=== PATIENT | male | born 1950 | race Caucasian/White ===

== ENCOUNTER → 2016-11-01 | Outpatient (REF) | payer MEDICARE, OTHER ==
[~2016-11-01] MED LIST: /WARF25TA OR; ACET65TA OR; AMOX500C PO; ASPI1TAB PO; ATOR1TAB21 PO; GEMF600T PO; INDA125TA PO; Ibuprofen PO; JANU50TA8 PO; Janumet PO; LEVI20TA PO; Lisinopril/HCTZ PO; OCEAN; PERC5TAB8 OR; SILD1TAB8 PO; TELM1TAB2 PO; VYTORIN PO
[2016-11-01 12:45] LABS: ALBUMIN 3.9 GM/DL (3.2-5.2); ALBUMIN/GLOBULIN RATIO 1.44 (1.00-1.93); ALKALINE PHOSPHATASE 67 U/L (45-117); ALT/SGPT 23 U/L (12-78); ANION GAP 10 MEQ/L (8-16); AST/SGOT 15 U/L (15-37); BILIRUBIN,TOTAL 0.7 MG/DL (0.2-1.0); BLOOD UREA NITROGEN 17 MG/DL (7-18); CALCIUM LEVEL 8.6 MG/DL (8.8-10.2); CARBON DIOXIDE LEVEL 30 MEQ/L (21-32); CHLORIDE LEVEL 99 MEQ/L (98-107); CHOLESTEROL LEVEL 170 MG/DL (<200); GLOMERULAR FILTRATION RATE > 60.0 (>49); GLUCOSE, FASTING 147 MG/DL (80-110); POTASSIUM SERUM 3.8 MEQ/L (3.5-5.1); SODIUM LEVEL 139 MEQ/L (136-145); TOTAL PROTEIN 6.6 GM/DL (6.4-8.2); TRIGLYCERIDES LEVEL 236 MG/DL (<150)
== END ==
LOC: M LABDRAW1 11:47
PROVIDERS: ATTEND Physician Assistant
DX: E78.5 Hyperlipidemia, unspecified (principal); E11.9 Type 2 diabetes mellitus without complications; Z12.5 Encounter for screening for malignant neoplasm of prostate; I10 Essential (primary) hypertension
CPT/HCPCS: 36415; 80053; 80061; 83036; G0103

== ENCOUNTER 2016-12-20 11:50 | Emergency (ER) | payer MEDICARE, OTHER ==
[~2016-12-20] VITALS: Ht 177.8 cm; Wt 127.0 kg
[2016-12-20] MEDS ORDERED: ATOR1TAB18 PO (12:07)
[2016-12-20] MEDS ORDERED: KETOROLAC 30 MG/ML VIAL (J1885) IV ONE (13:15)
[2016-12-20] MEDS ORDERED: NS 500 ML IV ONE (13:15)
[2016-12-20] MEDS ORDERED: GASTROGRAFIN SOLUTION 30ML (Q9963) As Ordered ONE (13:19)
[2016-12-20] MEDS ORDERED: GASTROGRAFIN SOLUTION 30ML (Q9963) PO ONE (13:40)
[2016-12-20 14:06] LABS: BASO % 0.2 % (0.0-1.0); EOS % 0.4 % (0.0-3.0); LARGE UNSTAINED CELL # 0.1 K/mm3 (0.0-0.4); LYMPH # 1.9 K/mm3 (1.5-4.5); LYMPH % 13.3 % (24.0-44.0); MEAN CORPUSCULAR HEMOGLOBIN 29.9 pg (27.0-33.0); MEAN CORPUSCULAR HGB CONC 34.5 g/dl (32.0-36.5); MEAN CORPUSCULAR VOLUME 86.7 fl (80.0-96.0); MONO # 0.7 K/mm3 (0.0-0.8); MONO % 5.7 % (0.0-5.0); NEUTROPHILS # 10.2 K/mm3 (1.8-7.7); NEUTROPHILS % 79.3 % (36.0-66.0); PLATELET COUNT, AUTOMATED 260 k/mm3 (150-450); RED CELL DISTRIBUTION WIDTH 12.3 % (11.5-14.5); WHITE BLOOD COUNT 12.9 K/mm3 (4.0-10.0)
[2016-12-20 14:08] LABS: ALBUMIN 4.2 GM/DL (3.2-5.2); ALKALINE PHOSPHATASE 76 U/L (45-117); ALT/SGPT 24 U/L (12-78); AMYLASE 72 U/L (25-115); ANION GAP 12 MEQ/L (8-16); AST/SGOT 24 U/L (15-37); BILIRUBIN,DIRECT 0.1 MG/DL (0.0-0.2); BILIRUBIN,TOTAL 0.8 MG/DL (0.2-1.0); BLOOD UREA NITROGEN 22 MG/DL (7-18); CALCIUM LEVEL 9.1 MG/DL (8.8-10.2); CARBON DIOXIDE LEVEL 23 MEQ/L (21-32); CHLORIDE LEVEL 100 MEQ/L (98-107); CREATININE FOR GFR 1.21 MG/DL (0.70-1.30); GLOMERULAR FILTRATION RATE > 60.0 (>49); GLUCOSE, FASTING 183 MG/DL (80-110); POTASSIUM SERUM 3.8 MEQ/L (3.5-5.1); SODIUM LEVEL 135 MEQ/L (136-145); TOTAL PROTEIN 7.7 GM/DL (6.4-8.2)
[2016-12-20] MEDS ORDERED: ISOVUE-370 76% 100ML VIAL (Q9967) As Ordered ONE (15:11)
--- NOTE | 2016-12-20 16:02 | REP ---
CT of the abdomen pelvis with with IV contrast, without bowel contrast: There are no comparisons. The visualized lung ortiz demonstrate a 7 mm noncalcified lung nodule in the left lower lobe on image 21. Follow up of this nodule is recommended. The hepatic parenchyma, gallbladder, pancreas and spleen are unremarkable. The adrenals. Are unremarkable. There is moderate left hydronephrosis. There is a 8 mm calcification in the mid left ureter at the L4-L5 disc space level. There are no left renal calculi. No bladder calculi. There are no right renal calculi. There is no right hydronephrosis. There is no right ureteral calculus. There is no bowel distension. Mesentery is unremarkable. The appendix has a normal appearance. Pelvis: The bladder is unremarkable. There are prostatic list. There is no ascites or adenopathy. There are occasional diverticula in the descending colon without diverticulitis. Impression: Left ureteral calculus at the L4-5 level. The left hydronephrosis. There is a 7 mm left lower lobe lung nodule. Follow-up is recommended. CT of the chest is recommended to determine if there are any of the lung nodules. Half Signed by Mike Fletcher MD 12/20/2016 03:53 P
[2016-12-20] MEDS ORDERED: CIPR500T89 PO (16:15)
[2016-12-20] MEDS ORDERED: FLOM5CAP PO (16:15)
[2016-12-20] MEDS ORDERED: ACET30TAB PO (16:15)
[2016-12-20 16:22] VITALS: BP 189/108
== END 2016-12-20 16:31 | disposition home or self-care (01) ==
LOC: M ED 13:41
DX: N21.1 Calculus in urethra (principal); N13.30 Unspecified hydronephrosis; R10.9 Unspecified abdominal pain; E11.9 Type 2 diabetes mellitus without complications; Z95.2 Presence of prosthetic heart valve
CPT/HCPCS: 74177; 80048; 80076; 81001; 82150; 83690; 85025; 86140; 96374; 99283; J1885; Q9963; Q9967

== ENCOUNTER 2016-12-22 07:10 | Day surgery (SDC) | payer MEDICARE, OTHER ==
[~2016-12-22] VITALS: Ht 177.8 cm; Wt 132.1 kg
[~2016-12-22 07:10] MED LIST changes: +ACET30TAB PO; +ATOR1TAB18 PO; +CIPR500T89 PO; +FLOM5CAP PO
[2016-12-22] MEDS ORDERED: [UNRECOGNIZED DRUG - OTHER] (07:37)
[2016-12-22] MEDS ORDERED: NS 1,000 ML IV ONE (07:45)
[2016-12-22] MEDS ORDERED: KETOROLAC 30 MG/ML VIAL (J1885) IV ONE (07:45)
[2016-12-22 08:27] LABS: BASO % 0.3 % (0.0-1.0); EOS # 0.2 K/mm3 (0.0-0.50); EOS % 2.2 % (0.0-3.0); LARGE UNSTAINED CELL # 0.1 K/mm3 (0.0-0.4); LARGE UNSTAINED CELL % 1.2 % (0.0-4.0); LYMPH # 1.2 K/mm3 (1.5-4.5); LYMPH % 13.6 % (24.0-44.0); MEAN CORPUSCULAR HGB CONC 34.6 g/dl (32.0-36.5); MEAN CORPUSCULAR VOLUME 86.7 fl (80.0-96.0); MONO # 0.5 K/mm3 (0.0-0.8); MONO % 6.5 % (0.0-5.0); NEUTROPHILS # 6.1 K/mm3 (1.8-7.7); NEUTROPHILS % 76.2 % (36.0-66.0); PLATELET COUNT, AUTOMATED 234 k/mm3 (150-450); RED CELL DISTRIBUTION WIDTH 12.3 % (11.5-14.5)
[2016-12-22 08:31] LABS: ANION GAP 10 MEQ/L (8-16); BLOOD UREA NITROGEN 18 MG/DL (7-18); CALCIUM LEVEL 8.5 MG/DL (8.8-10.2); CARBON DIOXIDE LEVEL 26 MEQ/L (21-32); CHLORIDE LEVEL 104 MEQ/L (98-107); CREATININE FOR GFR 1.09 MG/DL (0.70-1.30); GLOMERULAR FILTRATION RATE > 60.0 (>49); GLUCOSE, FASTING 226 MG/DL (80-110); POTASSIUM SERUM 3.8 MEQ/L (3.5-5.1); SODIUM LEVEL 140 MEQ/L (136-145)
[2016-12-22] MEDS ORDERED: dexameTHASONE 4 MG/ML 1ML VIAL (J1100) As Ordered ONE (10:54)
[2016-12-22] MEDS ORDERED: LIDOCAINE 2% INJ 100 MG/5 ML SDV (FOR ANES.) As Ordered ONE (10:54)
[2016-12-22] MEDS ORDERED: ROCURONIUM BROMIDE 50 MG/5 ML VIAL As Ordered ONE (10:54)
[2016-12-22] MEDS ORDERED: PROPOFOL 200 MG/20 ML VIAL As Ordered ONE (10:54)
[2016-12-22] MEDS ORDERED: fentaNYL 100 MCG/2 ML INJECTION (J3010) As Ordered ONE (10:57)
[2016-12-22] MEDS ORDERED: MIDAZOLAM INJ 2 MG/2 ML VIAL (J2250) As Ordered ONE (10:58)
[2016-12-22] MEDS ORDERED: ACET30TAB PO (11:06)
[2016-12-22] MEDS ORDERED: ATOR1TAB18 PO (11:06)
[2016-12-22] MEDS ORDERED: LevoFLOXacin(LEVAQUIN)500 MG/100 ML BAG (J1956) As Ordered ONE (11:52)
[2016-12-22] MEDS ORDERED: CONRAY-60 60% 50ML VIAL (Q9961) As Ordered ONE (12:11)
[2016-12-22] MEDS ORDERED: PHENYLephrine HCL 500 MCG/5 ML (100MCG/ML) SYRINGE (J2370) As Ordered ONE (12:23)
[2016-12-22] MEDS ORDERED: ONDANSETRON 4MG/2ML VIAL (J2405) As Ordered ONE (12:37)
[2016-12-22] MEDS ORDERED: GLYCOPYRROLATE INJ 0.2 MG/ML 2 ML VIAL As Ordered ONE (12:37)
[2016-12-22] MEDS ORDERED: NEOSTIGMINE 1MG/ML 5 ML SYRINGE (J2710) As Ordered ONE (12:37)
[2016-12-22] MEDS ORDERED: KETOROLAC 60 MG/2 ML VIAL (J1885) As Ordered ONE (13:05)
[2016-12-22] MEDS ORDERED: NORC7.5T PO (13:34)
--- NOTE | 2016-12-22 13:44 | REP ---
Left-sided double J stent catheter placement. Nine fluoroscopic images were obtained. Fluoroscopic time 1 minute 35 seconds. There is a coiled proximal portion of the double J stent seen in the region of the renal pelvis and the distal portion is in the urinary bladder. Signed by Bruce Leiva DO 12/22/2016 02:09 P
--- NOTE | 2016-12-22 13:54 | ECGEPIP ---
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 Electronically Signed On 12-22-2016 13:54:04 EDT by Jonathan Sykes
[2016-12-22] MEDS ORDERED: ONDANSETRON 4MG/2ML VIAL (J2405) IV PRN (14:00)
[2016-12-22] MEDS ORDERED: PERCOCET 5MG/325MG TAB PO PRN (14:00)
[2016-12-22] MEDS ORDERED: LR 1,000 ML IV SCH (14:00)
[2016-12-22] MEDS ORDERED: fentaNYL 100 MCG/2 ML INJECTION (J3010) IV PRN (14:00)
[2016-12-22 14:15] VITALS: BP 189/110
[2016-12-22 14:30] VITALS: BP 168/80
[2016-12-22 14:45] VITALS: BP 165/85
[2016-12-22 15:15] VITALS: BP 170/85
[2016-12-22 16:15] VITALS: BP 165/90
[2016-12-22 17:15] VITALS: BP 165/85
--- NOTE | 2016-12-22 19:04 | HPE ---
DATE OF ADMISSION: 12/22/2016 CHIEF COMPLAINT: 8 mm mid left ureteral stone with multiple emergency room (ER) visits. HISTORY OF PRESENT ILLNESS: This is a very pleasant 66-year-old gentleman who came into the emergency room earlier this week with left-sided abdominal, flank and lower quadrant pain. He was found to have an 8 mm mid-ureteral stone, but his pain was controlled so he was discharged on pain medicines, antibiotics and Flomax. He said he did fine for 24 hours after that, but then yesterday his pain became significantly worse and this morning he felt he needed to come back into the emergency room. Has not had anything to eat since last night. His pain still comes and goes, but it is fairly severe and it appears to be in the same place. He denies any fever or chills or nausea or vomiting. This is his first stone. He has never had any other ones in the past, and there is no family history of stones. PAST MEDICAL HISTORY: Significant for hypertension, type 2 diabetes. PAST SURGICAL HISTORY: 1. Bilateral knee replacements. 2. Aortic valve replacement with a pig valve. 3. Right hand surgery. ALLERGIES: None. MEDICATIONS: Are all listed on chart. He is not on any blood thinners except for aspirin. SOCIAL HISTORY: He denies any tobacco or illicit drugs. He only rarely drinks alcohol. FAMILY HISTORY: Noncontributory. There is no history of kidney disease or kidney stones. REVIEW OF SYSTEMS: Positive for the left-sided flank side and left lower quadrant pain as per history of present illness (HPI). He denies any chest pain or shortness of breath, any hematuria, hematochezia, hemoptysis, bloody emesis, headache, seizures, stroke, numbness or weakness of extremities, nausea, vomiting, diarrhea or constipation, fever or chills. PHYSICAL EXAMINATION: GENERAL: He is a very pleasant 66-year-old gentleman, well developed, well nourished. He is in no acute distress. He is alert and oriented. VITAL SIGNS: He is afebrile, vital signs stable. HEENT: Normocephalic, atraumatic. NECK: Supple without adenopathy or thyromegaly. CARDIOVASCULAR: Regular rate and rhythm without rubs, gallops, murmurs. LUNGS: Lung ortiz are clear to auscultation bilaterally. ABDOMEN: Protuberant but soft. No evidence of hepatosplenomegaly or palpable masses. He is without any costovertebral angle tenderness at the moment. EXTREMITIES: Do show 1+ pitting edema of his ankles symmetrically. GENITOURINARY (): Exam reveals normal male genitalia with bilateral descended testicles. LABORATORY DATA: White blood cell count is 8.0, hemoglobin 16.1, hematocrit 46.6, platelets are 234. Creatinine is 0.19. Urinalysis is clear and yellow. It is negative for nitrites and leukocyte esterase. It has 2+ blood, 3 white cells, 7 red cells, and 1+ bacteria. IMAGING: CT scan done on first admission showed an 8 mm mid left ureteral stone with hydronephrosis and hydroureter. ASSESSMENT: An 8 mm mid left ureteral stone failed to progress with conservative management. PLAN: He is nothing by mouth. We will go ahead and take him to the operating room and plan on cystoscopy, left retrograde left ureteroscopy. He will likely need laser ablation of the stone, stone basket manipulation of the fragments, and left stent placement. The patient understands the risks and benefits, and is likely to be able to go home after the surgery, and would like to proceed.
--- NOTE | 2016-12-24 14:07 | RO ---
DATE OF PROCEDURE: 12/22/2016 PREOPERATIVE DIAGNOSIS: 8 mm impacted ureteral stone in the proximal to mid ureter on the left. POSTOPERATIVE DIAGNOSIS: 8 mm impacted ureteral stone in the proximal to mid ureter on the left. PROCEDURE: Cystoscopy with left retrograde pyelography, left ureteroscopy, dilatation of ureteral stricture times two - one at the distal ureter and one at the distal one third of the ureter, laser ablation of 8 mm proximal to mid ureter stone and left stone basket extraction of fragments, left pyeloscopy, stone basket manipulation of fragments within the renal calyces, and left ureteral stent placement. SURGEON: Dr. Farhana Betancur PRESCHOOL TEACHER AIDE: ANESTHESIA: General endotracheal anesthesia. OPERATIVE PROCEDURE: Proper patient was identified. Informed consent was obtained. The risks and benefits were explained. The patient was then taken to the operative suite and laid in supine position. General endotracheal anesthesia was administered. Once anesthesia was obtained, he was prepped and draped in the usual sterile fashion in the dorsal lithotomy position. We initiated the procedure by advancing a #22 [place] cystoscope with 30 degrees lens under direct vision into the urethra. There was no abnormalities noted with the pendulous bulbous urethra. He had moderate prostatic hypertrophy. We then entered the bladder. There was mild trabeculations noted. Both ureteral orifices were normal position and orientation. There were no tumors, diverticulums, stones, or abnormal areas of mucosa that were appreciated. We cannulated the left ureteral orifice with the Cone Tip catheter and performed a gentle retrograde pyelogram. We could see contrast efflux in the distal and mid ureter without any evidence of abnormality and then up into the renal pelvis and just below the ureteropelvic junction (UPJ) we could visualize a filling defect. We then passed a wire up into the renal pelvis and then we used a rigid scope. We were unable to enter the ureteral orifice so we used a 35 cm ureteral access sheath to dilate the distal ureter, which then allowed us entry into the lower ureter, but then we ran into another stricture at the junction of the middle third and lower third. We again used the ureteral access sheath to dilate this. We were then able to use the rigid scope to get up to just under the stone where the stone did appear to be impacted. At this point, we felt it would be easier to manipulate with the flexible, so we removed the rigid. I advanced a second wire and advanced the ureteral access sheath and then used this to guide the flexible ureteroscope up to the level of the stone, which we then encountered impacted in the ureter. We used a 200 laser fiber to fragment it into several smaller pieces. We then used a ZeroTip Nitinol basket to extract several of the pieces. As we did so, a few of the pieces migrated into the upper pole of the kidney, so we then advanced the flexible scope up into the kidney and fully explored all of the calyces in the renal pelvis. The few fragments that had migrated all migrated to the upper pole calyx where they were encountered with the ZeroTip Nitinol basket and removed intact. We then visualized the ureter as we removed the ureteroscope and ureteral access sheath to see if there was any injury and none was appreciated. We then exchanged for the cystoscope and passed a 5 multi-length stent which were confirmed fluoroscopically in the kidney under direct vision in the bladder. At this point, we drained the bladder and terminated the procedure. The patient was awakened and taken to the postoperative anesthesia care in stable condition. DISPOSITION: He will followup with the local urologist this week for stent removal.
== END 2016-12-22 17:47 | disposition home or self-care (01) ==
LOC: M ED 09:17 → M SDC 11:08 → M MSPAV 14:10 → M SDC 17:47
PROVIDERS: ATTEND Urology
DX: N20.1 Calculus of ureter (principal); Z95.2 Presence of prosthetic heart valve; Z79.82 Long term (current) use of aspirin
CPT/HCPCS: 52341; 52356; 74420; 80048; 81001; 82360; 85025; 88300; 93005; 96374; 99284; C1726; C1894; C2617; J1100; J1885; J1956; J2250; J2370; J2405; J2710; J3010; Q9961

== ENCOUNTER 2016-12-31 07:00 | Emergency (ER) | payer MEDICARE, OTHER ==
[~2016-12-31] VITALS: Ht 177.8 cm; Wt 122.5 kg
[~2016-12-31 07:00] MED LIST changes: +NORC7.5T PO; +[UNRECOGNIZED DRUG - OTHER]
[2016-12-31] MEDS ORDERED: CIPR500T89 PO (08:10)
[2016-12-31 08:21] VITALS: BP 133/99
== END 2016-12-31 08:22 | disposition home or self-care (01) ==
LOC: M ED 07:50
DX: N39.0 Urinary tract infection, site not specified (principal); R31.9 Hematuria, unspecified; Z87.442 Personal history of urinary calculi; E11.9 Type 2 diabetes mellitus without complications; E78.00 Pure hypercholesterolemia, unspecified; Z87.891 Personal history of nicotine dependence; Z95.2 Presence of prosthetic heart valve; Z79.82 Long term (current) use of aspirin; Z79.899 Other long term (current) drug therapy

== ENCOUNTER → 2017-01-25 | Outpatient (REF) | payer MEDICARE, OTHER ==
[2017-01-25 13:13] LABS: ALBUMIN 3.5 GM/DL (3.2-5.2); ALBUMIN/GLOBULIN RATIO 1.13 (1.00-1.93); ALKALINE PHOSPHATASE 63 U/L (45-117); ALT/SGPT 23 U/L (12-78); ANION GAP 9 MEQ/L (8-16); AST/SGOT 19 U/L (15-37); BILIRUBIN,TOTAL 0.7 MG/DL (0.2-1.0); BLOOD UREA NITROGEN 17 MG/DL (7-18); CALCIUM LEVEL 8.5 MG/DL (8.8-10.2); CARBON DIOXIDE LEVEL 28 MEQ/L (21-32); CHLORIDE LEVEL 102 MEQ/L (98-107); CREATININE FOR GFR 1.02 MG/DL (0.70-1.30); GLOMERULAR FILTRATION RATE > 60.0 (>49); GLUCOSE, FASTING 167 MG/DL (80-110); POTASSIUM SERUM 4.3 MEQ/L (3.5-5.1); SODIUM LEVEL 139 MEQ/L (136-145); TOTAL PROTEIN 6.6 GM/DL (6.4-8.2)
== END ==
LOC: M LABDRAW1 11:54
PROVIDERS: ATTEND Physician Assistant
DX: E11.9 Type 2 diabetes mellitus without complications (principal)

== ENCOUNTER → 2017-05-06 | Outpatient (REF) | payer MEDICARE, OTHER ==
[~2017-05-06] MED LIST changes: -ATOR1TAB18 PO; +ATOR80TA59 PO; +CIPR-249 PO; -CIPR500T89 PO; -NORC7.5T PO; +NORC7.5T35 PO
[2017-05-06 15:16] LABS: ALBUMIN 3.5 GM/DL (3.2-5.2); ALBUMIN/GLOBULIN RATIO 1.13 (1.00-1.93); ALKALINE PHOSPHATASE 58 U/L (45-117); ALT/SGPT 23 U/L (12-78); ANION GAP 9 MEQ/L (8-16); AST/SGOT 12 U/L (15-37); BILIRUBIN,TOTAL 0.6 MG/DL (0.2-1.0); BLOOD UREA NITROGEN 13 MG/DL (7-18); CALCIUM LEVEL 8.2 MG/DL (8.8-10.2); CARBON DIOXIDE LEVEL 29 MEQ/L (21-32); CHLORIDE LEVEL 102 MEQ/L (98-107); CREATININE FOR GFR 0.89 MG/DL (0.70-1.30); GLOMERULAR FILTRATION RATE > 60.0 (>49); GLUCOSE, FASTING 186 MG/DL (80-110); POTASSIUM SERUM 4.1 MEQ/L (3.5-5.1); SODIUM LEVEL 140 MEQ/L (136-145); TOTAL PROTEIN 6.6 GM/DL (6.4-8.2)
== END ==
LOC: M LABDRAW1 13:10
PROVIDERS: ATTEND Physician Assistant
DX: E11.9 Type 2 diabetes mellitus without complications (principal)

== ENCOUNTER 2017-06-05 10:42 | Emergency (ER) | payer MEDICARE, OTHER ==
[~2017-06-05] VITALS: Ht 180.3 cm; Wt 129.9 kg
[2017-06-05] MEDS ORDERED: NS 500 ML IV ONE ×2 (11:30→14:45)
--- NOTE | 2017-06-05 12:32 | REP ---
CT Head without contrast HISTORY: Weakness COMPARISON: None An area of decreased attenuation is present in the right thalamus. This represents an old lacunar infarction. Areas of decreased attenuation are present in the periventricular and subcortical white matter. This represents small-vessel ischemic disease. There is no intraparenchymal hemorrhage, acute infarct, mass or midline shift. The ventricular system and cortical sulci are dilated consistent with minimal volume loss. There is no extra cerebral collection. There is no fracture. The visualized sinuses are clear. IMPRESSION: 1. 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 2. Small vessel ischemic disease. 3. Minimal volume loss. Signed by Carlo Bal MD 06/05/2017 12:23 P
[2017-06-05 12:33] LABS: BASO % 0.4 % (0.0-1.0); EOS % 0.3 % (0.0-3.0); IMMATURE GRANULOCYTE % 0.3 % (0-0); LYMPH # 1.4 10^3/uL (1.5-4.5); LYMPH % 18.2 % (24.0-44.0); MEAN CORPUSCULAR HEMOGLOBIN 30.9 pg (27.0-33.0); MEAN CORPUSCULAR HGB CONC 35.2 g/dl (32.0-36.5); MEAN CORPUSCULAR VOLUME 87.5 fl (80.0-96.0); MONO # 0.5 10^3/uL (0.0-0.8); NEUTROPHILS # 5.8 10^3/uL (1.8-7.7); NEUTROPHILS % 74.8 % (36.0-66.0); PLATELET COUNT, AUTOMATED 179 10^3/uL (150-450); RED CELL DISTRIBUTION WIDTH 12.7 % (11.5-14.5); WHITE BLOOD COUNT 7.7 10^3/uL (4.0-10.0)
[2017-06-05 12:47] LABS: INR 0.98
[2017-06-05 13:00] LABS: ALBUMIN 3.2 GM/DL (3.2-5.2); ALBUMIN/GLOBULIN RATIO 0.97 (1.00-1.93); ALKALINE PHOSPHATASE 53 U/L (45-117); ALT/SGPT 24 U/L (12-78); ANION GAP 8 MEQ/L (8-16); AST/SGOT 13 U/L (15-37); BILIRUBIN,DIRECT 0.2 MG/DL (0.0-0.2); BILIRUBIN,TOTAL 0.8 MG/DL (0.2-1.0); BLOOD UREA NITROGEN 16 MG/DL (7-18); CALCIUM LEVEL 8.4 MG/DL (8.8-10.2); CARBON DIOXIDE LEVEL 28 MEQ/L (21-32); CHLORIDE LEVEL 103 MEQ/L (98-107); CREATININE FOR GFR 0.87 MG/DL (0.70-1.30); FREE T4 0.97 NG/DL (0.76-1.46); GLOMERULAR FILTRATION RATE > 60.0 (>49); GLUCOSE, FASTING 158 MG/DL (80-110); POTASSIUM SERUM 3.9 MEQ/L (3.5-5.1); SODIUM LEVEL 139 MEQ/L (136-145); TOTAL PROTEIN 6.5 GM/DL (6.4-8.2)
--- NOTE | 2017-06-05 13:32 | REP ---
CHEST, TWO VIEWS: COMPARISON: 07/22/2015. There is no evidence of acute infiltrate. No pleural effusion is seen. The heart is normal in size. The mediastinal silhouette is unremarkable. The visualized osseous structures are intact. There is calcification and tortuosity of the thoracic aorta. There is a prosthetic heart valve. There are mild degenerative changes of the spine. IMPRESSION: No acute pulmonary disease. Signed by Mike Lopez MD 06/05/2017 05:06 P
[2017-06-05 15:57] VITALS: BP 119/63
--- NOTE | 2017-06-06 20:36 | ECGEPIP ---
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
== END 2017-06-05 15:59 | disposition home or self-care (01) ==
LOC: M ED 10:42
DX: R42 Dizziness and giddiness (principal); I51.9 Heart disease, unspecified; E11.9 Type 2 diabetes mellitus without complications; I10 Essential (primary) hypertension; Z95.2 Presence of prosthetic heart valve; Z87.442 Personal history of urinary calculi; Z87.891 Personal history of nicotine dependence; Z86.73 Personal history of transient ischemic attack (TIA), and cerebral infarction without residual deficits; I67.82 Cerebral ischemia; Z79.82 Long term (current) use of aspirin; Z79.84 Long term (current) use of oral hypoglycemic drugs; Z79.899 Other long term (current) drug therapy

== ENCOUNTER → 2017-07-30 | Outpatient (CLI) | payer MEDICARE, OTHER ==
[2017-07-30 10:38] LABS: ALBUMIN 3.6 GM/DL (3.2-5.2); ALKALINE PHOSPHATASE 57 U/L (45-117); ALT/SGPT 24 U/L (12-78); ANION GAP 9 MEQ/L (8-16); AST/SGOT 13 U/L (7-37); BILIRUBIN,TOTAL 0.9 MG/DL (0.2-1.0); BLOOD UREA NITROGEN 13 MG/DL (7-18); CALCIUM LEVEL 8.9 MG/DL (8.8-10.2); CARBON DIOXIDE LEVEL 26 MEQ/L (21-32); CHLORIDE LEVEL 104 MEQ/L (98-107); GLOMERULAR FILTRATION RATE > 60.0 (>49); GLUCOSE, FASTING 177 MG/DL (80-110); POTASSIUM SERUM 3.9 MEQ/L (3.5-5.1); SODIUM LEVEL 139 MEQ/L (136-145); TOTAL PROTEIN 6.6 GM/DL (6.4-8.2)
== END ==
LOC: M LABDRAW1 08:37
PROVIDERS: ATTEND Physician Assistant
DX: E11.9 Type 2 diabetes mellitus without complications (principal)

== ENCOUNTER 2017-11-06 16:09 | Emergency (ER) | payer MEDICARE, OTHER ==
[2017-11-06] MEDS: ONDANSETRON 4MG/2ML VIAL (J2405) IV (17:15)
[2017-11-06] MEDS: MECLIZINE 25 MG TABLET PO (17:15)
[2017-11-06] MEDS: NS 1,000 ML IV (17:15)
[2017-11-06 17:28] LABS: BASO % 0.2 % (0.0-1.0); HEMATOCRIT 48.2 % (42.0-52.0); HEMOGLOBIN 17.3 g/dl (14.0-18.0); IMMATURE GRANULOCYTE % 0.4 % (0-3.0); LYMPH # 0.9 10^3/uL (1.5-4.5); LYMPH % 5.6 % (24.0-44.0); MEAN CORPUSCULAR HEMOGLOBIN 31.1 pg (27.0-33.0); MEAN CORPUSCULAR HGB CONC 35.9 g/dl (32.0-36.5); MEAN CORPUSCULAR VOLUME 86.7 fl (80.0-96.0); MONO # 0.8 10^3/uL (0.0-0.8); MONO % 5.1 % (0.0-5.0); NEUTROPHILS # 14.7 10^3/uL (1.8-7.7); NEUTROPHILS % 88.7 % (36.0-66.0); PLATELET COUNT, AUTOMATED 175 10^3/uL (150-450); RED BLOOD COUNT 5.56 10^6/uL (4.30-6.10); RED CELL DISTRIBUTION WIDTH 11.9 % (11.5-14.5); WHITE BLOOD COUNT 16.5 10^3/uL (4.0-10.0)
[2017-11-06 17:32] LABS: ACETAMINOPHEN LEVEL < 2.0 UG/ML (10.0-30.0); ALBUMIN 3.8 GM/DL (3.2-5.2); ALBUMIN/GLOBULIN RATIO 1.15 (1.00-1.93); ALKALINE PHOSPHATASE 63 U/L (45-117); ALT/SGPT 23 U/L (12-78); ANION GAP 15 MEQ/L (8-16); AST/SGOT 18 U/L (7-37); BILIRUBIN,DIRECT 0.3 MG/DL (0.0-0.2); BILIRUBIN,TOTAL 1.4 MG/DL (0.2-1.0); BLOOD UREA NITROGEN 19 MG/DL (7-18); CALCIUM LEVEL 8.8 MG/DL (8.8-10.2); CARBON DIOXIDE LEVEL 23 MEQ/L (21-32); CHLORIDE LEVEL 97 MEQ/L (98-107); CPK CREATINE PHOSPHOKINASE 94 U/L (39-308); CREATININE FOR GFR 1.24 MG/DL (0.70-1.30); ETHYL ALCOHOL (ETHANOL) < 0.003 % (0.000-0.010); GLOMERULAR FILTRATION RATE > 60.0 (>49); GLUCOSE, FASTING 311 MG/DL (70-100); POTASSIUM SERUM 3.5 MEQ/L (3.5-5.1); SALICYLATE LEVEL < 1.7 MG/DL (5.0-30.0); SODIUM LEVEL 135 MEQ/L (136-145); TOTAL PROTEIN 7.1 GM/DL (6.4-8.2); TROPONIN I 0.02 NG/ML (< 0.10)
[2017-11-06 17:38] LABS: MB/CK RELATIVE INDEX 1.06 (< OR =4); THYROID STIMULATING HORMONE 0.511 uIU/ML (0.358-3.740)
[2017-11-06] MEDS: HumuLIN R (REGULAR) INSULIN (NovoLIN R) **100U/ML** PER UNIT IV (18:15)
[2017-11-06] MEDS: ACETAMINOPHEN 325 MG TAB PO (19:00)
[2017-11-06 19:11] LABS: BEDSIDE GLUCOSE 371 MG/DL (80-115)
[2017-11-06 19:17] LABS: VENOUS BASE EXCESS 0.7 (-2.0-2.0); VENOUS HCO3 25.2 MEQ/L (23.0-27.0); VENOUS O2 SATURATION 79.8 % (60.0-80.0); VENOUS PARTIAL PRESSURE CO2 40.1 mmHg (38.0-50.0); VENOUS PH 7.416 UNITS (7.330-7.430); VENOUS STANDARD HCO3 24.6 MEQ/L; VENOUS TOTAL CO2 26.4 MEQ/L (24.0-28.0)
[2017-11-06 19:41] LABS: INFLUENZA A AMPLIFICATION NEGATIVE (NEGATIVE); INFLUENZA B AMPLIFICATION NEGATIVE (NEGATIVE)
[2017-11-06 19:55] LABS: BEDSIDE GLUCOSE 203 MG/DL (80-115)
== END 2017-11-06 20:36 | disposition home or self-care (01) ==
LOC: M ED 16:09
DX: A08.4 Viral intestinal infection, unspecified (principal); I10 Essential (primary) hypertension; E78.5 Hyperlipidemia, unspecified; E11.9 Type 2 diabetes mellitus without complications; Z87.891 Personal history of nicotine dependence; Z79.899 Other long term (current) drug therapy; Z79.84 Long term (current) use of oral hypoglycemic drugs; Z79.82 Long term (current) use of aspirin
CPT/HCPCS: J2405

== ENCOUNTER 2017-11-11 04:20 | Inpatient (IN) | payer MEDICARE, OTHER ==
[2017-11-11 05:14] LABS: HEMATOCRIT 45.4 % (42.0-52.0); HEMOGLOBIN 15.9 g/dl (14.0-18.0); MEAN CORPUSCULAR HEMOGLOBIN 30.3 pg (27.0-33.0); MEAN CORPUSCULAR VOLUME 86.5 fl (80.0-96.0); RED BLOOD COUNT 5.25 10^6/uL (4.30-6.10); RED CELL DISTRIBUTION WIDTH 11.9 % (11.5-14.5); WHITE BLOOD COUNT 9.3 10^3/uL (4.0-10.0)
[2017-11-11 05:41] LABS: ADD MANUAL DIFFER YES; DIFF SLIDE NUMBER 95; IMMATURE PLATELET FRACTION % 5.8 % (0.0-10.9); PLATELET COUNT, AUTOMATED 89 10^3/uL (150-450); POSITIVE MORPH POS FLAG
[2017-11-11 05:42] LABS: LACTIC ACID SEPSIS PROTOCOL 1.6 MMOL/L (0.4-2.0)
[2017-11-11] MEDS: NS 500 ML IV (05:43)
[2017-11-11 05:46] LABS: ATYPICAL LYMPH 3 % (0-5); LYMPHOCYTES 10 % (16-52); MONOCYTES 6 % (0-8); NEUTROPHILS 81 % (35-75); PLATELET ESTIMATE DECREASED (NORMAL)
[2017-11-11] MEDS: ACETAMINOPHEN 325 MG/10.15 ML UDC PO (05:46)
[2017-11-11 05:49] LABS: ALBUMIN 2.6 GM/DL (3.2-5.2); ALBUMIN/GLOBULIN RATIO 0.84 (1.00-1.93); ALKALINE PHOSPHATASE 58 U/L (45-117); ALT/SGPT 40 U/L (12-78); ANION GAP 14 MEQ/L (8-16); AST/SGOT 38 U/L (7-37); BILIRUBIN,DIRECT 0.3 MG/DL (0.0-0.2); BLOOD UREA NITROGEN 20 MG/DL (7-18); CALCIUM LEVEL 7.7 MG/DL (8.8-10.2); CARBON DIOXIDE LEVEL 22 MEQ/L (21-32); CHLORIDE LEVEL 98 MEQ/L (98-107); CREATININE FOR GFR 0.87 MG/DL (0.70-1.30); GLOMERULAR FILTRATION RATE > 60.0 (>49); GLUCOSE, FASTING 270 MG/DL (70-100); POTASSIUM SERUM 3.2 MEQ/L (3.5-5.1); SODIUM LEVEL 134 MEQ/L (136-145); T UPTAKE 32 % (33-40); THYROXINE (T4) 9.5 UG/DL (4.5-12.0); TOTAL PROTEIN 5.7 GM/DL (6.4-8.2)
[2017-11-11 05:50] LABS: CSF RBC < 2 10^3/uL (<2)
[2017-11-11 05:51] LABS: APPEARANCE, CSF CLEAR (CLEAR); COLOR, CSF COLORLESS (COLORLESS); CSF TUBE# CELL CNT TUBE 4; CSF WBC 4 /uL (0-10)
[2017-11-11 05:52] LABS: CSF DIFF IF INDICATED? NO (NO); CSF RBC < 2 10^3/uL (<2)
[2017-11-11 05:53] LABS: APPEARANCE, CSF CLEAR (CLEAR); COLOR, CSF COLORLESS (COLORLESS); CSF DIFF IF INDICATED? NO (NO); CSF TUBE# CELL CNT TUBE 3; CSF WBC 3 /uL (0-10)
[2017-11-11 05:56] LABS: CSF TUBE# GLU TUBE 1; CSF TUBE# TP TUBE 1; GLUCOSE CSF 137 MG/DL (40-75); TOTAL PROTEIN,CSF 59.3 MG/DL (15-45)
[2017-11-11 06:23] LABS: APPEARANCE, URINE HAZY (CLEAR); BACTERIA, URINE AUTO NEGATIVE (NEGATIVE); BILIRUBIN, URINE AUTO NEGATIVE (NEGATIVE); BLOOD, URINE BLOOD 2+ (NEGATIVE); COLOR, URINE YELLOW (YELLOW); GLUCOSE, URINE (UA) AUTO 3+ mg/dL (NEGATIVE); GRANULAR CAST, URINE AUTO 6 /LPF; KETONE, URINE AUTO 2+ mg/dL (NEGATIVE); LEUKOCYTE ESTERASE, URINE AUTO NEGATIVE (NEGATIVE); MUCUS, URINE SMALL (NEGATIVE); NITRITE, URINE AUTO NEGATIVE (NEGATIVE); PROTEIN, URINE AUTO NEGATIVE (NEGATIVE); RBC, URINE AUTO 1 /HPF (0-3); SPECIFIC GRAVITY URINE AUTO 1.028 (1.002-1.035); SQUAMOUS EPITHELIAL CELL UR AU 0 /HPF (0-6); WBC, URINE AUTO 4 /HPF (0-3)
[2017-11-11 06:51] LABS: AMPHETAMINES LEVEL URINE NEGATIVE (NEGATIVE); BARBITURATES URINE NEGATIVE (NEGATIVE); BENZODIAZEPINES URINE NEGATIVE (NEGATIVE); CANNABINOIDS URINE NEGATIVE (NEGATIVE); COCAINE METABOLITE URINE NEGATIVE (NEGATIVE); METHADONE URINE NEGATIVE (NEGATIVE); OPIATES URINE NEGATIVE (NEGATIVE); PHENCYCLIDINE URINE NEGATIVE (NEGATIVE)
[2017-11-11] MEDS ORDERED: GLUCAGON FOR INJ 1 MG VIAL (J1610) SC (12:00)
[2017-11-11] MEDS ORDERED: DEXTROSE 50% 50 ML SYRINGE IV (12:00)
[2017-11-11] MEDS ORDERED: GLUCOSE 4 GM CHEW TABLET PO (12:00)
[2017-11-11] MEDS ORDERED: DOCUSATE SODIUM 100 MG CAP PO (12:30)
[2017-11-11] MEDS ORDERED: AMPICILLIN SOD/SULBACTAM SOD 3 GM in D5W MINI-BAG PLUS 100 ML IV ×2 (13:00→18:00)
[2017-11-11] MEDS: KCL 40MEQ in NS 1000ML 1,000 ML IV (13:25)
[2017-11-11] MEDS: HumaLOG INSULIN (NovoLOG) PER UNIT SC ×3 (13:53→20:34)
[2017-11-11] MEDS: LIDOCAINE VISCOUS 2% SOLN 15ML UDC As Ordered (14:20)
[2017-11-11 14:22] LABS: ERYTHROCYTE SEDIMENTATION RATE 44 mm/hr (0-20)
[2017-11-11] MEDS: UNASYN 1.5 GM VIAL As Ordered (15:00)
[2017-11-11] MEDS: GENTAMICIN SULF INJ 80MG/2ML VIAL (J1580) As Ordered (15:09)
[2017-11-11] MEDS: CETACAINE SPRAY 5GM As Ordered (15:12)
[2017-11-11] MEDS ORDERED: PROPOFOL 200 MG/20 ML VIAL As Ordered (15:20)
[2017-11-11] MEDS ORDERED: LIDOCAINE 2% INJ 100 MG/5 ML SDV (FOR ANES.) As Ordered (15:20)
[2017-11-11] MEDS ORDERED: fentaNYL 100 MCG/2 ML INJECTION (J3010) As Ordered (15:20)
[2017-11-11] MEDS ORDERED: fentaNYL 100 MCG/2 ML INJECTION (J3010) IV (16:00)
[2017-11-11] MEDS: LR 1,000 ML IV (16:00)
[2017-11-11] MEDS ORDERED: METOCLOPRAMIDE INJ 10MG/2ML VIAL (J2765) IV (16:00)
[2017-11-11] MEDS ORDERED: ONDANSETRON 4MG/2ML VIAL (J2405) IV (16:00)
[2017-11-11] MEDS ORDERED: GENTAMICIN 120 MG in D5W 50 ML IV (17:00)
[2017-11-11] MEDS: ACETAMINOPHEN TAB 650MG DOSE (2X325MG) PO (17:36)
[2017-11-11 18:16] LABS: HEMOGLOBIN 15.7 g/dl (14.0-18.0); MEAN CORPUSCULAR HEMOGLOBIN 30.5 pg (27.0-33.0); MEAN CORPUSCULAR HGB CONC 35.7 g/dl (32.0-36.5); MEAN CORPUSCULAR VOLUME 85.6 fl (80.0-96.0); RED BLOOD COUNT 5.14 10^6/uL (4.30-6.10); RED CELL DISTRIBUTION WIDTH 11.9 % (11.5-14.5); WHITE BLOOD COUNT 8.3 10^3/uL (4.0-10.0)
[2017-11-11] MEDS: ASPIRIN 81 MG ENTERIC TAB PO (18:21)
[2017-11-11] MEDS: AMPICILLIN SOD/SULBACTAM SOD 3 GM in D5W MINI-BAG PLUS 100 ML IV ×2 (18:21→23:38)
[2017-11-11] MEDS: ENOXAPARIN 40 MG/0.4 ML SYRINGE (J1650) SC (18:21)
[2017-11-11 18:22] LABS: PLATELET COUNT, AUTOMATED 97 10^3/uL (150-450); POS COUNT POS FLAG
[2017-11-11 19:16] LABS: CPK CREATINE PHOSPHOKINASE 134 U/L (39-308); MB/CK RELATIVE INDEX 0.74 (< OR =4); TROPONIN I 0.12 NG/ML (< 0.10)
[2017-11-11] MEDS: VANCOMYCIN HCL 1,000 MG, VIAL MATE ADAPTER 1 EACH in D5W 250 ML IV ×2 (19:36→21:02)
[2017-11-11] MEDS: ATORVASTATIN 20 MG TAB PO (21:02)
[2017-11-12] MEDS: MEROPENEM INJ 1 GM in APPROPRIATE DILUENT 1 EA IV ×2 (00:27→08:23)
[2017-11-12 01:19] LABS: BEDSIDE GLUCOSE 195 MG/DL (80-115)
[2017-11-12 01:19] LABS: BEDSIDE GLUCOSE 235 MG/DL (80-115)
[2017-11-12 01:19] LABS: BEDSIDE GLUCOSE 273 MG/DL (80-115)
[2017-11-12 02:15] LABS: CPK CREATINE PHOSPHOKINASE 86 U/L (39-308); MB/CK RELATIVE INDEX 1.16 (< OR =4); TROPONIN I 0.19 NG/ML (< 0.10)
[2017-11-12] MEDS: GENTAMICIN 120 MG in D5W 50 ML IV (02:59)
[2017-11-12] MEDS: KCL 40MEQ in NS 1000ML 1,000 ML IV (03:43)
[2017-11-12] MEDS: VANCOMYCIN HCL 1,000 MG, VIAL MATE ADAPTER 1 EACH in D5W 250 ML IV (05:03)
[2017-11-12 05:32] LABS: HEMATOCRIT 43.1 % (42.0-52.0); MEAN CORPUSCULAR HEMOGLOBIN 30.2 pg (27.0-33.0); MEAN CORPUSCULAR HGB CONC 34.8 g/dl (32.0-36.5); MEAN CORPUSCULAR VOLUME 86.7 fl (80.0-96.0); PLATELET COUNT, AUTOMATED 109 10^3/uL (150-450); RED BLOOD COUNT 4.97 10^6/uL (4.30-6.10); WHITE BLOOD COUNT 9.4 10^3/uL (4.0-10.0)
[2017-11-12 05:34] LABS: ADD MANUAL DIFFER YES; DIFF SLIDE NUMBER 71; POSITIVE MORPH POS FLAG
[2017-11-12 05:53] LABS: ATYPICAL LYMPH 9 % (0-5); BASOPHILS 1 % (0-4); EOSINOPHILS 1 % (0-5); LYMPHOCYTES 14 % (16-52); MONOCYTES 5 % (0-8); NEUTROPHILS 70 % (35-75)
[2017-11-12 05:54] LABS: PLATELET ESTIMATE DECREASED (NORMAL); TOXIC GRANULATION 1+
[2017-11-12 05:55] LABS: ANION GAP 11 MEQ/L (8-16); BLOOD UREA NITROGEN 14 MG/DL (7-18); CARBON DIOXIDE LEVEL 26 MEQ/L (21-32); CHLORIDE LEVEL 100 MEQ/L (98-107); CPK CREATINE PHOSPHOKINASE 88 U/L (39-308); CREATININE FOR GFR 0.98 MG/DL (0.70-1.30); GLOMERULAR FILTRATION RATE > 60.0 (>49); GLUCOSE, FASTING 207 MG/DL (70-100); MB/CK RELATIVE INDEX 1.13 (< OR =4); POTASSIUM SERUM 3.1 MEQ/L (3.5-5.1); SODIUM LEVEL 137 MEQ/L (136-145); TROPONIN I 0.13 NG/ML (< 0.10)
[2017-11-12] MEDS: ASPIRIN 81 MG ENTERIC TAB PO (08:21)
[2017-11-12] MEDS: HumaLOG INSULIN (NovoLOG) PER UNIT SC (08:22)
[2017-11-12] MEDS: NYSTATIN 100,000 UNITS/GM TOPICAL PWD 15 GM TOP (08:22)
[2017-11-12] MEDS: ENOXAPARIN 40 MG/0.4 ML SYRINGE (J1650) SC (08:23)
[2017-11-12 10:57] LABS: CPK CREATINE PHOSPHOKINASE 76 U/L (39-308); MB/CK RELATIVE INDEX 1.31 (< OR =4); TROPONIN I 0.07 NG/ML (< 0.10)
== END 2017-11-12 12:34 | disposition short-term general hospital (02) | DRG 314 ==
LOC: M ED 04:20 → M ED INP 07:46 → M PCU 12:40
DX: T82.6XXA Infection and inflammatory reaction due to cardiac valve prosthesis, initial encounter (principal); I63.9 Cerebral infarction, unspecified; I33.0 Acute and subacute infective endocarditis; R78.81 Bacteremia; Z68.41 Body mass index [BMI] 40.0-44.9, adult; Z79.899 Other long term (current) drug therapy; E11.9 Type 2 diabetes mellitus without complications; I10 Essential (primary) hypertension; E78.5 Hyperlipidemia, unspecified; Z79.82 Long term (current) use of aspirin; Z95.2 Presence of prosthetic heart valve; E66.9 Obesity, unspecified; M06.849 Other specified rheumatoid arthritis, unspecified hand; Z87.442 Personal history of urinary calculi; Z96.652 Presence of left artificial knee joint; Z96.651 Presence of right artificial knee joint; Z87.891 Personal history of nicotine dependence; M51.37 Other intervertebral disc degeneration, lumbosacral region; I34.0 Nonrheumatic mitral (valve) insufficiency; Y83.1 Surgical operation with implant of artificial internal device as the cause of abnormal reaction of the patient, or of later complication, without mention of misadventure at the time of the procedure

== ENCOUNTER 2017-11-22 12:20 | Inpatient (IN) | payer MEDICARE, OTHER ==
[~2017-11-22 12:20] MED LIST changes: -/WARF25TA OR; -ACET30TAB PO; -ACET65TA OR; -AMOX500C PO; -ASPI1TAB PO; -ATOR1TAB21 PO; -ATOR80TA59 PO; -CIPR-249 PO; +DEXTROSE 50% 50 ML SYRINGE IV; -FLOM5CAP PO; -GEMF600T PO; +GLUCAGON FOR INJ 1 MG VIAL (J1610) SC; +GLUCOSE 4 GM CHEW TABLET PO; -INDA125TA PO; -Ibuprofen PO; -JANU50TA8 PO; -Janumet PO; -LEVI20TA PO; -Lisinopril/HCTZ PO; -NORC7.5T35 PO; -OCEAN; -PERC5TAB8 OR; -SILD1TAB8 PO; -TELM1TAB2 PO; -VYTORIN PO; -[UNRECOGNIZED DRUG - OTHER]
[2017-11-22 13:20] LABS: BEDSIDE GLUCOSE 167 MG/DL (80-115)
[2017-11-22] MEDS: HumaLOG INSULIN (NovoLOG) PER UNIT SC ×3 (13:45→20:25)
[2017-11-22] MEDS: AMPICILLIN SOD 2 GM in D5W MINI-BAG PLUS 100 ML IV ×2 (15:23→21:14)
[2017-11-22] MEDS: DOCUSATE SODIUM 100 MG CAP PO (15:24)
[2017-11-22] MEDS: VALSARTAN 80 MG TAB (DIOVAN) PO (15:24)
[2017-11-22] MEDS: HEPARIN SOD (PORCINE) 5000 UNITS/ML VIAL SQ ×2 (15:24→21:59)
[2017-11-22 16:41] LABS: BEDSIDE GLUCOSE 136 MG/DL (80-115)
[2017-11-22] MEDS: SITagliptin 50 MG TAB (JANUVIA) PO (17:25)
[2017-11-22] MEDS: metFORMIN (GLUCOPHAGE) 1000 MG TABLET PO (17:25)
[2017-11-22] MEDS: SODIUM CHLORIDE 0.9% INJ 10 ML SYR IV ×2 (17:26→22:02)
[2017-11-22] MEDS: LACTOBACILLUS ACIDOPHILUS CAP (BACID) PO (20:21)
[2017-11-22] MEDS: METOPROLOL TART 25 MG TABLET PO (20:22)
[2017-11-22] MEDS: ATORVASTATIN 20 MG TAB PO (20:22)
[2017-11-22] MEDS: QUEtiapine FUMARATE 25 MG TAB PO (20:22)
[2017-11-22 20:34] LABS: BEDSIDE GLUCOSE 114 MG/DL (80-115)
[2017-11-22] MEDS: CEFTRIAXONE SOD 2 GM in APPROPRIATE DILUENT 1 EA IV (21:58)
[2017-11-23] MEDS: SODIUM CHLORIDE 0.9% INJ 10 ML SYR IV ×4 (00:31→22:16)
[2017-11-23] MEDS: AMPICILLIN SOD 2 GM in D5W MINI-BAG PLUS 100 ML IV ×6 (00:31→21:16)
[2017-11-23] MEDS: ACETAMINOPHEN TAB 650MG DOSE (2X325MG) PO ×2 (01:37→23:46)
[2017-11-23] MEDS: HEPARIN SOD (PORCINE) 5000 UNITS/ML VIAL SQ ×3 (05:54→21:20)
[2017-11-23 06:36] LABS: BASO % 0.5 % (0.0-1.0); EOS # 0.2 10^3/uL (0.0-0.50); EOS % 2.7 % (0.0-3.0); HEMATOCRIT 37.4 % (42.0-52.0); HEMOGLOBIN 12.8 g/dl (14.0-18.0); IMMATURE GRANULOCYTE % 1.3 % (0-3.0); LYMPH # 1.9 10^3/uL (1.5-4.5); LYMPH % 22.3 % (24.0-44.0); MEAN CORPUSCULAR HEMOGLOBIN 30.3 pg (27.0-33.0); MEAN CORPUSCULAR HGB CONC 34.2 g/dl (32.0-36.5); MEAN CORPUSCULAR VOLUME 88.6 fl (80.0-96.0); MONO # 0.6 10^3/uL (0.0-0.8); MONO % 7.3 % (0.0-5.0); NEUTROPHILS # 5.6 10^3/uL (1.8-7.7); NEUTROPHILS % 65.9 % (36.0-66.0); PLATELET COUNT, AUTOMATED 395 10^3/uL (150-450); RED BLOOD COUNT 4.22 10^6/uL (4.30-6.10); RED CELL DISTRIBUTION WIDTH 12.1 % (11.5-14.5); WHITE BLOOD COUNT 8.4 10^3/uL (4.0-10.0)
[2017-11-23 06:52] LABS: ALBUMIN 2.1 GM/DL (3.2-5.2); ALBUMIN/GLOBULIN RATIO 0.51 (1.00-1.93); ALKALINE PHOSPHATASE 51 U/L (45-117); ALT/SGPT 16 U/L (12-78); ANION GAP 9 MEQ/L (8-16); AST/SGOT 17 U/L (7-37); BILIRUBIN,TOTAL 0.5 MG/DL (0.2-1.0); BLOOD UREA NITROGEN 8 MG/DL (7-18); CALCIUM LEVEL 7.9 MG/DL (8.8-10.2); CARBON DIOXIDE LEVEL 27 MEQ/L (21-32); CHLORIDE LEVEL 105 MEQ/L (98-107); CREATININE FOR GFR 0.73 MG/DL (0.70-1.30); GLOMERULAR FILTRATION RATE > 60.0 (>49); GLUCOSE, FASTING 154 MG/DL (70-100); POTASSIUM SERUM 3.3 MEQ/L (3.5-5.1); SODIUM LEVEL 141 MEQ/L (136-145); TOTAL PROTEIN 6.2 GM/DL (6.4-8.2)
[2017-11-23] MEDS: CEFTRIAXONE SOD 2 GM in APPROPRIATE DILUENT 1 EA IV ×2 (08:48→22:15)
[2017-11-23] MEDS: INDAPAMIDE 1.25MG TABLET PO (08:48)
[2017-11-23] MEDS: metFORMIN (GLUCOPHAGE) 1000 MG TABLET PO ×2 (08:48→18:03)
[2017-11-23] MEDS: VALSARTAN 80 MG TAB (DIOVAN) PO (08:49)
[2017-11-23] MEDS: SITagliptin 50 MG TAB (JANUVIA) PO ×2 (08:49→18:03)
[2017-11-23] MEDS: METOPROLOL TART 25 MG TABLET PO ×2 (08:49→21:17)
[2017-11-23] MEDS: LACTOBACILLUS ACIDOPHILUS CAP (BACID) PO ×2 (08:49→21:16)
[2017-11-23] MEDS: MULTIVITAMINS/MINERALS THERAP 1 TAB PO (08:49)
[2017-11-23] MEDS: DOCUSATE SODIUM 100 MG CAP PO (08:50)
[2017-11-23] MEDS: HumaLOG INSULIN (NovoLOG) PER UNIT SC ×4 (08:50→21:00)
[2017-11-23 12:02] LABS: BEDSIDE GLUCOSE 128 MG/DL (80-115)
[2017-11-23 16:40] LABS: BEDSIDE GLUCOSE 111 MG/DL (80-115)
[2017-11-23] MEDS: ATORVASTATIN 20 MG TAB PO (21:16)
[2017-11-23] MEDS: QUEtiapine FUMARATE 25 MG TAB PO (21:16)
[2017-11-23 21:21] LABS: BEDSIDE GLUCOSE 120 MG/DL (80-115)
[2017-11-24] MEDS: AMPICILLIN SOD 2 GM in D5W MINI-BAG PLUS 100 ML IV ×6 (00:30→20:09)
[2017-11-24] MEDS: HEPARIN SOD (PORCINE) 5000 UNITS/ML VIAL SQ ×3 (06:12→22:07)
[2017-11-24] MEDS: SODIUM CHLORIDE 0.9% INJ 10 ML SYR IV ×3 (06:12→22:07)
[2017-11-24 06:28] LABS: BEDSIDE GLUCOSE 129 MG/DL (80-115)
[2017-11-24] MEDS: DOCUSATE SODIUM 100 MG CAP PO (09:00)
[2017-11-24] MEDS: HumaLOG INSULIN (NovoLOG) PER UNIT SC ×4 (09:03→22:41)
[2017-11-24] MEDS: CEFTRIAXONE SOD 2 GM in APPROPRIATE DILUENT 1 EA IV ×2 (09:04→22:06)
[2017-11-24] MEDS: LACTOBACILLUS ACIDOPHILUS CAP (BACID) PO ×2 (09:05→20:03)
[2017-11-24] MEDS: VALSARTAN 80 MG TAB (DIOVAN) PO (09:05)
[2017-11-24] MEDS: INDAPAMIDE 1.25MG TABLET PO (09:05)
[2017-11-24] MEDS: MULTIVITAMINS/MINERALS THERAP 1 TAB PO (09:05)
[2017-11-24] MEDS: SITagliptin 50 MG TAB (JANUVIA) PO ×2 (09:06→17:04)
[2017-11-24] MEDS: metFORMIN (GLUCOPHAGE) 1000 MG TABLET PO ×2 (09:06→17:04)
[2017-11-24] MEDS: METOPROLOL TART 25 MG TABLET PO ×2 (09:06→20:04)
[2017-11-24 11:57] LABS: BEDSIDE GLUCOSE 116 MG/DL (80-115)
[2017-11-24] MEDS: ACETAMINOPHEN TAB 650MG DOSE (2X325MG) PO (14:20)
[2017-11-24 16:31] LABS: BEDSIDE GLUCOSE 119 MG/DL (80-115)
[2017-11-24] MEDS: ATORVASTATIN 20 MG TAB PO (20:03)
[2017-11-24] MEDS: QUEtiapine FUMARATE 25 MG TAB PO (20:03)
[2017-11-24 22:32] LABS: BEDSIDE GLUCOSE 111 MG/DL (80-115)
[2017-11-25] MEDS: SODIUM CHLORIDE 0.9% INJ 10 ML SYR IV ×7 (00:26→21:44)
[2017-11-25] MEDS: AMPICILLIN SOD 2 GM in D5W MINI-BAG PLUS 100 ML IV ×6 (00:26→19:57)
[2017-11-25] MEDS: HEPARIN SOD (PORCINE) 5000 UNITS/ML VIAL SQ ×3 (05:19→21:10)
[2017-11-25 05:34] LABS: HEMATOCRIT 37.4 % (42.0-52.0); HEMOGLOBIN 12.8 g/dl (14.0-18.0); MEAN CORPUSCULAR HEMOGLOBIN 30.1 pg (27.0-33.0); MEAN CORPUSCULAR HGB CONC 34.2 g/dl (32.0-36.5); PLATELET COUNT, AUTOMATED 360 10^3/uL (150-450); RED BLOOD COUNT 4.25 10^6/uL (4.30-6.10); RED CELL DISTRIBUTION WIDTH 12.2 % (11.5-14.5); WHITE BLOOD COUNT 8.9 10^3/uL (4.0-10.0)
[2017-11-25 07:00] LABS: BEDSIDE GLUCOSE 171 MG/DL (80-115)
[2017-11-25] MEDS: VALSARTAN 80 MG TAB (DIOVAN) PO (08:13)
[2017-11-25] MEDS: SITagliptin 50 MG TAB (JANUVIA) PO ×2 (08:13→17:16)
[2017-11-25] MEDS: metFORMIN (GLUCOPHAGE) 1000 MG TABLET PO ×2 (08:13→17:16)
[2017-11-25] MEDS: INDAPAMIDE 1.25MG TABLET PO (08:13)
[2017-11-25] MEDS: HumaLOG INSULIN (NovoLOG) PER UNIT SC ×4 (08:13→21:10)
[2017-11-25] MEDS: METOPROLOL TART 25 MG TABLET PO ×2 (08:14→21:09)
[2017-11-25] MEDS: MULTIVITAMINS/MINERALS THERAP 1 TAB PO (08:14)
[2017-11-25] MEDS: DOCUSATE SODIUM 100 MG CAP PO (08:14)
[2017-11-25] MEDS: LACTOBACILLUS ACIDOPHILUS CAP (BACID) PO ×2 (08:14→21:09)
[2017-11-25 10:10] LABS: ANION GAP 11 MEQ/L (8-16); BLOOD UREA NITROGEN 7 MG/DL (7-18); CALCIUM LEVEL 8.6 MG/DL (8.8-10.2); CARBON DIOXIDE LEVEL 27 MEQ/L (21-32); CHLORIDE LEVEL 100 MEQ/L (98-107); CREATININE FOR GFR 0.87 MG/DL (0.70-1.30); GLOMERULAR FILTRATION RATE > 60.0 (>49); GLUCOSE, FASTING 178 MG/DL (70-100); POTASSIUM SERUM 4.2 MEQ/L (3.5-5.1); SODIUM LEVEL 138 MEQ/L (136-145)
[2017-11-25] MEDS: AMANTADINE 100 MG CAP PO (10:36)
[2017-11-25 10:56] LABS: MUCUS, URINE RFX SMALL (NEGATIVE); RBC, URINE AUTO RFX 3 /HPF (0-3); SQUAM EPITHELIAL CELL UR AURFX 2 /HPF (0-6); WBC, URINE AUTO RFX 9 /HPF (0-3)
[2017-11-25 11:10] LABS: KETONE, URINE AUTO RFX NEGATIVE (NEGATIVE); LEUKOCYTE ESTERASE UR AUTO RFX NEGATIVE (NEGATIVE); NITRITE, URINE AUTO RFX NEGATIVE (NEGATIVE); SPECIFIC GRAVITY UR AUTO RFX 1.025 (1.002-1.035)
[2017-11-25] MEDS: CEFTRIAXONE SOD 2 GM in APPROPRIATE DILUENT 1 EA IV ×2 (11:53→21:10)
[2017-11-25 12:05] LABS: BEDSIDE GLUCOSE 135 MG/DL (80-115)
[2017-11-25 16:31] LABS: BEDSIDE GLUCOSE 147 MG/DL (80-115)
[2017-11-25 20:41] LABS: BEDSIDE GLUCOSE 155 MG/DL (80-115)
[2017-11-25] MEDS: ATORVASTATIN 20 MG TAB PO (21:09)
[2017-11-25] MEDS: QUEtiapine FUMARATE 25 MG TAB PO (21:09)
[2017-11-26] MEDS: AMPICILLIN SOD 2 GM in D5W MINI-BAG PLUS 100 ML IV ×6 (00:15→19:46)
[2017-11-26] MEDS: SODIUM CHLORIDE 0.9% INJ 10 ML SYR IV ×4 (05:02→15:42)
[2017-11-26] MEDS: HEPARIN SOD (PORCINE) 5000 UNITS/ML VIAL SQ ×3 (05:03→22:07)
[2017-11-26 07:22] LABS: ALBUMIN 2.4 GM/DL (3.2-5.2); ALBUMIN/GLOBULIN RATIO 0.65 (1.00-1.93); ALKALINE PHOSPHATASE 62 U/L (45-117); ALT/SGPT 34 U/L (12-78); ANION GAP 10 MEQ/L (8-16); AST/SGOT 42 U/L (7-37); BILIRUBIN,TOTAL 0.5 MG/DL (0.2-1.0); BLOOD UREA NITROGEN 7 MG/DL (7-18); CALCIUM LEVEL 8.2 MG/DL (8.8-10.2); CARBON DIOXIDE LEVEL 29 MEQ/L (21-32); CHLORIDE LEVEL 102 MEQ/L (98-107); CREATININE FOR GFR 0.93 MG/DL (0.70-1.30); GLOMERULAR FILTRATION RATE > 60.0 (>49); GLUCOSE, FASTING 146 MG/DL (70-100); POTASSIUM SERUM 3.4 MEQ/L (3.5-5.1); SODIUM LEVEL 141 MEQ/L (136-145); TOTAL PROTEIN 6.1 GM/DL (6.4-8.2)
[2017-11-26] MEDS: metFORMIN (GLUCOPHAGE) 1000 MG TABLET PO ×2 (08:10→17:25)
[2017-11-26] MEDS: SITagliptin 50 MG TAB (JANUVIA) PO ×2 (08:10→17:25)
[2017-11-26] MEDS: HumaLOG INSULIN (NovoLOG) PER UNIT SC ×4 (08:10→21:00)
[2017-11-26] MEDS: POTASSIUM CHLORIDE 10 MEQ SR TABLET PO (08:10)
[2017-11-26] MEDS: DOCUSATE SODIUM 100 MG CAP PO (08:22)
[2017-11-26] MEDS: MULTIVITAMINS/MINERALS THERAP 1 TAB PO (08:22)
[2017-11-26] MEDS: LACTOBACILLUS ACIDOPHILUS CAP (BACID) PO ×2 (08:22→22:04)
[2017-11-26] MEDS: AMANTADINE 100 MG CAP PO (08:22)
[2017-11-26] MEDS: INDAPAMIDE 1.25MG TABLET PO (08:22)
[2017-11-26] MEDS: METOPROLOL TART 25 MG TABLET PO ×2 (08:23→22:05)
[2017-11-26] MEDS: VALSARTAN 80 MG TAB (DIOVAN) PO (08:23)
[2017-11-26] MEDS: CEFTRIAXONE SOD 2 GM in APPROPRIATE DILUENT 1 EA IV ×2 (09:21→22:06)
[2017-11-26 11:42] LABS: BEDSIDE GLUCOSE 162 MG/DL (80-115)
[2017-11-26 17:13] LABS: BEDSIDE GLUCOSE 129 MG/DL (80-115)
[2017-11-26 21:05] LABS: BEDSIDE GLUCOSE 122 MG/DL (80-115)
[2017-11-26] MEDS: QUEtiapine FUMARATE 25 MG TAB PO (22:05)
[2017-11-26] MEDS: ATORVASTATIN 20 MG TAB PO (22:05)
[2017-11-27] MEDS: AMPICILLIN SOD 2 GM in D5W MINI-BAG PLUS 100 ML IV ×6 (00:31→20:40)
[2017-11-27] MEDS: SODIUM CHLORIDE 0.9% INJ 10 ML SYR IV ×8 (01:02→22:50)
[2017-11-27] MEDS: HEPARIN SOD (PORCINE) 5000 UNITS/ML VIAL SQ ×3 (04:51→22:50)
[2017-11-27 07:16] LABS: ANION GAP 12 MEQ/L (8-16); BLOOD UREA NITROGEN 9 MG/DL (7-18); CALCIUM LEVEL 8.2 MG/DL (8.8-10.2); CARBON DIOXIDE LEVEL 25 MEQ/L (21-32); CHLORIDE LEVEL 103 MEQ/L (98-107); CREATININE FOR GFR 0.95 MG/DL (0.70-1.30); GLOMERULAR FILTRATION RATE > 60.0 (>49); GLUCOSE, FASTING 134 MG/DL (70-100); POTASSIUM SERUM 3.9 MEQ/L (3.5-5.1); SODIUM LEVEL 140 MEQ/L (136-145)
[2017-11-27] MEDS: DOCUSATE SODIUM 100 MG CAP PO (07:35)
[2017-11-27] MEDS: CEFTRIAXONE SOD 2 GM in APPROPRIATE DILUENT 1 EA IV ×2 (08:13→22:50)
[2017-11-27] MEDS: LACTOBACILLUS ACIDOPHILUS CAP (BACID) PO ×2 (08:14→20:40)
[2017-11-27] MEDS: HumaLOG INSULIN (NovoLOG) PER UNIT SC ×4 (08:14→21:00)
[2017-11-27] MEDS: METOPROLOL TART 25 MG TABLET PO ×2 (08:14→20:40)
[2017-11-27] MEDS: metFORMIN (GLUCOPHAGE) 1000 MG TABLET PO ×2 (08:14→17:17)
[2017-11-27] MEDS: INDAPAMIDE 1.25MG TABLET PO (08:14)
[2017-11-27] MEDS: MULTIVITAMINS/MINERALS THERAP 1 TAB PO (08:14)
[2017-11-27] MEDS: SITagliptin 50 MG TAB (JANUVIA) PO ×2 (08:14→17:17)
[2017-11-27] MEDS: VALSARTAN 80 MG TAB (DIOVAN) PO (08:14)
[2017-11-27] MEDS: AMANTADINE 100 MG CAP PO ×2 (08:14→13:13)
[2017-11-27 12:06] LABS: BEDSIDE GLUCOSE 131 MG/DL (80-115)
[2017-11-27 16:40] LABS: BEDSIDE GLUCOSE 196 MG/DL (80-115)
[2017-11-27] MEDS: QUEtiapine FUMARATE 25 MG TAB PO (20:40)
[2017-11-27] MEDS: ATORVASTATIN 20 MG TAB PO (20:40)
[2017-11-27 20:41] LABS: BEDSIDE GLUCOSE 128 MG/DL (80-115)
[2017-11-28] MEDS: AMPICILLIN SOD 2 GM in D5W MINI-BAG PLUS 100 ML IV ×6 (00:40→20:58)
[2017-11-28] MEDS: SODIUM CHLORIDE 0.9% INJ 10 ML SYR IV ×5 (00:41→21:56)
[2017-11-28] MEDS: HEPARIN SOD (PORCINE) 5000 UNITS/ML VIAL SQ ×3 (05:19→21:56)
[2017-11-28 06:04] LABS: BEDSIDE GLUCOSE 133 MG/DL (80-115)
[2017-11-28] MEDS: AMANTADINE 100 MG CAP PO ×2 (07:01→12:26)
[2017-11-28 07:09] LABS: HEMATOCRIT 39.7 % (42.0-52.0); HEMOGLOBIN 13.6 g/dl (14.0-18.0); MEAN CORPUSCULAR HGB CONC 34.3 g/dl (32.0-36.5); MEAN CORPUSCULAR VOLUME 87.4 fl (80.0-96.0); PLATELET COUNT, AUTOMATED 333 10^3/uL (150-450); RED BLOOD COUNT 4.54 10^6/uL (4.30-6.10); RED CELL DISTRIBUTION WIDTH 12.1 % (11.5-14.5); WHITE BLOOD COUNT 9.9 10^3/uL (4.0-10.0)
[2017-11-28] MEDS: HumaLOG INSULIN (NovoLOG) PER UNIT SC ×4 (08:16→21:00)
[2017-11-28] MEDS: LACTOBACILLUS ACIDOPHILUS CAP (BACID) PO ×2 (08:22→20:58)
[2017-11-28] MEDS: MULTIVITAMINS/MINERALS THERAP 1 TAB PO (08:22)
[2017-11-28] MEDS: SITagliptin 50 MG TAB (JANUVIA) PO ×2 (08:22→17:37)
[2017-11-28] MEDS: DOCUSATE SODIUM 100 MG CAP PO (08:22)
[2017-11-28] MEDS: INDAPAMIDE 1.25MG TABLET PO (08:22)
[2017-11-28] MEDS: metFORMIN (GLUCOPHAGE) 1000 MG TABLET PO ×2 (08:22→17:37)
[2017-11-28] MEDS: METOPROLOL TART 25 MG TABLET PO ×2 (08:23→20:59)
[2017-11-28] MEDS: VALSARTAN 80 MG TAB (DIOVAN) PO (08:24)
[2017-11-28] MEDS: CEFTRIAXONE SOD 2 GM in APPROPRIATE DILUENT 1 EA IV ×2 (09:24→21:56)
[2017-11-28 12:14] LABS: BEDSIDE GLUCOSE 160 MG/DL (80-115)
[2017-11-28 16:49] LABS: BEDSIDE GLUCOSE 170 MG/DL (80-115)
[2017-11-28] MEDS ORDERED: PILL CUTTER/CRUSHER XX (18:15)
[2017-11-28 20:40] LABS: BEDSIDE GLUCOSE 127 MG/DL (80-115)
[2017-11-28] MEDS: QUEtiapine FUMARATE 25 MG TAB PO (20:58)
[2017-11-28] MEDS: ATORVASTATIN 20 MG TAB PO (20:58)
[2017-11-29] MEDS: AMPICILLIN SOD 2 GM in D5W MINI-BAG PLUS 100 ML IV ×6 (00:13→19:55)
[2017-11-29] MEDS: SODIUM CHLORIDE 0.9% INJ 10 ML SYR IV ×4 (00:13→16:52)
[2017-11-29] MEDS: HEPARIN SOD (PORCINE) 5000 UNITS/ML VIAL SQ ×3 (05:20→20:54)
[2017-11-29 06:09] LABS: BEDSIDE GLUCOSE 157 MG/DL (80-115)
[2017-11-29] MEDS: AMANTADINE 100 MG CAP PO ×2 (06:53→12:10)
[2017-11-29] MEDS: CEFTRIAXONE SOD 2 GM in APPROPRIATE DILUENT 1 EA IV ×2 (08:09→20:53)
[2017-11-29] MEDS: LACTOBACILLUS ACIDOPHILUS CAP (BACID) PO ×2 (08:10→20:54)
[2017-11-29] MEDS: HumaLOG INSULIN (NovoLOG) PER UNIT SC ×4 (08:10→20:56)
[2017-11-29] MEDS: MULTIVITAMINS/MINERALS THERAP 1 TAB PO (08:10)
[2017-11-29] MEDS: DOCUSATE SODIUM 100 MG CAP PO (08:11)
[2017-11-29] MEDS: INDAPAMIDE 1.25MG TABLET PO (08:11)
[2017-11-29] MEDS: metFORMIN (GLUCOPHAGE) 1000 MG TABLET PO ×2 (08:11→16:51)
[2017-11-29] MEDS: VALSARTAN 80 MG TAB (DIOVAN) PO (08:11)
[2017-11-29] MEDS: METOPROLOL TART 25 MG TABLET PO ×2 (08:11→20:54)
[2017-11-29] MEDS: SITagliptin 50 MG TAB (JANUVIA) PO ×2 (08:11→16:51)
[2017-11-29 12:11] LABS: BEDSIDE GLUCOSE 157 MG/DL (80-115)
[2017-11-29 16:39] LABS: BEDSIDE GLUCOSE 153 MG/DL (80-115)
[2017-11-29 20:54] LABS: BEDSIDE GLUCOSE 123 MG/DL (80-115)
[2017-11-29] MEDS: ATORVASTATIN 20 MG TAB PO (20:54)
[2017-11-29] MEDS: QUEtiapine FUMARATE 25 MG TAB PO (20:54)
[2017-11-30] MEDS: AMPICILLIN SOD 2 GM in D5W MINI-BAG PLUS 100 ML IV ×7 (00:07→23:53)
[2017-11-30] MEDS: HEPARIN SOD (PORCINE) 5000 UNITS/ML VIAL SQ ×3 (05:07→20:50)
[2017-11-30] MEDS: SODIUM CHLORIDE 0.9% INJ 10 ML SYR IV ×4 (05:07→15:50)
[2017-11-30] MEDS: AMANTADINE 100 MG CAP PO ×2 (06:42→12:07)
[2017-11-30 06:53] LABS: BEDSIDE GLUCOSE 129 MG/DL (80-115)
[2017-11-30] MEDS: SITagliptin 50 MG TAB (JANUVIA) PO ×2 (07:58→17:14)
[2017-11-30] MEDS: metFORMIN (GLUCOPHAGE) 1000 MG TABLET PO ×2 (07:58→17:14)
[2017-11-30] MEDS: HumaLOG INSULIN (NovoLOG) PER UNIT SC ×4 (08:00→20:50)
[2017-11-30] MEDS: LACTOBACILLUS ACIDOPHILUS CAP (BACID) PO ×2 (08:48→20:49)
[2017-11-30] MEDS: CEFTRIAXONE SOD 2 GM in APPROPRIATE DILUENT 1 EA IV ×2 (08:48→20:49)
[2017-11-30] MEDS: MULTIVITAMINS/MINERALS THERAP 1 TAB PO (08:48)
[2017-11-30] MEDS: INDAPAMIDE 1.25MG TABLET PO (08:49)
[2017-11-30] MEDS: VALSARTAN 80 MG TAB (DIOVAN) PO (08:52)
[2017-11-30] MEDS: DOCUSATE SODIUM 100 MG CAP PO (08:52)
[2017-11-30] MEDS: METOPROLOL TART 25 MG TABLET PO ×2 (08:52→20:50)
[2017-11-30 11:37] LABS: BEDSIDE GLUCOSE 149 MG/DL (80-115)
[2017-11-30 16:29] LABS: BEDSIDE GLUCOSE 150 MG/DL (80-115)
[2017-11-30 20:27] LABS: BEDSIDE GLUCOSE 152 MG/DL (80-115)
[2017-11-30] MEDS: ATORVASTATIN 20 MG TAB PO (20:49)
[2017-11-30] MEDS: QUEtiapine FUMARATE 25 MG TAB PO (20:50)
[2017-12-01] MEDS: AMPICILLIN SOD 2 GM in D5W MINI-BAG PLUS 100 ML IV ×6 (04:30→23:23)
[2017-12-01] MEDS: HEPARIN SOD (PORCINE) 5000 UNITS/ML VIAL SQ ×3 (05:22→21:01)
[2017-12-01] MEDS: SODIUM CHLORIDE 0.9% INJ 10 ML SYR IV ×5 (05:22→23:24)
[2017-12-01 05:32] LABS: HEMATOCRIT 38.2 % (42.0-52.0); HEMOGLOBIN 13.1 g/dl (14.0-18.0); MEAN CORPUSCULAR HEMOGLOBIN 30.3 pg (27.0-33.0); MEAN CORPUSCULAR HGB CONC 34.3 g/dl (32.0-36.5); MEAN CORPUSCULAR VOLUME 88.4 fl (80.0-96.0); PLATELET COUNT, AUTOMATED 246 10^3/uL (150-450); RED BLOOD COUNT 4.32 10^6/uL (4.30-6.10); RED CELL DISTRIBUTION WIDTH 12.3 % (11.5-14.5); WHITE BLOOD COUNT 11.5 10^3/uL (4.0-10.0)
[2017-12-01] MEDS: AMANTADINE 100 MG CAP PO ×2 (06:47→12:15)
[2017-12-01 06:55] LABS: BEDSIDE GLUCOSE 159 MG/DL (80-115)
[2017-12-01] MEDS: HumaLOG INSULIN (NovoLOG) PER UNIT SC ×4 (07:38→20:55)
[2017-12-01] MEDS: SITagliptin 50 MG TAB (JANUVIA) PO ×2 (07:40→17:21)
[2017-12-01] MEDS: metFORMIN (GLUCOPHAGE) 1000 MG TABLET PO ×2 (07:40→17:21)
[2017-12-01] MEDS: DOCUSATE SODIUM 100 MG CAP PO (09:00)
[2017-12-01] MEDS: LACTOBACILLUS ACIDOPHILUS CAP (BACID) PO ×2 (09:04→20:54)
[2017-12-01] MEDS: METOPROLOL TART 25 MG TABLET PO ×2 (09:04→20:55)
[2017-12-01] MEDS: INDAPAMIDE 1.25MG TABLET PO (09:04)
[2017-12-01] MEDS: CEFTRIAXONE SOD 2 GM in APPROPRIATE DILUENT 1 EA IV ×2 (09:05→20:56)
[2017-12-01] MEDS: MULTIVITAMINS/MINERALS THERAP 1 TAB PO (09:05)
[2017-12-01] MEDS: VALSARTAN 80 MG TAB (DIOVAN) PO (09:05)
[2017-12-01 12:02] LABS: BEDSIDE GLUCOSE 122 MG/DL (80-115)
[2017-12-01 16:55] LABS: BEDSIDE GLUCOSE 159 MG/DL (80-115)
[2017-12-01] MEDS: ATORVASTATIN 20 MG TAB PO (20:54)
[2017-12-01] MEDS: QUEtiapine FUMARATE 25 MG TAB PO (20:55)
[2017-12-01 21:03] LABS: BEDSIDE GLUCOSE 128 MG/DL (80-115)
[2017-12-02] MEDS: SODIUM CHLORIDE 0.9% INJ 10 ML SYR IV ×5 (03:49→21:56)
[2017-12-02] MEDS: AMPICILLIN SOD 2 GM in D5W MINI-BAG PLUS 100 ML IV ×5 (03:50→20:50)
[2017-12-02] MEDS: HEPARIN SOD (PORCINE) 5000 UNITS/ML VIAL SQ ×3 (06:10→21:56)
[2017-12-02] MEDS: AMANTADINE 100 MG CAP PO ×2 (06:11→11:51)
[2017-12-02 06:21] LABS: BEDSIDE GLUCOSE 134 MG/DL (80-115)
[2017-12-02 08:21] LABS: BASO # 0.1 10^3/uL (0.0-0.2); BASO % 0.5 % (0.0-1.0); EOS # 0.3 10^3/uL (0.0-0.50); EOS % 2.5 % (0.0-3.0); HEMATOCRIT 41.7 % (42.0-52.0); HEMOGLOBIN 14.3 g/dl (14.0-18.0); IMMATURE GRANULOCYTE % 0.9 % (0-3.0); LYMPH # 2.3 10^3/uL (1.5-4.5); MEAN CORPUSCULAR HEMOGLOBIN 29.9 pg (27.0-33.0); MEAN CORPUSCULAR HGB CONC 34.3 g/dl (32.0-36.5); MEAN CORPUSCULAR VOLUME 87.2 fl (80.0-96.0); MONO # 0.7 10^3/uL (0.0-0.8); MONO % 7.2 % (0.0-5.0); NEUTROPHILS # 6.9 10^3/uL (1.8-7.7); NEUTROPHILS % 66.9 % (36.0-66.0); PLATELET COUNT, AUTOMATED 301 10^3/uL (150-450); RED BLOOD COUNT 4.78 10^6/uL (4.30-6.10); RED CELL DISTRIBUTION WIDTH 12.5 % (11.5-14.5); WHITE BLOOD COUNT 10.3 10^3/uL (4.0-10.0)
[2017-12-02] MEDS: metFORMIN (GLUCOPHAGE) 1000 MG TABLET PO ×2 (08:33→17:16)
[2017-12-02] MEDS: SITagliptin 50 MG TAB (JANUVIA) PO ×2 (08:33→17:16)
[2017-12-02] MEDS: MULTIVITAMINS/MINERALS THERAP 1 TAB PO (08:33)
[2017-12-02] MEDS: HumaLOG INSULIN (NovoLOG) PER UNIT SC ×4 (08:33→21:00)
[2017-12-02] MEDS: cefTRIAXone SOD 2 GM in D5W MINI-BAG PLUS 50 ML IV ×2 (08:33→21:56)
[2017-12-02] MEDS: LACTOBACILLUS ACIDOPHILUS CAP (BACID) PO ×2 (08:33→20:07)
[2017-12-02] MEDS: DOCUSATE SODIUM 100 MG CAP PO (08:34)
[2017-12-02] MEDS: INDAPAMIDE 1.25MG TABLET PO (08:34)
[2017-12-02] MEDS: METOPROLOL TART 25 MG TABLET PO ×2 (08:34→20:07)
[2017-12-02] MEDS: VALSARTAN 80 MG TAB (DIOVAN) PO (08:34)
[2017-12-02 08:53] LABS: ALBUMIN 3.1 GM/DL (3.2-5.2); ALBUMIN/GLOBULIN RATIO 0.78 (1.00-1.93); ALKALINE PHOSPHATASE 76 U/L (45-117); ALT/SGPT 24 U/L (12-78); ANION GAP 10 MEQ/L (8-16); AST/SGOT 21 U/L (7-37); BILIRUBIN,TOTAL 0.5 MG/DL (0.2-1.0); BLOOD UREA NITROGEN 13 MG/DL (7-18); C REACTIVE PROTEIN QUANTITATIV 1.14 MG/DL (0.00-0.30); CALCIUM LEVEL 8.7 MG/DL (8.8-10.2); CARBON DIOXIDE LEVEL 30 MEQ/L (21-32); CHLORIDE LEVEL 99 MEQ/L (98-107); CREATININE FOR GFR 0.92 MG/DL (0.70-1.30); GLOMERULAR FILTRATION RATE > 60.0 (>49); GLUCOSE, FASTING 167 MG/DL (70-100); POTASSIUM SERUM 3.7 MEQ/L (3.5-5.1); SODIUM LEVEL 139 MEQ/L (136-145); TOTAL PROTEIN 7.1 GM/DL (6.4-8.2)
[2017-12-02 11:24] LABS: BEDSIDE GLUCOSE 165 MG/DL (80-115)
[2017-12-02 16:50] LABS: BEDSIDE GLUCOSE 131 MG/DL (80-115)
[2017-12-02] MEDS: ATORVASTATIN 20 MG TAB PO (20:07)
[2017-12-02] MEDS: QUEtiapine FUMARATE 25 MG TAB PO (20:08)
[2017-12-02 21:06] LABS: BEDSIDE GLUCOSE 107 MG/DL (80-115)
[2017-12-03] MEDS: AMPICILLIN SOD 2 GM in D5W MINI-BAG PLUS 100 ML IV ×7 (00:32→23:30)
[2017-12-03] MEDS: SODIUM CHLORIDE 0.9% INJ 10 ML SYR IV ×3 (05:36→16:49)
[2017-12-03] MEDS: HEPARIN SOD (PORCINE) 5000 UNITS/ML VIAL SQ (05:36)
[2017-12-03] MEDS: AMANTADINE 100 MG CAP PO ×2 (06:53→12:03)
[2017-12-03 08:00] LABS: BEDSIDE GLUCOSE 133 MG/DL (80-115)
[2017-12-03] MEDS: SITagliptin 50 MG TAB (JANUVIA) PO ×2 (08:56→16:49)
[2017-12-03] MEDS: metFORMIN (GLUCOPHAGE) 1000 MG TABLET PO ×2 (08:56→16:49)
[2017-12-03] MEDS: VALSARTAN 80 MG TAB (DIOVAN) PO (08:56)
[2017-12-03] MEDS: MULTIVITAMINS/MINERALS THERAP 1 TAB PO (08:56)
[2017-12-03] MEDS: HumaLOG INSULIN (NovoLOG) PER UNIT SC (08:56)
[2017-12-03] MEDS: METOPROLOL TART 25 MG TABLET PO ×2 (08:57→20:11)
[2017-12-03] MEDS: INDAPAMIDE 1.25MG TABLET PO (08:57)
[2017-12-03] MEDS: DOCUSATE SODIUM 100 MG CAP PO (08:57)
[2017-12-03] MEDS: LACTOBACILLUS ACIDOPHILUS CAP (BACID) PO ×2 (08:57→20:11)
[2017-12-03] MEDS: cefTRIAXone SOD 2 GM in D5W MINI-BAG PLUS 50 ML IV ×2 (08:58→21:45)
[2017-12-03 11:57] LABS: BEDSIDE GLUCOSE 168 MG/DL (80-115)
[2017-12-03] MEDS: glipiZIDE (GLUCOTROL) 5 MG TAB PO (12:03)
[2017-12-03 17:08] LABS: BEDSIDE GLUCOSE 123 MG/DL (80-115)
[2017-12-03] MEDS: ATORVASTATIN 20 MG TAB PO (20:11)
[2017-12-03] MEDS: QUEtiapine FUMARATE 25 MG TAB PO (20:11)
[2017-12-03 20:36] LABS: BEDSIDE GLUCOSE 99 MG/DL (80-115)
[2017-12-04] MEDS: AMPICILLIN SOD 2 GM in D5W MINI-BAG PLUS 100 ML IV ×3 (04:23→11:32)
[2017-12-04] MEDS: SODIUM CHLORIDE 0.9% INJ 10 ML SYR IV (06:01)
[2017-12-04] MEDS: AMANTADINE 100 MG CAP PO ×2 (06:57→11:32)
[2017-12-04 07:27] LABS: BEDSIDE GLUCOSE 124 MG/DL (80-115)
[2017-12-04] MEDS: metFORMIN (GLUCOPHAGE) 1000 MG TABLET PO (07:58)
[2017-12-04] MEDS: glipiZIDE (GLUCOTROL) 5 MG TAB PO (07:58)
[2017-12-04] MEDS: SITagliptin 50 MG TAB (JANUVIA) PO (07:58)
[2017-12-04] MEDS: MULTIVITAMINS/MINERALS THERAP 1 TAB PO (07:59)
[2017-12-04] MEDS: VALSARTAN 80 MG TAB (DIOVAN) PO (07:59)
[2017-12-04] MEDS: INDAPAMIDE 1.25MG TABLET PO (07:59)
[2017-12-04] MEDS: LACTOBACILLUS ACIDOPHILUS CAP (BACID) PO (07:59)
[2017-12-04] MEDS: METOPROLOL TART 25 MG TABLET PO (08:00)
[2017-12-04] MEDS: cefTRIAXone SOD 2 GM in D5W MINI-BAG PLUS 50 ML IV (08:00)
[2017-12-04 11:36] LABS: BEDSIDE GLUCOSE 119 MG/DL (80-115)
== END 2017-12-04 13:05 | DRG 56 ==
LOC: M PM&R 12:20
PROVIDERS: Physical Medicine & Rehabilitation
DX: I69.393 Ataxia following cerebral infarction (principal); I33.9 Acute and subacute endocarditis, unspecified; R78.81 Bacteremia; E11.9 Type 2 diabetes mellitus without complications; Z95.2 Presence of prosthetic heart valve; Z79.82 Long term (current) use of aspirin; Z79.899 Other long term (current) drug therapy; I10 Essential (primary) hypertension; E78.5 Hyperlipidemia, unspecified; I34.0 Nonrheumatic mitral (valve) insufficiency; I25.2 Old myocardial infarction; H53.47 Heteronymous bilateral field defects; M19.90 Unspecified osteoarthritis, unspecified site; M62.81 Muscle weakness (generalized); G47.00 Insomnia, unspecified; E66.9 Obesity, unspecified; Z96.651 Presence of right artificial knee joint; Z96.652 Presence of left artificial knee joint; Z87.891 Personal history of nicotine dependence; I69.198 Other sequelae of nontraumatic intracerebral hemorrhage; I69.321 Dysphasia following cerebral infarction; M51.37 Other intervertebral disc degeneration, lumbosacral region

== ENCOUNTER → 2017-12-10 | Outpatient (REF) ==
[2017-12-10 12:42] LABS: HEMATOCRIT 41.5 % (42.0-52.0); HEMOGLOBIN 14.1 g/dl (13.5-17.5); MEAN CORPUSCULAR VOLUME 88.3 fl (80.0-96.0); PLATELET COUNT, AUTOMATED 340 10^3/uL (150-450); RED CELL DISTRIBUTION WIDTH 13.1 % (11.5-14.5); WHITE BLOOD COUNT 11.8 10^3/uL (4.0-10.0)
[2017-12-10 13:04] LABS: ANION GAP 8 MEQ/L (8-16); BLOOD UREA NITROGEN 15 MG/DL (7-18); C REACTIVE PROTEIN QUANTITATIV < 0.30 MG/DL (0.00-0.30); CALCIUM LEVEL 8.6 MG/DL (8.8-10.2); CARBON DIOXIDE LEVEL 28 MEQ/L (21-32); CHLORIDE LEVEL 103 MEQ/L (98-107); CREATININE FOR GFR 1.03 MG/DL (0.70-1.30); GLOMERULAR FILTRATION RATE > 60.0 (>49); GLUCOSE, FASTING 120 MG/DL (70-100); SODIUM LEVEL 139 MEQ/L (136-145)
== END ==
DX: I38 Endocarditis, valve unspecified (principal)

== ENCOUNTER → 2017-12-24 | Outpatient (REF) ==
[2017-12-24 12:54] LABS: ANION GAP 10 MEQ/L (8-16); BLOOD UREA NITROGEN 10 MG/DL (7-18); C REACTIVE PROTEIN QUANTITATIV 0.44 MG/DL (0.00-0.30); CALCIUM LEVEL 8.7 MG/DL (8.8-10.2); CARBON DIOXIDE LEVEL 26 MEQ/L (21-32); CHLORIDE LEVEL 103 MEQ/L (98-107); CREATININE FOR GFR 0.92 MG/DL (0.70-1.30); GLOMERULAR FILTRATION RATE > 60.0 (>49); GLUCOSE, FASTING 138 MG/DL (70-100); POTASSIUM SERUM 3.8 MEQ/L (3.5-5.1); SODIUM LEVEL 139 MEQ/L (136-145)
[2017-12-24 17:27] LABS: HEMATOCRIT 44.8 % (42.0-52.0); HEMOGLOBIN 14.9 g/dl (13.5-17.5); MEAN CORPUSCULAR HEMOGLOBIN 29.3 pg (27.0-33.0); MEAN CORPUSCULAR HGB CONC 33.3 g/dl (32.0-36.5); MEAN CORPUSCULAR VOLUME 88.2 fl (80.0-96.0); PLATELET COUNT, AUTOMATED 281 10^3/uL (150-450); RED BLOOD COUNT 5.08 10^6/uL (4.30-6.10); RED CELL DISTRIBUTION WIDTH 13.4 % (11.5-14.5); WHITE BLOOD COUNT 7.9 10^3/uL (4.0-10.0)
== END ==
DX: I38 Endocarditis, valve unspecified (principal)

== ENCOUNTER → 2017-12-31 | Outpatient (REF) ==
[2017-12-31 10:41] LABS: HEMATOCRIT 45.7 % (42.0-52.0); HEMOGLOBIN 15.3 g/dl (13.5-17.5); MEAN CORPUSCULAR HEMOGLOBIN 29.8 pg (27.0-33.0); MEAN CORPUSCULAR HGB CONC 33.5 g/dl (32.0-36.5); MEAN CORPUSCULAR VOLUME 89.1 fl (80.0-96.0); PLATELET COUNT, AUTOMATED 264 10^3/uL (150-450); RED BLOOD COUNT 5.13 10^6/uL (4.30-6.10); RED CELL DISTRIBUTION WIDTH 13.3 % (11.5-14.5); WHITE BLOOD COUNT 7.2 10^3/uL (4.0-10.0)
[2017-12-31 11:45] LABS: ANION GAP 14 MEQ/L (8-16); BLOOD UREA NITROGEN 22 MG/DL (7-18); C REACTIVE PROTEIN QUANTITATIV 0.49 MG/DL (0.00-0.30); CARBON DIOXIDE LEVEL 22 MEQ/L (21-32); CHLORIDE LEVEL 106 MEQ/L (98-107); CREATININE FOR GFR 1.44 MG/DL (0.70-1.30); GLOMERULAR FILTRATION RATE 52.1 (>49); GLUCOSE, FASTING 134 MG/DL (70-100); POTASSIUM SERUM 3.7 MEQ/L (3.5-5.1); SODIUM LEVEL 142 MEQ/L (136-145)
== END ==
DX: I38 Endocarditis, valve unspecified (principal)

== ENCOUNTER → 2018-01-01 | Outpatient (REF) ==
[2018-01-01 14:03] LABS: ANION GAP 13 MEQ/L (8-16); BLOOD UREA NITROGEN 29 MG/DL (7-18); CALCIUM LEVEL 8.8 MG/DL (8.8-10.2); CARBON DIOXIDE LEVEL 22 MEQ/L (21-32); CHLORIDE LEVEL 105 MEQ/L (98-107); CREATININE FOR GFR 1.48 MG/DL (0.70-1.30); GLOMERULAR FILTRATION RATE 50.5 (>49); GLUCOSE, FASTING 139 MG/DL (70-100); POTASSIUM SERUM 4.5 MEQ/L (3.5-5.1); SODIUM LEVEL 140 MEQ/L (136-145)
== END ==
DX: E86.0 Dehydration (principal)

== ENCOUNTER → 2018-01-02 | Outpatient (CLI) | payer MEDICARE, OTHER ==
[2018-01-02 23:56] LABS: HEMATOCRIT 49.1 % (42.0-52.0); HEMOGLOBIN 16.2 g/dl (13.5-17.5); MEAN CORPUSCULAR HEMOGLOBIN 29.9 pg (27.0-33.0); MEAN CORPUSCULAR VOLUME 90.6 fl (80.0-96.0); PLATELET COUNT, AUTOMATED 305 10^3/uL (150-450); RED BLOOD COUNT 5.42 10^6/uL (4.30-6.10); RED CELL DISTRIBUTION WIDTH 13.2 % (11.5-14.5); WHITE BLOOD COUNT 8.7 10^3/uL (4.0-10.0)
== END ==
DX: E86.0 Dehydration (principal)
CPT/HCPCS: 85027

== ENCOUNTER → 2018-01-06 | Outpatient (REF) ==
[2018-01-06 12:37] LABS: HEMATOCRIT 48.5 % (42.0-52.0); HEMOGLOBIN 16.3 g/dl (13.5-17.5); MEAN CORPUSCULAR HEMOGLOBIN 29.9 pg (27.0-33.0); MEAN CORPUSCULAR HGB CONC 33.6 g/dl (32.0-36.5); PLATELET COUNT, AUTOMATED 311 10^3/uL (150-450); RED BLOOD COUNT 5.45 10^6/uL (4.30-6.10); WHITE BLOOD COUNT 8.3 10^3/uL (4.0-10.0)
[2018-01-06 13:04] LABS: ANION GAP 8 MEQ/L (8-16); BLOOD UREA NITROGEN 43 MG/DL (7-18); C REACTIVE PROTEIN QUANTITATIV < 0.30 MG/DL (0.00-0.30); CALCIUM LEVEL 9.8 MG/DL (8.8-10.2); CARBON DIOXIDE LEVEL 26 MEQ/L (21-32); CHLORIDE LEVEL 105 MEQ/L (98-107); CREATININE FOR GFR 1.83 MG/DL (0.70-1.30); GLOMERULAR FILTRATION RATE 39.5 (>49); GLUCOSE, FASTING 117 MG/DL (70-100); POTASSIUM SERUM 4.8 MEQ/L (3.5-5.1); SODIUM LEVEL 139 MEQ/L (136-145)
[2018-01-06 13:18] LABS: ERYTHROCYTE SEDIMENTATION RATE 7 mm/hr (0-20)
== END ==
DX: I38 Endocarditis, valve unspecified (principal)

== ENCOUNTER → 2018-01-09 | Outpatient (REF) ==
[2018-01-09 15:09] LABS: ANION GAP 11 MEQ/L (8-16); BLOOD UREA NITROGEN 46 MG/DL (7-18); CALCIUM LEVEL 9.5 MG/DL (8.8-10.2); CARBON DIOXIDE LEVEL 24 MEQ/L (21-32); CHLORIDE LEVEL 105 MEQ/L (98-107); CREATININE FOR GFR 1.78 MG/DL (0.70-1.30); GLOMERULAR FILTRATION RATE 40.8 (>49); GLUCOSE, FASTING 109 MG/DL (70-100); POTASSIUM SERUM 4.7 MEQ/L (3.5-5.1); SODIUM LEVEL 140 MEQ/L (136-145)
== END ==
DX: E11.9 Type 2 diabetes mellitus without complications (principal)

== ENCOUNTER → 2018-01-13 | Outpatient (REF) | payer MEDICARE, OTHER | LOC: M LABDRAW1 09:19 | DX: R51 Headache (principal); I33.0 Acute and subacute infective endocarditis | CPT/HCPCS: 36415 ==

== ENCOUNTER 2018-01-23 12:14 | Day surgery (SDC) | payer MEDICARE, OTHER ==
[~2018-01-23 12:14] MED LIST changes: -DEXTROSE 50% 50 ML SYRINGE IV; -GLUCAGON FOR INJ 1 MG VIAL (J1610) SC; -GLUCOSE 4 GM CHEW TABLET PO; +LIDOCAINE 2% INJ 100 MG/5 ML SDV (FOR ANES.) As Ordered; +MIDAZOLAM INJ 2 MG/2 ML VIAL (J2250) As Ordered; +ONDANSETRON 4MG/2ML VIAL (J2405) As Ordered; +PROPOFOL 200 MG/20 ML VIAL As Ordered; +fentaNYL 100 MCG/2 ML INJECTION (J3010) As Ordered
[2018-01-23] MEDS ORDERED: LIDOCAINE VISCOUS 2% SOLN 15ML UDC As Ordered (13:54)
[2018-01-23] MEDS ORDERED: MIDAZOLAM INJ 2 MG/2 ML VIAL (J2250) As Ordered ×3 (14:03)
[2018-01-23] MEDS ORDERED: CETACAINE SPRAY 5GM As Ordered (14:38)
== END 2018-01-23 15:33 | disposition home or self-care (01) ==
LOC: M OPP 12:14
DX: I38 Endocarditis, valve unspecified (principal); I35.0 Nonrheumatic aortic (valve) stenosis; Z95.3 Presence of xenogenic heart valve; I10 Essential (primary) hypertension; R94.31 Abnormal electrocardiogram [ECG] [EKG]; I44.0 Atrioventricular block, first degree; E66.8 Other obesity
CPT/HCPCS: J2250

== ENCOUNTER → 2018-02-11 | Outpatient (REF) | payer MEDICARE, OTHER ==
[2018-02-11 13:18] LABS: BASO % 0.2 % (0.0-1.0); EOS # 0.2 10^3/uL (0.0-0.50); EOS % 2.2 % (0.0-3.0); HEMATOCRIT 44.9 % (42.0-52.0); HEMOGLOBIN 15.1 g/dl (13.5-17.5); IMMATURE GRANULOCYTE % 0.2 % (0-3.0); LYMPH # 2.8 10^3/uL (1.5-4.5); LYMPH % 34.4 % (24.0-44.0); MEAN CORPUSCULAR HEMOGLOBIN 29.5 pg (27.0-33.0); MEAN CORPUSCULAR HGB CONC 33.6 g/dl (32.0-36.5); MEAN CORPUSCULAR VOLUME 87.9 fl (80.0-96.0); MONO # 0.5 10^3/uL (0.0-0.8); MONO % 6.6 % (0.0-5.0); NEUTROPHILS # 4.6 10^3/uL (1.8-7.7); NEUTROPHILS % 56.4 % (36.0-66.0); PLATELET COUNT, AUTOMATED 259 10^3/uL (150-450); RED BLOOD COUNT 5.11 10^6/uL (4.30-6.10); RED CELL DISTRIBUTION WIDTH 13.1 % (11.5-14.5); WHITE BLOOD COUNT 8.2 10^3/uL (4.0-10.0)
[2018-02-11 13:33] LABS: ANION GAP 10 MEQ/L (8-16); BLOOD UREA NITROGEN 27 MG/DL (7-18); CALCIUM LEVEL 9.2 MG/DL (8.8-10.2); CARBON DIOXIDE LEVEL 26 MEQ/L (21-32); CHLORIDE LEVEL 104 MEQ/L (98-107); CREATININE FOR GFR 1.09 MG/DL (0.70-1.30); GLOMERULAR FILTRATION RATE > 60.0 (>49); GLUCOSE, FASTING 158 MG/DL (70-100); POTASSIUM SERUM 4.6 MEQ/L (3.5-5.1); SODIUM LEVEL 140 MEQ/L (136-145)
[2018-02-11 14:32] LABS: ESTIMATED AVERAGE GLUCOSE 131 MG/DL (60-110); HEMOGLOBIN A1c 6.2 %
[2018-02-11 19:08] LABS: MALB URINE SIEMENS 9.6 MG/L; MAU/CREAT RATIO 8.2 MCG/MG (0.0-30.0)
== END ==
LOC: M SFHCPLAZ 10:38
DX: T82.6XXD Infection and inflammatory reaction due to cardiac valve prosthesis, subsequent encounter (principal); E11.65 Type 2 diabetes mellitus with hyperglycemia; Y82.9 Unspecified medical devices associated with adverse incidents
CPT/HCPCS: 83036

== ENCOUNTER 2018-05-26 14:53 | Emergency (ER) | payer MEDICARE, OTHER ==
[2018-05-26 16:25] LABS: BEDSIDE GLUCOSE 149 MG/DL (80-115)
[2018-05-26 16:25] LABS: BASO % 0.2 % (0.0-1.0); EOS # 0.1 10^3/uL (0.0-0.50); EOS % 0.8 % (0.0-3.0); HEMATOCRIT 46.3 % (42.0-52.0); HEMOGLOBIN 15.7 g/dl (13.5-17.5); IMMATURE GRANULOCYTE % 0.4 % (0-3.0); LYMPH # 2.2 10^3/uL (1.5-4.5); LYMPH % 17.1 % (24.0-44.0); MEAN CORPUSCULAR HEMOGLOBIN 30.5 pg (27.0-33.0); MEAN CORPUSCULAR HGB CONC 33.9 g/dl (32.0-36.5); MEAN CORPUSCULAR VOLUME 90.1 fl (80.0-96.0); MONO % 7.9 % (0.0-5.0); NEUTROPHILS # 9.7 10^3/uL (1.8-7.7); NEUTROPHILS % 73.6 % (36.0-66.0); PLATELET COUNT, AUTOMATED 277 10^3/uL (150-450); RED BLOOD COUNT 5.14 10^6/uL (4.30-6.10); RED CELL DISTRIBUTION WIDTH 12.3 % (11.5-14.5); WHITE BLOOD COUNT 13.1 10^3/uL (4.0-10.0)
[2018-05-26] MEDS: NS 1,000 ML IV (16:26)
[2018-05-26 16:44] LABS: ACETAMINOPHEN LEVEL < 2.0 UG/ML (10.0-30.0); ALBUMIN 3.1 GM/DL (3.2-5.2); ALBUMIN/GLOBULIN RATIO 0.89 (1.00-1.93); ALKALINE PHOSPHATASE 58 U/L (45-117); ALT/SGPT 19 U/L (12-78); ANION GAP 10 MEQ/L (8-16); AST/SGOT 20 U/L (7-37); BILIRUBIN,DIRECT 0.2 MG/DL (0.0-0.2); BILIRUBIN,TOTAL 0.7 MG/DL (0.2-1.0); BLOOD UREA NITROGEN 17 MG/DL (7-18); CALCIUM LEVEL 8.7 MG/DL (8.8-10.2); CARBON DIOXIDE LEVEL 25 MEQ/L (21-32); CHLORIDE LEVEL 104 MEQ/L (98-107); CK-MB VALUE MASS < 1.0 NG/ML (<3.6); CPK CREATINE PHOSPHOKINASE 81 U/L (39-308); CREATININE FOR GFR 0.96 MG/DL (0.70-1.30); ETHYL ALCOHOL (ETHANOL) < 0.003 % (0.000-0.010); GLOMERULAR FILTRATION RATE > 60.0 (>49); GLUCOSE, FASTING 149 MG/DL (70-100); MB/CK RELATIVE INDEX 1.23 (< OR =4); POTASSIUM SERUM 4.9 MEQ/L (3.5-5.1); SALICYLATE LEVEL < 1.7 MG/DL (5.0-30.0); SODIUM LEVEL 139 MEQ/L (136-145); TOTAL PROTEIN 6.6 GM/DL (6.4-8.2); TROPONIN I < 0.02 NG/ML (< 0.10)
[2018-05-26] MEDS: MECLIZINE 25 MG TABLET PO (17:09)
[2018-05-26 18:20] LABS: AMPHETAMINES LEVEL URINE NEGATIVE (NEGATIVE); BARBITURATES URINE NEGATIVE (NEGATIVE); BENZODIAZEPINES URINE NEGATIVE (NEGATIVE); CANNABINOIDS URINE NEGATIVE (NEGATIVE); COCAINE METABOLITE URINE NEGATIVE (NEGATIVE); METHADONE URINE NEGATIVE (NEGATIVE); OPIATES URINE NEGATIVE (NEGATIVE); PHENCYCLIDINE URINE NEGATIVE (NEGATIVE)
== END 2018-05-26 20:42 | disposition home or self-care (01) ==
LOC: M ED 14:53
DX: R53.81 Other malaise (principal); R53.83 Other fatigue; R53.1 Weakness; R90.82 White matter disease, unspecified; I10 Essential (primary) hypertension; E11.9 Type 2 diabetes mellitus without complications; E78.5 Hyperlipidemia, unspecified; I25.10 Atherosclerotic heart disease of native coronary artery without angina pectoris; Z82.49 Family history of ischemic heart disease and other diseases of the circulatory system; Z79.899 Other long term (current) drug therapy; Z79.82 Long term (current) use of aspirin; Z79.84 Long term (current) use of oral hypoglycemic drugs; Z87.891 Personal history of nicotine dependence
CPT/HCPCS: 70551

== ENCOUNTER → 2018-06-13 | Outpatient (REF) | payer MEDICARE, OTHER ==
[2018-06-13 12:17] LABS: CHOLESTEROL LEVEL 126 MG/DL (<200); HDL CHOLESTEROL 39 MG/DL (>40); LDL CHOLESTEROL 58 MG/DL (<100); NON-HDL-C 87 MG/DL; TRIGLYCERIDES LEVEL 146 MG/DL (<150)
[2018-06-13 12:38] LABS: ESTIMATED AVERAGE GLUCOSE 137 MG/DL (60-110); HEMOGLOBIN A1c 6.4 %
== END ==
LOC: M SFHCPLAZ 08:39
DX: E11.9 Type 2 diabetes mellitus without complications (principal)
CPT/HCPCS: 83036

== ENCOUNTER → 2018-08-05 | Outpatient (REF) | payer MEDICARE, OTHER ==
[2018-08-05 16:17] LABS: ESTIMATED AVERAGE GLUCOSE 128 MG/DL (60-110); HEMOGLOBIN A1c 6.1 %
== END ==
LOC: M SFHCPLAZ 12:37
DX: E11.9 Type 2 diabetes mellitus without complications (principal)
CPT/HCPCS: 83036

== ENCOUNTER → 2018-10-13 | Outpatient (REF) | payer MEDICARE, OTHER ==
[~2018-10-13] MED LIST changes: +/WARF25TA OR; +ACET1TAB55 PO; +ACET30TAB PO; +ACET65TA OR; +AMAN100C18 PO; +AMOX500C PO; +ASPI1TAB PO; +ATOR1TAB21 PO; +ATOR80TA59 PO; +BACITAB PO; +CEFT2VL IVP; +CIPR-249 PO; +DOCU100C16 PO; +FLOM0.4C39 PO; +GEMF600T PO; +GLIP5TAB8 PO; +INDA125TA PO; +Ibuprofen PO; +JANU50TA8 PO; +Janumet PO; +LEVI20TA PO; -LIDOCAINE 2% INJ 100 MG/5 ML SDV (FOR ANES.) As Ordered; +Lisinopril/HCTZ PO; +METO1TAB87 PO; +MICA80TA PO; -MIDAZOLAM INJ 2 MG/2 ML VIAL (J2250) As Ordered; +NORC7.5T35 PO; +OCEA0.654; +OCEAN; -ONDANSETRON 4MG/2ML VIAL (J2405) As Ordered; +PATIENT COMMENTS; +PERC5TAB8 OR; +POTA75TA PO; -PROPOFOL 200 MG/20 ML VIAL As Ordered; +QUET1TAB7 PO; +SILD1TAB8 PO; +TELM1TAB37 PO; +VALS1TAB46 PO; +VITMTA PO; +VYTORIN PO; +ZOFR4TAB14 PO; +[UNRECOGNIZED DRUG - CODE] IV; +[UNRECOGNIZED DRUG - OTHER]; -fentaNYL 100 MCG/2 ML INJECTION (J3010) As Ordered
[2018-10-13 14:29] LABS: BLOOD UREA NITROGEN 25 MG/DL (7-18); CALCIUM LEVEL 9.1 MG/DL (8.8-10.2); CARBON DIOXIDE LEVEL 30 MEQ/L (21-32); CHLORIDE LEVEL 102 MEQ/L (98-107); CREATININE FOR GFR 1.02 MG/DL (0.70-1.30); GLOMERULAR FILTRATION RATE > 60.0 (>49); GLUCOSE, FASTING 128 MG/DL (70-100); POTASSIUM SERUM 4.7 MEQ/L (3.5-5.1); SODIUM LEVEL 139 MEQ/L (136-145)
[2018-10-13 14:52] LABS: HEMOGLOBIN A1c 6.9 %
== END ==
LOC: M SFHCPLAZ 11:07
PROVIDERS: ATTEND Family Medicine
DX: E11.9 Type 2 diabetes mellitus without complications (principal); Z12.5 Encounter for screening for malignant neoplasm of prostate
CPT/HCPCS: 36415; 80048; 83036; G0103; G0463

== ENCOUNTER 2019-01-13 07:21 | Emergency (ER) | payer MEDICARE, OTHER ==
[~2019-01-13] VITALS: Ht 182.9 cm; Wt 100.6 kg
[~2019-01-13 07:21] MED LIST changes: -/WARF25TA OR; +ACET-716 PO; -ACET30TAB PO; -ASPI1TAB PO; +ASPI81TA26 PO; +COUM1TAB18 OR; +NORC1TAB8 PO; -NORC7.5T35 PO; -VALS1TAB46 PO; +VALS1TAB66 PO
[2019-01-13] MEDS ORDERED: ALIG4CAP (07:56)
[2019-01-13] MEDS ORDERED: DONE10TA90 (07:56)
[2019-01-13 08:09] LABS: BASO % 0.4 % (0.0-1.0); EOS # 0.2 10^3/uL (0.0-0.50); EOS % 1.8 % (0.0-3.0); HEMATOCRIT 45.6 % (42.0-52.0); HEMOGLOBIN 15.2 g/dl (13.5-17.5); LYMPH # 2.6 10^3/uL (1.5-4.5); LYMPH % 28.4 % (24.0-44.0); MEAN CORPUSCULAR HEMOGLOBIN 30.2 pg (27.0-33.0); MEAN CORPUSCULAR HGB CONC 33.3 g/dl (32.0-36.5); MEAN CORPUSCULAR VOLUME 90.5 fl (80.0-96.0); MONO # 0.6 10^3/uL (0.0-0.8); MONO % 6.8 % (0.0-5.0); NEUTROPHILS # 5.6 10^3/uL (1.8-7.7); NEUTROPHILS % 62.3 % (36.0-66.0); PLATELET COUNT, AUTOMATED 218 10^3/uL (150-450); RED BLOOD COUNT 5.04 10^6/uL (4.30-6.10); WHITE BLOOD COUNT 9.1 10^3/uL (4.0-10.0)
--- NOTE | 2019-01-13 08:34 | REP ---
CT brain without contrast: History: Altered mental status. Comparison brain CT study and MRI study are from May 26, 2018. CT findings: Preliminary digital director inbound sales radiograph is unremarkable. Bone window settings demonstrate mild vascular calcification in the distal internal carotid arteries and the left distal and vertebral artery unchanged. Bony calvarium is intact. Visualized paranasal sinuses are clear. No intraorbital abnormality is seen. On soft tissue window settings, the previously noted old cerebral infarction involving the left occipital and posterior temporal lobe is again seen. There is mild diffuse cerebral atrophy. No new infarct is seen. No intracranial hemorrhage is observed. Impression: Vascular calcification, mild diffuse volume loss, and an old fairly large left temporo-occipital lobe infarct are again seen. No new infarction is appreciated. Findings unchanged from May 26, 2018. No hemorrhage or mass lesion seen. Electronically Signed by Dylan Bhandari MD 01/13/2019 10:43 A
[2019-01-13 09:29] LABS: ALBUMIN 3.5 GM/DL (3.2-5.2); ALT/SGPT 26 U/L (12-78); BILIRUBIN,DIRECT 0.2 MG/DL (0.0-0.2); BILIRUBIN,TOTAL 0.5 MG/DL (0.2-1.0); BLOOD UREA NITROGEN 27 MG/DL (7-18); CALCIUM LEVEL 8.6 MG/DL (8.8-10.2); CARBON DIOXIDE LEVEL 28 MEQ/L (21-32); CHLORIDE LEVEL 108 MEQ/L (98-107); CK-MB VALUE MASS < 1.0 NG/ML (<3.6); CPK CREATINE PHOSPHOKINASE 64 U/L (39-308); CREATININE FOR GFR 0.88 MG/DL (0.70-1.30); GLOMERULAR FILTRATION RATE > 60.0 (>49); GLUCOSE, FASTING 154 MG/DL (70-100); MB/CK RELATIVE INDEX 1.56 (< OR =4); POTASSIUM SERUM 4.1 MEQ/L (3.5-5.1); SODIUM LEVEL 141 MEQ/L (136-145); THYROID STIMULATING HORMONE 0.907 uIU/ML (0.358-3.740); TOTAL PROTEIN 5.8 GM/DL (6.4-8.2); TROPONIN I < 0.02 NG/ML (< 0.10)
[2019-01-13] MEDS ORDERED: NS 500 ML IV ONE (12:30)
[2019-01-13 13:45] VITALS: BP 132/83
--- NOTE | 2019-01-13 13:47 | REP ---
MRI study of the brain without contrast: History: Weakness. History of CVA. Comparison head CT study is from earlier today. Comparison MRI study is from May 26, 2018. Technique: Axial and sagittal imaging planes are utilized for T1 and T2-weighted scans. Sequences include spin-echo, fast spin echo, FLAIR, and diffusion weighted sequences. 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 This is unchanged. Visualized paranasal sinuses are clear. The deep facial and skull base soft tissues are otherwise unremarkable. No bony calvarial lesion is seen. There is generalized volume loss. There is an old area of encephalomalacia in the left occipital lobe with white matter edema adjacent in the occipital and temporal lobe unchanged from the comparison MR. There is ex vacuo enlargement of the temporal and occipital horn of the left lateral ventricle associated with this. There are patchy areas of T2 hyperintensity in the periventricular white matter of the frontal, parietal and temporal lobes bilaterally consistent with small vessel atherosclerotic changes. These are stable when compared with the May 16, 2018 study. Diffusion weighted scan shows no evidence of restricted diffusion to suggest acute ischemia today. There is no evidence of intracranial hemorrhage. No extra-axial fluid collection is seen. No mass or midline shift is observed. Impression: Chronic changes including small vessel atherosclerotic changes, generalized volume loss, old left occipital lobe infarct. No acute intracranial abnormality. Electronically Signed by Dylan Bhandari MD 01/13/2019 10:29 P
--- NOTE | 2019-01-13 19:26 | ECGEPIP ---
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
--- NOTE | 2019-01-14 11:26 | REP ---
MR angiography the brain without contrast: History: Weakness, history of CVA. Comparison brain MR angiography is from November 11, 2017. Technique: 3-D [id number] MR angiography of the brain is acquired in the usual fashion and maximal intensity projection images were generated in rotational format about the vertical and horizontal axes. In addition, source axial T1-weighted images are viewed in cine mode. MR angiographic findings: The distal vertebral arteries are patent and co-dominant. Basilar artery is a little tortuous but widely patent. The posterior cerebral and superior cerebellar vessels are normal and symmetric. The distal internal carotid arteries are unremarkable. Anterior and middle cerebral arteries appear intact. There is no visible haynes aneurysm or arteriovenous malformation. Impression: Unremarkable MR angiography the brain. Electronically Signed by Dylan Bhandari MD 01/13/2019 10:21 A
== END 2019-01-13 13:50 | disposition home or self-care (01) ==
LOC: M ED 07:21
DX: R53.1 Weakness (principal); E11.9 Type 2 diabetes mellitus without complications; I10 Essential (primary) hypertension; E78.5 Hyperlipidemia, unspecified; Z87.891 Personal history of nicotine dependence; Z79.899 Other long term (current) drug therapy; Z79.84 Long term (current) use of oral hypoglycemic drugs; Z79.82 Long term (current) use of aspirin

== ENCOUNTER → 2019-04-08 | Outpatient (REF) | payer MEDICARE, OTHER ==
[~2019-04-08] MED LIST changes: +ALIG4CAP; +DONE10TA90
[2019-04-08 13:06] LABS: ALBUMIN 3.8 GM/DL (3.2-5.2); ALT/SGPT 30 U/L (12-78); BILIRUBIN,TOTAL 0.4 MG/DL (0.2-1.0); BLOOD UREA NITROGEN 29 MG/DL (7-18); CARBON DIOXIDE LEVEL 29 MEQ/L (21-32); CHLORIDE LEVEL 105 MEQ/L (98-107); CHOLESTEROL LEVEL 129 MG/DL (<200); CHOLESTEROL RISK RATIO 3.146 (<5); CREATININE FOR GFR 1.07 MG/DL (0.70-1.30); GLOMERULAR FILTRATION RATE > 60.0 (>49); GLUCOSE, FASTING 159 MG/DL (70-100); HDL CHOLESTEROL 41 MG/DL (>40); LDL CHOLESTEROL 26 MG/DL (<100); NON-HDL-C 88 MG/DL; POTASSIUM SERUM 4.1 MEQ/L (3.5-5.1); SODIUM LEVEL 142 MEQ/L (136-145); TOTAL PROTEIN 6.8 GM/DL (6.4-8.2); TRIGLYCERIDES LEVEL 310 MG/DL (<150)
[2019-04-08 13:43] LABS: HEMOGLOBIN A1c 6.6 %
== END ==
LOC: M SFHCPLAZ 09:14
PROVIDERS: ATTEND Family Medicine
DX: E11.9 Type 2 diabetes mellitus without complications (principal); E78.5 Hyperlipidemia, unspecified

== ENCOUNTER → 2019-08-20 | Outpatient (REF) | payer MEDICARE, OTHER ==
[2019-08-20 15:09] LABS: CHOLESTEROL RISK RATIO 2.96 (<5)
[2019-08-20 15:20] LABS: HEMOGLOBIN A1c 6.5 %
[2019-08-20 15:38] LABS: CREATININE, URINE 50.5 MG/DL; MALB URINE SIEMENS 6.3 MG/L; MAU/CREAT RATIO 12.4 MCG/MG (0.0-30.0)
== END ==
LOC: M SFHCPLAZ 12:29
PROVIDERS: ATTEND Family Medicine
DX: E11.9 Type 2 diabetes mellitus without complications (principal); E78.5 Hyperlipidemia, unspecified

== ENCOUNTER → 2020-03-01 | Outpatient (CLI) | payer MEDICARE, OTHER ==
[2020-03-01 15:34] LABS: BLOOD UREA NITROGEN 22 MG/DL (7-18); CARBON DIOXIDE LEVEL 28 MEQ/L (21-32); CHLORIDE LEVEL 104 MEQ/L (98-107); CREATININE FOR GFR 0.95 MG/DL (0.70-1.30); GLOMERULAR FILTRATION RATE > 60.0 (>49); GLUCOSE, FASTING 129 MG/DL (70-100); HEMOGLOBIN A1c 6.5 %; POTASSIUM SERUM 4.2 MEQ/L (3.5-5.1); SODIUM LEVEL 137 MEQ/L (136-145)
== END ==
LOC: M PLALAB 11:51
PROVIDERS: ATTEND Family Medicine
DX: E11.9 Type 2 diabetes mellitus without complications (principal); I10 Essential (primary) hypertension

== ENCOUNTER → 2020-03-08 | Outpatient (CLI) | payer MEDICARE, OTHER ==
--- NOTE | 2020-03-08 12:03 | REP ---
Abdominal aortic sonography: History: For smoker. Question abdominal aortic aneurysm . Findings: Scanning through the retroperitoneum demonstrates that the abdominal aorta is normal in caliber at the level of the diaphragmatic hiatus measuring 2.5 x 2.6 cm in AP by transverse dimension respectively. The measurements of the aorta at the level of the renal artery origins is 2.0 x 2.3 cm in AP by transverse dimension diameter respectively. The distal aorta tapers to 1.8 x 2.2 cm AP by transverse dimension. The right and left common iliac arteries are normal measuring 1.2 and 1.3 cm in AP dimension respectively. No aneurysm is seen. No periaortic disease is observed. Impression: Negative abdominal aortic sonography. Electronically Signed by Dylan Bhandari MD 03/08/2020 11:54 A
== END ==
LOC: M WHC 08:03
PROVIDERS: ATTEND Family Medicine
DX: F17.211 Nicotine dependence, cigarettes, in remission (principal)

== ENCOUNTER → 2020-07-07 | Outpatient (REF) | payer MEDICARE, OTHER ==
[2020-07-07 14:13] LABS: ALBUMIN 4.1 GM/DL (3.2-5.2); ALT/SGPT 25 U/L (12-78); BILIRUBIN,TOTAL 0.8 MG/DL (0.2-1.0); BLOOD UREA NITROGEN 29 MG/DL (7-18); CALCIUM LEVEL 9.4 MG/DL (8.8-10.2); CARBON DIOXIDE LEVEL 28 MEQ/L (21-32); CHLORIDE LEVEL 108 MEQ/L (98-107); CHOLESTEROL LEVEL 154 MG/DL (<200); CHOLESTEROL RISK RATIO 2.444 (<5); CREATININE FOR GFR 1.04 MG/DL (0.70-1.30); GLOMERULAR FILTRATION RATE > 60.0 (>49); GLUCOSE, FASTING 146 MG/DL (70-100); HDL CHOLESTEROL 63 MG/DL (>40); LDL CHOLESTEROL 60 MG/DL (<100); NON-HDL-C 91 MG/DL; POTASSIUM SERUM 4.6 MEQ/L (3.5-5.1); SODIUM LEVEL 142 MEQ/L (136-145); TOTAL PROTEIN 7.1 GM/DL (6.4-8.2); TRIGLYCERIDES LEVEL 156 MG/DL (<150)
[2020-07-07 14:22] LABS: MALB URINE SIEMENS 50.6 MG/L; MAU/CREAT RATIO 23.5 MCG/MG (0.0-30.0)
== END ==
LOC: M PLALAB 09:49
PROVIDERS: ATTEND Family Medicine
DX: E78.5 Hyperlipidemia, unspecified (principal); I10 Essential (primary) hypertension; E11.9 Type 2 diabetes mellitus without complications

== ENCOUNTER 2020-08-30 09:01 | Inpatient (IN) | payer MEDICARE, OTHER ==
[~2020-08-30] VITALS: Ht 180.3 cm; Wt 98.6 kg
[2020-08-30] MEDS ORDERED: NS 1,000 ML IV SCH (09:10)
[2020-08-30] MEDS ORDERED: ISOVUE-370 76% 100ML VIAL As Ordered ONE (09:20)
[2020-08-30 09:40] VITALS: BP 161/101
[2020-08-30 10:13] LABS: BASO % 0.2 % (0.0-1.0); EOS # 0.1 10^3/uL (0.0-0.5); EOS % 0.9 % (0.0-3.0); HEMOGLOBIN 14.6 g/dl (13.5-17.5); LYMPH # 2.3 10^3/uL (1.5-5.0); LYMPH % 25.7 % (24.0-44.0); MEAN CORPUSCULAR HEMOGLOBIN 28.9 pg (27.0-33.0); MEAN CORPUSCULAR HGB CONC 32.4 g/dl (32.0-36.5); MEAN CORPUSCULAR VOLUME 89.1 fl (80.0-96.0); MONO # 0.5 10^3/uL (0.0-0.8); MONO % 5.2 % (0.0-5.0); NEUTROPHILS % 67.7 % (36.0-66.0); PLATELET COUNT, AUTOMATED 224 10^3/uL (150-450); RED BLOOD COUNT 5.05 10^6/uL (4.30-6.10); WHITE BLOOD COUNT 8.8 10^3/uL (4.0-10.0)
--- NOTE | 2020-08-30 10:33 | REP ---
INDICATION: CVA - Nursing interventions must not delay CT COMPARISON: 01/13/2019 TECHNIQUE: Axial noncontrast images from the skull base to the thoracic inlet with coronal reformations. This CT examination was performed using the following dose reduction techniques: Automated exposure control, adjustment of mA and/or kv according to the patient's size, and use of iterative reconstruction technique. FINDINGS: Age-related atrophy with periventricular leukomalacia and microvascular ischemic changes are appreciated. Evidence for old left temporal-occipital infarction. The ventricles and sulci are symmetric. Lopez-white differentiation is maintained. There is no evidence for acute intracranial hemorrhage, mass/mass effect, pathology or infarction. No extra-axial fluid collection. Calvarium is intact. Paranasal sinuses and mastoid air cells are clear. IMPRESSION: Age related atrophy and microvascular ischemic changes. Stable encephalomalacia consistent with old left posterior temporal-occipital infarction. No acute intracranial hemorrhage, infarction, or mass/mass effect. <Electronically signed by Diaz Saul > 08/30/20 1023
[2020-08-30 10:41] LABS: CK-MB VALUE MASS 1.3 NG/ML (<3.6); CPK CREATINE PHOSPHOKINASE 65 U/L (39-308); FREE T4 0.99 NG/DL (0.76-1.46); THYROID STIMULATING HORMONE 0.915 uIU/ML (0.358-3.740); TROPONIN I < 0.02 NG/ML (< 0.10)
--- NOTE | 2020-08-30 10:46 | REP ---
INDICATION: CVA - Nursing interventions must not delay CT. COMPARISON: None. TECHNIQUE: Axial contrast-enhanced images were obtained from the skull base to the vertex with coronal reformations using 100 cc Isovue 370 intravenous contrast material. Maximal intensity projection and multiplanar re-formation images along with 3-D rendered imaging of the arterial vasculature. FINDINGS: The [id number] and visualized vertebrobasilar system appear intact and normal. Vasculature to the bilateral hemispheres appear relatively symmetric and normal. Encephalomalacia involving the left temporoparietal region demonstrates suspected lack of vascularity. No obvious arteriovenous malformation or aneurysm detected. IMPRESSION: Relatively normal appropriate CT angiography of the head. No obvious arteriovenous malformation or aneurysm. Vasculature to the bilateral hemispheres and posterior fossa appear essentially normal with appropriate decreased vascularity to the area of old left temporoparietal infarction. <Electronically signed by Diaz Saul > 08/30/20 [id number]
[2020-08-30] MEDS ORDERED: ATOR40TA75 PO (10:50)
[2020-08-30] MEDS ORDERED: METF-838 PO (10:50)
--- NOTE | 2020-08-30 10:55 | REP ---
INDICATION: CVA - Nursing interventions must not delay CT. COMPARISON: None. TECHNIQUE: Axial contrast-enhanced images were obtained from the thoracic inlet to the skull base with coronal and sagittal reformations using 100 cc Isovue 370 intravenous contrast material. Maximal intensity projection and multiplanar re-formation images along with 3-D rendered imaging of the arterial vasculature. This CT examination was performed using the following dose reduction techniques: Automated exposure control, adjustment of mA and/or kv according to the patient's size, and the use of iterative reconstruction technique. FINDINGS: The bilateral common carotid arteries demonstrate moderate amounts of mixed partially calcified atheromatous plaquing which visibly narrows the distal left common carotid artery by approximately 50-60%. Significant atheromatous partially calcified plaquing is then identified along the bilateral carotid bulbs with subsequent relatively symmetric nonstenotic appearance to the bilateral internal carotid arteries extending to the skull base. Of note, the right internal carotid artery demonstrates moderate tortuosity. The bilateral vertebral arteries appear patent and relatively symmetric. IMPRESSION: Moderate to significant areas of atheromatous plaquing as described above and primarily involving the bilateral carotid bulbs and left mid to distal common carotid artery. The visible portions of the bilateral internal carotid arteries appear symmetric and essentially normal. <Electronically signed by Diaz Saul > 08/30/20 [id number]
[2020-08-30] MEDS ORDERED: CLOPIDOGREL 75 MG TAB PO ONE (11:00)
--- NOTE | 2020-08-30 11:17 | REP ---
INDICATION: CVA COMPARISON: 05/26/2018 TECHNIQUE: Portable AP view of the chest FINDINGS: The mediastinum and cardiac silhouette are stable and within normal limits for portable technique. The lung ortiz are clear without acute consolidation, effusion, or pneumothorax. Skeletal structures are intact. IMPRESSION: No acute cardiopulmonary process appreciated. <Electronically signed by Diaz Saul > 08/30/20 [id number]
[2020-08-30 11:30] LABS: RSV AMPLIFICATION NEGATIVE (NEGATIVE)
[2020-08-30 11:33] LABS: INR 0.96
[2020-08-30 11:37] LABS: ACETAMINOPHEN LEVEL < 2.0 UG/ML (10.0-30.0); ETHYL ALCOHOL (ETHANOL) 0.003 % (0.000-0.010); SALICYLATE LEVEL < 1.7 MG/DL (5.0-30.0)
[2020-08-30] MEDS ORDERED: GLUCOSE 4GM CHEW TABLET PO PRN (13:00)
[2020-08-30] MEDS ORDERED: GLUCAGON INJ 1MG VIAL SC PRN (13:00)
[2020-08-30] MEDS ORDERED: DEXTROSE 50% 50 ML SYRINGE IV PRN (13:00)
[2020-08-30 13:04] LABS: AMPHETAMINES LEVEL URINE NEGATIVE (NEGATIVE); BARBITURATES URINE NEGATIVE (NEGATIVE); BENZODIAZEPINES URINE NEGATIVE (NEGATIVE); CANNABINOIDS URINE NEGATIVE (NEGATIVE); COCAINE METABOLITE URINE NEGATIVE (NEGATIVE); METHADONE URINE NEGATIVE (NEGATIVE); OPIATES URINE NEGATIVE (NEGATIVE); PHENCYCLIDINE URINE NEGATIVE (NEGATIVE)
[2020-08-30] MEDS: HumaLOG INSULIN (NovoLOG) PER UNIT SC SCH ×2 (13:12→17:30)
[2020-08-30] MEDS: ASPIRIN 81 MG ENTERIC TAB PO SCH (13:39)
[2020-08-30] MEDS: DONEPEZIL 5 MG TAB PO SCH (13:39)
[2020-08-30] MEDS: MULTIVITAMINS/MINERALS THERAP 1 TAB PO SCH (13:40)
--- NOTE | 2020-08-30 17:34 | HPEPDOC ---
General Date of Admission 08/30/20 Date of Service: Aug 30, 2020 Chief Complaint The patient is a 69-year-old male admitted with a reason for visit of Weakness. 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 Patient has very poor short term memory. He just told me he was dizzy . Does not remember why he came to the hospital. All history from and ED staff. I spoke with over the phone. She reports that he has been dizzy since last night. This morning his dizziness was very bad and while he was coming back from the bathroom he went down to his knees. She does report his right sided vision is poor. There was no nausea or vomiting. Patient denied any spinning of the room. also reported that he has been behaving abnormally for a week. He would go check the doors again and again even after reminding him that he already checked it he would still go. His memory is very poor. He does not remember eating or if he had his meals. This kind of episode happened about 2 months ago which lasted for a few days then got better. I see in the clinic visit note of Dr Ferguson. He is admitted for possible TIA. Home Medications Scheduled Aspirin (Aspirin EC) 81 Mg Tab, 81 MG PO DAILY, (Reported) Atorvastatin Calcium (Atorvastatin Calcium) 40 Mg Tablet, 40 MG PO QHS, (Reported) Metformin HCl (Metformin HCl ER) 500 Mg Tab.er.24h, 1,000 MG PO DAILY, (Reported) Multivitamins (Thera M Plus Tablet) 1 Tab Tab, 1 TAB PO DAILY, (Reported) Scheduled PRN Acetaminophen (Acetaminophen) 325 Mg Tab, 975 MG PO TID PRN for PAIN Sodium Chloride ([place]) 0.65 % Spr, 2 SPRAY NA for NASAL DRYNESS, (Reported) EACH NOSTRIL Miscellaneous Medications Bifidobacterium Infantis (Align) 4 Mg Capsule, (Reported) Donepezil HCl (Donepezil HCl) 10 Mg Tablet, (Reported) Allergies Coded Allergies: No Known Allergies (Verified , 12/09/03) Past Medical History Medical History CVA in 2018 with loss of Peripheral vision. DIABETES MELLITIS TYPE 2 HTN AORTIC VALVE REPLACEMENT- BOVINE PERICARDIAL PATCH- AORTIC VALVE DISEASE, AORTIC STENOSIS- [facility] Diastolic Dysfunction HLD KIDNEY STONES HX ENDOCARDITIS IN 2018, ENTEROCOCCUS FAECALIS INFECTION VASCULAR DEMENTIA - DR. PATRICIA Surgical History AORTIC VALVE REPLACEMENT 08/26/2015 LEFT KNEE REPLACEMENT 2003 RIGHT KNEE REPLACEMENT 2011 CATARACT SURGERY BOTH EYES 2013 ARTHROSCOPIC KNEE SURGERY 2002 COLONOSCOPY - DR RODRÍGUEZ - ADENOMATOUS POLYP, TUBULAR ADENOMA - DR RODRÍGUEZ ADVISES REPEAT IN 3 YEARS (11/2018) 11/2015 RIGHT THUMB [facility] JOINT ARTHROSCOPY 08/2016 Family History FATHER: , STROKE MOTHER: , CANCER Social History * Smoker: Denies Alcohol: Denies Drugs: denies A-FIB/CHADSVASC A-FIB History Current/History of A-Fib/PAF?: No Review of Systems Constitutional: Denies: Chills, Fever, Night Sweats Eyes: Reports: Vision change; Denies: Pain ENT: Denies: Head Aches, Ear Pain, Dysphagia Skin: Denies: Rash, Lesions, Breakdown Pulmonary: Denies: Dyspnea, Cough Cardiovascular: Reports: Lt Headedness; Denies: Chest Pain, Palpitations, Orthopnea, Paroxysmal Noc. Dyspnea Gastrointestinal: Denies: Nausea, Vomiting, Abdominal Pain, Diarrhea Musculoskeletal: Denies: Neck Pain, Back Pain, Joint Pain, Muscle Pain, Spasms Psych: Reports: Memory Issues Physical Examination General Exam: Positive: Alert, Cooperative, No Acute Distress Eye Exam: Positive: Conjunctiva & lids normal; Negative: Sclera icteric ENT Exam: Positive: Atraumatic, Mucous membr. moist/pink, Pharynx Normal Neck Exam: Positive: Supple; Negative: JVD, thyromegaly Chest Exam: Positive: Clear to auscultation, Normal air movement Heart Exam: Positive: Rate Normal, Regular Rhythm, Normal S1, Normal S2; Negative: Murmurs, Rubs Telemetry: Positive: No significant arrhythmia Abdomen Exam: Positive: Normal bowel sounds, Soft; Negative: Tenderness, Hepatospenomegaly Extremity Exam: Positive: Normal pulses; Negative: Clubbing, Cyanosis, Edema Neuro Exam: Positive: Strength at 5/5 X4 ext, Normal Tone, Other (slow soft speech) Vital Signs Vital Signs Date Time Temp Pulse Resp B/P (MAP) Pulse Ox O2 Delivery O2 Flow Rate FiO2 08/30/20 09:40 97.5 52 20 161/101 99 Room Air Laboratory Data Labs 24H Laboratory Tests 2 08/30/20 09:53: Immature Granulocyte % (Auto) 0.3, Neutrophils (%) (Auto) 67.7H, Lymphocytes (%) (Auto) 25.7, Monocytes (%) (Auto) 5.2H, Eosinophils (%) (Auto) 0.9, Basophils (%) (Auto) 0.2, Neutrophils # (Auto) 6.0, Lymphocytes # (Auto) 2.3, Monocytes # (Auto) 0.5, Eosinophils # (Auto) 0.1, Basophils # (Auto) 0.0, Nucleated Red Blood Cells % (auto) 0.0, POC Prothrombin Time (Misc) 13.2, POC INR (Misc) 1.1, Total Creatine Kinase 65, Creatine Kinase MB 1.3, Creatine Kinase MB Relative Index 2.00, Troponin I < 0.02, Thyroid Stimulating Hormone (TSH) 0.915, Free Thyroxine 0.99 08/30/20 09:58: POC Glucose (Misc Panel) 156H, POC Sodium (Misc Panel) 139, POC Potassium (Misc Panel) 3.7, POC Chloride (Misc Panel) 105, POC Total CO2 (Misc Panel) 24.0, POC Blood Urea Nitrogen (Misc Panel 18, POC Ionized Calcium (Misc Panel) 4.0L, POC Creatinine (Misc Panel) 0.8, POC Hematocrit (Misc Panel) 43.0 08/30/20 10:57: 08/30/20 10:58: CBC/BMP Laboratory Tests 08/30/20 09:53 Assessment/Plan 69 year old male with vascular dementia, 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 Patient has very poor short term memory. He just told me he was dizzy . Does not remember why he came to the hospital. All history from and ED staff. I spoke with over the phone. She reports that he has been dizzy since last night. This morning his dizziness was very bad and while he was coming back from the bathroom he went down to his knees. She does report his right sided vision is poor. There was no nausea or vomiting. Patient denied any spinning of the room. also reported that he has been behaving abnormally for a week. He would go check the doors again and again even after reminding him that he already checked it he would still go. His memory is very poor. He does not remember eating or if he had his meals. He is admitted for possible TIA Vs worsening of his dementia. TIA CT head, CTA head and CTA neck did not reveal in new acute events He has moderate 50% to 60% carotid occlusion Discussed with Dr Whaley will get MRI. added Plavix. continue ASA and statin Will allow permissive hypertension Hydralazine prn Dizziness peripheral vs central will check orthostatic vitals and vestibular function by PT however this may be due to his old stroke. CVA in 2018 with loss of Peripheral vision and vascular dementia continue donepezil DIABETES MELITIS TYPE 2 last A1c 6.0 in june will hold metformin HTN controlled without meds. He has dropped 100 lbs since his stroke and he now needs no medications. will continue to monitor Will allow permissive hypertension Hydralazine prn. HLD atorvastatin AORTIC VALVE REPLACEMENT- BOVINE PERICARDIAL PATCH- For AORTIC VALVE DISEASE, AORTIC STENOSIS KIDNEY STONES No issues at present Plan / VTE VTE Prophylaxis Ordered?: Yes ELI RIOS MD Aug 30, 2020 11:21
[2020-08-30] MEDS: **hydrALAZINE HCL** 25 MG TAB PO SCH (18:00)
[2020-08-30 19:06] VITALS: BP 144/84
[2020-08-30] MEDS ORDERED: ATORVASTATIN 20 MG TAB PO SCH (21:00)
--- NOTE | 2020-08-30 21:50 | REPVR ---
PROCEDURE INFORMATION: Exam: MR Head Without Contrast Exam date and time: 08/30/2020 9:16 PM Age: 69 years old Clinical indication: Pain; Headache; Cluster; Additional info: Stroke TECHNIQUE: Imaging protocol: MR of the head without contrast. COMPARISON: MRI-Brain without Contrast 01/13/2019 9:48 AM FINDINGS: Age-related volume loss. Major vascular flow voids at the skull base are preserved. No extra-axial fluid collection. No midline shift or intracranial mass effect. Nonspecific white matter gliosis, probable chronic microvascular ischemia. Chronic left CLOCKMAKER infarction with hemosiderin staining indicating component of prior hemorrhage. Multiple small foci of susceptibility secondary to remote microhemorrhage. No diffusion restriction. Visualized paranasal sinuses and mastoid air cells are clear. IMPRESSION: 1. No acute intracranial abnormality. 2. Chronic findings as above. Electronically signed by: Linwood Elias On 08/30/2020 21:50:55 PM
[2020-08-30 22:00] VITALS: BP 146/84
--- NOTE | 2020-08-30 22:53 | ECGEPIP ---
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
[2020-08-31] MEDS ORDERED: ENTER DRUG NAME HERE (PATIENT'S OWN MED) PRN (00:30)
[2020-08-31 05:24] VITALS: BP 140/83
[2020-08-31] MEDS: **hydrALAZINE HCL** 25 MG TAB PO SCH ×3 (05:24→12:00)
[2020-08-31 05:30] VITALS: BP_SYST 140; BP_SYST 145; BP_SYST 153; BP_DIAS 124; BP_DIAS 83; BP_DIAS 88
[2020-08-31 06:00] VITALS: BP 140/83
[2020-08-31 06:18] LABS: BASO % 0.2 % (0.0-1.0); EOS % 0.4 % (0.0-3.0); HEMATOCRIT 45.7 % (42.0-52.0); HEMOGLOBIN 15.1 g/dl (13.5-17.5); LYMPH # 2.7 10^3/uL (1.5-5.0); LYMPH % 27.5 % (24.0-44.0); MEAN CORPUSCULAR HEMOGLOBIN 29.4 pg (27.0-33.0); MEAN CORPUSCULAR VOLUME 89.1 fl (80.0-96.0); MONO # 0.6 10^3/uL (0.0-0.8); MONO % 6.6 % (0.0-5.0); NEUTROPHILS # 6.3 10^3/uL (1.5-8.5); NEUTROPHILS % 65.1 % (36.0-66.0); PLATELET COUNT, AUTOMATED 219 10^3/uL (150-450); RED BLOOD COUNT 5.13 10^6/uL (4.30-6.10); WHITE BLOOD COUNT 9.7 10^3/uL (4.0-10.0)
[2020-08-31 06:36] LABS: HEMOGLOBIN A1c 6.2 %
[2020-08-31 06:49] LABS: BLOOD UREA NITROGEN 16 MG/DL (7-18); CALCIUM LEVEL 8.4 MG/DL (8.8-10.2); CARBON DIOXIDE LEVEL 28 MEQ/L (21-32); CHLORIDE LEVEL 109 MEQ/L (98-107); CREATININE FOR GFR 0.81 MG/DL (0.70-1.30); GLOMERULAR FILTRATION RATE > 60.0 (>49); GLUCOSE, FASTING 128 MG/DL (70-100); POTASSIUM SERUM 3.5 MEQ/L (3.5-5.1); SODIUM LEVEL 143 MEQ/L (136-145)
[2020-08-31] MEDS: HumaLOG INSULIN (NovoLOG) PER UNIT SC SCH ×2 (07:30→12:36)
[2020-08-31] MEDS ORDERED: ENOXAPARIN 40MG/0.4ML SYRINGE (J1650 PER 10MG) SC SCH (09:00)
[2020-08-31] MEDS ORDERED: OXYMETAZOLINE 0.05% NASAL SPRAY (AFRIN) SCH (09:00)
[2020-08-31] MEDS: ASPIRIN 81 MG ENTERIC TAB PO SCH (09:33)
[2020-08-31] MEDS: DONEPEZIL 5 MG TAB PO SCH (09:34)
[2020-08-31] MEDS: MULTIVITAMINS/MINERALS THERAP 1 TAB PO SCH (09:34)
[2020-08-31 09:58] VITALS: BP 112/72
[2020-08-31] MEDS ORDERED: METF-838 PO (11:40)
[2020-08-31 14:00] VITALS: BP 164/86
[2020-08-31] MEDS ORDERED: PLAV1TAB2 PO (16:29)
--- NOTE | 2020-08-31 16:50 | DS.PDOC ---
Discharge Summary General Date of Admission Aug 30, 2020 at 12:43 Date of Discharge 08/31/20 Discharge Summary PROCEDURES PERFORMED DURING STAY: [None]. 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 Patient has very poor short term memory. He just told me he was dizzy . Does not remember why he came to the hospital. All history from and ED staff. I spoke with over the phone. She reports that he has been dizzy since last night. This morning his dizziness was very bad and while he was coming back from the bathroom he went down to his knees. She does report his right sided vision is poor. There was no nausea or vomiting. Patient denied any spinning of the room. also reported that he has been behaving abnormally for a week. He would go check the doors again and again even after reminding him that he already checked it he would still go. His memory is very poor. He does not remember eating or if he had his meals. He is admitted for possible TIA Vs worsening of his dementia. TIA CT head, CTA head and CTA neck did not reveal in new acute events MRI no new changes He has moderate 50% to 60% carotid occlusion Discussed with Dr LANGE added Plavix, continue ASA and statin Dizziness/ disbalance due to old stroke orthostatic vitals were negative No abnormality in vestibular function Evaluated by PT. CVA in 2018 with loss of Peripheral vision disbalance and diplopia. from emboli from prosthetic valve endocarditis. Dementia continue Donepezil DIABETES MELITIS TYPE 2 last A1c 6.0 in june will decrease metformin. HTN controlled without meds. He has dropped 100 lbs since his endocarditis and stroke and he now needs no me dications. HLD atorvastatin AORTIC VALVE REPLACEMENT- BOVINE PERICARDIAL PATCH for in 2014 complicated by prosthetic valve endocarditis in 2018; Follow up Dr Sykes. KIDNEY STONES No issues at present DISCHARGE MEDICATIONS: Please see below. ALLERGIES: Please see below. PHYSICAL EXAMINATION ON DISCHARGE: VITAL SIGNS: Please see below. General Exam: Positive: Alert, Cooperative, No Acute Distress Eye Exam: Positive: Conjunctiva & lids normal; Negative: Sclera icteric ENT Exam: Positive: Atraumatic, Mucous membr. moist/pink, Pharynx Normal Neck Exam: Positive: Supple; Negative: JVD, thyromegaly Chest Exam: Positive: Clear to auscultation, Normal air movement Heart Exam: Positive: Rate Normal, Regular Rhythm, Normal S1, Normal S2; Systolic murmur present heard all over the precordium Negative: Rubs or gallop Telemetry: Positive: Sinus bradycardia Abdomen Exam: Positive: Normal bowel sounds, Soft; Negative: Tenderness, Hepatosplenomegaly Extremity Exam: Positive: Normal pulses; Negative: Clubbing, Cyanosis, Edema Neuro Exam: Positive: Strength at 5/5 X4 ext, Normal Tone, Other (slow soft speech) LABORATORY DATA: Please see below. IMAGING: MRI Brain: Chronic left HEAD OF MARKETING infarction with hemosiderin staining indicating component of prior hemorrhage. Multiple small foci of susceptibility secondary to remote microhemorrhage. No diffusion restriction. Visualized paranasal sinuses and mastoid air cells are clear. IMPRESSION: 1. No acute intracranial abnormality. 2. Chronic findings as above. ACTIVITY: [As tolerated]. DIET: Carb consistent DISPOSITION: 01 Home, Self-Care. DISCHARGE INSTRUCTIONS: Dr Lange in [address] Ferguson in 1 week DISCHARGE CONDITION: [Stable]. TIME SPENT ON DISCHARGE: 35 minutes. Vital Signs/I&Os Vital Signs Date Time Temp Pulse Resp B/P (MAP) Pulse Ox O2 Delivery O2 Flow Rate FiO2 08/31/20 14:00 98.1 64 20 164/86 (112) 99 08/31/20 09:58 Room Air I&O- Last 24 Hours up to 6 AM 08/31/20 06:00 Intake Total 900 ml Output Total 275 ml Balance 625 ml Laboratory Data Labs 24H Laboratory Tests 2 08/30/20 19:44: Bedside Glucose (Misc Panel) 144H 08/31/20 05:59: Immature Granulocyte % (Auto) 0.2, Neutrophils (%) (Auto) 65.1, Lymphocytes (%) (Auto) 27.5, Monocytes (%) (Auto) 6.6H, Eosinophils (%) (Auto) 0.4, Basophils (%) (Auto) 0.2, Neutrophils # (Auto) 6.3, Lymphocytes # (Auto) 2.7, Monocytes # (Auto) 0.6, Eosinophils # (Auto) 0.0, Basophils # (Auto) 0.0, Nucleated Red Blood Cells % (auto) 0.0, Anion Gap 6L, Glomerular Filtration Rate > 60.0, Estimated Mean Plasma Glucose 131H, Hemoglobin A1c 6.2, Calcium Level 8.4L 08/31/20 12:05: Bedside Glucose (Misc Panel) 151H CBC/BMP Laboratory Tests 08/31/20 05:59 FSBS Laboratory Tests Test 08/30/20 19:44 08/31/20 12:05 Range/Units Bedside Glucose (Misc Panel) 144 151 80-115 MG/DL Discharge Medications Scheduled Aspirin (Aspirin EC) 81 Mg Tab, 81 MG PO DAILY, (Reported) Atorvastatin Calcium (Atorvastatin Calcium) 40 Mg Tablet, 40 MG PO QHS, (Reported) Metformin HCl (Metformin HCl ER) 500 Mg Tab.er.24h, 500 MG PO DAILY Multivitamins (Thera M Plus Tablet) 1 Tab Tab, 1 TAB PO DAILY, (Reported) Scheduled PRN Acetaminophen (Acetaminophen) 325 Mg Tab, 975 MG PO TID PRN for PAIN Sodium Chloride ([place]) 0.65 % Spr, 2 SPRAY NA for NASAL DRYNESS, (Reported) EACH NOSTRIL Miscellaneous Medications Bifidobacterium Infantis (Align) 4 Mg Capsule, (Reported) Donepezil HCl (Donepezil HCl) 10 Mg Tablet, (Reported) Allergies Coded Allergies: No Known Allergies (Verified , 12/09/03) ELI RIOS MD Aug 31, 2020 16:50
--- NOTE | 2020-09-01 19:40 | ECGEPIP ---
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
== END 2020-08-31 15:25 | disposition home or self-care (01) | DRG 57 ==
LOC: M ED 09:01 → M ED INP 12:43 → M MSPAV 18:56
PROVIDERS: ADMIT Internal Medicine Nephrology; ATTEND Internal Medicine Nephrology
DX: I69.398 Other sequelae of cerebral infarction (principal); G45.9 Transient cerebral ischemic attack, unspecified; F01.50 Vascular dementia, unspecified severity, without behavioral disturbance, psychotic disturbance, mood disturbance, and anxiety; E11.9 Type 2 diabetes mellitus without complications; I10 Essential (primary) hypertension; Z79.82 Long term (current) use of aspirin; Z79.899 Other long term (current) drug therapy

== ENCOUNTER 2020-11-04 07:23 | Inpatient (IN) | payer MEDICARE, OTHER ==
[~2020-11-04] VITALS: Ht 180.3 cm; Wt 96.0 kg
[~2020-11-04 07:23] MED LIST changes: +ATOR40TA75 PO; -DONE10TA90; +DONE10TA90 PO; +METF-838 PO; +PLAV1TAB2 PO; -QUET1TAB7 PO; +QUET25TA3 PO
--- NOTE | 2020-11-04 08:01 | REPVR ---
PROCEDURE INFORMATION: Exam: CT Head Without Contrast Exam date and time: 11/04/2020 7:40 AM Age: 69 years old Clinical indication: Altered mental status/memory loss TECHNIQUE: Imaging protocol: Computed tomography of the head without contrast. Radiation optimization: All CT scans at this facility use at least one of these dose optimization techniques: automated exposure control; mA and/or kV adjustment per patient size (includes targeted exams where dose is matched to clinical indication); or iterative reconstruction. COMPARISON: CT Head without contrast 08/30/2020 10:09 AM FINDINGS: Brain: There is low attenuation abnormality in the periventricular white matter, likely reflecting chronic microvascular ischemic disease. There are chronic lacunar infarcts. There is an old left SPLICER HELPER territory infarct. There is moderate cerebral atrophy. Cerebral ventricles: No ventriculomegaly. Bones/joints: Unremarkable. No acute fracture. Paranasal sinuses: Visualized sinuses are unremarkable. No fluid levels. Mastoid air cells: Visualized mastoid air cells are well aerated. Soft tissues: Unremarkable. IMPRESSION: 1. There is low attenuation abnormality in the periventricular white matter, likely reflecting chronic microvascular ischemic disease. If an acute infarct is a clinical concern, follow-up MRI with diffusion imaging is recommended. 2. There are chronic lacunar infarcts. 3. There is an old left SPLICER HELPER territory infarct. 4. There is moderate cerebral atrophy. Electronically signed by: Sebastian Sweeney On 11/04/2020 08:01:28 AM
[2020-11-04] MEDS ORDERED: levETIRAcetam 250MG TABLET (KEPPRA) PO SCH (09:00)
[2020-11-04] MEDS ORDERED: levETIRAcetam INJection 750 MG in D5W 100 ML IV ONE (09:00)
[2020-11-04 09:01] LABS: VENOUS BASE EXCESS -0.8 (-2.0-2.0); VENOUS HCO3 24.8 MEQ/L (23.0-27.0); VENOUS O2 SATURATION 99.5 % (60.0-80.0); VENOUS PARTIAL PRESSURE CO2 44.4 mmHg (38.0-50.0); VENOUS PARTIAL PRESSURE O2 209.2 mmHg (30.0-50.0); VENOUS PH 7.365 UNITS (7.330-7.430); VENOUS STANDARD HCO3 23.8 MEQ/L; VENOUS TOTAL CO2 26.2 MEQ/L (24.0-28.0)
--- OUTSIDE RECORDS SUMMARY | 2020-11-04 09:08 | CCD ---
Author Author [facility] Organization [facility] Address Unknown Phone Unavailable Care Team Providers Care Cotton Chopper Name Role Phone Marciolindsay Kristal Unavailable PROBLEMS Type Condition ICD9-CM Code [id number] Code Onset Dates Condition S tatus W/U Status Risk SNOMED Code Notes Problem H/O aortic valve replacement Z95.2 Active con firmed 743857715055748 Problem Endocarditis of prosthetic valve, subsequent encounter T82.6XXD Active confirmed 332279512 Problem Body mass index (BMI) of 30.0-30.9 in adult Z68.30 Active confirmed 052982305 Problem T2DM (type 2 diabetes mellitus) E11.9 Active confi rmed 00872969 Problem Mixed hyperlipidemia E78.2 Active confirmed 519128360 Problem Primary osteoarthritis of first carpometacarpal joint of right hand M18.11 Active confirmed 01156278 Problem TIA (transient ischemic attack) G45.9 Active confi rmed 797006249 Problem HTN (hypertension) I10 Active confirmed 3 6913891 Problem Vascular dementia without behavioral disturbance F 01.50 Active confirmed 39773110061566643 Problem Other obesity due to excess calories E66.09 Act smita confirmed 527561342 Problem History of adenomatous polyp of colon Z86.010 Ac tive confirmed 296927985 Problem 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.211 Active confirmed 986907806 ALLERGIES No Known Allergies ENCOUNTERS from 1950 to 2020-10-12 Encounter Location Date Provider Diagnosis [address] [address] Oct, Kristal Ferguson IMMUNIZATIONS Vaccine Route Administration Date Status Influenza (18 yrs & older) Flublok IM Intramuscular Jun 09, 2020 Administered Influenza (High Dose 65 & up) Unknown Jun 24, 2018 Ad ministered SOCIAL HISTORY Tobacco Use: Social History Observation Description Date Details (start date - stop date) Former Smoker Sex Assigned At : Social History Observation Description Sex Assigned At Unknown Education: Question Answer Notes Level of Education: Finished College Audit Question Answer Notes Interpretation: Alcohol Education Total Score: 0 Language: Question Answer Notes Languages spoken: Kyrgyz Anabaptist: Question Answer Notes Anabaptist 13 Gnosticist Domestic Violence: Question Answer Notes Status: Sexual Hx: Question Answer Notes Had sex in the last 12 months (vaginal, oral, or anal)? Yes Have you ever had an STD? No with Women only Drug and Alcohol Question Answer Notes Interpretation: No problems reported Total Score: 0 Alcohol Screening: Question Answer Notes Did you have a drink containing alcohol in the past year? No Points 0 Interpretation Negative BMI Care Goal Follow-Up Question Answer Notes Above Normal BMI Follow-Up Giving encouragement to exercise Tobacco Use: Question Answer Notes Are you a: former smoker How long has it been since you last smoked? > 10 years REASON FOR REFERRAL No Information VITAL SIGNS No information MEDICATIONS Medication SIG (Take, Route, Frequency, Duration) Notes Start Da te End Date Status Lancets - as directed Daily. DX: E11.9 Apr, Active Atorvastatin Calcium 40 MG 1 tablet Orally Once a day for 90 day s January, Active Glucometer as directed Dx E11.9 Aug, Ac tive Artificial Tears 1.4 % 1 drop into each eye Ophthalmic tid January, Active Align 4 MG as directed Orally daily for 90 days Active Aspirin 81 MG 1 tablet Orally Once a day Active Multivital-M 1 tablet orally once a day for 30 days Active Polymyxin B-Trimethoprim 22698-2.1 UNIT/ML 1 drop into affected eye Ophthalmic Four times a day x7 days Sep, Oct, Active Sodium Chloride 0.65 % 2 sprays in each nostril as needed Nasall y every 2 hrs Active Levetiracetam 750 MG 1 tablet Orally twice daily Sep, Active Alcoh-Wipe - prior to testing blood sugars topically Daily. D X: E11.9 Nov, Active Blood Glucose Test Strip - as directed In Vitro, free style lite three times daily as needed for 90 days Apr, Acti ve PROCEDURES No Information RESULTS No Results REASON FOR VISIT TCM ACO [facility] 10/07; Syncope MEDICAL (GENERAL) HISTORY Type Description Date Medical History Diabetes Mellitis Type 2 - Dr. Doherty Medical History HTN Medical History Aortic Valve Replacement- Malik tamayo pericardial patch- Aortic Valve Disease, Aortic Stenosis- [facility] - Dr Harrison 08/2015. Recommend infective endocarditis prophylaxis prior to dental procedures/procedures likely to produce transient bacteremia Medical History Echo 11/15/15: Appropriate bi oprostetic aortic valve function. Normal appearing aortic root size. Moderate MAC without functional abnormality. Moderate concentric LVH with preserved systolic function. Mildly dilated left atrium with Doppler evidence of impairment of LV diastolic relaxation but currently normal estimated mean left atrial pressure. Normal right heart chamber sizes and estimated pulmonary arterial pressure. - [facility] Medical History Hpyerlipidemia Medical History Hx kidney stones Medical History Hx endocarditis in 2017, Enterococcus fa ecalis infection Medical History CVA in 2017 Medical History Vascular dementia - Dr. Lange Medical History Former smoker, quit in his 30s Surgical History aortic valve replacement 08/26/2015 Surgical History Left Knee Replacement 2003 Surgical History Right Knee Replacement 2011 Surgical History Cataract surgery both eyes 2013 Surgical History arthroscopic knee surgery 2002 Surgical History Colonoscopy - Dr Atkins - ad enomatous polyp, tubular adenoma - Dr Atkins advises repeat in 3 years (11/2018) 11/2015 Surgical History Right thumb [facility] joint arthoscopy 08/2016 Surgical History kidney stones 12/2016 Hospitalization History surgically related Hospitalization History TIA 08/2020 Goals Section No Information Health Concerns No Information MEDICAL EQUIPMENT No Information MENTAL STATUS No Information FUNCTIONAL STATUS No Information ASSESSMENTS Encounter Date Diagnosis Assessment Notes Treatment Notes Treatm ent Clinical Notes Oct, Other 10/11/20 10:15 am - Discussion with patient's s/p hospital discharge for syncopal epsiode. reports pt is doing well and is no longer as weak as he was prior to hospitalization. Pt scheduled for hospital f/u appt 10/17/20 at 11:15am. Medication reconciliation completed and medication record updated. See VV for concerns. Film Cutter advided to contact clinic with any further questions or concerns. Katerin Tello RN PLAN OF TREATMENT Next Appt Details Provider Name:Kristal Ferguson, 2020-10-17 11:15:00 AM, [address] [place], [address], Provider Name:Kristal Ferguson, 2020-11-29 10:30:00 AM, [address] [place], [address], Provider Name:Kristal Ferguson, 2021-01-12 10:30:00 AM, [address] [place], [address], Insurance Providers Payer Name Payer Address Payer Phone Insured Name Patient Relati onship to Insured Coverage Start Date Coverage End Date MEDICARE Part A and B [address] [facility] [id number] DAWNA FERREIRA self FOR LIFE [address] [facility] [id number] DAWNA FERREIRA self
--- OUTSIDE RECORDS SUMMARY | 2020-11-04 09:08 | CCD ---
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 Active confirmed 736540607 Problem Body mass index (BMI) of 30.0-30.9 in adult Z68.30 Active confirmed 177615969 Problem T2DM (type 2 diabetes mellitus) E11.9 Active confi rmed 31313085 Problem Mixed hyperlipidemia E78.2 Active confirmed 432183717 Problem Primary osteoarthritis of first carpometacarpal joint of right hand M18.11 Active confirmed 75185220 Problem TIA (transient ischemic attack) G45.9 Active confi rmed 244829961 Problem HTN (hypertension) I10 Active confirmed 3 5748826 Problem Vascular dementia without behavioral disturbance F 01.50 Active confirmed 93600226100012614 Problem Other obesity due to excess calories E66.09 Act smita confirmed 953228300 Problem History of adenomatous polyp of colon Z86.010 Ac tive confirmed 152249127 Problem 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.211 Active confirmed 227128579 ALLERGIES No Known Allergies ENCOUNTERS from 1950 to 2020-11-02 Encounter Location Date Provider Diagnosis [address] [address] Oct, Kristal Ferguson IMMUNIZATIONS Vaccine Route Administration Date Status Influenza 18 yrs & older Flublok IM Intramuscular Jun 09, 2020 Administered Influenza (High Dose 65 & up) Unknown Jun 24, 2018 Ad ministered SOCIAL HISTORY Tobacco Use: Social History Observation Description Date Details (start date - stop date) Former Smoker Sex Assigned At : Social History Observation Description Sex Assigned At Unknown Education: Question Answer Notes Level of Education: Finished College Audit Question Answer Notes Total Score: 0 Interpretation: Alcohol Education Language: Question Answer Notes Languages spoken: Grenadian Sabianism: Question Answer Notes Sabianism 13 Congregation Domestic Violence: Question Answer Notes Status: Sexual Hx: Question Answer Notes Had sex in the last 12 months (vaginal, oral, or anal)? Yes Have you ever had an STD? No with Women only Drug and Alcohol Question Answer Notes Total Score: 0 Interpretation: No problems reported Alcohol Screening: Question Answer Notes Did you [...] as directed Daily. DX: E11.9 Apr, Active Artificial Tears 1.4 % 1 drop into each eye Ophthalmic tid January, Active Sodium Chloride 0.65 % 2 sprays in each nostril as needed Nasall y every 2 hrs Active Glucometer as directed Dx E11.9 Aug, Ac tive Blood Glucose Test Strip - as directed In Vitro, free style lite three times daily as needed for 90 days Apr, Acti ve Align 4 MG as directed Orally daily for 90 days Active Atorvastatin Calcium 40 MG 1 tablet Orally Once a day for 90 day s January, Active Alcoh-Wipe - prior to testing blood sugars topically Daily. D X: E11.9 Nov, Active Levetiracetam 750 MG 1 tablet Orally twice daily Sep, 021 Active Aspirin 81 MG 1 tablet Orally Once a day Active Multivital-M 1 tablet orally once a day for 30 days Active PROCEDURES No Information RESULTS No Results REASON FOR VISIT pain in left shoulder and neck x 2 weeks MEDICAL (GENERAL) HISTORY Type Description Date Medical [...] No Information FUNCTIONAL STATUS No Information ASSESSMENTS No Information PLAN OF TREATMENT Next Appt Details Provider Name:Kristal Scherer Marty, 2020-11-10 11:15:00 AM, [address] [place] [address], [phone], Provider Name:Kristal Ferguson, 2020-11-29 10:30:00 AM, [address] [place] [address], [phone], Provider Name:Kristal Ferguson, 2021-01-12 10:30:00 AM, [address] [place] [address], [phone], Insurance Providers Payer Name Payer Address Payer Phone Insured Name Patient Relati onship to Insured Coverage Start Date Coverage End Date MEDICARE Part A and B [facility] [address] [facility] [id number] [phone] DAWNA FERREIRA FOR LIFE [address] [facility] [phone] DAWNA FERREIRA self
--- OUTSIDE RECORDS SUMMARY | 2020-11-04 09:08 | CCD ---
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 Active confirmed 236124043 Problem Body mass index (BMI) of 30.0-30.9 in adult Z68.30 Active confirmed 621953187 Problem T2DM (type 2 diabetes mellitus) E11.9 Active confi rmed 23099844 Problem Mixed hyperlipidemia E78.2 Active confirmed 183453675 Problem Primary osteoarthritis of first carpometacarpal joint of right hand M18.11 Active confirmed 64146826 Problem TIA (transient ischemic attack) G45.9 Active confi rmed 617731385 Problem HTN (hypertension) I10 Active confirmed 3 3429034 Problem Vascular dementia without behavioral disturbance F 01.50 Active confirmed 27817374971834365 Problem Other obesity due to excess calories E66.09 Act smita confirmed 042707860 Problem History of adenomatous polyp of colon Z86.010 Ac tive confirmed 974330322 Problem 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.211 Active confirmed 947089811 ALLERGIES No Known Allergies ENCOUNTERS from 1950 to 2020-10-10 Encounter Location Date Provider Diagnosis [address] [address] Oct, Kristal Ferguson IMMUNIZATIONS Vaccine Route Administration [...] Education Language: Question Answer Notes Languages spoken: Tajik Yazidism: Question Answer Notes Yazidism 13 Sikh Domestic Violence: Question Answer Notes Status: Sexual [...] Notes Start Da te End Date Status Blood Glucose Test Strip - as directed In Vitro, free style lite three times daily as needed for 90 days Apr, Acti ve Donepezil HCl 10 MG 2 tablet at bedtime Orally Once a day Active Clopidogrel Bisulfate 75 MG 1 tablet Orally Once a day Active Acetaminophen 325 MG 3 tablets as needed Orally three times daily Active Alcoh-Wipe - prior to testing blood sugars topically Daily. D X: E11.9 Nov, Active Sodium Chloride 0.65 % 2 sprays in each nostril as needed Nasall y every 2 hrs Active Align 4 MG as directed Orally daily for 90 days Active Aspirin 81 MG 1 tablet Orally Once a day Active Lancets - as directed Daily. DX: E11.9 Apr, Active Artificial Tears 1.4 % 1 drop into each eye Ophthalmic tid January, Active Multivital-M 1 tablet orally once a day for 30 days Active MetFORMIN HCl ER (MOD) 500 MG 1 tablet with evening meal Orally Once a day Aug, Active Atorvastatin Calcium 40 MG 1 tablet Orally Once a day for 90 day s January, Active Glucometer as directed Dx E11.9 Aug, Ac tive PROCEDURES No Information RESULTS No Results REASON FOR VISIT blood work? MEDICAL (GENERAL) HISTORY Type Description Date Medical [...] fa ecalis infection Medical History CVA in 2018 Medical History Vascular dementia - Dr. Lange [...] Information ASSESSMENTS No Information PLAN OF TREATMENT Medication Medication Name Sig Start Date Stop Date Align 4 MG as directed Orally daily for 90 days Next Appt Details Provider Name:Kristal Scherer Marty, 2020-11-29 10:30:00 AM, [address] [place] [address], [phone], Provider Name:Kristal Scherer Marty, 2021-01-12 10:30:00 AM, [address] [place] [address], [phone], Insurance Providers Payer Name Payer Address Payer Phone Insured Name Patient Relati onship to Insured Coverage Start Date Coverage End Date MEDICARE Part A and B [facility] [address] [facility] [address] [phone] DAWNA FERREIRA self FOR LIFE [address] [facility] [address] DAWNA FERREIRA self
--- OUTSIDE RECORDS SUMMARY | 2020-11-04 09:08 | CCD | Continuity of Care Document ---
Author Gorge Flores M.D. Organization Unknown Address [address] [place] [address] Phone [phone] Care Team Providers Care Reel Operator Name Role Phone Ruben Sandoval M.D. 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 Onset: 03/27/2018 Multi-infarct dementia, uncomplicated Alexys Lange M.D. On set: 06/19/2018 Aphasia as late effect of cerebrovascular accident Alexys Milner i, M.D. Onset: 06/19/2018 Syncope and collapse Alexys Lange M.D. Onset: 10/11/2020 Isolated seizures Alexys Lange M.D. Onset: 10/11/2020 Social History Type Date Description Comments Sex Unknown Tobacco Use Start: Unknown End: Unknown Patient is a former smoker Allergies, Adverse Reactions, Alerts Description No Information Available Medications Active Medications SIG Qnty Indications Ordering Provide r Date Donepezil HCL 10mg Tablets 1 po qam. 90carlosbs Alexys Lange M.D. 10/05/2020 History Medications Memantine HCL 10mg Tablets Half a Tab po bid for 2 weeks, then 1 po bid. 60tabs Alexys Lange M.D. 09/22/2020 - 10/11/2020 Immunizations Description No Information Available Vital Signs Date Vital Result Comment 03/27/2018 10:53am BP Systolic 120 mmHg BP Diastolic 75 mmHg Heart Rate 74 /min Respiratory Rate 14 /min Height 71 inches 5'11" Weight 238.00 lb BMI (Body Mass Index) 33.2 kg/m2 [place] Body Weight 172 lb Results Description No Information Available Procedures Description No Information Available Medical Devices Description No Information Available Encounters Type Date Location Provider Dx Diagnosis Office Visit 10/11/2020 12:30p Main office - [facility] I63.032 Cerebral infarction due to thrombosis of left carotid artery I63.031 Cerebral infrc due to thromb osis of right carotid artery F01.50 Vascular dementia without be havioral disturbance 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 R55 Syncope and collapse G40.89 Other seizures Office Visit 09/22/2020 1:[place] I63.032 Cerebral infarction due to thrombosis of left carotid artery I63.031 Cerebral infrc due to thromb osis of right carotid artery F01.50 Vascular dementia without be havioral disturbance 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 10/11/2020 I63.031 Cerebral infarction due to throm bosis of right carotid arter Alexys Lange M.D. 10/11/2020 F01.50 Vascular dementia without behavi oral disturbance Alexys Lange M.D. 10/11/2020 I69.320 Aphasia following cerebral infar cteliseo Lange M.D. 10/11/2020 R55 Syncope and collapse Alexys Lange M.D. 10/11/2020 G40.89 Other seizures Alexys Lange M.D. 09/22/2020 I63.032 Cerebral infarction due to throm bosis of left carotid artery Alexys Lange M.D. 09/22/2020 I63.031 Cerebral infarction due to throm bosis of right carotid arter Alexys Lange M.D. 09/22/2020 F01.50 Vascular dementia without behavi oral disturbance Alexys Lange M.D. 09/22/2020 I69.320 Aphasia following cerebral infar ction Alexys Lange M.D. 08/10/2020 I63.032 Cerebral infarction due to throm bosis of left carotid artery Alexys Lange M.D. 08/10/2020 I63.031 Cerebral infarction due to throm bosis of right carotid arter Alexys Lange M.D. 08/10/2020 F01.50 Vascular dementia without behavi oral disturbance Alexys Lange M.D. 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 Plan of Treatment Future Appointment(s):* 11/15/2020 1:00 pm - EEG at [facility] [place] * 11/29/2020 2:00 pm - Alexys Lange M.D. at [facility] Functional Status Description No Information Available Mental Status Description No Information Available Referrals Refer to Reason for Referral Status Appt Date Alexys Lange M.D. Created [facility] [address] [place] [address] [phone]
--- OUTSIDE RECORDS SUMMARY | 2020-11-04 09:09 | CCD ---
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 Active 824288961 Problem Body mass index (BMI) of 30.0-30.9 in adult Z68.30 Active 053592687 Problem T2DM (type 2 diabetes mellitus) E11.9 Active 34476538 Problem Mixed hyperlipidemia E78.2 Active 031220390 Problem Primary osteoarthritis of first carpometacarpal joint of right hand M18.11 Active 33119927 Problem TIA (transient ischemic attack) G45.9 Active 118428193 Problem HTN (hypertension) I10 Active 76136594 Problem Vascular dementia without behavioral disturbance F 01.50 Active 80240968209763203 Problem Other obesity due to excess calories E66.09 Act smita 965458170 Problem History of adenomatous polyp of colon Z86.010 Ac tive 210813115 Problem 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 DX: E11.9 Apr, Active Multivital-M 1 tablet orally once a day for 30 days Active Glucometer as directed Dx E11.9 Aug, Ac tive Alcoh-Wipe - prior to testing blood sugars topically Daily. D X: E11.9 Nov, Active Donepezil HCl 10 MG 1 tablet at bedtime Orally Once a day Active Acetaminophen 325 MG 3 tablets as needed Orally three times daily Active MetFORMIN HCl ER (MOD) 500 MG 1 tablet with evening meal Orally Once a day Aug, Active Align 4 MG as directed Orally Active Blood Glucose Test Strip - as directed In Vitro, free style lite three times daily as needed for 90 days Apr, Acti ve Clopidogrel Bisulfate 75 MG 1 tablet Orally Once a day Active Atorvastatin Calcium 40 MG 1 tablet Orally Once a day for 90 day s January, Active Aspirin 81 MG 1 tablet Orally Once a day Active Sodium Chloride 0.65 % 2 sprays in each nostril as needed Nasall y every 2 hrs Active Artificial Tears 1.4 % 1 drop into each eye Ophthalmic tid January, Active PROCEDURES No Information RESULTS No Results REASON FOR VISIT [facility] D/C 08/31; TIA MEDICAL (GENERAL) HISTORY Type Description Date Medical [...] Notes Treatment Notes Treatm ent Clinical Notes Aug, Other [id number] @ 083 0: Placement Specialist called and spoke with pt's spouse Rj. Rj reports pt is having increased confusion. Rj reports that pt just came home last night and is very tired. Placement Specialist advised it is important for pt to come to appointment today. Rj reports she will try her hardest to get pt here this morning. Rj verified current medications. Javed Saucedo RN. PLAN OF TREATMENT Medication Medication Name Sig Start Date Stop Date Donepezil HCl 10 MG 1 tablet at bedtime Orally Once a day Aspirin 81 MG 1 tablet Orally Once a day MetFORMIN HCl ER (MOD) 500 MG 1 tablet with evening meal Ora lly Once a day Aug, Clopidogrel Bisulfate 75 MG 1 tablet Orally Once a day Next Appt Details Provider Name:Kristal Ferguson, 2020-11-29 10:30:00 AM, [address] [place], [address], Provider Name:Kristal Ferguson, 2021-01-12 10:30:00 AM, [address] [place], [address], Insurance Providers Payer Name Payer Address Payer Phone Insured Name Patient Relati onship to Insured Coverage Start Date Coverage End Date FOR LIFE [address] [facility] [address] DAWNA FERREIRA self MEDICARE Part A and B [address] [facility] [address] [phone] DAWNA FERREIRA self
--- OUTSIDE RECORDS SUMMARY | 2020-11-04 09:09 | CCD | Summary of Care ---
Author Author [facility] Organization [facility] Address Unknown Phone Unavailable Care Team Providers Care Pull Through Hooker Name Role Phone Kristal Ferguson MD PCP Reason for Referral * Home Health Care (Routine) Referred By Contact Referred To Contact Status Reason Specialty Diagnoses / Procedures Patricia Neal MBBS [address] [place] [id number] Email: [email or web address] Home Health Diagnoses Required Services Syncope, unspecified syncope type Reason for Visit * Reason Comments Aphasia * Auth/Cert Referred By Contact Referred To Contact Status Reason Specialty Diagnoses / Procedures Diagnoses Internal carotid artery stenosis, left Encounter Details Care Team Description Date Type Department Jeevan Gonzalez MD [address] [place] [address] [phone] Gloria Khan MD [address] [place] [address] [phone] Denny Pop MD [address] [place] [id number] [phone] Victorina Gtz MD [address] [address] [phone] Carotid stenosis, bilateral (Primary Dx) ; Syncope and collapse; Occlusion of left carotid artery; Severe sinus bradycardia; Personal history of transient cerebral ischemia; Syncope, unspecified syncope type 10/04/2020 [facility] 05A SURGERY/TRAUMA [facility] - Encounter [address] 10/07/2020 [place] [address] Allergies No Known Allergiesdocumented as of this encounter (statuses as of 10/07/2020) Medications End Date Status Medication Sig Dispensed Refills Start Date Active metFORMIN HCl 1000 MG Take 1,000 mg 0 Oral Tablet (GLUCOPHAGE) by mouth Two times daily with meals Active Aspirin EC 81 MG Oral Take 81 mg by 0 Tablet Delayed Release mouth daily Active Memantine HCl 5 MG Oral Take 5 mg by 0 Tablet (NAMENDA) mouth Two Times Daily Active Atorvastatin Calcium 40 Take 40 mg by 0 MG Oral Tablet (LIPITOR) mouth every evening 10/06/2021 Active levETIRAcetam 750 MG Oral Take 1 tablet 60 tablet 11 Tablet (KEPPRA) by mouth Two 1 Times Daily 10/14/2020 Active Polymyxin B-Trimethoprim Place 1 drop 1 mL 0 80154-4.1 UNIT/ML-% into the left 1 Ophthalmic Solution eye every 4 (Polytrim) (four) hours for 7 days 10/07/2020 Discontinued (Stop Taking at Discharge) Clopidogrel Bisulfate 300 Take 300 mg 0 MG Oral Tablet (PLAVIX) by mouth once documented as of this encounter (statuses as of 10/07/2020) Active Problems Problem Noted Date Syncope 10/05/2020 Acute bacterial endocarditis 10/05/2020 Type 2 diabetes mellitus without complication, withou t long-term current 10/05/2020 use of insulin Osteoarthrosis 10/05/2020 BMI 30.0-30.9,adult 10/05/2020 History of ischemic left TRAFFIC 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 stroke 11/12/2017 Dizziness and giddiness 06/19/2017 First degree atrioventricular block 10/13/2015 Aortic valve stenosis 08/31/2015 Overview: trace severe H/O aortic valve replacement 07/14/2015 Cardiomegaly 07/14/2015 Electrocardiogram abnormal 07/14/2015 Class 1 obesity in adult 07/14/2015 Hypertension 07/14/2015 Hyperlipidemia 07/14/2015 History of endocarditis documented as of this encounter (statuses as of 10/07/2020) Social History Date Tobacco Use Types Packs/Day Years Used Former Smoker Drinks/Week oz/Week Comments Alcohol Use Not Currently Sex Assigned at Date Recorded Not on file Date Recorded COVID-19 Exposure Response 10/04/2020 10:26 AM EST In the last month, have you been in contact with No / Unsure someone who was confirmed or suspected to have Coronavirus / COVID-19? documented as of this encounter Last Filed Vital Signs Reading Time Taken Comments Vital Sign 123/76 10/07/2020 11:50 AM EST Blood Pressure 74 10/07/2020 11:50 AM EST Pulse 36.1 C (97 F) 10/07/2020 11:50 AM EST Temperature 15 10/07/2020 5:31 AM EST Respiratory Rate 94% 10/07/2020 11:50 AM EST Oxygen Saturation - - Inhaled Oxygen Concentration 96.9 kg (213 lb 10 oz) 10/05/2020 6:00 AM EST Weight 177.8 cm (5' 10") 10/04/2020 10:08 AM EST Height 30.65 10/04/2020 10:08 AM EST Body Mass Index documented in this encounter Discharge Instructions * Instructions* Patricia Neal MBBS - 10/07/2020 12:22 PM EST Please start taking keppra 750 mg two times daily and follow up with Dr Lange who is your neurologist in [place] Please stop taking Plavix , It was stopped on this admission Please continue rest of medications unchanged documented in this encounter Progress Notes * Piotr Kraus RN - 10/07/2020 1:41 PM EST Patient discharged to home, discharge instructions discussed with patient's , Rj, over the phone. Patient's verbalized understanding. IV d/norma per order, awaiting phone call from when she arrives. [facility] to [facility] by staff. * Belkys Robledo OT - 10/07/2020 1:29 PM EST Occupational Therapy Acute Care Treatment Note Medical Diagnosis: Concern for orthostatic and hypoperfusion; TIA or symptomatic LICA Postural Hypotension s/p fall at home Rehabilitation Precautions/Restrictions: Full code High fall risk OOB to chair Obtain orthostatic vitals Goal Review Visit Number: 3 SUBJECTIVE Patient Report: Pt agreeable to OT session Pain: Patient has no complaints of pain currently. Pain Medication Today: no. OBJECTIVE General Observation: Pt received supine in bed in NAD +PIV RUE with [place] sleeve, +pulse oximetry supervisor wet pour present at start of session. Vital Signs: Pt asymptomatic Range of Motion:No change observed. Strength:No change observed. Skin Integrity Screen: Bruise to R posterior shoulder and R anterior shoulder Bruising noted to R wrist. Multiple bruises noted to B LEs and B UEs. Small bruise to mid back. PIV RUE with [place] sleeve. Self Care/Home Management: Dressing - upper body: Supervision. Provided minimal number of cues to facilitate processing of organizing and/or completing task. Dressing - lower body: Minimal Assistance. Provided minimal number of cues to facilitate processing of organizing and/or completing task. Graded task to improve physical/cognitive functioning. Bathing: Supervision. Provided minimal number of cues to facilitate processing of organizing and/or completing task. Graded task to improve physical/cognitive functioning. Task: Sit to/from stand transfer Provided: Supervision . Task: Functional mobility Provided: Supervision . Splinting: No splint issued today. Cognitive Test Score: Not tested. Outcome Measures: [facility] AM-PAC "6 Clicks" Daily Activity Inpatient Short Form: Putting on and taking off regular lower body clothing: A little assistance (3) Bathing (including washing, rinsing, and drying): A little assistance (3) Toileting (including use of toilet, bedpan, or urinal): A little assistance (3) Putting on and taking off regular upper body clothing: A little assistance (3) Taking care of personal grooming such as brushing teeth: A little assistance (3) Eating meals: A little assistance (3) Raw Score: 18 /24 Interventions: Self Care/Home Management: Facilitated pt through completion of ADL tasks with functional mobility in prep for self care tasks. Pt presents with decreased initiation, problem solving, and safety awareness. Therapist educated and guided pt through use of proper body mechanics and adaptive strategies. Provided continued verbal cues throughout to ensure appropriate and accurate carryover of educational strategies and to problem solve/sequencing through ADL routine. Furthermore therapist provided graded physical assistance throughout to ensure just right challenge and as much independence as safely possible. Education: Mode of education provided: Explanation. Demonstration. Audience: Patient. Education Provided: Role of OT, plan of care, d/c planning, importance of activity, discharge recommendations, goals of OT, use of call osorio, fall prevention, ADL retraining, adaptive strategies, safety . Response: Verbalized understanding. Requires cues (auditory/physical). Needs practice/reinforcement. ASSESSMENT Response to Visit: The session was tolerated well. Pt left ambulating in hallway with safety sealer with supervision, lines and tubes intact. All needs met. Bedside nursing notified of patient's performance. supervisor wet pour present at end of session. Pain: Patient has no complaints of pain currently. Goal review: Short Term Goals: 2. Pt to improve functional mobility to complete toilet transfer with supervision and use of DME PRN within 2 weeks Status: GOAL MET PLAN Treatment Frequency, Duration and Interventions: Restorative Occupational Therapy recommended for 5 times per week for 4 weeks Treatment is to include: Development of Cognitive Skills. Neuromuscular Re-education. Self Care/Home Management. Therapeutic Activity. Therapeutic Exercise. Equipment Provided: None issued this visit. Equipment Recommended: To be assessed. Recommended Occupational Therapy Follow Up: Upon acute care discharge, the following is currently recommended: Home with / supervision/assist for all functional mobility/ADLs/IADLs and Home OT. If family unable to provide assistance, patient would require an inpatient rehabilitation stay. Recommended Consults: None currently. Development of Plan of Care: Participants included: Patient. Nurse. Visit Number: Today's visit is number 3 Program: General Medicine (Therapist may be reached on Axiom) This document is submitted as a late entry. SESSION: Duration: 17 CHARGES: 95492 - CHARGE - OT SELF CARE ADL TRAIN-15 MIN 1 Units - GENERAL MEDICINE VISIT 1 Units - ORDER - Occupational Therapy Treatment 1 Units Total treatment minutes: 17.00 Minutes Electronically Signed by: ROBBIN Cooley/Gilbert, 10/07/2020 5:32:47 PM * Yanelis Rodrigues, PT - 10/07/2020 10:01 AM EST Physical Therapy Acute Care Treatment Note Medical Diagnosis: Concern for orthostatics and hypoperfusion; TIA or symptomatic LICA Postural Hypotension s/p fall at home Rehabilitation Precautions/Restrictions: Full code High fall risk NPO OOB to chair Obtain orthostatic vitals Pending d/c Goal Review Visit Number: 3 SUBJECTIVE Patient Report: Pt offers not complaints Pain: Patient has no complaints of pain currently. Pain Medication Today: no. OBJECTIVE General Observation: Pt is in bed in NAD, +PIV No bed alarm noted at start of session. supervisor wet pour present at start of session. Vital Signs: Stable. Range of Motion:WFL B LEs and B UEs Strength:No change observed. Skin Integrity Screen: Bruise to R posterior shoulder and R anterior shoulder Bruising noted to R wrist. Multiple bruises noted to B LEs and B UEs. Small bruise to mid back Functional Status: Transfers: Patient transferred sit to/from stand requiring supervision. Patient used the following equipment: Gait belt - use per hospital policy. Bed Mobility: Patient moves from supine to/from sit requiring supervision. Locomotion/Wheelchair: Not assessed. Locomotion/Gait/Ambulation: Patient was supervision with gait/ambulation for 300 feet . Patient requires the following assistive device(s): Gait belt - use per hospital policy. Stairs: Patient was contact guard assist of 1 person for 1 flight of stairs . Patient used the following equipment: Unilateral Railing. Modified Garland Score (mRS): 2 - Slight disability; unable to perform all previous activities, but able to look after own affairs without assistance. Outcome Measures: [facility] "6 Clicks" Basic Mobility Inpatient Short Form: Turning over in bed: No difficulty (4) Sitting down on and standing up from a chair with arms: No difficulty (4) Moving from lying on back to sitting on the side of the bed: No difficulty (4) Moving to and from a bed to a chair (including a wheelchair): A little help (3) Walking in hospital room: A little help (3) Climbing 3-5 steps with a railing: A little help (3) Raw Score 21 /24. Interventions: Gait Training: residential air sealing technician called this field underwriter regarding pending discharge/per resident pt's wants pt to discharge home and not to rehab. Therapist facilitated gait training for increased independence and assess mobility. Pt able to ambulate 300 feet with no assistive device needing contact guard assist x 1 for safety. pt demonstrates no loss of balance. Pt instructed in stair negotiation. pt able to complete up and down a full flight of stairs reciprocal pattern with 1 railing and min cues for safety and to slow his pace. pt verbalized understanding. Education: Mode of education provided: Explanation. Audience: Patient. Education Provided: role of acute PT, safe mobility, safe discharge planning . Response: Indicates understanding. poor carryover. ASSESSMENT Response to Visit: The session was tolerated fair, as evidenced by: Decreased guarding during movement. pt has cognitive deficits and confused. not oriented to time and place. Pt needs max cues for sequencing for all tasks supervisor wet pour present at end of session. Call osorio was in patient's reach at end of session. Pain: Patient has no complaints of pain currently. Goal review: pt demonstrates improved ambulation distance and stairs Changes in or Continuation of Plan of Care: Patient will benefit from continued therapy to achieve planned goals. PLAN Treatment Frequency, Duration and Interventions: Restorative Physical Therapy is recommended for 5 times per week for 2 weeks Treatment is to include: Gait Training. Neuromuscular Re-education. Therapeutic Exercise. Therapeutic Activity. Self Care/Home Management. Equipment Provided: None issued this visit. Equipment Recommended: None. Recommended Physical Therapy Follow Up: Upon acute care discharge, the following is currently recommended: 24 hour supervision. per case consultant pt's spouse and family is able to provide 24/7 casr/supervision as needed. Recommended Consults: None currently. Development of Plan of Care: Participants included: Materials Associate Patient. Medical provider. Visit Number: Today's visit is number 3 Program: Stroke (Therapist may be reached on Axiom) SESSION: Duration: 23 CHARGES: 11117 - CHARGE - PT GAIT TRNG - 15 MIN 2 Units - ORDER - Physical Therapy Treatment 1 Units - STROKE VISIT 1 Units Total treatment minutes: 23.00 Minutes Electronically Signed by: Yanelis Rodrigues PT, 10/07/2020 10:18:03 AM * Yanelis Rodrigues PT - 10/07/2020 9:27 AM EST Physical Therapy Acute Care Missed Visit Note Location: bedside Attempted to visit patient for therapy, but was unable for the following reasons: Treatment not completed secondary to scheduling conflict. medical team in room when approached for PT session. will reapproach at a later time today. (Therapist may be reached on Axiom) SESSION: Duration: 0 CHARGES: - CHARGE-IP PT PATIENT SCHEDULING CONFLICT 1 Units Total treatment minutes: 0.00 Minutes Electronically Signed by: Yanelis Rodrigues PT, 10/07/2020 9:35:11 AM * Gladys Gasca RN - 10/07/2020 9:01 AM EST Per PT and OT notes, pt has been cleared for d/c home with 01/04, which has confirmed she can provide and her sister is able to assist as well. [employer] will be providing RN, PT, OT services upon d/c and anticipate SOC is 10/09/20 if discharged today. * Veronica Truong RN - 10/06/2020 11:00 PM EST ([id number]) Pt AVSS, A&Ox0(baseline), on RA. 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 Will continue to monitor and provide handoff to oncoming staff. * Yadira Burton MD - 10/06/2020 4:12 PM EST Significant functional improvement today now that he is being treated for seizur es. Ambulating >100 feet with CG assist. Continue daily PT/OT. Patient is too high a functional level for IRF. Recommend SNF level rehab if he doesn't progress adequately for home discharge. If possible, would have patient ambulate with nursing on the unit TID. * Taz Hough PTA - 10/06/2020 2:27 PM EST Physical Therapy Acute Care Encounter Note Medical Diagnosis: Concern for orthostatics and hypoperfusion; TIA or symptomatic LICA Postural Hypotension s/p fall at home Rehabilitation Precautions/Restrictions: Full code High fall risk NPO OOB to chair Obtain orthostatic vitals Pending d/c Goal Review Visit Number: 2 SUBJECTIVE Patient Report: Patient has no complaints. Pain: Patient has no complaints of pain currently. Pain Medication Today: no. OBJECTIVE General Observation: Patient supine in bed. supervisor wet pour present at start of session. Skin Integrity Screen: Bruise to R posterior shoulder and R anterior shoulder Bruising noted to R wrist. Multiple bruises noted to B LEs and B UEs. Small bruise to mid back Vital Signs: Stable. Functional Status: Transfers: Patient transferred sit to/from stand requiring contact guard assistance of 1 person. Patient used the following equipment: Arms of chair. Patient used the following equipment: Gait belt - use per hospital policy. Bed Mobility: Patient moves from supine to/from sit requiring supervision. Used bedrail. Locomotion/Gait/Ambulation: Patient was contact guard with gait/ambulation of 1 person for 84 and 106 feet . Patient requires the following assistive device(s): Hand held assist. Gait belt. Patient has unsteady gait with scissoring times 2 with decreased step length/heel strike on right. Stairs: Not assessed. Outcome Measures: [facility]-PAC "6 Clicks" Basic Mobility Inpatient Short Form: Turning over in bed: No difficulty (4) Sitting down on and standing up from a chair with arms: A little difficulty (3) Moving from lying on back to sitting on the side of the bed: A little difficulty (3) Moving to and from a bed to a chair (including a wheelchair): A little help (3) Walking in hospital room: A little help (3) Climbing 3-5 steps with a railing: A lot of help (2) Raw Score 18 /24. Interventions: Gait Training: Facilitated gait training during ambulation to increase distance and improve gait. Ambulated 84 and 106 feet with hand held/gait belt and contact guard. Patient was cued to increase right heel strike and step length as well as to avoid scissoring and to slow down when turning around. Therapeutic Exercise: Instructed in and performed gi. LE AROM to improve strength. Performed 2x10 reps for long arc quads, hip flexion and heel raises with cues for 3 second hold and slow pace. Education: Mode of education provided: Explanation. Demonstration. Audience: Patient. Education Provided: Range of motion exercises. Safe mobility. Response: Requires cues (auditory/physical). Needs practice/reinforcement. ASSESSMENT Response to Visit: The session was tolerated well. Call osorio was in patient's reach at end of session. supervisor wet pour present at end of session. Pain: Patient has no complaints of pain currently. PLAN Treatment Frequency, Duration and Interventions: Restorative Physical Therapy is recommended for 5 times per week for 2 weeks Treatment is to include: Gait Training. Therapeutic Exercise. Therapeutic Activity. Recommended Physical Therapy Follow Up: Upon acute care discharge, the following is currently recommended: Anticipate patient will have inpatient rehab needs beyond the acute stay. Equipment Provided: None issued this visit. Visit Number: Today's visit is number 2 Program: Stroke (Therapist may be reached on Vocera) SESSION: Duration: 30 CHARGES: 82757 - CHARGE - PT GAIT TRNG - 15 MIN 1 Units 87081 - CHARGE - PT THER EX - 15 MIN 1 Units - STROKE VISIT 1 Units Total treatment minutes: 30.00 Minutes Electronically Signed by: Larry Hough THERMODYNAMICIST, 10/06/2020 2:42:38 PM * Denny Pop MD - 10/06/2020 2:00 PM EST . [place] [id number] PATIENT NAME: Gorge Ferreira, DATE OF : 1950 . Primary Care Physician: Kristal Ferguson MD Current Attending: Gloria Khan MD General neurology service progress note Subjective Patient does not have any active complaints at present Objective Physical exam General appearence - in no apparent distress Visit Vitals BP 124/77 (BP Location: Left arm, Patient Position: Lying) Pulse 70 Temp 37.3 C (99.1 F) (Oral) Resp 18 Ht 1.778 m (5' 10") Wt 96.9 kg (213 lb 10 oz) SpO2 96% BMI 30.65 kg/m Skin - Normal HEENT- Head: Normocephalic, no lesions, without obvious abnormality. Cardiovascular - normal sinus rhythm, no murmurs, heart sounds normal Respiratory - breath sounds clear and equal bilaterally Gastrointestinal - Bowel sounds present Extremities - extremities normal, atraumatic, no cyanosis or edema Neurologic exam Mental status - alert and conversing , knows he is in hospital in [place], year 2021 according to him , month September Cranial nerves -EOM restricted, left hemianopsia, pupil equal and reactive , sen sations to light touch intact bilaterally on the face, Uvula mid line, SCM stren gth normal bilaterally. Motor exam- Tone- normal Bulk - normal Abnormal movements - not observed Strength - Upper extremity Deltoid Biceps Triceps WE WF FE FF IO Right 5 5 5 5 5 5 5 5 Left 5 5 5 5 5 5 5 5 Strength - Lower extremity Hip flexion Quads TA Gastroc Hamstrings Hip extension Right 5 5 5 5 5 Left 5 5 5 5 5 Deep tendon reflexes Right Left Biceps trace trace Triceps trace trace Brachioradialis trace trace Patela absent absent Ankle absent absent Plantar Down Down Sensation - intact to light touch in the upper and lower Cerebellar : no dysmetria on Finger to nose testing Imaging and procedures Mr Brain Without Contrast Result Date: 10/05/2020 IMPRESSION: 1. No acute infarction or intracranial hemorrhage. 2. Left tempora l occipital lobe encephalomalacia and T2 hyperintensity consistent with chronic infarction. 3. Foci of T2 and FLAIR hyperintensity in the paraventricular white matter consistent with chronic small vessel ischemic disease. 4. Punctate hemo siderin deposition in bilateral cerebral convexities with posterior predominance may be seen with cerebral amyloid angiopathy. Chronic hemorrhage also identified in the left are temporoparietal occipital infarct. Ct Angiography Head ; Emergent Exam: Waive Labs Addendum Date: 10/04/2020 The cervical spine is straight in alignment losing its anatomic lordosis but wit hout significant spondylolisthesis. Intervertebral disc space narrowing, mild at C4-C5 level and severe at C5-C6 and C6-7 levels. Mild spondylotic changes in the mid and lower cervical spine. The posterior elements show no acute fracture or dislocation. Very mild arthritic changes at the uncovertebral joints bilaterally at C6-C7 level. The odontoid process is intact and no significant rotational a bnormality is present. The atlantoaxial distance is within normal limits. The ve rtebral heights are well-preserved. There is mild spinal canal stenosis at C6-C7 level. Neuroforaminal narrowing, mild to moderate on the right and moderate to severe on the left at C3-C4 level, severe bilaterally at C4-C5 and C5-C6 level, and severe on the right and moderate to severe on the left at C6-C7 level. No si gnificant prevertebral soft tissue is mildly and the airway is intact. Result Date: 10/04/2020 IMPRESSION: 1. No evidence of acute infarct or intracranial hemorrhage. 2. 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 Collateral vascul ature is seen within this territory and there is no acute infarction. 3. No raymond dence of stenosis, aneurysm, or arteriovenous malformations of the major intracr anial arteries. 4. 80-90% diameter significant focal stenosis of the proximal l eft common carotid artery at the level of T1. 5. Very mild chronic microvascula r ischemic changes of the white matter. Findings were communicated by Dr. Ken cross to Dr. Vale at 10:23 AM on 10/04/2020. Ct Angiography Neck ; Emergent Exam: Waive Labs Addendum Date: 10/04/2020 The cervical spine is straight in alignment losing its anatomic lordosis but wit hout significant spondylolisthesis. Intervertebral disc space narrowing, mild at C4-C5 level and severe at C5-C6 and C6-7 levels. Mild spondylotic changes in the mid and lower cervical spine. The posterior elements show no acute fracture or dislocation. Very mild arthritic changes at the uncovertebral joints bilaterally at C6-C7 level. The odontoid process is intact and no significant rotational a bnormality is present. The atlantoaxial distance is within normal limits. The ve rtebral heights are well-preserved. There is mild spinal canal stenosis at C6-C7 level. Neuroforaminal narrowing, mild to moderate on the right and moderate to severe on the left at C3-C4 level, severe bilaterally at C4-C5 and C5-C6 level, and severe on the right and moderate to severe on the left at C6-C7 level. No si gnificant prevertebral soft tissue is mildly and the airway is intact. Result Date: 10/04/2020 IMPRESSION: 1. No evidence of acute infarct or intracranial hemorrhage. 2. 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 Collateral vascul ature is seen within this territory and there is no acute infarction. 3. No raymond dence of stenosis, aneurysm, or arteriovenous malformations of the major intracr anial arteries. 4. 80-90% diameter significant focal stenosis of the proximal l eft common carotid artery at the level of T1. 5. Very mild chronic microvascula r ischemic changes of the white matter. Findings were communicated by Dr. Ken cross to Dr. Vale at 10:23 AM on 10/04/2020. Medications Current Facility-Administered Medications Medication Dose Route Frequency Provider Last Rate Last Admin aspirin EC EC tablet 81 mg 81 mg Oral Daily Guy Vale MD 81 mg at 10/06/20 1039 atorvastatin (LIPITOR) tablet 40 mg 40 mg Oral QPM Guy patel MD 40 mg at 10/05/202036 dextrose 50 % IV solution 25 mL 25 mL Intravenous PRN Guy Vale MD enoxaparin sodium (LOVENOX) injection 40 mg 40 mg Subcutaneous Daily Chr edgardo West MD 40 mg at 10/06/20 1039 glucagon (human recombinant) (GLUCAGEN) injection 1 mg 1 mg Intramuscula r PRN Guy Vale MD glucose (GLUTOSE) 40 % oral gel 15 g 15 g Oral PRN Guy patel MD insulin lispro (HumaLOG) injection LOW DOSE EATING INSULIN patients 1-8 U nits 1-8 Units Subcutaneous 3 x Daily with Meals Guy Vale MD 2 Units at 10/06/20 1343 levETIRAcetam (KEPPRA) tablet 750 mg 750 mg Oral BID Gloria Khan MD 750 mg at 10/06/20 1039 memantine (NAMENDA) tablet 5 mg 5 mg Oral BID Marvin Arndt D 5 mg at 10/06/20 1039 NaCl infusion 0.9 % Intravenous Continuous Guy Vale MD 50 mL/hr at 10/06/20 0016 New Bag at 10/06/20 0016 OLANZapine (ZYPREXA) injection 2.5 mg 2.5 mg Intramuscular Once PRN DEWAYNE Diaz Assessment and plan Gorge Ferreira is a 69 y.o. 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 Orthostatics negative. Of note last seen by [facility] in 08/2020 for weakness and dizzine ss, CTA head and neck which showed ICA stenosis of 50 to 60%, MRI aileen negative , was started plavix for 1 month for unknown indication. CTA H/N obtained here showed L ICA 90-80% stenosis. Carotid dopplers revealed bi lateral <50% stenosis. MRI brain was negative for acute ischemic stroke. Patient was transferred from the stroke service to General Neurology as his EEG showed left sided epileptiform discharges and the acute event of presentation was attributed to seizures. Diagnosis Possible seizure Stroke Ruled out -CTA H/N obtained here showed L ICA 90-80% stenosis but carotid dopplers reveale d bilateral <50% stenosis. 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 -Plavix was stopped by stroke team as the indication to start it was not clear a t good Religion and imaging did not reveal a stroke on this admission -EEG showed asymetry of alpha rhythm over the left preoccipital region suggestiv e of Structural abnormality. Keppra 750 mg BID was started Type 2 DM, - TAYLOR + diabetic diet - hold home metformin 500 MG Hx Aortic valve replacement w/ bioprosthetic - continue aspirin therapy -Echo done 10/06 showed the bioprosthetic valve,grade 1 diastolic dysfunction,nor mal EF Dementia; unknown etiology - continue mementin and donepezil Family update: called the at 1 45 pm and updated her about the progress an d that seizure medications were started for the patient . She reiterated that sh e did not want him to go SNF due to COVID and only wants STR in hospital DVT Prophylaxis: low molecular weight heparin GI Prophylaxis: Not Indicated Code Status: Full Code Diet: diabetic diet The care of this patient was discussed with my attending Dr. Marie Pop and t he plan was formulated together. I saw and evaluated the patient. Discussed with the resident and agree with the residents findings and plans as written (edited where necessary for accuracy), a long with any supplemental dictated and/or attending documentation in the patien t record by myself. The patient is stable, pending safe discharge. His refuses SNF in favor of inpatient rehab, but the patient is not a candidate for the latter. Coordinating care with case management, patient seen by PT/OT, along with PMR. Denny Pop MD * Taz Hough, THERMODYNAMICIST - 10/06/2020 1:28 PM EST Physical Therapy Acute Care Missed Visit Note Location: bedside Attempted to visit patient for therapy, but was unable for the following reasons: Treatment not completed secondary to scheduling conflict. Patient is eating lunch at this time. Will attempt again later. (Therapist may be reached on Vocera) SESSION: Duration: 30 CHARGES: - CHARGE-IP PT PATIENT SCHEDULING CONFLICT 1 Units Total treatment minutes: 0.00 Minutes Electronically Signed by: Larry Hough THERMODYNAMICIST, 10/06/2020 1:37:08 PM * Derian Rouse, OT - 10/06/2020 1:24 PM EST Occupational Therapy Acute Care Encounter Note Medical Diagnosis: Syncopal event and transient Concern for orthostatics and hypoperfusion; TIA or symptomatic LICA Type 2 DM Postural hypotension Aortic valve replacement Dementia Rehabilitation Precautions/Restrictions: Full code High fall risk NPO OOB to chair Obtain orthostatic vitals Pending d/c Goal Review Visit Number: 2 SUBJECTIVE Patient Report: Agreeable to OT session Pain: Patient has no complaints of pain currently. Pain Medication Today: yes. OBJECTIVE General Observation: Pt recieved supine in bed with HOB slighlty elevated in NAD and safety sealer present Bed alarm was on at start of session. supervisor wet pour present at start of session. Skin Integrity Screen: Bruise to R posterior shoulder and R anterior shoulder Bruising noted to R wrist. Multiple bruises noted to B LEs and B UEs. Small bruise to mid back Vital Signs: Stable. Self Care/Home Management: Task: Dressing - lower body: Contact guard. Graded task to improve physical/cognitive functioning. Provided minimal number of cues to facilitate processing of organizing and/or completing task. Modified activity to challenge standing/sitting balance. Dressing - upper body: Contact guard. Graded task to improve physical/cognitive functioning. Modified activity to challenge standing/sitting balance. Toilet transfer: Contact guard. Provided minimal number of cues to facilitate processing of organizing and/or completing task. Graded task to improve physical/cognitive functioning. Modified activity to challenge standing/sitting balance. Provided: Eating: Modified [place]. Graded task to improve physical/cognitive functioning. Splinting: No splint issued today. Cognitive Test Score: Not tested. Outcome Measures: [facility] AM-PAC "6 Clicks" Daily Activity Inpatient Short Form: Putting on and taking off regular lower body clothing: A little assistance (3) Bathing (including washing, rinsing, and drying): A little assistance (3) Toileting (including use of toilet, bedpan, or urinal): A little assistance (3) Putting on and taking off regular upper body clothing: No assistance (4) Taking care of personal grooming such as brushing teeth: A little assistance (3) Eating meals: No assistance (4) Raw Score: 20 /24 Interventions: Self Care/Home Management: Therapist guided pt through functional ADL routine including bed mobility with mod independence, upper body/lower body dressing and simulated toilet transfer to bedside chair to assist and improve pt's overall strength, functional acitivity tolerance and independence. Therapist modified environment for optimal safety and provided graded physical assistance throughout duration of session in order to promote just right challenge for pt to increased independence in self care tasks. Pt demonstrated improved functional activity tolerance /dynamic standing balance as seen by his ability to maintain an upright standing position for about 3 minutes attempts while completing LB dressing tasks; therapist provided above stated level of assist/cues.. Pt educated on use of compensatory strategies and energy conservation techniques to progress towards set goals. Educated pt on future use of adaptive equipment to further maximize independence with lower body dressing and bathing tasks. Pt completed sit to stand transfers throughout session with contact guard assistance. Educated pt on overall safety including proper body mechanics and hand placement progressing towards set goals. Pt left seated in bedside chair with bilateral LE's elevated eating his lunch in NAD and all needs met. bed mobility mobility to chair, ful body dressing, eating left with 1:1 aid Education: Mode of education provided: Explanation. Audience: Patient. Education Provided: Adaptive cognitive strategies. Adaptive physical strategies. Body mechanics/postural techniques. Energy conservation techniques. Fall precautions. Home and community safety. Plan of care. Response: Verbalized understanding. Requires cues (auditory/physical). ASSESSMENT Response to Visit: The session was tolerated well. Patient demonstrated improved postural awareness. Patient demonstrated improved transfer technique. Chair alarm was on at end of session. supervisor wet pour present at end of session. Patient seated on waffle cushion at end of session. Patient's heels offloaded at end of session. Call osorio was in patient's reach at end of session. Pain: Patient has no complaints of pain currently. PLAN Treatment Frequency, Duration and Interventions: Restorative Occupational Therapy recommended for 5x per week for 4 weeks Treatment is to include: Development of Cognitive Skills. Self Care/Home Management. Therapeutic Activity. Therapeutic Exercise. Recommended Occupational Therapy Follow Up: Upon acute care discharge, the following is currently recommended: rehab vs home with 24/7 supervision/assist for all functional mobility/ADLs/IADLs. Home OT Visit Number: Today's visit is number 2 Program: General Medicine (Therapist may be reached on [employer]) SESSION: Duration: 24 CHARGES: 53496 - CHARGE - OT SELF CARE ADL TRAIN-15 MIN 2 Units - GENERAL MEDICINE VISIT 1 Units Total treatment minutes: 24.00 Minutes Electronically Signed by: LIEN Vora, 10/06/2020 4:44:15 PM * Gladys Gasca RN - 10/06/2020 10:07 AM EST Spoke at length with pt's about d/c planning. Pt's is pretty firm on p t coming home unless he is able to go to IRF. She DOES NOT want SNF. Pt was inde pendent in mobility THERMODYNAMICIST and can provide 7. Pt has been having cognitive issues at home already. CM will follow for d/c planning. * Derian Rouse OT - 10/06/2020 9:55 AM EST Occupational Therapy Acute Care Missed Visit Note Location: Bedside. Attempted to visit patient for therapy, but was unable for the following reasons: Pt respectfully declining this therapist at this time secondary to fatigue. Will reattempt as time allows (Therapist may be reached on Vocera) SESSION: Duration: 0 CHARGES: - ORDER - Occupational Therapy Treatment 1 Units Total treatment minutes: 0.00 Minutes Electronically Signed by: LIEN Vora, 10/06/2020 10:04:23 AM * Bernadette Millan RN - 10/05/2020 8:08 PM EST Assumed care of pt from [id number]. Agreed with previous microarray specialist from today . Pt is alert to self, but very confused. See previous note regarding pt. Call b ell in reach, bed alarm is on. * Bernadette Millan RN - 10/05/2020 6:01 PM EST MD West notified that pt pulled out IV from L arm. Multiple attempts made to repl javy but unsuccessful. SWAT was called to see if they can attempt, will be down t o try when available. ~1840- Pt is getting increasingly agitated, setting bed alarm off repeatedly and getting out of bed. 1:1 SACO was placed, MD West and Tatianna notified. Awaiting to see if there is anything PO to give for agitation at this time while waiting for IV placement. Pt very unsteady on his feet, bed alarm on. ~1900- SWAT came by and attempted IV access, but was unable. Oncoming RN made aw are. Notified MD Campuzano that IV access is still needed and may possibly need mi dline if unsuccessful. Also notified that pt is continuously removing the tele m onitor and it is not on at this time. ordered PO zyprexa. * Yadira West MD - 10/05/2020 1:28 PM EST Stroke Service Progress Note Patient Gorge Ferreira 1950 PCP Kristal Ferguson MD Subjective No acute events overnight. Orthostatics was negative in the morning. The patient does not remember how he was found down, does not recall prodromal symptoms. The patient's past medical history, social history and family history are unchan ged from prior assessment. Objective Temp: [36.3 C (97.3 F)-37.6 C (99.7 F)] 37.6 C (99.7 F) Pulse: [66-92] 66 Resp: [16-18] 16 BP: (122-149)/(75-94) 143/83 SpO2: [95 %-100 %] 99 % O2 Therapy: Room air Physical Exam General Appearance: in no apparent distress Skin: Normal HEENT: Head: Normal, normocephalic, atraumatic. Neurological Exam NIH Stroke Scale: Category Patient Score 1a. Level of consciousness (Alert, drowsy, etc.) 0 - Alert 1b. LOC Questions (Month, age) 1 - One question correct 1c. LOC Commands (Open, close eyes; make fist, let go) 0 - Performs both tasks correctly 2. Best Gaze (Eyes open- patient follows finger or face) 0 - Normal 3. Visual (Introduce visual stimulus to patients visual field quadrants) 1 - Parti al hemianopia 4. Facial palsy (Show teeth, raise eyebrows and squeeze eyes shut) 0 - Normal, symmetrical move ments 5a. Motor Arm left 5b. Motor Arm right (Elevate extremity to 90 and score drift/movement) Left: 0- No drift (exten ds arm 10sec. w/o drift) Right: 0- No drift (extends arm 10sec. w/o drift) 6a. Motor Leg left 6b. Motor Leg right (Elevate extremity to 30 and score drift/movement) Left: 0- No drift (exten ds leg 5 sec w/o drift) Right: 0- No drift (extends leg 5 sec w/o drift) 7. Limb Ataxia (Finger-nose, heel-guerrero) 0 - Absent 8. Sensory (Pin prick to face, arm trunk, and leg- compare side to side) 0 - Normal 9. Best Language (Name items, describes a picture, reads sentence) 0 - No aphasia 10. Dysarthria (Evaluate speech clarity by patient repeating listed words) 0 - Normal articula tion 11. Extinction and Inattention (Use information from prior testing to identify neglect or double simultaneous s timuli testing) 0 - No neglect Total Score: 2 NEUROLOGIC EXAMINATION: Mental status: Level of alertness: alert, oriented to self. Attention: Able to focus and sustain attention. Regards examiner. Language: Auditory comprehension:Intact Speech output: Fluent and grammatically correct Naming: Preserved Repetition: Intact. Cranial nerves: CN II:Direct pupillary reaction to light normal. Left quadrantanopia CN III- : All extraocular movements were intact and no nystagmus noted CN V:Facial sensation was normal and symmetric CN VII: Facial expression was symmetric CN XI: Shoulder shrug normal Sensory exam: Intact to light touch in all extremties Motor exam: Proximal Distal Right Upper extremity 4 5 Left Upper extremity 5 5 Proximal Distal Right lower extremity 5 5 Left Lower extremity 5 5 Cerebellar Exam: Finger to nose Right Upper extremity intact Left Upper extremity intact HKS Right Lower extremity - Left Upper extremity - No truncal ataxia. Deep Tendon Reflexes: Biceps Triceps BR Knee Ankle Plantar response Right 2 2 2 2 2 Flexor Left 2 2 2 2 2 Flexor Gait: deferred Diagnostics Mr Brain Without Contrast Result Date: 10/05/2020 IMPRESSION: 1. No acute infarction or intracranial hemorrhage. 2. Left tempora l occipital lobe encephalomalacia and T2 hyperintensity consistent with chronic infarction. 3. Foci of T2 and FLAIR hyperintensity in the paraventricular white matter consistent with chronic small vessel ischemic disease. 4. Punctate hemo siderin deposition in bilateral cerebral convexities with posterior predominance may be seen with cerebral amyloid angiopathy. Chronic hemorrhage also identified in the left are temporoparietal occipital infarct. Ct Angiography Head ; Emergent Exam: [facility] Addendum Date: 10/04/2020 The cervical spine is straight in alignment losing its anatomic lordosis but wit hout significant spondylolisthesis. Intervertebral disc space narrowing, mild at C4-C5 level and severe at C5-C6 and C6-7 levels. Mild spondylotic changes in the mid and lower cervical spine. The posterior elements show no acute fracture or dislocation. Very mild arthritic changes at the uncovertebral joints bilaterally at C6-C7 level. The odontoid process is intact and no significant rotational a bnormality is present. The atlantoaxial distance is within normal limits. The ve rtebral heights are well-preserved. There is mild spinal canal stenosis at C6-C7 level. Neuroforaminal narrowing, mild to moderate on the right and moderate to severe on the left at C3-C4 level, severe bilaterally at C4-C5 and C5-C6 level, and severe on the right and moderate to severe on the left at C6-C7 level. No si gnificant prevertebral soft tissue is mildly and the airway is intact. Result Date: 10/04/2020 IMPRESSION: 1. No evidence of acute infarct or intracranial hemorrhage. 2. 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 Collateral vascul ature is seen within this territory and there is no acute infarction. 3. No raymond dence of stenosis, aneurysm, or arteriovenous malformations of the major intracr anial arteries. 4. 80-90% diameter significant focal stenosis of the proximal l eft common carotid artery at the level of T1. 5. Very mild chronic microvascula r ischemic changes of the white matter. Findings were communicated by Dr. Ken cross to Dr. Vale at 10:23 AM on 10/04/2020. Ct Angiography Neck ; Emergent Exam: [facility] Addendum Date: 10/04/2020 The cervical spine is straight in alignment losing its anatomic lordosis but wit hout significant spondylolisthesis. Intervertebral disc space narrowing, mild at C4-C5 level and severe at C5-C6 and C6-7 levels. Mild spondylotic changes in the mid and lower cervical spine. The posterior elements show no acute fracture or dislocation. Very mild arthritic changes at the uncovertebral joints bilaterally at C6-C7 level. The odontoid process is intact and no significant rotational a bnormality is present. The atlantoaxial distance is within normal limits. The ve rtebral heights are well-preserved. There is mild spinal canal stenosis at C6-C7 level. Neuroforaminal narrowing, mild to moderate on the right and moderate to severe on the left at C3-C4 level, severe bilaterally at C4-C5 and C5-C6 level, and severe on the right and moderate to severe on the left at C6-C7 level. No si gnificant prevertebral soft tissue is mildly and the airway is intact. Result Date: 10/04/2020 IMPRESSION: 1. No evidence of acute infarct or intracranial hemorrhage. 2. 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 Collateral vascul ature is seen within this territory and there is no acute infarction. 3. No raymond dence of stenosis, aneurysm, or arteriovenous malformations of the major intracr anial arteries. 4. 80-90% diameter significant focal stenosis of the proximal l eft common carotid artery at the level of T1. 5. Very mild chronic microvascula r ischemic changes of the white matter. Findings were communicated by Dr. Ken cross to Dr. Vale at 10:23 AM on 10/04/2020. Medications Current Facility-Administered Medications Medication Dose Route Frequency Provider Last Rate Last Admin aspirin EC EC tablet 81 mg 81 mg Oral Daily Guy Vale MD 81 mg at 10/05/20 0933 atorvastatin (LIPITOR) tablet 40 mg 40 mg Oral QPM Guy patel MD 40 mg at 10/04/202055 dextrose 50 % IV solution 25 mL 25 mL Intravenous PRN Guy Vale MD glucagon (human recombinant) (GLUCAGEN) injection 1 mg 1 mg Intramuscula r PRN Guy Vale MD glucose (GLUTOSE) 40 % oral gel 15 g 15 g Oral PRN Guy patel MD insulin lispro (HumaLOG) injection LOW DOSE EATING INSULIN patients 1-8 U nits 1-8 Units Subcutaneous 3 x Daily with Meals Guy Vale MD memantine (NAMENDA) tablet 5 mg 5 mg Oral BID Marvin Arndt D 5 mg at 10/05/20 0933 NaCl infusion 0.9 % Intravenous Continuous Guy Vale MD 50 mL/hr at 10/05/20 1127 New Bag at 10/05/20 1127 Assessment & Plan Gorge Ferreira is a 69 y.o. 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 Orthostatics negative. Of note last seen by [facility] in 08/2020 for weakness and dizzine ss, CTA head and neck which showed ICA stenosis of 50 to 60%, MRI aileen negative , was started plavix for 1 month for unknown indication. CTA H/N obtained here showed L ICA 90-80% stenosis. Carotid dopplers revealed bi lateral <50% stenosis. MRI brain was negative for acute ischemic stroke. Diagnosis Syncope from unknown etiology Possible seizure Rule out TIA from symptomatic ICA, orthostatics -A1C 6.6, LDL 61, TSH 1.330 -CTA H/N obtained here showed L ICA 90-80% stenosis. -Carotid dopplers revealed bilateral <50% stenosis. -MRI brain was negative for acute ischemic stroke, but has presence of paraventr icular white matter disease consistent with chronic small vessel disease and pun ctate hemosiderin likely 2/2 CAA Plan: -discontinue plavix, continue ASA 81 mg, lipitor 40 mg -SBP 90-160 -start keppra 750 BID -f/u rEEG -f/u TTE for cardiac etiology of syncope -PT/OT recommend inpatient rehab, PMR consulted, appreciate recs Postural hypotension - orthostatics ruled out - f/u TTE - 50cc/hr until pass diet Type 2 DM, - TAYLOR + diabetic diet - hold home metformin Hx Aortic valve replacement w/ bioprosthetic - continue aspirin therapy Dementia; unknown etiology - continue mementin and donepezil Family update: called at 2:30pm, . Updated about no stroke on M [place], need for inpatient rehab. SW consulted for smoking cessation and insurance q uestions. DVT Prophylaxis: low molecular weight heparin GI Prophylaxis: Not Indicated Code Status: Full Code Diet: diabetic diet Disposition: Plan discharge to: Rehab Estimated Discharge Date: 10/06/20 Patient seen and examined. Case discussed with Dr. Gloria Khan and formulated the above plan together. Associated attestation - Gloria Khan MD - 10/05/2020 7:37 PM EST STROKE ATTENDING ADDENDUM: Date of Encounter: 10/05/2020 I personally saw and examined the patient, discussed the case and formulated ass essment and plan with the resident and agree with the history, exam, assessment and plan outlined in the resident's note except where stated in the supplemental documentation by myself. Please also se my addendum to the Consult note EEG today showing L epileptiform discharges, Goran added. Signature: Gloria Khan * Gladys Gasca RN - 10/05/2020 1:08 PM EST Case Management Screen & Assessment Patient Name: Gorge Ferreira Gender: male Date of : 1950 Admission Dx: Carotid stenosis, bilateral [I65.23] Internal carotid artery stenosis, left [I65.22] Age: 69 y.o. Admission: 10/04/2020 10:21 AM Attending Provider: Gloria Khan MD High Risk Criteria - Prior to Admission/Upon Arrival THERMODYNAMICIST-Type of Residence: Private Residence THERMODYNAMICIST- Home Care Services: No Limited Home Supports/Lives Alone?: Yes Multi trauma/Critical care/Step down admit?: No Head/Spinal cord injury?: No Self Pay: No Multiple ED visits?: No Related/Unplanned readmission within 30 days?: No Complex/New medical issues: Syncope r/o Stroke Relevant comorbidities: DM, L MCA Stroke 2020, Endocarditis and aortic valve rep lacement Psychosocial considerations: Lives alone Screening Outcome Social Work Consult Needed?: No Further Case Management Needs?: Case Management Needs Chart Review PCP Verified?: Patient has PCP Prior to Admission: Functional/Environmental Assessment Bathing: Independent Dressing: Independent Toileting: Independent Medication administration: Independent Transfers: Independent Ambulation: Independent Meal preparation: Independent Number of stairs into home: 2 Number of stairs to bathroom: 0 Number of stairs to bedroom: 0 Durable Medical Equipment (DME): Cane Case Management Re-Review Case Management Re-Review Needed?: Yes Case Management Re-Review Date: 10/07/20 Discharge Planning Living Arrangements: Alone Support Systems: Family members Type of Residence: Private residence Is this patient appropriate for transfer to [facility]?: No Patient/family informed of need for discharge planning?: Yes Patient expects to be discharged to:: home v rehab Patient/Agent informed of choice and given written list?: Patient/agent accepted list Note: Met with pt to review CM role. Admitted with syncope v stroke. PT/OT recom mending rehab- PMR consult placed. Pt getting stroke work up at this time and Cm will follow. Gladys Gasca Derian Fox OT - 10/05/2020 8:20 AM EST Occupational Therapy Acute Care Missed Visit Note Location: Bedside. Attempted to visit patient for therapy, but was unable for the following reasons: pt currently off floor for EEG. Will reattempt as time allows (Therapist may be reached on Vocera) SESSION: Duration: 0 CHARGES: Total treatment minutes: Minutes Electronically Signed by: ROBBIN Vora/Gilbert, 10/05/2020 8:28:38 AM * Thelma Batista, PT - 10/05/2020 8:05 AM EST Physical Therapy Acute Care Missed Visit Note Location: Per chart Attempted to visit patient for therapy, but was unable for the following reasons: Patient gone for testing. Pt is currently off the floor at EEG. Will continue to follow and re-attempt as time permits and pt is medically stable to perform PT evaluation. (Therapist may be reached on Vocera) SESSION: Duration: 0 CHARGES: - ORDER - PHYSICAL THERAPY CONSULT 1 Units - CHARGE-IP PT PATIENT GONE FOR TESTING 1 Units Total treatment minutes: 0.00 Minutes Electronically Signed by: Thelma Batista PT, DPT, 10/05/2020 8:06:25 AM * Monica Marroquin RT - 10/04/2020 10:07 PM EST Attempted to complete patients MRI brain with premedication prior to scan. Mulu nt was moving during some scans and attempted to pull himself out of scanner tow ards the end. All images sent. documented in this encounter H&P Notes * Gloria Khan MD - 10/05/2020 7:33 PM EST Please consider the Consult note by Dr. Vale on 10/04/20 as H&P. documented in this encounter Procedure Notes * Delfino Osborn MD - 10/06/2020 10:13 AM EST Associated Order(s): EEG ROUTINE STUDY EEG REPORT NUMBER [id number] DATE OF PROCEDURE: 10/06/2020 HISTORY: The patient is a 69 y.o. 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 EEG was ordered to rule out seizures. No current facility-administered medications on file prior to encounter. Current Outpatient Medications on File Prior to Encounter Medication Sig Dispense Refill Aspirin EC 81 MG Oral Tablet Delayed Release Take 81 mg by mouth daily Atorvastatin Calcium 40 MG Oral Tablet (LIPITOR) Take 40 mg by mouth ever y evening Clopidogrel Bisulfate 300 MG Oral Tablet (PLAVIX) Take 300 mg by mouth on ce Memantine HCl 5 MG Oral Tablet (NAMENDA) Take 5 mg by mouth Two Times Sheridan ly metFORMIN HCl 1000 MG Oral Tablet (GLUCOPHAGE) Take 1,000 mg by mouth Two times daily with meals Scheduled Meds: aspirin EC 81 mg Oral Daily atorvastatin 40 mg Oral QPM enoxaparin 40 mg Subcutaneous Daily insulin lispro 1-8 Units Subcutaneous 3 x Daily with Meals levETIRAcetam 750 mg Oral BID memantine 5 mg Oral BID Continuous Infusions: sodium chloride 50 mL/hr at 10/06/20 0016 PRN Meds:.dextrose, glucagon (human recombinant), glucose, OLANZapine TECHNICAL DESCRIPTION: This digital EEG was recorded using 2 EKG and 21 scalp and/or ear electrodes. I t was reviewed in referential and bipolar montages following reformatting in the 10-20 International electrode placement system. EEG INTERPRETATION: Background in the most stimulated state consists of 25-35 microvolt, 8-9 Hz symm etric but poorly sustained posterior dominant rhythm with some reactivity to sti mulation. Drowsiness/Sleep [] The patient remains only in the awake state throughout the study. [] The patient is intubated, comatose and unresponsive during the recording. [] The patient is not intubated, but comatose and unresponsive during the record ing. [] The patient is stuporous throughout the recording. [] During drowsiness, there is increased emergence of theta and delta rhythms, b ut full sleep is not achieved during this recording. [x] During drowsiness, there is increased emergence of theta and delta rhythms, and during sleep the following sleep structures were seen: [x] Vertex sharp transients [x] Symmetric sleep spindles [] POSTs [x] K -complexes [] Other: Hyperventilation Omitted. Photic stimulation Photic stimulation with flash frequencies of 2-21 Hz is not associated with post erior photic driving. No photoparoxysmal response was seen. 1) asymmetry of the alpha rhythm: slightly reduced in amplitude over the left pr eoccipital region. 2-lead EKG showed normal sinus rhythm. IMPRESSION: This routine EEG done in the awake and asleep states is abnormal due to slight asymmetry of alpha rhythm over the left preoccipital region. This is consistent with structural abnormality is this area. No seizures or epileptiform discharges were seen in this record. Discussed with Dr. Osborn. Andrea Urban-PGY-5 Clinical Neurophysiology Fellow. I certify that I have reviewed this EEG with Dr. Urban and agree with the int erpretation. Delfino Osborn MD * Jaguar Duarte MD - 10/05/2020 1:34 PM EST Associated Order(s): EEG ROUTINE STUDY EEG REPORT NUMBER [id number] DATE OF PROCEDURE: 10/05/2020 HISTORY: Gorge Ferreira is a 69 y.o. male with syncope vs vascular vs Seizure. Patient Active Problem List Diagnosis Syncope Acute bacterial endocarditis Aortic valve disorder Aortic valve stenosis Cardiomegaly Dizziness and giddiness Electrocardiogram abnormal Type 2 diabetes mellitus without complication, without long-term current use of insulin Osteoarthrosis Obesity Hypertension Hyperlipidemia First degree atrioventricular block BMI 30.0-30.9,adult EEG is to evaluate for seizures and/or epilepsy. No current facility-administered medications on file prior to encounter. Current Outpatient Medications on File Prior to Encounter Medication Sig Dispense Refill Aspirin EC 81 MG Oral Tablet Delayed Release Take 81 mg by mouth daily Atorvastatin Calcium 40 MG Oral Tablet (LIPITOR) Take 40 mg by mouth ever y evening Clopidogrel Bisulfate 300 MG Oral Tablet (PLAVIX) Take 300 mg by mouth on ce Memantine HCl 5 MG Oral Tablet (NAMENDA) Take 5 mg by mouth Two Times Sheridan ly metFORMIN HCl 1000 MG Oral Tablet (GLUCOPHAGE) Take 1,000 mg by mouth Two times daily with meals Scheduled Meds: aspirin EC 81 mg Oral Daily atorvastatin 40 mg Oral QPM insulin lispro 1-8 Units Subcutaneous 3 x Daily with Meals memantine 5 mg Oral BID Continuous Infusions: sodium chloride 50 mL/hr at 10/05/20 1127 PRN Meds:.dextrose, glucagon (human recombinant), glucose TECHNICAL DESCRIPTION: This digital EEG was recorded using 2 EKG and 21 scalp a nd/or ear electrodes. It was reviewed in referential and bipolar montages follo wing reformatting in the 10-20 International electrode placement system. In his best awake and alert state, the background consists of asymmetric, theta slowing on the right, with delta up more prominent in the left temporal region much of the time. There is prominent low amplitude fast activity seen throughou t. During drowsiness there is dropout of the alpha and emergence of left temporal e pileptiform spikes and sharp waves. Sleep with approximately symmetric vertex w aves and spindles is also seen. Hyperventilation is omitted due to COVID 19. Photic stimulation with flash frequencies of 2-21 Hz is not associated with sign ificant posterior photic driving. EKG review reveals no clear arrhythmia. CLINICAL IMPRESSION: This portable inpatient EEG done in the awake, drowsy and s tage I and II sleep states is abnormal due to: 1) mild generalized slowing consistent with encephalopathy, 2) left temporal slowing and epileptiform discharges consistent with a structura l and epileptogenic abnormality in this region. * Jeevan Gonzalez MD - 10/04/2020 11:32 AM EST Associated Order(s): 1ED EKG Interpretation 1ED EKG Interpretation Date/Time: 10/04/2020 11:32 AM Performed by: Jeevan Gonzalez MD Authorized by: Jeevan Gonzalez MD ECG reviewed by ED Physician in the absence of a precipitator operator: yes Previous ECG: Previous ECG: Unavailable Interpretation: Interpretation: abnormal Rate: ECG rate: 57 ECG rate assessment: bradycardic Rhythm: Rhythm: sinus bradycardia Ectopy: Ectopy: none QRS: QRS axis: Left Conduction: Conduction: normal ST segments: ST segments: Normal T waves: T waves: normal Q waves: Q waves: V1 and V2 documented in this encounter Consult Notes * Aylin Aleman, CHURCH HISTORY TEACHER - 10/07/2020 2:37 PM EST Social Work Brief Screen Patient Name: Gorge Ferreira Pronoun Date of : 1950 County of Residence: [place] Admitting Dx: Carotid stenosis, bilateral [I65.23] Internal carotid artery stenosis, left [I65.22] Admitting Provider: Victorina younger MD Referral Type: Inpatient Referral Source: Yadira West MD Reason for Referral: Substance Use/Abuse, Financial/Insurance Issues Cigarette smoking Cessation Date: October 07, 2020 Emergency Contacts Name: Address: Home: Work: Mobile: Primary Caregiver: self Informant(s): Patient Authorized to Consent: self AUDIT Assessment Most Recent Value Complete AUDIT? Complete Alcohol Use Disorders Identification Test (AUDIT) How often do you have a drink containing alcohol? Monthly or less How many drinks containing alcohol do you have on a typical day when you are dri nking? 3 or 4 How often do you have six or more drinks on one occasion? Less than Monthly How often during the last year have you found that you were not able to stop dri nking once you had started? Never How often during the last year have you failed to do what was normally expected from you because of drinking? Never How often during the last year have you needed a first drink in the morning to g et yourself going after a heavy drinking session? Never How often during the last year have you had a feeling of guilt or remorse after drinking? Never How often during the last year have you been unable to remember what happened th e night before because you had been drinking? Never Have you or someone else been injured as a result of your drinking? No Has a relative or freind or doctor or another health worker been concerned about your drinking or suggested you cut down? No AUDIT Score 3 This field underwriter met with patient at bedside to administer the AUDIT to patient. Ursula crossnancy scored a 3. According to www.sbirt.[place].org , Scoring and Interpre ting the AUDIT: the patient scored in the I - Low Risk, " Risk zone for m en,; Iow risk of health problems related to alcohol use" (www.sbirt.[place].org, n.d.). Moreover, this field underwriter shared with patient of the harm of alcohol passi ng through the stomach's rugae and into the bloodstream, as well as the risks of roasterman health risks such as Chronic diseases; high blood pressure, stroke, l iver disease, etc. Also of termination clerk health risks such as cancers, mental heal th implications and alcohol dependence (Centers for Disease Control, n.d.). This field underwriter asked patient if he would like a pdf from Fact Sheets - Alcohol Use and Your Health (https://www.cdc.gov/alcohol/fact-sheets/alcohol-use.htm, 2018). Patient denied resources. Medicaid Medicaid pays for quit smoking treatment delivered by your health care provider. Medicaid covers quit counseling and all seven smoking cessation medications appr nya by the U.S. Food and Drug Administration (FDA): five nicotine replacement therapies (NRT) patch, gum, lozenge, inhaler an d nasal spray; and two non-nicotine oral medications (pills) bupropion SR (brand names Zyban or Wellbutrin) and varenicline (brand name Chantix). and, [place] covers the use of two medications at once, which is safe for most people. 2 Using two medications as prescribed by your provider is even more helpful in r educing cravings and other withdrawal symptoms. Medicaid even pays for nnyu-pta-estcxwn nicotine patches, gum and lozenges with a floridalma order (like a prescription) from your provider. And, because it may take you more than one try to quit, Medicaid covers repeated treatment by your provider. Talk to your health care provider about which treatment might be right for you. The [facility] Quitline Free Quit Coaching, Tips and Tools Call the [facility] Smokers' Quitline at 5-165-KN-QUITS ( ) or visit www.UGE. The Quitline also provides free starter kits of nicot ine replacement therapy (NRT) to eligible [facility]. Services are free and con fidential. Patient, however, reports he neither smokes nor drinks. Interventions Provided community resource information on cigarette smoking cessation. Social Work continues to follow. Signature: Aylin Aleman Date: October 07, 2020 * Yadira Burton MD - 10/05/2020 1:04 PM EST Associated Order(s): Consult to PMR Inpatient Consult to PMR Inpatient Consult performed by: Yadira Burton MD Consult ordered by: Gloria Khan MD Reason for consult: Impaired mobility and self care secondary to new onset seizu re Physical Medicine and Rehabilitation Consult REASON FOR CONSULTATION: Impaired mobility and self-care secondary to syncopal e vent versus TIA Requested By: Dane Cruz MD HISTORY OF PRESENT ILLNESS: (Brief 1-3 elements, Extended 4-8 elements) Gorge Ferreira is a 69 y.o. male Admitted on: 10/04/2020 Gorge Ferreira is a 69 y.o. 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 He has residual cognit smita deficits and hemianopsia since stroke. He presented due to syncope and inabi lity to speak. NIHSS was 3. Patient had been seen in OSH ED in 08/2020 for weakn ess and dizziness, imaging was negative. CTH was negative for acute ischemic str bob or hemorrhage. MRI was negative for acute infarction or intracranial hemorrh age, left temporal occipital lobe chronic infarction, chronic small vessel ische alek disease, chronic hemorrhage left temporoparietal occipital infarct. Echo is pending. Workup is ongoing. PM&R consulted for evaluation for admission to IRF. No family member numbers available in chart to confirm history. Current Functional Status: PT: Mobility Dep Max Mod Min CG S I PA Ambulation X (x12 ft) Bed x Transfer x Balance x OT: ADL Dep Max Mod Min CG S I PA Feeding x Grooming x Upper x Lower x Toileting x Speech/swallow status: no dysphagia or aphasia Weight bearing restrictions: WBAT Continence: Bowel: continent Bladder: continent REVIEW OF SYSTEMS: (+ = positive, - = negative) (Problem Pertinent: 1 system, Ex tended: 2-9 systems, Complete: 10+ systems / others neg.) Review of Systems: 1. Constitutional: (-) fever, (-) chills, (-) insomnia, (-) weight loss, (+) fat igue/lethargy 2. Eye: (-) glasses, (-) diplopia, (+) blurred vision, (-) blindness 3. ENT: (-) dentures (-) hearing deficits, (-) dysphagia, (-) dizziness. 4. Respiratory: (-) shortness of breath, (-) wheeze, (-) cough, (-) dyspnea. 5. Cardiovascular: (-) chest pressure or pain, (-) palpitations, (-) edema, (-) orthopnea. 6. GI: (-) abdominal pain, (-) nausea, (-) vomiting, (-) diarrhea, (-) constipat ion, (-) appetite change. 7. Neurology: (-) pain, (-) headache, (+) dizziness, (-) weakness, (-) paralysis , (-) stiffness, (-) numbness, (-) paresthesias, (-) dysesthesia. 8. Musculoskeletal: (-) arthralgia, (-) myalgia, (-) spasm, (-) contracture, (-) deformity. 9. Integument: (-) skin changes, (-) rash, (-) pressure sore 10. Endocrine: (-) temperature intolerence, (-) polyuria, (-) polydipsia, (-) ch anges in weight. 11. : (-) dysuria, (-) frequency, (-) urgency, (-) incontinence, (-) hematuria , (-) use of catheter. 12. Hem/Onc: (-) easy bleeding, (-) ecchymosis, (-) swollen glands 13. Psychiatric: (-) mood disturbance, (-) depression, (-) anxiety, (-) sleep di sturbance, (-) altered behavior delusions/hallucination. ALLERGIES/REACTIONS: No Known Allergies MEDICATIONS: Current Facility-Administered Medications Medication Dose Route Frequency Provider Last Rate Last Admin aspirin EC EC tablet 81 mg 81 mg Oral Daily Guy Vale MD 81 mg at 10/05/20 09 atorvastatin (LIPITOR) tablet 40 mg 40 mg Oral QPM Guy patel MD 40 mg at 10/04/202055 dextrose 50 % IV solution 25 mL 25 mL Intravenous PRN Guy Vale MD glucagon (human recombinant) (GLUCAGEN) injection 1 mg 1 mg Intramuscula r PRN Guy Vale MD glucose (GLUTOSE) 40 % oral gel 15 g 15 g Oral PRN Guy patel MD insulin lispro (HumaLOG) injection LOW DOSE EATING INSULIN patients 1-8 U nits 1-8 Units Subcutaneous 3 x Daily with Meals Guy Vale MD memantine (NAMENDA) tablet 5 mg 5 mg Oral BID Marvin Arndt D 5 mg at 10/05/20 0933 NaCl infusion 0.9 % Intravenous Continuous Guy Vale MD 50 mL/hr at 10/05/20 1127 New Bag at 10/05/20 1127 PMH: CVA (cerebral vascular accident) DM (diabetes mellitus) HTN (hypertension) Endocarditis HLD (hyperlipidemia) Cardiomegaly PSH: CARDIAC SURGERY FAMILY HX: Stroke, HTN SOCIAL HISTORY: He reports that he has quit smoking. He does not have any smokeless tobacco hist ory on file. He reports previous alcohol use. He reports that he does not use dr quiroz. Lives with: Home and Spouse Living Accommodations: 1 step to enter, two level home First floor set-up available: yes Occupation: Retired from [employer] Mobility: Independent without device ADL's: Independent Driving: no Falls in past year: none within last 6 months Support on discharge: is available for assistance 01/04 per patient, but per CM note patient lives alone, no number available in chart to confirm Full history confirmed. PHYSICAL EXAM: (Prob. Focused: 1-5 checks; Expanded: 6-11 checks; Detailed: 2 ch ecks in 6 systems or 12 checks; Comprehensive: 2 checks in 9 systems) Vitals: Visit Vitals BP 143/83 (BP Location: Left arm, Patient Position: Lying) Pulse 66 Temp 37.6 C (99.7 F) (Oral) Resp 16 Ht 1.778 m (5' 10") Wt 96.9 kg (213 lb 10 oz) SpO2 99% BMI 30.65 kg/m GENERAL APPEARANCE: Normal development and nutrition, Appropriate grooming Build: Obese BMI: Body mass index is 30.65 kg/m. HEAD: NC/AT EYES:Normal pupil shape and size, PERRL, Conjunctiva clear/no lid lesions ENT: External ears and nose intact without erythema or exudate , Gross hearing i ntact, Normal lips, gums, and teeth, Oral mucosa is pink and moist without eryth gabriel, exudate, or lesions NECK: Supple and symmetrical with trachea midline RESPIRATORY: Lungs: Clear to ascultation: no crackles, wheezes, or rhonchi, Norm al respiratory effort CARDIOVASCULAR: Heart: RRR, no murmurs, Pedal pulses intact bilaterally, no ceferino pheral cyanosis, edema, asymmetry, limbs nontender ABDOMINAL: Bowel sounds present in all 4 quadrants, Nondistended, Nontender MUSCULOSKELETAL: Normal Bulk, Normal Tone Motor Examination: (Graded strength from a scale 0-5) Motor Strength Right Left C4 Shoulder abductors 5 5 C5 Elbow flexors 5 5 C6 Wrist extensor 5 5 C7 Elbow extensor 5 5 C7/8 Finger extensor 5 5 C8 Finger flexors 5 5 T1 Finger abductor 5 5 L2 Hip flexors 5 5 L3 Knee extensors 5 5 L4 Ankle dorsiflexors 5 5 L5 Extensor hallucis longus 5 5 S1 Ankle plantar flexor 5 5 Neurological: No Babinski No Portillo's No Clonus No pathologic reflexes Cranial nerves II-XII exam: Cranial Nerves Normal Abnormal II Blurred vision, right visual field deficit III, IV, x V x VII x VIII x IX, X x XI x XII x Coordination: Normal Abnormal Motor Control x Finger to nose x Heel/knee/guerrero Rapid alternating movements Sensation: Normal Abnormal Light touch (Dorsal Column) x Pin prick (Spinothalamic) Vibration (Dorsal Column) Proprioception (Dorsal Column) x DTR exam: Present, symmetric Right Left Bicep (C5) 2 2 Brachioradialis (C6) Patella (L3/4) 2 2 Achilles (S1) Other Abnormal Neurologic: Present Absent Normal speech/language x Dysarthria x Apraxia x Neglect x Hemiparesis x Paresis x Aphasia: Present Absent Fluency x Word Errors x Repetition x Naming x Comprehension x Reading x Psychiatric: Present Absent Normal judgement/and insight: x Normal mood: x Depression x Anxiety x Agitation x Hypomanic x Normal affect: x Flat x Euphoric x Normal level of consciousness: x Drowsy/Stupor x Coma x Orientation: Year, Day, Month, Date, Season, State, Country, Town, Hospital, [facility] or Memory: Immediate 3 item recall 3/ 3, Delayed 3 item recall 3/ 3 Serial 7's # / 5 or DLROW 5/ 5 Language: Point and have patient name Pencil & Watch 2/ 2 Repeat the following: "No if's, and's, or but's." 09/09 Fund of knowledge: good Skin: Inspection: no rashes, lesions, or ulcers, scattered ecchymoses, Palpatio n: no induration, nodules, or tightening. DIAGNOSTIC TESTS: CBC: Lab Results Component Value Date WBC 9.7 10/04/2020 RBC 4.97 10/04/2020 HGB 15.0 10/04/2020 HCT 44.6 10/04/2020 PLT 204 10/04/2020 BMP: Lab Results Component Value Date NA 137 10/05/2020 K 3.7 10/05/2020 CL 105 10/05/2020 BICARBONATE 23 10/05/2020 GLUCOSE 149 (H) 10/05/2020 BUN 17 10/05/2020 CREATININE 0.77 10/05/2020 BCR 22 10/05/2020 GFRAA >90 10/05/2020 GFRNONAA >90 10/05/2020 Mr Brain Without Contrast Result Date: 10/05/2020 INDICATION: Syncope and aphasia. TECHNIQUE: Multiplanar and multisequence MR ilya ges of the brain were obtained without intravenous contrast. Comparison: CTA hea d and neck 10/04/2020. FINDINGS: No areas of restricted diffusion to suggest acut e infarct. Punctate hemosiderin deposition in bilateral cerebral convexities wit h posterior predominance. Left occipital lobe encephalomalacia and T2 hyperinten sity consistent with chronic infarction. Foci of T2 and FLAIR hyperintensity in the paraventricular white matter consistent with chronic small vessel ischemic d isease. There is no evidence of acute intraparenchymal hemorrhage. No extra axia l fluid collections are seen. There are no masses, mass effect, or midline shift . Prominence of the ventricular system, fissures and sulci is commensurate with cerebral volume loss. The corpus callosum, pituitary gland, and cerebellar tonsi ls appear grossly unremarkable. Flow voids of the major intracranial arterial ve ssels are identified. The imaged portions of the paranasal sinuses, mastoid air cells, and orbits are unremarkable. IMPRESSION: 1. No acute infarction or intracranial hemorrhage. 2. Left tempora l occipital lobe encephalomalacia and T2 hyperintensity consistent with chronic infarction. 3. Foci of T2 and FLAIR hyperintensity in the paraventricular white matter consistent with chronic small vessel ischemic disease. 4. Punctate hemo siderin deposition in bilateral cerebral convexities with posterior predominance may be seen with cerebral amyloid angiopathy. Chronic hemorrhage also identifie d in the left are temporoparietal occipital infarct. Ct Angiography Head ; Emergent Exam: Waive Labs Addendum Date: 10/04/2020 The cervical spine is straight in alignment losing its anatomic lordosis but wit hout significant spondylolisthesis. Intervertebral disc space narrowing, mild at C4-C5 level and severe at C5-C6 and C6-7 levels. Mild spondylotic changes in th e mid and lower cervical spine. The posterior elements show no acute fracture or dislocation. Very mild arthritic changes at the uncovertebral joints bilaterall y at C6-C7 level. The odontoid process is intact and no significant rotational a bnormality is present. The atlantoaxial distance is within normal limits. The ve rtebral heights are well-preserved. There is mild spinal canal stenosis at C6-C7 level. Neuroforaminal narrowing, mild to moderate on the right and moderate to severe on the left at C3-C4 level, severe bilaterally at C4-C5 and C5-C6 level, and severe on the right and moderate to severe on the left at C6-C7 level. No si gnificant prevertebral soft tissue is mildly and the airway is intact. Result Date: 10/04/2020 CLINICAL INDICATION: Stroke code. 69-year-old male with confusion. TECHNIQUE: Co ntiguous axial CT images of the head were acquired from the base of the skull to the vertex without intravenous contrast administration. CT angiography of the head and neck was performed following intravenous administration of 75 mL of Omn ipaque 350 injected at a rate of 5 cc/sec. Multiple MIP images in axial, coronal , and sagittal planes and 3D surfaced rendered images were then acquired using t he source data. Automated dose lowering techniques and/or adjustment according t o patient size were utilized for this examination. Assessment of stenosis of the internal carotid arteries is based on NASCET criteria. COMPARISON: None at the time of this dictation. FINDINGS: PRECONTRAST HEAD CT: There is a region of hypo density in the left occipital lobe with associated ex vacuo dilatation of the le ft occipital horn of the left lateral ventricle. This is likely construction representative o f an old cerebral infarction with characteristics of encephalomalacia. There is no acute intracranial hemorrhage, midline shift, acute major arterial territoria l infarction, or extra axial collection. There is mild cerebral volume loss, dif fusely. Ill-defined very small areas of low attenuation scattered within the whi te matter at the level of the berry radiata and bilaterally. The basal cisterns are patent. Paranasal sinuses are clear. Mastoid air cells are aerated bilater ally. There is no depressed calvarial fracture. CTA NECK: There is a three-vesse l aortic arch with patent origins of the brachiocephalic trunk, left common novoa tid, and left subclavian arteries. The left common carotid artery exhibits calci fied plaques causing approximately 80-90% focal stenosis in the proximal CCA at the level of T1. There are calcified plaques at the bifurcation extending into t he proximal internal carotid causing 30-40% relative stenosis. There is no hemod ynamically significant focal stenosis of the left internal carotid artery to the level of the cavernous sinus. The right common carotid is widely patent and the re is mild to moderate atherosclerosis at the bifurcation without significant st enosis. There is no significant stenosis of the right internal carotid artery to the level of the cavernous sinus. The left vertebral artery is dominant. Verteb ral arteries originate from their respective subclavian arteries and are patent to the level of the skull base. There are partially visualized bilateral hypoatt enuating thyroid nodules. There are a few prominent lymph nodes bilaterally, rig ht greater than left. The remainder of the soft tissue and glandular structures within the neck appear grossly normal. Scattered degenerative changes are seen w ithin the cervical spine. There are no lytic or sclerotic lesions visualized. CT A HEAD: There is mild atherosclerosis of bilateral cavernous portions of the int ernal carotid arteries without significant stenosis or aneurysm. The left and ri ght M1 and M2 branches of the MCAs are patent and without aneurysm. The bilatera l anterior cerebral and anterior communicating arteries are patent without aneur ysm. The bilateral posterior communicating arteries are patent. The bilateral po sterior cerebral arteries are patent. There is a decrease in vascularity in the TRAFFIC TECHNICIAN territory on the left, however, there are collateral vascular structures sharyn ntified. The bilateral superior cerebellar arteries are patent. The bilateral an terior inferior cerebellar and right posterior inferior cerebellar arteries are patent. The left posterior inferior cerebellar artery is not well visualized. Th ere is a focus of calcification within the left vertebral artery which may corre spond to the origin of the left PICA. There are distal collateral vessels identi fied. Bilateral intracranial vertebral arteries are patent. IMPRESSION: 1. No evidence of acute infarct or intracranial hemorrhage. 2. 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 Collateral vascul ature is seen within this territory and there is no acute infarction. 3. No raymond dence of stenosis, aneurysm, or arteriovenous malformations of the major intracr anial arteries. 4. 80-90% diameter significant focal stenosis of the proximal l eft common carotid artery at the level of T1. 5. Very mild chronic microvascula r ischemic changes of the white matter. Findings were communicated by Dr. Ken cross to Dr. Vale at 10:23 AM on 10/04/2020. Ct Angiography Neck ; Emergent Exam: [facility] Addendum Date: 10/04/2020 The cervical spine is straight in alignment losing its anatomic lordosis but wit hout significant spondylolisthesis. Intervertebral disc space narrowing, mild at C4-C5 level and severe at C5-C6 and C6-7 levels. Mild spondylotic changes in th e mid and lower cervical spine. The posterior elements show no acute fracture or dislocation. Very mild arthritic changes at the uncovertebral joints bilaterall y at C6-C7 level. The odontoid process is intact and no significant rotational a bnormality is present. The atlantoaxial distance is within normal limits. The ve rtebral heights are well-preserved. There is mild spinal canal stenosis at C6-C7 level. Neuroforaminal narrowing, mild to moderate on the right and moderate to severe on the left at C3-C4 level, severe bilaterally at C4-C5 and C5-C6 level, and severe on the right and moderate to severe on the left at C6-C7 level. No si gnificant prevertebral soft tissue is mildly and the airway is intact. Result Date: 10/04/2020 CLINICAL INDICATION: Stroke code. 69-year-old male with confusion. TECHNIQUE: Co ntiguous axial CT images of the head were acquired from the base of the skull to the vertex without intravenous contrast administration. CT angiography of the head and neck was performed following intravenous administration of 75 mL of Omn ipaque 350 injected at a rate of 5 cc/sec. Multiple MIP images in axial, coronal , and sagittal planes and 3D surfaced rendered images were then acquired using t he source data. Automated dose lowering techniques and/or adjustment according t o patient size were utilized for this examination. Assessment of stenosis of the internal carotid arteries is based on NASCET criteria. COMPARISON: None at the time of this dictation. FINDINGS: PRECONTRAST HEAD CT: There is a region of hypo density in the left occipital lobe with associated ex vacuo dilatation of the le ft occipital horn of the left lateral ventricle. This is likely construction representative o f an old cerebral infarction with characteristics of encephalomalacia. There is no acute intracranial hemorrhage, midline shift, acute major arterial territoria l infarction, or extra axial collection. There is mild cerebral volume loss, dif fusely. Ill-defined very small areas of low attenuation scattered within the whi te matter at the level of the berry radiata and bilaterally. The basal cisterns are patent. Paranasal sinuses are clear. Mastoid air cells are aerated bilater ally. There is no depressed calvarial fracture. CTA NECK: There is a three-vesse l aortic arch with patent origins of the brachiocephalic trunk, left common novoa tid, and left subclavian arteries. The left common carotid artery exhibits calci fied plaques causing approximately 80-90% focal stenosis in the proximal CCA at the level of T1. There are calcified plaques at the bifurcation extending into t he proximal internal carotid causing 30-40% relative stenosis. There is no hemod ynamically significant focal stenosis of the left internal carotid artery to the level of the cavernous sinus. The right common carotid is widely patent and the re is mild to moderate atherosclerosis at the bifurcation without significant st enosis. There is no significant stenosis of the right internal carotid artery to the level of the cavernous sinus. The left vertebral artery is dominant. Verteb ral arteries originate from their respective subclavian arteries and are patent to the level of the skull base. There are partially visualized bilateral hypoatt enuating thyroid nodules. There are a few prominent lymph nodes bilaterally, rig ht greater than left. The remainder of the soft tissue and glandular structures within the neck appear grossly normal. Scattered degenerative changes are seen w ithin the cervical spine. There are no lytic or sclerotic lesions visualized. CT A HEAD: There is mild atherosclerosis of bilateral cavernous portions of the int ernal carotid arteries without significant stenosis or aneurysm. The left and ri ght M1 and M2 branches of the MCAs are patent and without aneurysm. The bilatera l anterior cerebral and anterior communicating arteries are patent without aneur ysm. The bilateral posterior communicating arteries are patent. The bilateral po sterior cerebral arteries are patent. There is a decrease in vascularity in the TRAFFIC TECHNICIAN territory on the left, however, there are collateral vascular structures sharyn ntified. The bilateral superior cerebellar arteries are patent. The bilateral an terior inferior cerebellar and right posterior inferior cerebellar arteries are patent. The left posterior inferior cerebellar artery is not well visualized. Th ere is a focus of calcification within the left vertebral artery which may corre spond to the origin of the left PICA. There are distal collateral vessels identi fied. Bilateral intracranial vertebral arteries are patent. IMPRESSION: 1. No evidence of acute infarct or intracranial hemorrhage. 2. 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 Collateral vascul ature is seen within this territory and there is no acute infarction. 3. No raymond dence of stenosis, aneurysm, or arteriovenous malformations of the major intracr anial arteries. 4. 80-90% diameter significant focal stenosis of the proximal l eft common carotid artery at the level of T1. 5. Very mild chronic microvascula r ischemic changes of the white matter. Findings were communicated by Dr. Ken cross to Dr. Vale at 10:23 AM on 10/04/2020. Us Doppler Carotid Bilateral Complete (vascular Lab) Result Date: 10/04/2020 [facility] --- PRELIMINARY REPORT --- LIZZIEGOMEZ GORGE : 02 Dec [id number] Age: 69 Sex: M 04 Oct 2020 RefMD: SCHM IDTGLORIA TEST TYPE: Cerebrovascular Duplex REASON FOR TEST Known carotid steno sis Right Carotid:- Proximal Mid Distal cm/s Systolic Diastolic Systolic Diastolic Systolic Diastolic CCA: 91 .0 22.0 57.0 13.0 Bulb: ECA: 68.0 10.0 ICA: 57.0 23.0 65.0 20.0 120.0 43.0 ICA/CCA: 2.1 3.3 ICA Stenosis: < 50% Right Vertebral:- Finding: Antegrade Sys: 59.0 Kim: 15.0 Right Subclavian: Left Carotid:- Proximal Mid Distal cm/s Systolic Diastolic Systolic Diastolic Systolic Diastolic CCA: 104.0 24.0 116.0 20.0 Bulb: ECA: 71.0 8.0 ICA: 76.0 18.0 74.0 24.0 79.0 26.0 ICA/CCA: 0.7 1.3 ICA Stenosis: < 50% Left Vertebral:- Finding: Antegrade Sys: 58.0 Kim: 21.0 Left Yang bclavian: INTERPRETATION/FINDINGS Spectral analysis of the right internal caroti d artery indicates <50 % stenosis. Lopez scale imaging of the carotid bifurcation and internal carotid artery reveals mild to moderate heterogeneous plaque. Spectral analysis of the left internal carotid artery indicates <50 % stenosis. Lopez scale imaging of the carotid bifurcation and internal carotid artery reveals moderate complex plaque. Moderate heterogenous plaque noted in the mid common carotid artery. There is normal, antegrade flow in the bilateral vertebral arteries. No priors on file for comparison. ADDITIONAL COMMENTS I have personally reviewed the data relevant to the interpretation of this study. TECH NOLOGIST: Aileen Yeh Records Reviewed: Hospital, H&P ASSESSMENT: Patient Active Problem List Diagnosis Date Noted Syncope 10/05/2020 Acute bacterial endocarditis 10/05/2020 Type 2 diabetes mellitus without complication, without long-term current use of insulin 10/05/2020 Osteoarthrosis 10/05/2020 BMI 30.0-30.9,adult 10/05/2020 Dizziness and giddiness 06/19/2017 First degree atrioventricular block 10/13/2015 Aortic valve stenosis 08/31/2015 Aortic valve disorder 07/14/2015 Cardiomegaly 07/14/2015 Electrocardiogram abnormal 07/14/2015 Obesity 07/14/2015 Hypertension 07/14/2015 Hyperlipidemia 07/14/2015 PLAN: Gorge Ferreira is a 69 y.o. 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 He has residual cognitive deficits and hemianopsia since stroke. He presented due to syncope and inability to speak. NIHSS was 3. Patient had been seen in OSH ED in 08/2020 for weakness and dizziness, imaging was negative. CTH was negative for acute ischemic stroke or hemorrhage. MRI was negative for acute infarction or intracranial hemorrhage, left temporal occipital lobe chronic infarction, chronic small vessel ischemic disease, chronic hemorrhage left temporoparietal occipital infarct. Echo is pend ing. Workup is ongoing. PM&R consulted for evaluation for admission to IRF. -Prior to admission, patient was independent for mobility and ADLs. Currently, arminda garcia is requiring min assist for ambulate 12 ft, min assist for grooming, contact g uard assistance for transfers, upper and lower body dressing, and toileting. Per patient, his is available for 24/7 assistance. Per note, patient lives alone. No family member number available in chart to confirm history. Please see attending addendum for full assessment and recommendations. Martha Valverde MD PGY3 Pager: [phone] Attending Addendum Patient seen & examined. I agree with Dr. Valverde's note with my edits/additions. Gorge Ferreira is admitted after he was found unconscious at home by his spouse. He was initially confused and unable to speak upon regaining consciousne ss. EEG today is significant for left temporal slowing and epileptiform discharg es for which he has been started on Keppra. Gorge Ferreira does have a hi story of left TRAFFIC TECHNICIAN stroke relating to prior endocarditis with septic emboli. He a lso has a history significant for dementia. MRI had findings suggestive of cereb ral amyloid angiopathy and Plavix has been discontinued. His spouse reports that he has poor baseline short-term memory. Gorge Ferreira was not oriented to place during my examination nor did he have insight into the reasons for his hospitalization (earlier he was fully oriented). His spouse reports fluctuating cognitive abilities at home which may have corresponded to subclinical seizures. She reports his physical function has always been good. She is retired and able to provide cognitive supervision at the time of discharge. Gorge Ferreira was disoriented during PT and OT evaluations this morning which may have impacted functional level. He required min assist to ambulate 12 feet and min assist for lower body ADLs. Recommend re-evaluation upon treatment of seizures. Anticipate improvement once seizures are controlled. Will follow lourdes stokes's progress thereafter. Patient's spouse prefers home discharge if at all p ossible. * Guy Vale MD - 10/04/2020 10:50 AM EST Stroke History and Physical Patient Gorge Ferreira 1950 PCP Chief Complaint/Reason for Admission: syncope; confusion/aphasia Subjective History of Presenting Illness: Demographics: 69 y.o. male, right handed Cerebrovascular Risk Factors: CVA residual visual loss 2018 - L TRAFFIC TECHNICIAN in setting o f endocarditis septic emboli, aortic valve replacement - bovine, diastolic dysfu nction, DM2 Home Antiplatelets: Plavix and aspirin Home Anticoagulants: none Last Known Well: last know to be normal on 10/04/20 at 0845 Time first Noticed: 945 Arrival to the ED: 10/04/20 at 1007 Stroke Code Received: 0944 Seen by Neurology: [address] scan read at time of scan. Interpretation: no evidence of large infarct or hemorrhage Initial BP: 118/75 Initial B mg/dL The patient is presenting with syncope, inability to speak which started suddenl y at about 0800, when he woke up. These symptoms were first noted by the patien t's spouse and the patient was brought to the ED by EMS. Was well this morning when he woke up, was last known well and 10 PM yesterday p rior to going to bed. heard a thud in the bathroom and found him lying unr esponsive. EMS was called on arrival 10 minutes later patient was awake. He wa s unable to speak and appeared confused. 10 minutes later speech had improved. He had no urinary incontinence associated with episode or tongue biting; he did have sign of epistaxis may be traumatic. As per he has postural dizziness for the past month usually when waking up in the morning so usually assists him around the house. He also has baseli ne short-term memory loss and hemianopsia since his stroke in November. He was see n in the ED at [facility] for weakness and dizziness 08/30/2020, wo rk-up included CTA head and neck which showed ICA stenosis of 50 to 60%, MRI bra in without contrast did not show any new ischemic changes. Medication changes h ave included addition of memantine and increasing of donepezil dose otherwise no other. While in the ED, he was started on plavix 75 mg for one month (unclear i ndication) Since onset, the above symptoms have been completely resolved, lasting 15 minute s. The patient currently complains of mild Neck pain. He denies dizziness, heada ches, paresthesia, speech problems, vertigo and weakness. Review of Systems Constitutional: Negative for fever, chills, diaphoresis, activity change and david etite change. HENT: Negative for hearing loss, ear pain, facial swelling, neck pain, neck stif fness, tinnitus and ear discharge. Eyes: Negative for pain, discharge, redness and itching. Respiratory: Negative for apnea, chest tightness, shortness of breath, wheezing and stridor. Cardiovascular: Negative for chest pain, palpitations and leg swelling. Gastrointestinal: Negative for diarrhea, constipation and abdominal distention. Endocrine: Negative for cold intolerance and heat intolerance. Genitourinary: Negative for dysuria, urgency, frequency, hematuria, flank pain a nd difficulty urinating. Neurological: Negative for dizziness, seizures, syncope, facial asymmetry, speec h difficulty, light-headedness, numbness and headaches. Hematological: Negative for adenopathy. Does not bruise/bleed easily. Psychiatric/Behavioral: Negative for behavioral problems and agitation. All other systems were reviewed and found negative except for those mentioned ab ove and in the HPI. Past Medical History CVA (cerebral vascular accident) DM (diabetes mellitus) HTN (hypertension) Endocarditis HLD (hyperlipidemia) Cardiomegaly Past Surgical History CARDIAC SURGERY Family History His family history is unknown Social History He is . He lives with his spouse. He is retired. His baseline functional status is fair and he is unable to perform ADLS. He reports that he has quit sm oking. He does not have any smokeless tobacco history on file. He reports previo us alcohol use. He reports that he does not use drugs. Home Medications Medication Sig Aspirin EC 81 MG Oral Tablet Delayed Release Take 81 mg by mouth daily Atorvastatin Calcium 40 MG Oral Tablet (LIPITOR) Take 40 mg by mouth every eveni ng Clopidogrel Bisulfate 300 MG Oral Tablet (PLAVIX) Take 300 mg by mouth once Memantine HCl 5 MG Oral Tablet (NAMENDA) Take 5 mg by mouth Two Times Daily metFORMIN HCl 1000 MG Oral Tablet (GLUCOPHAGE) Take 1,000 mg by mouth Two times daily with meals Allergies: Patient has no known allergies. Objective Temp: [36.2 C (97.2 F)] 36.2 C (97.2 F) Pulse: [60-74] 60 Resp: [15-16] 15 BP: (118-126)/(75-80) 126/80 SpO2: [95 %-99 %] 99 % O2 Therapy: Room air Physical Exam General Appearance: in no apparent distress Skin: Normal HEENT: Head: Normal, normocephalic, atraumatic. epitaxis Neurological Exam NIH Stroke Scale: Initial Assessment Category Patient Score 1a. Level of consciousness (Alert, drowsy, etc.) 0 - Alert 1b. LOC Questions (Month, age) 2 - Neither question correct 1c. LOC Commands (Open, close eyes; make fist, let go) 0 - Performs both tasks correctly 2. Best Gaze (Eyes open- patient follows finger or face) 0 - Normal 3. Visual (Introduce visual stimulus to patients visual field quadrants) 1 - Parti al hemianopia 4. Facial palsy (Show teeth, raise eyebrows and squeeze eyes shut) 0 - Normal, symmetrical move ments 5a. Motor Arm left 5b. Motor Arm right (Elevate extremity to 90 and score drift/movement) Left: 0- No drift (exten ds arm 10sec. w/o drift) Right: 0- No drift (extends arm 10sec. w/o drift) 6a. Motor Leg left 6b. Motor Leg right (Elevate extremity to 30 and score drift/movement) Left: 0- No drift (exten ds leg 5 sec w/o drift) Right: 0- No drift (extends leg 5 sec w/o drift) 7. Limb Ataxia (Finger-nose, heel-guerrero) 0 - Absent 8. Sensory (Pin prick to face, arm trunk, and leg- compare side to side) 0 - Normal 9. Best Language (Name items, describes a picture, reads sentence) 0 - No aphasia 10. Dysarthria (Evaluate speech clarity by patient repeating listed words) 0 - Normal articula tion 11. Extinction and Inattention (Use information from prior testing to identify neglect or double simultaneous s timuli testing) 0 - No neglect Total Score: 3 NEUROLOGIC EXAMINATION: Mental status: Level of alertness: Attention: Able to focus and sustain attention. Regards examiner. Language: Auditory comprehension:Intact Speech output: Fluent and grammatically correct Naming: Preserved Repetition: Intact. Cranial nerves: CN II:Direct pupillary reaction to light normal. Visual ortiz full CN III- : All extraocular movements were intact and no nystagmus noted CN V:Facial sensation was normal and symmetric CN VII: Facial expression was symmetric CN XI: Shoulder shrug normal Sensory exam: Pinprick preserved bilaterally Vibratory sensation: Preserved proximally and distally. Motor exam: Proximal Distal Right Upper extremity 5 5 Left Upper extremity 5 5 Proximal Distal Right lower extremity 5 5 Left Lower extremity 5 5 Cerebellar Exam: Finger to nose Right Upper extremity intact Left Upper extremity intact HKS Right Lower extremity - Left Upper extremity - No truncal ataxia. Deep Tendon Reflexes: Biceps Triceps BR Knee Ankle Plantar response Right 2 2 2 2 2 Flexor Left 2 2 2 2 2 Flexor Gait: deferred Diagnostics CTA head and neck 10/04/2020 IMPRESSION: 1. No evidence of acute infarct or intracranial hemorrhage. 2. 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 Collateral vasculature is seen within this territory and there is no acute infarction. 3. No evidence of stenosis, aneurysm, or arteriovenous malformations of the anastasia or intracranial arteries. 4. 80-90% diameter significant focal stenosis of the proximal left common carot id artery at the level of T1. 5. Very mild chronic microvascular ischemic changes of the white matter. CTA head and neck 08/30/2020 [facility] ([facility] FINDINGS: The bilateral common carotid arteries demonstrate moderate amounts of mixed part ially calcified atheromatous plaquing which visibly narrows the distal left comm on carotid artery by approximately 50-60%. Significant atheromatous partially c alcified plaquing is then identified along the bilateral carotid bulbs with subs equent relatively symmetric nonstenotic appearance to the bilateral internal car otid arteries extending to the skull base. Of note, the right internal carotid artery demonstrates moder ate tortuosity. The bilateral vertebral arteries appear patent and relatively s ymmetric. IMPRESSION: Moderate to significant areas of atheromatous plaquing as described above and primarily involving the bilateral carotid bulbs and left mid to distal common carotid artery. The visible portions of the bilateral internal carotid arteries appear symmetric and essentially normal. MRI NOVEMBER 2019- [facility] Impression & Plan Gorge Ferreira is a 69 y.o. right handed male with history of hypertensio n , diabetes mellitus , hyperlipidema; No results found for: LDL, prior stroke a nd AV replacement currently on aspirin and plavix who presents to the ED with sy ncope, inability to speak transiently. Current NIHSS is 3 for left quadrantanopia and LOC questions. CT scan of the hea d shows no acute ischemic stroke or hemorrhage. Given his NIHSS score and CT hea d he is not a candidate for IV-tPA therapy. Exclusion criteria have been reviewe d. Patient does not meet criteria for IV-tPA therapy because the patient's NIHSS= 0 or is greater than 22. (no new deficits) The patient was evaluated for mechanical endovascular stroke intervention and wa s deemed ineligible as the patient's NIHSS is less than 6. Diagnosis: Syncopal event and transient Concern for orthostatics and hypoperfusion; TIA or symptomatic LICA Ddx: first time seizure secondary to structural lesions ( low on ddx; short post ictal and no evidence of convulsions or focal seizures. Will order EEG for sig risk of seizure. Plan 1. The patient will be admitted to stroke service on telemetry. 2. He will be started on will be started on aspirin and plavix. 3. His systolic blood pressure will be kept between 120-160 for now. 4. A full stroke work up will be done including:MRI without contrast of the bra in to evaluate for any evidence of infarct, secondary stroke risk factor prevent ion labs including: lipid panel, HbA1C, TSH and place patient on telemetry to ev aluate for any arrhythmias. - Carotid Ultrasound - Hold repeat ECHO pending result of MRI . - consult medicine for medical clearance for possible CEA - order routine EEG for possible localization related seizure event. 5. A swallow evaluation will be performed and if the patient passes he will be started on a cardiac diet, diabetic diet and low fat, low cholesterol diet 6. Will be evaluated by physical therapist and occupational therapist Postural Hypotension - likely contributed to fall - MIVF Type 2 DM, - TAYLOR - hold home metformin Aortic valve replacement - continue aspirin therapy Dementia; unknown etiology - continue mementin and donepezil DVT Prophylaxis: SCD's while in bed; pending MRI GI Prophylaxis: Not Indicated Code Status: Full Code Patient seen and examined. Case discussed with Dr. Dane Cruz; Vascular Neuro logy Fellow and formulated the above plan together. Associated attestation - Gloria Khan MD - 10/05/2020 2:41 PM EST STROKE ATTENDING ADDENDUM: Date of Encounter: 10/05/2020 I personally saw and examined the patient, discussed the case and formulated ass essment and plan with the fellow and agree with the history, exam, assessment an d plan outlined in the resident's note except where stated in the supplemental d ocumentation by myself. Medical decision making: Principal Problem: Syncope - etiology unclear. Echo, EEG pending. MRI brain neg for acute stroke. 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 Cont ASA and statin Type 2 diabetes mellitus without complication, without long-term current use o f insulin - Ins s/s Class 1 obesity in adult - supportive care Hypertension - BP well controled, neg orthostatics Hyperlipidemia - statin Dementia - home memantine. Impaired mobility - PT/OT - inpt needs. CM on board. Discussed with: patient, staff, and students Signature: Gloria Khan documented in this encounter ED Notes * Jany Laguerre RN - 10/04/2020 5:25 PM EST Patient's called to provide information for MRI screening form given mariah contreras AMS. MRI form filled out and faxed. * Jany Laguerre RN - 10/04/2020 4:45 PM EST Attempted to call patient's a second time. * Kandi Lr RN - 10/04/2020 3:04 PM EST Pt to vascular lab with Maricarmen Cesar as patient can not be off tele for transpor t * Kandi Lr RN - 10/04/2020 2:14 PM EST Call placed to patients to perform MRI screening form. No answer left voice mail with call back number. * Rachel Alvarado MD - 10/04/2020 11:43 AM EST History No Known Allergies Chief Complaint Patient presents with Aphasia There is no immunization history on file for this patient. HPI This is a 69-year-old male with a past medical history significant for previous stroke, diabetes, hypertension who presents to the emergency department today fo r evaluation of strokelike symptoms. According to [employer], who transported the patient, he had a syncopal event in his bathroom earlier today. He was found by his who reported that he was having difficulty speaking and was confused w hen she found him. He was brought to the ED for further evaluation. By the time he arrived to the emergency department, his speech difficulty had resolved. In itial blood glucose was 148. Last known well was 845 this morning. Past Medical History: Diagnosis Date Cardiomegaly CVA (cerebral vascular accident) DM (diabetes mellitus) Endocarditis HLD (hyperlipidemia) HTN (hypertension) Past Surgical History: Procedure Laterality Date CARDIAC SURGERY 2016 Aortic valve replacement No family history on file. Social History Tobacco Use Smoking status: Former Smoker Substance Use Topics Alcohol use: Not Currently Drug use: Never E-Cigarette Use: Never User Social Screening Review of Systems Unable to perform ROS: Acuity of condition Physical Exam Visit Vitals BP 137/85 Pulse (!) 57 Temp 36.2 C (Oral) Resp (!) 9 Ht 1.778 m Wt 98.5 kg SpO2 98% BMI 31.16 kg/m Physical Exam Vitals signs and nursing note reviewed. Constitutional: General: He is not in acute distress. Appearance: Normal appearance. He is well-developed. He is not ill-appearing. HENT: Head: Normocephalic and atraumatic. Right Ear: External ear normal. Left Ear: External ear normal. Nose: Nose normal. Mouth/Throat: Mouth: Mucous membranes are moist. Pharynx: Oropharynx is clear. Eyes: Conjunctiva/sclera: Conjunctivae normal. Pupils: Pupils are equal, round, and reactive to light. Neck: Musculoskeletal: Normal range of motion and neck supple. Cardiovascular: Rate and Rhythm: Regular rhythm. Bradycardia present. Heart sounds: Normal heart sounds. Pulmonary: Effort: Pulmonary effort is normal. Breath sounds: Normal breath sounds. Abdominal: General: Bowel sounds are normal. Palpations: Abdomen is soft. Tenderness: There is no abdominal tenderness. There is no guarding or rebound . Musculoskeletal: Normal range of motion. General: No deformity. Skin: General: Skin is warm and dry. Capillary Refill: Capillary refill takes less than 2 seconds. Findings: No rash. Neurological: Mental Status: He is alert. Comments: CN II: PERRL CN III-: EOMI, no nystagmus noted CN V: Facial sensation was normal and symmetric CN VII: Eyebrow elevation bilaterally, eye closure was normal bliaterally, with symmetric smile CN VIII: Equal hearing bilaterally CN IX, X: Uvula elevated bilaterally CN XI: Normal shoulder shrug strength bilaterally CN XII: Tongue protrusion was midline, no fasciculations noted 5/5 muscle strength in upper and lower extremities bilaterally Sensation intact in upper and lower extremities bilaterally Psychiatric: Mood and Affect: Mood normal. Behavior: Behavior normal. ED Course (Entries in this section may reflect care that occurred after patient hand-off a nd are the responsibility of that provider as indicated by their initials.) Procedures MDM This is a 69-year-old male with a past medical history as noted above presenting to the emergency department today for evaluation of strokelike symptoms and syn copal event. Upon arrival, patient has no obvious deficits and no aphasia. His vital signs are within normal limits. A CTA of the head and neck were obtained and negative for acute ischemic stroke or hemorrhage. Patient is not a jann te for TPA or thrombectomy. He is grossly neurologically intact. He does have significant stenosis of the left common carotid artery. Orthostatics were obtained which were negative. Blood work is notable for an el evated lactate of 3, IV fluids given. Unclear if this represents seizure activi ty. He will be admitted to neurology for EEG and full stroke work-up. Patient was hemodynamically stable at the time of admission to their service. Clinical Impression: Syncope Carotid artery stenosis Condition: Stable Disposition: Admitted to neurology Rachel Alvarado MD Resident 10/04/202011 Associated attestation - Jeevan Gonzalez MD - 10/06/2020 4:22 PM EST I saw and evaluated the patient. Discussed with the resident and agree with the residents findings and plans as written, along with any supplemental dictated a nd/or attending documentation in the patient record by myself. * Martin Contreras RN - 10/04/2020 10:08 AM EST Patient coming from home by [employer]. Builk reports, "Patient's called 911 after he had a syncopal episode in b athroom, witnessed by . She reported that when he woke, he was having diffic ulty speaking and was confused. Upon crew's arrival, patient continued to have e xpressive aphasia, no other neurologic findings-during assessment." documented in this encounter Miscellaneous Notes * Plan of Care - Lilli Florez RN - 10/07/2020 2:56 AM EST Problem: Hemodynamic Status Goal: Patient will remain hemodynamically stable Description: Patient's vital signs, oxygenation, and labs will be monitored and deviations addressed. Outcome: Progressing Problem: Fall Prevention Goal: No fall during Hospitalization Outcome: Progressing Problem: Impaired Physical Mobility Goal: Patient will maintain maximum physical mobility within prescribed activity and weight bearing restrictions Outcome: Progressing Problem: Self Care Deficit Goal: Patient will perform Activities of Daily Living at optimal level Outcome: Progressing Problem: Discharge Needs Goal: Patient discharge needs are met Description: Collaborate with interdisciplinary team and initiate plans and inte rventions as needed Outcome: Progressing * Assessment - Aylin Aleman LMSW - 10/06/2020 1:22 PM EST Social Work Brief Screen Patient Name: Gorge Ferreira Pronoun Date of : 1950 County of Residence: [place] Admitting Dx: Carotid stenosis, bilateral [I65.23] Internal carotid artery stenosis, left [I65.22] Admitting Provider: Denny jaime MD Referral Type: Inpatient Referral Source: Nurse; Yadira West MD Reason for Referral: Substance Use/Abuse, Financial/Insurance Issues Substance Use/Abuse Date: October 06, 2020 Emergency Contacts Name: Address: Home: Work: Mobile: Primary Caregiver: self Informant(s): Patient Authorized to Consent: self AUDIT Assessment Most Recent Value Complete AUDIT? Complete Alcohol Use Disorders Identification Test (AUDIT) How often do you have a drink containing alcohol? Monthly or less How many drinks containing alcohol do you have on a typical day when you are dri nking? 3 or 4 How often do you have six or more drinks on one occasion? Less than Monthly How often during the last year have you found that you were not able to stop dri nking once you had started? Never How often during the last year have you failed to do what was normally expected from you because of drinking? Never How often during the last year have you needed a first drink in the morning to g et yourself going after a heavy drinking session? Never How often during the last year have you had a feeling of guilt or remorse after drinking? Never How often during the last year have you been unable to remember what happened th e night before because you had been drinking? Never Have you or someone else been injured as a result of your drinking? No Has a relative or freind or doctor or another health worker been concerned about your drinking or suggested you cut down? No AUDIT Score 3 This field underwriter met with patient at bedside to administer the AUDIT to patient. Ursula ornelas scored a 3. According to www.sbirt.[place].org , Scoring and Interpre ting the AUDIT: the patient scored in the I - Low Risk, " Risk zone for m en,; Iow risk of health problems related to alcohol use" (www.sbirt.[place].org, n.d.). Moreover, this field underwriter shared with patient of the harm of alcohol passi ng through the stomach's rugae and into the bloodstream, as well as the risks of assisted health risks such as Chronic diseases; high blood pressure, stroke, l iver disease, etc. Also of termination clerk health risks such as cancers, mental heal th implications and alcohol dependence (Centers for Disease Control, n.d.). Th is field underwriter asked patient if he would like a pdf from Fact Sheets - Alcohol Use an d Your Health (https://www.cdc.gov/alcohol/fact-sheets/alcohol-use.htm, June 2019). Patient denied resources. Interventions Assessed for SW needs. This Water Regulator And Valve Repairer is unaware of any other needs at this time. Moreover, this So cial Worker will continue to follow as needed. Lastly, please contact Social Wor k should any further issues or needs arise. Signature: Aylin Aleman Date: October 06, 2020 * Assessment & Plan Note - Thelma Batista, PT - 10/05/2020 10:39 AM EST Physical Therapy Acute Care Examination Medical Diagnosis: Concern for orthostatic and hypoperfusion; TIA or symptomatic LICA Postural Hypotension s/p fall at home History of Present Illness: Per EPIC: "Demographics: 69 y.o. 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 Last Known Well: last know to be normal on 10/04/20 at 0845 Time first Noticed: 945 Arrival to the ED: 10/04/20 at 1007 Stroke Code Received: 0944 Seen by Neurology: [address] scan read at time of scan. Interpretation: no evidence of large infarct or hemorrhage ? Initial BP: 118/75 Initial B mg/dL ? The patient is presenting with syncope, inability to speak which started suddenly at about 0800, when he woke up. These symptoms were first noted by the patient's spouse and the patient was brought to the ED by EMS. Was well this morning when he woke up, was last known well and 10 PM yesterday prior to going to bed. heard a thud in the bathroom and found him lying unresponsive. EMS was called on arrival 10 minutes later patient was awake. He was unable to speak and appeared confused. 10 minutes later speech had improved. He had no urinary incontinence associated with episode or tongue biting; he did have sign of epistaxis may be traumatic. ? As per he has postural dizziness for the past month usually when waking up in the morning so usually assists him around the house. He also has baseline short-term memory loss and hemianopsia since his stroke in November. He was seen in the ED at [facility] for weakness and dizziness 08/30/2020, work-up included CTA head and neck which showed ICA stenosis of 50 to 60%, MRI brain without contrast did not show any new ischemic changes. Medication changes have included addition of memantine and increasing of donepezil dose otherwise no other. While in the ED, he was started on plavix 75 mg for one month (unclear indication) ? ? Since onset, the above symptoms have been completely resolved, lasting 15 minutes. The patient currently complains of mild Neck pain. He denies dizziness, headaches, paresthesia, speech problems, vertigo and weakness." Date of Onset: Prior to admission Date of Admission: 10/04/2020 10:21:00 AM Demographics: Age: 69 Gender: Male Past Medical History and Radiographics: Significant rehabilitation considerations: ?Past Medical History CVA (cerebral vascular accident) DM (diabetes mellitus) HTN (hypertension) Endocarditis HLD (hyperlipidemia) Cardiomegaly Past Surgical History CARDIAC SURGERY Rehabilitation Precautions/Restrictions: Full code High fall risk NPO OOB to chair Obtain orthostatic vitals Pending d/c SUBJECTIVE Unsure of accuracy provided by pt, pt with varying/incontinent responses Mental Status: Orientation:Patient is not alert and oriented as follows: Pt not oriented to self. Pt unable to report his name. Command Following:Able to follow 2 step commands. Prior Functional Level: The patient reported the premorbid level of function was independent with ADL's and functional mobility without an assistive device. Denies history of falls. Does not drive. assists as needed Occupation: Not working Social History: Patient does not live alone. Patient lives with . If needed: Family member is willing to assist. assists as needed Home Environment: 2 story house. 1 step to enter, no handrails. Bedroom is on the first floor. Standard bed. Full bathroom on the first floor. Unsure if he has a tub/shower or walk-in shower. Standard height toilet. Pt reports 3-4 steps up to the second floor. Equipment Owned: None. Pain: Patient has no complaints of pain currently. Pain Medication Today: no. OBJECTIVE General Observation: Received male pt supine with head of bed elevated. + NAD, + pulse oximetry, + telemetry, + L PIV Bed alarm was on at start of session. Range of Motion:B UE and B LE AROM WFL Strength:B UE and B LE strength is sufficient to complete functional mobility described below Skin Integrity Screen: Bruise to R posterior shoulder and R anterior shoulder Bruising noted to R wrist. Multiple bruises noted to B LEs and B UEs. Small bruise to mid back Tone/Spasticity: No relevant impairments. Sensation: Grossly intact. Balance: Pt required moderate assistance x1 to prevent loss of balance during ambulation. Endurance: fair. HR increased to 130 BPM during functional mobility Coordination: Impaired coordination of R hand for finger to thumb, impaired coordination heel to guerrero L LE Therapeutic/Functional Activities: Bed Mobility: Pt performed supine to/from sitting with head of bed flat with supervision. Transfers: Pt performed sit to/from stand transfer with CGA. Gait belt used. Locomotion/Wheelchair: Not applicable for this patient at this time. Locomotion/Gait/Ambulation: Patient was minimal assist with gait/ambulation of 1 person for 2 trials of approximately 12 ft . Patient requires the following assistive device(s): Hand held assist. Gait belt. Pt required moderate assistance to prevent loss of balance once. Increased postural sway, increased path deviation Stairs: Not assessed. Vital Signs: Stable. Oxygen Saturation: 98 % Heart Rate: 70 beats per minute Prestroke Modified Jeffry Score (mRS): 1 - The patient had no significant disability; able to carry out all activities. Modified Jeffry Score (mRS): 4 - Moderately severe disability; unable to walk without assistance and unable to attend to own bodily needs without assistance. Outcome Measures: [facility] "6 Clicks" Basic Mobility Inpatient Short Form: Turning over in bed: No difficulty (4) Sitting down on and standing up from a chair with arms: Unable to perform (1) Moving from lying on back to sitting on the side of the bed: A little difficulty (3) Moving to and from a bed to a chair (including a wheelchair): A little help (3) Walking in hospital room: A little help (3) Climbing 3-5 steps with a railing: A little help (3) Raw Score 17 /24. Interventions: None provided today. Education: Educational needs: Treatment plan. Discharge planning. Use of call osorio. Fall risk. Pacing and energy conservation techniques. Role of Acute Care PT. Safe mobility techniques. Barriers to Learning: Acuity of illness/injury. Cognitive limitations. Learning Preference: Auditory. Demonstration. Mode of education provided: Demonstration. Explanation. Audience: Patient. Education Provided: Treatment plan. Discharge planning. Use of call osorio. Fall risk. Pacing and energy conservation techniques. Role of Acute Care PT. Safe mobility techniques. . Response: Verbalized understanding. Requires cues (auditory/physical). Needs practice/reinforcement. ASSESSMENT Moderate Complexity Evaluation: A history of present problem with 1-2 personal factors and/or comorbidities that impact the plan of care. An examination of body system(s) using standardized tests and measures addressing a total of 3 or more elements from any of the following: body structures and functions, activity limitations, and/or participation restrictions. An evolving clinical presentation with changing characteristics. Clinical decision-making of moderate complexity using standardized patient assessment instrument and/or measurable assessment of functional outcome. Response to Evaluation: The session was tolerated Pt noted to be intermittently confused during session, unable to report name, unsure of subjective history provided by pt. Pt significantly unsteady, required moderate assistance to prevent loss of balance at one point. HR and vitals as described above, RN aware. Pt was left supine in bed with head of bed elevated. All needs met Bed alarm was on at end of session. Call osorio was in patient's reach at end of session. Pain: Patient has no complaints of pain currently. Other Rehabilitation Considerations: Patient's progress may be impaired by the following potential barriers: Architectural barriers in home. Limited caregiver availability. Medical condition. Cognitive impairments. Support Structure: Support structure is fair. Family member willing to assist patient. Strengths: Independent premorbid function. Goals: Patient's functional goals: To go home The patient's therapy goals are based on limitations/impairments in the following areas: Balance. Bed Mobility. Gait. Stairs/Curbs/Environmental barrier negotiation. Strength. Transfers. Short Term Goals: 1. Pt will perform supine to/from sitting independently within 1 week. 2. Pt will perform sit to/from stand transfer with modified independence and least restrictive assistive device within 1 week. 3. Pt will ambulate at least 150 ft with modified independence and least restrictive assistive device within 1 week. Blunger Machine Operator Goals: 1. Pt will ambulate at least 300 ft with modified independence and least restrictive assistive device within 2 weeks. 2. Pt will ascend/descend 4 steps with modified independence and least restrictive assistive device within 2 weeks. PLAN Treatment Frequency, Duration and Interventions: Restorative Physical Therapy is recommended for 5 times per week for 2 weeks Treatment is to include: Gait Training. Neuromuscular Re-education. Therapeutic Activity. Therapeutic Exercise. Self Care/Home Management. Equipment Provided: None issued this visit. Equipment Recommended: To be assessed. Recommended Physical Therapy Follow Up: Upon acute care discharge, the following is currently recommended: Anticipate patient will have inpatient rehab needs beyond the acute stay. Recommended Consults: None currently. Development of Plan of Care: Participants included: Nurse. Patient. Materials Associate. Goal Review Visit Number: 1 Visit Number: Today's visit is number 1 Program: Stroke (Therapist may be reached on [employer]) SESSION: Duration: 55 CHARGES: - ORDER - Physical Therapy Treatment 1 Units - STROKE VISIT 1 Units 21625 - CHARGE - PT EVAL; MODERATE COMPLEXITY 4 Units - 0 Units - 0 Units - 0 Units - 0 Units Total treatment minutes: 55.00 Minutes Electronically Signed by: Thelma Batista PT, DPT, 10/05/2020 11:53:30 AM * Assessment & Plan Note - Derian Rouse, OT - 10/05/2020 10:39 AM EST Occupational Therapy Acute Care Functional Living Examination Medical Diagnosis: Syncopal event and transient Concern for orthostatics and hypoperfusion; TIA or symptomatic LICA Type 2 DM Postural hypotension Aortic valve replacement Dementia History of Present Illness: Gorge Ferreira is a 69 y.o. right handed male with history of hypertension , diabetes mellitus , hyperlipidema; No results found for: LDL, prior stroke and AV replacement currently on aspirin and plavix who presents to the ED with syncope, inability to speak transiently. ? Current NIHSS is 3 for left quadrantanopia and LOC questions. CT scan of the head shows no acute ischemic stroke or hemorrhage. Given his NIHSS score and CT head he is not a candidate for IV-tPA therapy. Exclusion criteria have been reviewed. ? Patient does not meet criteria for IV-tPA therapy because the patient's NIHSS= 0 or is greater than 22. (no new deficits) ? The patient was evaluated for mechanical endovascular stroke intervention and was deemed ineligible as the patient's NIHSS is less than 6. Date of Admission: 10/04/2020 10:21:00 AM Demographics: Age: 69 Gender: Male Past Medical History and Radiographics: Significant rehabilitation considerations: ? Past Medical History CVA (cerebral vascular accident) DM (diabetes mellitus) HTN (hypertension) Endocarditis HLD (hyperlipidemia) Cardiomegaly Past Surgical History CARDIAC SURGERY Rehabilitation Precautions/Restrictions: Full code, high fall risk, allow ROM exercises for PT/OT, obtain orthostatic vitals, OOB to chair SUBJECTIVE Premorbid Level of Activities of Daily Living: pt reports he was independent with ADLs, and assists with IADLs. Doesn't use ambulatory device, doesn't drive, no falls within last 6 months besides fall during stroke Doesn; Occupation: retired Social History: Patient does not live alone. Patient lives with . If needed: Family member is willing to assist. pt reports is willing/able to assist. otherwise no one else available to assist Home Environment: There are 1 steps to enter the home with no hand rails. There is no ramp to enter the home. Home is two levels. Description of 1st floor bedroom and bathroom availability/accessibility: pt reports bedroom is on 1st floor with flat bed, full bath step over tub, standard height toilet, . Description of 2nd floor bedroom and bathroom accessibility: pt reports he doesn't need to access the second floor . The patient is required to manage 3-4 steps steps within the home, with no hand rails. Equipment Owned: None. Pain: Patient has no complaints of pain currently. Pain Medication Today: yes. OBJECTIVE General Observation: Pt recieved supine in bed with HOB slightly elevated in NAD and all needs met, +tele, +masimo, +PIV to L antecubital, Bed alarm was on at start of session. Vital Signs: Orthostatics as follows: BP supine: 149/79, HR: 68 BP 1 min Standin/103, HR: 102 HR increased to 130 during functional mobility End of session BP supine: 121/103, HR: 89 UPPER EXTREMITY FUNCTION Hand Dominance: right. Range of Motion: WFL for ADLs/functional mobiltiy Strength: WFL for ADLs/functional mobility Skin Integrity Screen: bruising to bilateral forearms/wrists/hands, large bruise to R shoulder/R bicep Endurance: fair (+). Tone/Spasticity: No relevant impairments. Sensation: Grossly intact. Edema: No edema is present. LOWER EXTREMITY FUNCTION: WFL for ADLs/functional mobility. Pt able to complete figure four pattern with bilateral LE's and complete sit to stand transfers with CGA. Pt noted to require mod assist for righting reactions during fucntional mobiltiy Cognitive Screen: Responsiveness: alert, however, pt appears to be poor historian Orientation: Patient is not alert and oriented as follows: oriented x0. reporting wifes maden name, year as 2019, and didn't know hospital Following Commands: Able to follow 2 step commands. Memory: Impaired. short term/roasterman Communications: Pt noted to have disorganized speech and is a clear poor historian Executive Function: Insight. impaired Execution. impaired Problem Solving. impaired Initiation. impaired Judgement. impaired Attention: Alternating. Cognitive Test Score: Not tested. Vision Screen: Functional visual impairments observed as follows: Right field cut. Scanning impairment. Nystagmus. Smooth Pursuits. Perception: Perception was within normal limits with today's examination. Functional Mobility: supine to sitting edge of bed: CGA sitting to stand transfer: CGA Functional mobility: Min assist. Pt noted to require mod assist for righting reactions once during session secondary to L lateral loss of balance Fine Motor Coordination: Upper extremity fine motor coordination is grossly intact. Gross Motor Coordination: Upper extremity gross motor coordination is intact. Balance: Dynamic balance in a seated position: CGA Static balance in a standing position: CGA Dynamic balance in a standing position: Pt noted to require mod assist for righting reactions once during session secondary to L lateral loss of balance Activities of Daily Living: Feeding: Stand-by supervision. Observed patient during task. simulated task Grooming: Minimal assistance. Observed patient during task. simulated task Bathing - Upper Body: Contact guard assistance. Observed patient during task. simulated task in seated position Bathing - Lower Body: Contact guard assistance. Observed patient during task. simulated task in seated position Upper Body Dressing: Contact guard assistance. Observed patient during task. simulated task in seated positon Lower Body Dressing: Minimal assistance. Observed patient during task. to manage fasteners Toileting: Contact guard assistance. Observed patient during task. Toilet Transfer: Minimal assistance. Observed patient during task. Outcome Measure: [facility] "6 Clicks" Daily Activity Inpatient Short Form: Putting on and taking off regular lower body clothing: A little assistance (3) Bathing (including washing, rinsing, and drying): A little assistance (3) Toileting (including use of toilet, bedpan, or urinal): A little assistance (3) Putting on and taking off regular upper body clothing: A little assistance (3) Taking care of personal grooming such as brushing teeth: A little assistance (3) Eating meals: A little assistance (3) Raw Score: 18 /24 Interventions: None provided today. Splinting: No splint issued today. Education: Educational needs: Adaptive cognitive strategies. Adaptive devices. Adaptive physical strategies. Body mechanics/postural techniques. Durable medical equipment availability/training. Energy conservation techniques. Fall precautions. Home and community safety. Injury/diagnosis. Plan of care. role of acute care OT, safety, compensatory visual scanning strategies Barriers to Learning: Acuity of illness/injury. Cognitive limitations. Visual deficits. Learning Preference: Auditory. Mode of education provided: Explanation. Audience: Patient. Education Provided: Adaptive cognitive strategies. Adaptive devices. Adaptive physical strategies. Body mechanics/postural techniques. Durable medical equipment availability/training. Energy conservation techniques. Fall precautions. Home and community safety. Injury/diagnosis. Plan of care. role of acute care OT, safety, compensatory visual scanning strategies . Response: Verbalized understanding. Requires cues (auditory/physical). Needs practice/reinforcement. Needs practice/reinforcement. ASSESSMENT Moderate Complexity Evaluation: An occupational profile and medical and therapy history, which includes an expanded review of medical and/or therapy records and additional review of physical, cognitive, or psychosocial history related to current functional performance. An assessment(s) that identifies 3-5 performance deficits (i.e., relating to physical, cognitive, and psychosocial skills) that result in activity limitations and/or participation restrictions. Patient may present with comorbidities that affect occupational performance. Minimal to moderate modification of tasks or assistance (i.e., physical or verbal) with assessment(s) is necessary to enable patient to complete evaluation component. Clinical decision-making of moderate analytic complexity which includes an analysis of the occupational profile, analysis of data from detailed assessment(s), and consideration of several treatment options. Response to Evaluation: The session was tolerated well. Pain unchanged. Bed alarm was on at end of session. Call osorio was in patient's reach at end of session. Pain: Patient has no complaints of pain currently. Strengths: UE function. Social/family support. Strength. Goals: Patient's functional goals: to get better and back home The patient's therapy goals are based on limitations/impairments in the following areas: ADLs / IADLs. Short Term Goals: 1. Pt to improve dynamic seated balance to complete LB dressing tasks with supervision within 2 weeks 2. Pt to improve functional mobility to complete toilet transfer with supervision and use of DME PRN within 2 weeks 3. Pt to improve functional activity tolerance to complete grooming tasks standing at the sink with superivsion and use of DME PRN for 5 minutes without a seated rest break within 2 weeks Jail Goals: 1. Pt to improve dynamic seated balance to complete LB dressing tasks with modified independence within 4 weeks 2. Pt to improve functional mobility to complete toilet transfer with modified independence and use of DME PRN within 4 weeks 3. Pt to improve functional activity tolerance to complete grooming tasks standing at the sink with modified independence and use of DME PRN for 7 minutes without a seated rest break within 4 weeks PLAN Treatment Frequency, Duration and Interventions: Restorative Occupational Therapy recommended for 5x per week for 4 weeks Treatment is to include: Development of Cognitive Skills. Neuromuscular Re-education. Self Care/Home Management. Therapeutic Activity. Therapeutic Exercise. Equipment Provided: None issued this visit. Equipment Recommended: To be assessed. Recommended Occupational Therapy Follow Up: Upon acute care discharge, the following is currently recommended: Anticipate patient will have inpatient rehab needs beyond the acute stay. Recommended Consults: None currently. Development of Plan of Care: Participants included: Patient. Nurse. Materials Associate. Goal Review Visit Number: 1 Visit Number: Today's visit is number 1 Program: Stroke (Therapist may be reached on [employer]) SESSION: Duration: 54 CHARGES: - ORDER - Occupational Therapy Treatment 1 Units - ORDER - OCCUPATIONAL THERAPY CONSULT 1 Units - STROKE VISIT 1 Units 77260 - CHARGE - OT EVAL; MODERATE COMLEXITY 4 Units - 0 Units - 0 Units - 0 Units - 0 Units Total treatment minutes: 54.00 Minutes Electronically Signed by: ROBBIN Vora/Gilbert, 10/05/2020 11:19:22 AM * Plan of Care - Lilli Florez RN - 10/05/2020 2:38 AM EST Problem: Hemodynamic Status Goal: Patient will remain hemodynamically stable Description: Patient's vital signs, oxygenation, and labs will be monitored and deviations addressed. Outcome: Progressing Problem: Fall Prevention Goal: No fall during Hospitalization Outcome: Progressing Problem: Impaired Physical Mobility Goal: Patient will maintain maximum physical mobility within prescribed activity and weight bearing restrictions Outcome: Progressing Problem: Self Care Deficit Goal: Patient will perform Activities of Daily Living at optimal level Outcome: Progressing Problem: Discharge Needs Goal: Patient discharge needs are met Description: Collaborate with interdisciplinary team and initiate plans and inte rventions as needed Outcome: Progressing * Significant Event - Ruapli Figueroa RN - 10/04/2020 10:31 AM EST Stroke page received at: 5222 Neuro LEESA RN arrived at: 0955 Neurology team arrived at: 0955 Patient arrival: [address]: 1007 LKW: 0845 Presenting symptom(s): confusion NIH Stroke Scale: Category Patient Score 1a. Level of consciousness (Alert, drowsy, etc.) 0 - Alert 1b. LOC Questions (Month, age) 1 - One question correct 1c. LOC Commands (Open, close eyes; make fist, let go) 0 - Performs both tasks correctly 2. Best Gaze (Eyes open- patient follows finger or face) 0 - Normal 3. Visual (Introduce visual stimulus to patients visual field quadrants) 0 - No vi sual loss 4. Facial palsy (Show teeth, raise eyebrows and squeeze eyes shut) 0 - Normal, symmetrical move ments 5a. Motor Arm left 5b. Motor Arm right (Elevate extremity to 90 and score drift/movement) Left: 0- No drift (exten ds arm 10sec. w/o drift) Right: 0- No drift (extends arm 10sec. w/o drift) 6a. Motor Leg left 6b. Motor Leg right (Elevate extremity to 30 and score drift/movement) Left: 0- No drift (exten ds leg 5 sec w/o drift) Right: 0- No drift (extends leg 5 sec w/o drift) 7. Limb Ataxia (Finger-nose, heel-guerrero) 8. Sensory (Pin prick to face, arm trunk, and leg- compare side to side) 9. Best Language (Name items, describes a picture, reads sentence) 0 - No aphasia 10. Dysarthria (Evaluate speech clarity by patient repeating listed words) 0 - Normal articula tion 11. Extinction and Inattention (Use information from prior testing to identify neglect or double simultaneous s timuli testing) 0 - No neglect Total Score: : Interventions: per neuro resident pt is not a candidate for tpa/thrombectomy. Pt brought to room in ED, is confused but in stable condition documented in this encounter Plan of Treatment Date/Time Name Type Priority Associated Diag noses 10/04/2020 2:04 PM EST US Doppler Carotid Imaging Routine Carotid armand nosis, Bilateral Complete bilateral (Vascular Lab) Order Schedule Name Type Priority Associated Diag noses 4X Daily (AC & HS) for 30 Days starting 10/05/2020 until 11/04/2020, 9 completed POCT glucose, docked AC & Point of Care Routine HS Testing-Docked Device Daily for 30 Days starting 10/05/2020 un til 11/03/2020, 3 completed POCT glucose, docked Point of Care Routine Testing-Docked Device Daily for 3 Days starting 10/07/2020 unt il 10/09/2020, 1 completed Basic Metabolic Panel Lab Routine Order Schedule Name Type Priority Associated Diag noses Ordered: 10/07/2020 Referral to home health Outpatient Routine Syncop e, unspecified Referral syncope type Health Maintenance Due Date Last Done Comments Hepatitis C Screening (B. 1950 [id number]) DTaP,Tdap,and Td Vaccines 1957 (1 - Tdap) Diabetic Foot Exam 1968 Dilated Retinal Exam 1968 Urine Microalbumin 1968 Hepatitis B Vaccines (1 1969 of 3 - Risk 3-dose series) Colon Cancer Screening 10 2000 yrs MMR Vaccines (1 of 1 - 07/07/2014 Standard series) Varicella Vaccines (1 of 07/07/2014 06/09/2014 2 - 2-dose childhood series) Zoster Vaccines (2 of 3) 08/04/2014 06/09/2014 Pneumococcal Vaccine: 65+ 12/03/2015 Years (1 of 1 - PPSV23) Hemoglobin A1c 04/03/2021 10/04/2020, 10/04/2020, 11/12/2017 Lipid Disorder Screening 10/04/2021 10/04/2020, 10/04/2020, 11/12/2017 Influenza Vaccine Completed 06/09/2020, 06/08/2019, 06/22/2018, Additional history exists HIB Vaccines Aged Out No longer eligible based on patient's age to complete this topic Hepatitis A Vaccines Aged Out No longer eligibl e based on patient's age to complete this topic IPV Vaccines Aged Out No longer eligible based on patient's age to complete this topic Pneumococcal Vaccine: Aged Out No longer eligib le based on patient's age to Pediatrics (0 to 5 Years) complete this topic and At-Risk Patients (6 to 64 Years) documented as of this encounter Procedures Comments Procedure Name Priority Date/Time Associated Diag nosis POCT GLUCOSE, DOCKED Routine 10/07/2020 11:32 AM EST POCT GLUCOSE, DOCKED Routine 10/07/2020 7:37 AM EST LEVETIRACETAM LEVEL Routine 10/07/2020 5:28 AM EST CBC AND DIFFERENTIAL Routine 10/07/2020 5:28 AM EST BASIC METABOLIC PANEL Routine 10/07/2020 5:28 AM EST POCT GLUCOSE, DOCKED Routine 10/06/2020 9:17 PM EST POCT GLUCOSE, DOCKED Routine 10/06/2020 4:28 PM EST POCT GLUCOSE, DOCKED Routine 10/06/2020 12:37 PM EST EEG ROUTINE STUDY Routine 10/06/2020 10:13 AM EST POCT GLUCOSE, DOCKED Routine 10/06/2020 9:33 AM EST BASIC METABOLIC PANEL Routine 10/06/2020 12:15 AM EST POCT GLUCOSE, DOCKED Routine 10/05/2020 8:46 PM EST POCT GLUCOSE, DOCKED Routine 10/05/2020 4:37 PM EST EEG ROUTINE STUDY Routine 10/05/2020 1:34 PM EST ECHOCARDIOGRAM 2D Routine 10/05/2020 COMPLETE 12:30 PM EST POCT GLUCOSE, DOCKED Routine 10/05/2020 11:49 AM EST BASIC METABOLIC PANEL Routine 10/05/2020 3:25 AM EST MR BRAIN WITHOUT CONTRAST STAT 10/04/2020 [id number] 10:10 PM EST POCT GLUCOSE, DOCKED Routine 10/04/2020 5:39 PM EST VASC LAB US DOPPLER Routine 10/04/[address] enosis, CAROTID BILATERAL COMP 2:04 PM EST bilateral [id number] Procedure Note - Interface, Received Via Department LikeList - 10/04/2020 3:37 PM EST [facility] --- PRELIMINAR Y REPORT --- GORGE SOSA : [birth year] [id number] Age: 69 Sex: M 04 Oct 2020 RefMD: GLORIA KHAN TEST TYPE: Cerebrovas cular Duplex REASON FOR TEST Known carotid stenosis Right Carotid:- Proximal Mid Distal cm/s Systolic Diastolic Systolic Diastolic Systolic Diastolic CCA: 91.0 22.0 57.0 13.0 Bulb: ECA: 68.0 10.0 ICA: 57.0 23.0 65.0 20.0 120.0 43.0 ICA/CCA: 2.1 3.3 ICA Stenosis: < 50% Right Vertebral: - Finding: Antegrade Sys: 59.0 Kim: 15.0 Right Subclavian : Left Carotid:- Proximal Mid Distal cm/s Systolic Diastolic Systolic Diastolic Systolic Diastolic CCA: 104.0 24.0 116.0 20.0 Bulb: ECA: 71.0 8.0 ICA: 76.0 18.0 74.0 24.0 79.0 26.0 ICA/CCA: 0.7 1.3 ICA Stenosis: < 50% Left Vertebral: - Finding: Antegrade Sys: 58.0 Kim: 21.0 Left Subclavian : INTERPRET ATION/FIND INGS Spectral analysis of the right internal carotid artery indicates <50 % stenosis. Lopez scale imaging of the carotid bifurcatio n and internal carotid artery reveals mild to moderate heterogene ous plaque. Spectral analysis of the left internal carotid artery indicates <50 % stenosis. Lopez scale imaging of the carotid bifurcatio n and internal carotid artery reveals moderate complex plaque. Moderate heterogeno us plaque noted in the mid common carotid artery. There is normal, antegrade flow in the bilateral vertebral arteries. No priors on file for comparison . ADDITIONA L COMMENTS I have personally reviewed the data relevant to the interpreta tion of this study. TECHNOLOG IST: Aileen Yeh COVID-19 PCR Routine 10/04/2020 1:38 PM EST URINALYSIS WITH STAT 10/04/2020 MICROSCOPIC 11:39 AM EST EKG ED PHYSICIAN Routine 10/04/2020 INTERPRETATION 11:32 AM EST PROTIME INR STAT 10/04/2020 10:38 AM EST CBC AND DIFFERENTIAL Routine 10/04/2020 10:38 AM EST TROPONIN T STAT 10/04/2020 10:38 AM EST TSH Routine 10/04/2020 10:38 AM EST HEMOGLOBIN A1C Routine 10/04/2020 10:38 AM EST HEPATIC FUNCTION PANEL A Routine 10/04/2020 10:38 AM EST LIPID PANEL Routine 10/04/2020 10:38 AM EST BASIC METABOLIC PANEL STAT 10/04/2020 10:38 AM EST POCT ISTAT CHEM8 Routine 10/04/2020 10:32 AM EST POCT ISTAT VBG/LAC Routine 10/04/2020 10:28 AM EST POCT ISTAT TROPONIN Routine 10/04/2020 10:26 AM EST EKG 12-LEAD - CMAXX 10/04/2020 REPORT 10:23 AM EST EKG 12-LEAD - CMAXX 10/04/2020 REPORT 10:23 AM EST EKG 12-LEAD STAT 10/04/2020 10:23 AM EST EKG 12-LEAD - CMAXX 10/04/2020 REPORT 10:[address] ANGIOGRAPHY NECK [id number] CODE 10/04/2020 10:[address] ANGIOGRAPHY HEAD [id number] CODE 10/04/2020 10:22 AM EST documented in this encounter Results * POCT glucose, docked (10/07/2020 11:32 AM EST) POC Glucose 118 70 - 140 mg/dL [facility] POC Specimen Whole Blood Performing Organization Address City/State/Zipcode Ph one Number POINT OF CARE TEST [address] [place] [id number] [place] [address] POC [address] [place] [address] * POCT glucose, docked (10/07/2020 7:37 AM EST) Pathologist [facility] POC Glucose 141 (H) 70 - 140 mg/dL [facility] POC Specimen Whole Blood Performing Organization Address [facility] Ph one Number POINT OF CARE TEST [address] [place] [address] [facility] POC [address] [place] [address] * CBC and Differential (10/07/2020 5:28 AM EST) [facility] White Blood 7.6 4 - 10 10*3/uL [facility] Clin Pathology Red Blood Cell 4.75 4.6 - 6.1 10*6/uL [facility] Clin Pathology Hemoglobin 14.2 13.5 - 18 g/dL [facility] Clin Pathology Hematocrit 42.1 41 - 53 % [facility] Clin Pathology Mean Cell 88.5 80 - 96 fL [facility] Clin Pathology Mean Cell 29.8 27 - 33 pg [facility] Clin Pathology Mean Cell Hgb 33.7 32.0 - 36.0 g/dL [facility] Clin Pathology Red Cell Dist 13.2 11.5 - 14.5 % [facility] Clin Pathology Platelet Count 228 150 - 400 10*3/uL [facility] Clin Pathology Differential Manual Diff [facility] Clin Pathology Neutrophil 67 % [facility] Clin Pathology Lymphocyte 24 % [facility] Clin Pathology Monocyte 6 % [facility] Clin Pathology Eosinophil 2 % [facility] Clin Pathology Basophil 1 % [facility] Clin Pathology Abs Neutrophil 5.11 1.8 - 7.0 10*3/uL [facility] Clin Pathology Abs Lymphocyte 1.81 1.2 - 4.0 10*3/uL [facility] Clin Pathology Abs Monocyte 0.45 0 - 0.8 10*3/uL [facility] Clin Pathology Abs Eosinophil 0.15 0 - 0.5 10*3/uL [facility] Clin Pathology Abs Basophil 0.08 0 - 0.2 10*3/uL [facility] Pathology Specimen EDTA Whole Blood Performing Organization Address City/[facility]/Zipcode Ph one Number [facility] CLINICAL [address] [place], [place] [address] [address] Clin Pathology * Basic Metabolic Panel (10/07/2020 5:28 AM EST) Bicarbonate 23 22 - 29 mmol/L [facility] Clin Pathology Chloride 109 (H) 98 - 107 mmol/L [facility] Clin Pathology Creatinine 0.84 0.70 - 1.20 mg/dL [facility] Clin Pathology Glucose 137 70 - 140 mg/dL [facility] Clin Pathology Potassium 3.5 3.4 - 5.1 mmol/L [facility] Clin Pathology Sodium 142 136 - 145 mmol/L [facility] Clin Pathology Blood Urea 21 8 - 23 mg/dL [facility] Clin Pathology Anion Gap 9 8 - 15 mmol/L [facility] Clin Pathology Osmolality, César 299 275 - 300 mosm/kg [facility] Clin Pathology BUN/Cre Ratio 25 [facility] Clin Pathology Calcium 8.5 (L) 8.8 - 10.2 mg/dL [facility] Clin Pathology GFR Non 87 >60 mL/min/1.73m2 [facility] [address] [facility] Clin CDK-EPI Pathology GFR >90 >60 mL/min/1.73m2 [facility] [address] [facility] Clin CKD-EPI Pathology Specimen Plasma Performing Organization Address [facility] Ph one Number [facility] CL[facility] [address] [place], [place] [address] [address] Clin Pathology * Levetiracetam level (10/07/2020 5:28 AM EST) Levetiracetam 15 12 - 46 ug/mL [facility] Clin Pathology Specimen Serum Performing Organization Address [facility] Ph one Number [facility] [address] [place], [place] [address] [address] Clin Pathology * POCT glucose, docked (10/06/2020 9:17 PM EST) POC Glucose 119 70 - 140 mg/dL [facility] POC Specimen Whole Blood Performing Organization Address [facility] Ph one Number POINT OF CARE TEST [address], [place] [id number] [place] [address] POC [address] [place] [address] * POCT glucose, docked (10/06/2020 4:28 PM EST) POC Glucose 102 70 - 140 mg/dL [facility] POC Specimen Whole Blood Performing Organization Address [facility] Network/[facility] one Number POINT OF CARE TEST [address], [place] [id number] [place] [address] POC [address] [place] [address] * POCT glucose, docked (10/06/2020 12:37 PM EST) POC Glucose 196 (H) 70 - 140 mg/dL [facility] POC Specimen Whole Blood Performing Organization Address [facility] one Number POINT OF CARE TEST [address] [place], [place] [id number] [place] [address] POC [address] [place] [address] * EEG Routine Study (10/06/2020 10:13 AM EST) Narrative Performed At Delfino Osborn MD EXTERNAL NON-INTERFACED LAB 10/07/2020 7:50 AM EEG REPORT NUMBER [id number] DATE OF PROCEDURE: 10/06/2020 HISTORY: The patient is a 69 y.o. 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 EEG was ordered to r ule out seizures. No current facility-administered medica tions on file prior to encounter. Current Outpatient Medications on File Prior to Encounter Medication Sig Dispense Refill Aspirin EC 81 MG Oral Tablet Delayed Release Take 81 mg by mouth daily Atorvastatin Calcium 40 MG Oral Table t (LIPITOR) Take 40 mg by mouth every evening Clopidogrel Bisulfate 300 MG Oral Tab let (PLAVIX) Take 300 mg by mouth once Memantine HCl 5 MG Oral Tablet (NAMEN DA) Take 5 mg by mouth Two Times Daily metFORMIN HCl 1000 MG Oral Tablet (GL UCOPHAGE) Take 1,000 mg by mouth Two times daily with meals Scheduled Meds: aspirin EC 81 mg Oral Daily atorvastatin 40 mg Oral QPM enoxaparin 40 mg Subcutaneous Daily insulin lispro 1-8 Units Subcutaneous 3 x Daily with Meals levETIRAcetam 750 mg Oral BID memantine 5 mg Oral BID Continuous Infusions: sodium chloride 50 mL/hr at 10/06/20 0016 PRN Meds:.dextrose, glucagon (human rec ombinant), glucose, OLANZapine TECHNICAL DESCRIPTION: This digital EEG was recorded using 2 E KG and 21 scalp and/or ear electrodes. It was reviewed in referential and bip olar montages following reformatting in the 10-20 Int ernational electrode placement system. EEG INTERPRETATION: Background in the most stimulated state consists of 25-35 microvolt, 8-9 Hz symmetric but poorly sustained posterior dominant rhythm with some reactivity to stimulation. Drowsiness/Sleep [] The patient remains only in the awak e state throughout the study. [] The patient is intubated, comatose a nd unresponsive during the recording. [] The patient is not intubated, but co matose and unresponsive during the recording. [] The patient is stuporous throughout the recording. [] During drowsiness, there is increase d emergence of theta and delta rhythms, but full sleep is not ac hieved during this recording. [x] During drowsiness, there is increas ed emergence of theta and delta rhythms, and during sleep the fol lowing sleep structures were seen: [x] Vertex sharp transients [x] Symmetric sleep spindles [] POSTs [x] K-complexes [] Other: Hyperventilation Omitted. Photic stimulation Photic stimulation with flash frequenci es of 2-21 Hz is not associated with posterior photic drivin g. No photoparoxysmal response was seen. 1) asymmetry of the alpha rhythm: sligh tly reduced in amplitude over the left preoccipital region. 2-lead EKG showed normal sinus rhythm. IMPRESSION: This routine EEG done in the awake and asleep states is abnormal due to slight asymmetry of alpha rhythm over the left preoccipital region. This is consistent with structural abnormality is this area. No seizures o r epileptiform discharges were seen in this record. Discussed with Dr. Osborn. Andrea Urban-PGY-5 Clinical Neurophysiology Fellow. I certify that I have reviewed this EEG with Dr. Urban and agree with the interpretation. Delfino Osborn MD Performing Organization Address City/State/Zipcode Ph one Number EXTERNAL NON-INTERFACED LAB * POCT glucose, docked (10/06/2020 9:33 AM EST) POC Glucose 123 70 - 140 mg/dL [facility] POC Specimen Whole Blood Performing Organization Address [facility] one Number POINT OF CARE TEST [address] [place] [address] [facility] POC [address] [place] [address] * Basic Metabolic Panel (10/06/2020 12:15 AM EST) [facility] Bicarbonate 25 22 - 29 mmol/L [facility] Clin Pathology Chloride 108 (H) 98 - 107 mmol/L [facility] Clin Pathology Creatinine 0.91 0.70 - 1.20 mg/dL [facility] Clin Pathology Glucose 161 (H) 70 - 140 mg/dL [facility] Clin Pathology Potassium 3.6Comment: Hemolyzed 3.4 - 5.1 mmol/L [facility] Clin Pathology Sodium 142 136 - 145 mmol/L [facility] Clin Pathology Blood Urea 19 8 - 23 mg/dL [facility] Clin Pathology Anion Gap 9 8 - 15 mmol/L [facility] Clin Pathology Osmolality, César 300 275 - 300 mosm/kg [facility] Clin Pathology BUN/Cre Ratio 21 [facility] Clin Pathology Calcium 8.3 (L) 8.8 - 10.2 mg/dL [facility] Clin Pathology GFR Non 84 >60 mL/min/1.73m2 [facility] 2008 Med [facility] Clin CDK-EPI Pathology GFR >90 >60 mL/min/1.73m2 [facility] 2008 [facility] Clin CKD-EPI Pathology Specimen Plasma Performing Organization Address [facility] one Number [facility] CLINICAL [address] [place], [place] [address] PATHOLOGY [facility] [address] [place], [place] [address] Clin Pathology * POCT glucose, docked (10/05/2020 8:46 PM EST) POC Glucose 132 70 - 140 mg/dL [facility] POC Specimen Whole Blood Performing Organization Address City/[facility] Ph one Number POINT OF CARE TEST [address] [place] [address] [facility] POC [address] [place] [address] * POCT glucose, docked (10/05/2020 4:37 PM EST) POC Glucose 138 70 - 140 mg/dL [facility] POC Specimen Whole Blood Performing Organization Address City/State/Zipcode Ph one Number POINT OF CARE TEST [address] [place], [place] [id number] [place] [address] POC [address] [place] [address] * EEG Routine Study (10/05/2020 1:34 PM EST) Narrative Performed At Jaguar Duarte MD EXTERNAL NON-INTERFACED LAB 10/05/2020 1:50 PM EEG REPORT NUMBER [id number] DATE OF PROCEDURE: 10/05/2020 HISTORY: Gorge Ferreira is a 69 y.o. male with syncope vs vascular vs Seizure. Patient Active Problem List Diagnosis Syncope Acute bacterial endocarditis Aortic valve disorder Aortic valve stenosis Cardiomegaly Dizziness and giddiness Electrocardiogram abnormal Type 2 diabetes mellitus without comp lication, without long-term current use of insulin Osteoarthrosis Obesity Hypertension Hyperlipidemia First degree atrioventricular block BMI 30.0-30.9,adult EEG is to evaluate for seizures and/or epilepsy. No current facility-administered medica tions on file prior to encounter. Current Outpatient Medications on File Prior to Encounter Medication Sig Dispense Refill Aspirin EC 81 MG Oral Tablet Delayed Release Take 81 mg by mouth daily Atorvastatin Calcium 40 MG Oral Table t (LIPITOR) Take 40 mg by mouth every evening Clopidogrel Bisulfate 300 MG Oral Tab let (PLAVIX) Take 300 mg by mouth once Memantine HCl 5 MG Oral Tablet (NAMEN DA) Take 5 mg by mouth Two Times Daily metFORMIN HCl 1000 MG Oral Tablet (GL UCOPHAGE) Take 1,000 mg by mouth Two times daily with meals Scheduled Meds: aspirin EC 81 mg Oral Daily atorvastatin 40 mg Oral QPM insulin lispro 1-8 Units Subcutaneous 3 x Daily with Meals memantine 5 mg Oral BID Continuous Infusions: sodium chloride 50 mL/hr at 10/05/20 1127 PRN Meds:.dextrose, glucagon (human rec ombinant), glucose TECHNICAL DESCRIPTION: This digital EEG was recorded using 2 EKG and 21 scalp and/or ear electrodes. It was reviewed in referential and bipolar montages follow ing reformatting in the 10-20 International electrode placement system. In his best awake and alert state, the background consists of asymmetric, theta slowing on the right, with delta up more prominent in the left temporal region m uch of the time. There is prominent low amplitude fast activity s een throughout. During drowsiness there is dropout of t he alpha and emergence of left temporal epileptiform spikes and s harp waves. Sleep with approximately symmetric vertex waves an d spindles is also seen. Hyperventilation is omitted due to COVI D 19. Photic stimulation with flash frequenci es of 2-21 Hz is not associated with significant posterior p hotic driving. EKG review reveals no clear arrhythmia. 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 Performing Organization Address City/State[facility] one Number EXTERNAL NON-INTERFACED LAB * Echocardiogram 2D complete (10/05/2020 12:30 PM EST) Specimen Narrative Performed At . [facility] Echo/Stress Lab [address] [place] [address] Echocardiography Examination Transthoracic Name: GORGE FERREIRA MR#: [id number] Admission Number: [id number] Study Date: 10/05/2020 Study Time: 12:30 PM Date Of : 1950 Age: 69 years Height: 70 in. (177.8 cm) Weight: 213 lbs. (96.62 kg) BSA: 2.14 m2 Gender: Male Blood Pressure: 143 mmHg / 83 mmHg Heart Rate: 57 bpm Procedure Staff Locomotive Repairer Diesel: Chuy San RDCS Reading Physician: RAMY GUZMAN MD Ordering Physician: DANE CRUZ Admitting Physician: GLORIA KHAN Referring Physician: DANE CRUZ Indications Reason for Order->Dizziness/Presyncope/ Syncope Exam Details Procedure Ordered: ECHOCARDIOGRAM 2D COMPLETE Image Quality: Adequate Conclusions Left Ventricular Measurements LVEF, BP: 63 %. 1. Hyperdynamic LV with normal wall motio n 2. Bioprosthetic AVR with trace AI and me an gradient of 18mmHg 3. Aortic valve appears thickened but wit h adequate mobility 4. Mild MR Findings Left Ventricle: Left ventricle is normal in size. There is mild concentric left ventricular hypertrophy. Global hypercontractility of the left Patient: GORGE Study Date: 10/05/2020 12:30 PM [facility] ventricle. There are no regional wall m otion abnormalities. Grade 1 diastolic dysfunction (impaired relaxation with l ow to normal filling pressure). Left Ventricular Measurements LVEF, BP: 63 %. Right Ventricle: Right ventricle is normal in size . Rig ht ventricular systolic function is normal. Left Atrium: The left atrium size by volume measurem ent is mildly abnormal (35-41 ml/m2). Left Atrium Measurements LAESV index, BP: 37.4 ml/m. Right Atrium: The right atrium is dilated. Right Atrium Measurements RA Index: 21.5 ml/m. Mitral Valve: The mitral valve appears grossly normal . There is severe mitral annular calcification. Mild mitral regurgitatio n. No mitral valve stenosis. Aortic Valve: A bioprosthetic valve is present in the aortic position. The prosthetic aortic valve leaflets appear thickened. Trivia l prosthesis regurgitation. The gradients across the prosthetic valve are higher than expected consistent with patient prosthesis mismatch. Tricuspid Valve: The tricuspid valve appears grossly nor mal. Trivial tricuspid regurgitation. Pulmonary artery pressure normal. Tricuspid Valve Measurements Right Ventricular systolic pressure: 28 mmHg. Pulmonic Valve: The pulmonic valve appears grossly norm al. Aorta: aortic root appears normal in size with prosthetic material. Pericardium: No pericardial effusion. Measurements Anatomy Label Value Normal Value Aortic Valve AV PGmean 18.1 mmHg (0mmHg - 9.99mmHg) Aortic Valve AURELIO D (continuity eq. Vmax) 1.5 cm Aortic Valve AV Vmax 3.08 m/s (1m/s - 1.7m/s) Interventricular septum IVSd, 2D 1.1 cm (0.6cm - 1cm) Left Atrium LAESV index, BP 37.4 ml/m (0ml/m - 34ml/m) Left Ventricle LVOTd 2.1 cm (1.9cm - 2.1cm) Left Ventricle LVDd, 2D 4.39 cm (4.2cm - 5.84cm) Left Ventricle LVDs, 2D 2 cm (2.5cm - 3.98cm) Left Ventricle LVPWd, 2D 1.1 cm (0.6cm - 1cm) Left Ventricle LVEF, BP 63 % (52% - 72%) Left Ventricle LV Mass Index, 2D ASE 78.7 g/m (50g/m - 102.4g/m) Left Ventricle LVRWT, 2D 0.51 (0.24 - 0.42) Left Ventricle LVESV, 2D 13 ml Left Ventricle Diastolic MV E/A 0.86 Function Left Ventricle Diastolic MV E/E' lateral 9.93 (0 - 13) Function Left Ventricle Diastolic MV E/E' septal 13.73 (0 - 15) Patient: GORGE Study Date: 10/05/2020 12:30 PM [facility] Function Left Ventricle Diastolic MV E' septal 0.06 m/s (0.07m/s - 0m/s) Function Left Ventricle Diastolic MV E' lateral 0.08 m/s Function Left Ventricle Diastolic MV E/E' mean 12 (0 - 14) Function Left Ventricle Diastolic MV E' mean 0.07 m/s Function Pulmonic Valve PV PGmax 8 mmHg Pulmonic Valve PV Vmax, Caliper 1.37 m/s (0.6m/s - 0.9m/s) Right Atrium RA Index 21.5 ml/m (1ml/m - 39ml/m) Right Ventricle TAPSE 2.3 cm Right Ventricle RVD Base 3.7 cm (2.5cm - 4.1cm) Tricuspid Valve RVSP 28 mmHg (1mmHg - 35mmHg) Tricuspid Valve TR Vmax 2.22 m/s (0.1m/s - 2.8m/s) _ Patient: GORGE Study Date: 10/05/2020 12:30 PM JHON Procedure Note Interface, Received Via [employer] - 10/05/2020 3:55 PM [facility] . [facility] Echo/Stress Lab [address] [place] [address] Echocardiography Examination Transthoracic Name: GORGE FERREIRA MR#: [id number] Admission Number: [id number] Study Date: 10/05/2020 Study Time: 12:30 PM Date Of : 1950 Age: 69 years Height: 70 in. (177.8 cm) Weight: 213 lbs. (96.62 kg) BSA: 2.14 m2 Gender: Male Blood Pressure: 143 mmHg / 83 mmHg Heart Rate: 57 bpm Procedure Staff Locomotive Repairer Diesel: Chuy San RDCS Reading Physician: RAMY GUZMAN MD Ordering Physician: DANE CRUZ Admitting Physician: GLORIA KHAN Referring Physician: DANE CRUZ Indications Reason for Order->Dizziness/Presyncope/Syncope Exam Details Procedure Ordered: ECHOCARDIOGRAM 2D COMPLETE Image Quality: Adequate Conclusions Left Ventricular Measurements LVEF, BP: 63 %. 1. Hyperdynamic LV with normal wall mot ion 2. Bioprosthetic AVR with trace AI and mean gradient of 18mmHg 3. Aortic valve appears thickened but w ith adequate mobility 4. Mild MR Findings Left Ventricle: Left ventricle is normal in size. There is mild concentric left ventricular hypertrophy. Global hypercontractility of the left Patient: GORGE Study Date: 10/05/2020 12:30 PM [facility] ventricle. There are no regional wall motion abnormalities. Grade 1 diastolic dysfunction (impaired relaxation with low to normal filling pressure). Left Ventricular Measurements LVEF, BP: 63 %. Right Ventricle: Right ventricle is normal in size . Right ventricular systolic function is normal. Left Atrium: The left atrium size by volume measurement is mildly abnormal (35-41 ml/m2). Left Atrium Measurements LAESV index, BP: 37.4 ml/m. Right Atrium: The right atrium is dilated. Right Atrium Measurements RA Index: 21.5 ml/m. Mitral Valve: The mitral valve appears grossly normal. There is severe mitral annular calcification. Mild mitral regurgitation. No mitral valve stenosis. Aortic Valve: A bioprosthetic valve is present in the aortic position. The prosthetic aortic valve leaflets appear thickened. Trivial prosthesis regurgitation. The gradients across the prosthetic valve are higher than expected consistent with patient prosthesis mismatch. Tricuspid Valve: The tricuspid valve appears grossly normal. Trivial tricuspid regurgitation. Pulmonary artery pressure normal. Tricuspid Valve Measurements Right Ventricular systolic pressure: 28 mmHg. Pulmonic Valve: The pulmonic valve appears grossly normal. Aorta: aortic root appears normal in size with prosthetic material. Pericardium: No pericardial effusion. Measurements Anatomy Label Value Normal Value Aortic Valve AV PGmean 18.1 mmHg (0mmHg - 9.99mmHg) Aortic Valve AURELIO D (continuity eq. Vmax) 1.5 cm Aortic Valve AV Vmax 3.08 m/s (1m/s - 1.7m/s) Interventricular septum IVSd, 2D 1.1 cm (0.6cm - 1cm) Left Atrium LAESV index, BP 37.4 ml/m (0ml/m - 34ml/m) Left Ventricle LVOTd 2.1 cm (1.9cm - 2.1cm) Left Ventricle LVDd, 2D 4.39 cm (4.2cm - 5.84cm) Left Ventricle LVDs, 2D 2 cm (2.5cm - 3.98cm) Left Ventricle LVPWd, 2D 1.1 cm (0.6cm - 1cm) Left Ventricle LVEF, BP 63 % (52% - 72%) Left Ventricle LV Mass Index, 2D ASE 78.7 g/m (50g/m - 102.4g/m) Left Ventricle LVRWT, 2D 0.51 (0.24 - 0.42) Left Ventricle LVESV, 2D 13 ml Left Ventricle Diastolic MV E/A 0.86 Function Left Ventricle Diastolic MV E/E' lateral 9.93 (0 - 13) Function Left Ventricle Diastolic MV E/E' septal 13.73 (0 - 15) Patient: GORGE Study Date: 10/05/2020 12:30 PM [facility] Function Left Ventricle Diastolic MV E' septal 0.06 m/s (0.07m/s - 0m/s) Function Left Ventricle Diastolic MV E' lateral 0.08 m/s Function Left Ventricle Diastolic MV E/E' mean 12 (0 - 14) Function Left Ventricle Diastolic MV E' mean 0.07 m/s Function Pulmonic Valve PV PGmax 8 mmHg Pulmonic Valve PV Vmax, Caliper 1.37 m/s (0.6m/s - 0.9m/s) Right Atrium RA Index 21.5 ml/m (1ml/m - 39ml/m) Right Ventricle TAPSE 2.3 cm Right Ventricle RVD Base 3.7 cm (2.5cm - 4.1cm) Tricuspid Valve RVSP 28 mmHg (1mmHg - 35mmHg) Tricuspid Valve TR Vmax 2.22 m/s (0.1m/s - 2.8m/s) Patient: GORGE Study Date: 10/05/2020 12:30 PM JHON Performing Organization Address City/[facility] Ph one Number [facility] ECHO * POCT glucose, docked (10/05/2020 11:49 AM EST) POC Glucose 164 (H) 70 - 140 mg/dL [facility] POC Specimen Whole Blood Performing Organization Address [facility] one Number POINT OF CARE TEST [address] [place], [place] [id number] [place] [address] POC [address] [place] [address] * Basic Metabolic Panel (10/05/2020 3:25 AM EST) [facility] Bicarbonate 23 22 - 29 mmol/L [facility] Clin Pathology Chloride 105 98 - 107 mmol/L [facility] Clin Pathology Creatinine 0.77 0.70 - 1.20 mg/dL [facility] Clin Pathology Glucose 149 (H) 70 - 140 mg/dL [facility] Clin Pathology Potassium 3.7Comment: Hemolyzed 3.4 - 5.1 mmol/L [facility] Clin Pathology Sodium 137 136 - 145 mmol/L [facility] Clin Pathology Blood Urea 17 8 - 23 mg/dL [facility] Clin Pathology Anion Gap 9 8 - 15 mmol/L [facility] Clin Pathology Osmolality, César 288 275 - 300 mosm/kg [facility] Clin Pathology BUN/Cre Ratio 22 [facility] Clin Pathology Calcium 8.4 (L) 8.8 - 10.2 mg/dL [facility] Clin Pathology GFR Non >90 >60 mL/min/1.73m2 [facility] 2008 Med [facility] Clin CDK-EPI Pathology GFR >90 >60 mL/min/1.73m2 [facility] 2008 [facility] Clin CKD-EPI Pathology Specimen Plasma Performing Organization Address [facility] Ph one Number [facility] [address] [place], [place] [address] PATHOLOGY [facility] [address] [place], [place] [address] Clin Pathology * MR Brain without Contrast (10/04/2020 10:10 PM EST) Specimen Impressions Performed At IMPRESSION: [facility] RADIOLOGY 1. No acute infarction or intracranial he morrhage. 2. Left temporal occipital lobe encephalo malacia and T2 hyperintensity consistent with chronic infarction. 3. Foci of T2 and FLAIR hyperintensity in the paraventricular white matter consistent with chronic small vessel is chemic disease. 4. Punctate hemosiderin deposition in gi ateral cerebral convexities with posterior predominance may be seen with cerebral amyloid angiopathy. Chronic hemorrhage also identified in the left are temporoparietal occipital infarct. Narrative Performed At [facility] RADIOLOGY INDICATION: Syncope and aphasia. TECHNIQUE: Multiplanar and multisequenc e MR images of the brain were obtained without intravenous contrast. Comparison: CTA head and neck 10/04/2020 . FINDINGS: No areas of restricted diffusion to sug gest acute infarct. Punctate hemosiderin deposition in bilateral cerebral convex ities with posterior predominance. Left occipital lobe encephalomalacia and T2 hyperintensity consistent with chronic infarction. Foci of T2 and FLAIR hyperi ntensity in the paraventricular white matter consistent with chronic small ve ssel ischemic disease. There is no evidence of acute intraparenchymal hemo rrhage. No extra axial fluid collections are seen. There are no masses, mass eff ect, or midline shift. Prominence of the ventricular system, fissures and sulci is commensurate with cerebral volume loss. The corpus callosum, pituitary gl and, and cerebellar tonsils appear grossly unremarkable. Flow voids of the major intracranial ar terial vessels are identified. The imaged portions of the paranasal sinuses, mast oid air cells, and orbits are unremarkable. Procedure Note Interface, Received Via [employer] - 10/05/2020 8:17 AM EST INDICATION: Syncope and aphasia. TECHNIQUE: Multiplanar and multisequence MR images of the brain were obtained without intravenous contrast. Comparison: CTA head and neck 10/04/2020. FINDINGS: No areas of restricted diffusion to suggest acute infarct. Punctate hemosiderin deposition in bilateral cerebral convexities with posterior predominance. Left occipital lobe encephalomalacia and T2 hyperintensity consistent with chronic infarction. Foci of T2 and FLAIR hyperintensity in the paraventricular white matter consistent with chronic small vessel ischemic disease. There is no evidence of acute intraparenchymal hemorrhage. No extra axial fluid collections are seen. There are no masses, mass effect, or midline shift. Prominence of the ventricular system, fissures and sulci is commensurate with cerebral volume loss. The corpus callosum, pituitary gland, and cerebellar tonsils appear grossly unremarkable. Flow voids of the major intracranial arterial vessels are identified. The imaged portions of the paranasal sinuses, mastoid air cells, and orbits are unremarkable. IMPRESSION: 1. No acute infarction or intracranial hemorrhage. 2. Left temporal occipital lobe encepha lomalacia and T2 hyperintensity consistent with chronic infarction. 3. Foci of T2 and FLAIR hyperintensity in the paraventricular white matter consistent with chronic small vessel ischemic disease. 4. Punctate hemosiderin deposition in b ilateral cerebral convexities with posterior predominance may be seen with cerebral amyloid angiopathy. Chronic hemorrhage also identified in the left are temporoparietal occipital infarct. Performing Organization Address City/[facility] Ph one Number [facility] RADIOLOGY [address] [place] [address] * POCT glucose, docked (10/04/2020 5:39 PM EST) POC Glucose 141 (H) 70 - 140 mg/dL [facility] POC Specimen Whole Blood Performing Organization Address City/[facility] Ph one Number POINT OF CARE TEST [address] [place], [place] [id number] [place] [address] POC [address] [place] [address] * COVID-19 PCR (10/04/2020 1:38 PM EST) Specimen Nasopharyngeal Swab [facility] Description CLINICAL PATHOLOGY SARS CoV-2 2019 nCoV Real-Time RT-PCR: 2019 nCoV Real-Sam e [facility] [place] NOT DETECTED RT-PCR: NOT DETECTED [facility] Clin Pathology Assay performed Test performed using [employer] [facility] webb COVID-19 MDx Assay. This test [facility] is only for use under Food and Pathology Drug Administration's Emergency Use Authorization. Additional information is available on the following FDA websites for healthcare providers and patients. https://www.fda.gov/media/3806 20/download, https://www.fda.gov/media/4505 21/download First COVID-19 YES [facility] Test? CLINICAL PATHOLOGY Employed in NO [facility] CLINICAL setting? PATHOLOGY Symptomatic for NO [facility] COVID-19 as CLINICAL defined by CDC? PATHOLOGY Date of symptom UNKNOWN [facility] onset? CLINICAL ([id number]) PATHOLOGY Hospitalized NO [facility] for COVID-19? CLINICAL PATHOLOGY Admitted to ICU UNKNOWN [facility] for COVID-19? CLINICAL PATHOLOGY Resident in a NO [facility] CLINICAL (group) care PATHOLOGY setting? ? UNKNOWN [facility] CLINICAL PATHOLOGY Specimen Nasopharyngeal Swab Performing Organization Address City/[facility] one Number [facility] CLINICAL [address] [place], [place] [address] [address] Clin Pathology * Urinalysis with microscopic (10/04/2020 11:39 AM EST) Color Yellow [facility] Clin Pathology Clarity Clear [facility] Clin Pathology Specific >1.060 (H) 1.003 - 1.030 [facility] Bluejacket [facility] Univ Clin Pathology PH Urine 5.0 5.0 - 8.0 [facility] Clin Pathology Total Protein 30 (A) Negative mg/dL [facility] Univ Clin Pathology Glucose UA Negative Negative mg/dL [facility] Univ Clin Pathology Ketone Urine Negative Negative mg/dL [facility] Clin Pathology Bilirubin Negative Negative [facility] Clin Pathology Hemoglobin, Negative Negative [facility] Urine [facility] Univ Clin Pathology Leukocyte Negative Negative Vimal/uL [facility] Esterase [facility] Univ Clin Pathology Nitrite Negative Negative [facility] Univ Clin Pathology WBC 2 0 - 5 /HPF [facility] Univ Clin Pathology RBC 1 0 - 3 /HPF [facility] Clin Pathology Squam Epithel, <1 (A) None /HPF [facility] Clin Pathology Mucus, UA Trace (A) None /LPF [facility] Clin Pathology Specimen Urine Performing Organization Address [facility] Ph one Number [facility] CLINICAL [address] [place], [place] [address] [address] Clin Pathology * 1ED EKG Interpretation (10/04/2020 11:32 AM EST) Narrative Performed At Jeevan Gonzalez MD EXTERNAL NON-INTERFACED LAB 10/04/2020 11:33 AM 1ED EKG Interpretation Date/Time: 10/04/2020 11:32 AM Performed by: Jeevan Gonzalez MD Authorized by: Jeevan Gonzalez MD ECG reviewed by ED Physician in the abs ence of a precipitator operator: yes Previous ECG: Previous ECG: Unavailable Interpretation: Interpretation: abnormal Rate: ECG rate: 57 ECG rate assessment: bradycardic Rhythm: Rhythm: sinus bradycardia Ectopy: Ectopy: none QRS: QRS axis: Left Conduction: Conduction: normal ST segments: ST segments: Normal T waves: T waves: normal Q waves: Q waves: V1 and V2 Performing Organization Address [facility] one Number EXTERNAL NON-INTERFACED LAB * Hemoglobin A1c (10/04/2020 10:38 AM EST) Hemoglobin A1C 6.6 (H) 4.0 - 6.0 % [facility] Comment: Med Univ Clin (NOTE) Pathology <5.7% Average risk of diabetes(ADA) 5.7-6.4% Increased risk of diabetes(ADA) >/= 6.5% Diagnostic for diabetes(ADA) Estimated Avg 143 (H) <126 mg/dL [facility] Glucose [facility] Pathology Specimen Whole Blood Performing Organization Address [facility] one Number [facility] CLINICAL [address] [place], [place] [address] [address] Clin Pathology * TSH (10/04/2020 10:38 AM EST) TSH 1.330 0.270 - 4.200 [facility] u[IU]/mL [facility] Pathology Specimen Plasma Performing Organization Address [facility] one Number [facility] [address] [place], [place] [address] [address] Clin Pathology * Lipid panel (10/04/2020 10:38 AM EST) Cholesterol 141 <200 mg/dL [facility] Pathology Triglyceride 187 (H) <150 mg/dL [facility] Pathology HDL Cholesterol 42 >40 mg/dL [facility] Pathology LDL Cholesterol 61 <100 mg/dL [facility] Clin Pathology VLDL 37 16 - 42 mg/dl [facility] Clin Pathology Non HDL 99 <130 mg/dL [facility] Clin Pathology Specimen Plasma Performing Organization Address [facility] one Number [facility] CLINICAL [address] [place], [place] [address] [address] Clin Pathology * Hepatic Function Panel (10/04/2020 10:38 AM EST) Albumin 3.5 3.5 - 5.2 g/dL [facility] Clin Pathology Bilirubin, 0.5 <1.2 mg/dL [facility] Total [facility] Pathology Bilirubin, <0.2Comment: Hemolyzed <0.3 mg/dL [facility] Direct [facility] Pathology Alkaline 50 40 - 129 U/L [facility] Phosphatase [facility] Pathology AST/SGO 22Comment: Hemolyzed <40 U/L [facility] Clin Pathology ALT/SGP 21 <41 U/L [facility] Clin Pathology Total Protein 6.0 (L) 6.4 - 8.3 g/dL [facility] Clin Pathology Specimen Plasma Performing Organization Address [facility] one Number [facility] [address] [place], [place] [address] [address] Clin Pathology * Protime-INR (10/04/2020 10:38 AM EST) PT Patient 13.6 12.5 - 14.9 s [facility] Clin Pathology Int'l 1.03Comment: Routine intensity [facility] pstate Normalized oral anticoagulation INR is Med Univ Clin Ratio typically 2.0-3.0. Target INR Patholo gy must be clinically individualized. Specimen Plasma Performing Organization Address [facility] one Number [facility] [address] [place], [place] [address] [address] Clin Pathology * Troponin T (10/04/2020 10:38 AM EST) Troponin T <0.01 <0.01 ng/mL [facility] Pathology Specimen Plasma Performing Organization Address City/State/[facility] Ph one Number [facility] CLINICAL [address] [place], [place] [address] PATHOLOGY [facility] [address] [place], [place] [address] Clin Pathology * CBC and Differential (10/04/2020 10:38 AM EST) White Blood 9.7 4 - 10 10*3/uL [facility] Univ Clin Pathology Red Blood Cell 4.97 4.6 - 6.1 10*6/uL [facility] Clin Pathology Hemoglobin 15.0 13.5 - 18 g/dL [facility] Clin Pathology Hematocrit 44.6 41 - 53 % [facility] Clin Pathology Mean Cell 89.7 80 - [address] [facility] Volume [facility] Univ Clin Pathology Mean Cell 30.2 27 - 33 pg [facility] Univ Clin Pathology Mean Cell Hgb 33.6 32.0 - 36.0 g/dL [facility] Univ Clin Pathology Red Cell Dist 13.5 11.5 - 14.5 % [facility] Width [facility] Clin Pathology Platelet Count 204 150 - 400 10*3/uL [facility] Clin Pathology Differential Automated Diff [facility] Type [facility] Clin Pathology Neutrophil 81 % [facility] Clin Pathology Lymphocyte 12 % [facility] Clin Pathology Monocyte 6 % [facility] Pathology Eosinophil 1 % [facility] Clin Pathology Basophil 0 % [facility] Pathology Abs Neutrophil 7.83 (H) 1.8 - 7.0 10*3/uL [facility] Clin Pathology Abs Lymphocyte 1.17 (L) 1.2 - 4.0 10*3/uL [facility] Pathology Abs Monocyte 0.58 0 - 0.8 10*3/uL [facility] Clin Pathology Abs Eosinophil 0.10 0 - 0.5 10*3/uL [facility] Clin Pathology Abs Basophil 0.02 0 - 0.2 10*3/uL [facility] Clin Pathology Nucleated Red 0 0 - 0 /100{WBCs} [facility] Blood Cells [facility] Pathology Specimen EDTA Whole Blood Performing Organization Address [facility] Ph one Number [facility] CLINICAL [address] [place], [place] [address] [address] Clin Pathology * Basic Metabolic Panel (10/04/2020 10:38 AM EST) Bicarbonate 23 22 - 29 mmol/L [facility] Clin Pathology Chloride 104 98 - 107 mmol/L [facility] Pathology Creatinine 1.01 0.70 - 1.20 mg/dL [facility] Pathology Glucose 169 (H) 70 - 140 mg/dL [facility] Clin Pathology Potassium 4.0Comment: Hemolyzed 3.4 - 5.1 mmol/L [facility] Clin Pathology Sodium 137 136 - 145 mmol/L [facility] Clin Pathology Blood Urea 18 8 - 23 mg/dL [facility] Clin Pathology Anion Gap 10 8 - 15 mmol/L [facility] Clin Pathology Osmolality, César 290 275 - 300 mosm/kg [facility] Clin Pathology BUN/Cre Ratio 18 [facility] Clin Pathology Calcium 8.4 (L) 8.8 - 10.2 mg/dL [facility] Clin Pathology GFR Non 74 >60 mL/min/1.73m2 [facility] 2008 Med [facility] Clin CDK-EPI Pathology GFR 86 >60 mL/min/1.73m2 [facility] 2009 [facility] CKD-EPI Pathology Specimen Plasma Performing Organization Address City/[facility] Ph one Number [facility] CLINICAL [address] [place], [place] [address] [address] Clin Pathology * POCT i-STAT Chem 8 (10/04/2020 10:32 AM EST) i-STAT Sodium 138 136 - 145 mmol/L [facility] POC i-STAT 4.0 3.4 - 5.1 mmol/L [facility] POC i-STAT Chloride 101 98 - 107 mmol/L [facility] POC i-STAT TCO2 31 (H) 22 - 29 mmol/L [facility] POC i-STAT Ionized 1.19 1.13 - 1.32 mmol/L [facility] Calcium [facility] POC i-STAT Glucose 169 (H) 70 - 140 mg/dL [facility] POC i-STAT BUN 25 (H) 8 - 23 mg/dL [facility] POC i-STAT 1.0 0.70 - 1.20 mg/dL [facility] Creatinine [facility] POC i-STAT 44 41 - 53 % [facility] Hematocrit [facility] POC i-STAT 15.0 13.5 - 18.0 g/dL [facility] Hemoglobin [facility] POC Specimen Whole Blood Performing Organization Address [facility] Number POINT OF CARE TEST [address] POC [address] [place] [address] * POCT i-STAT VBG Lactic Acid (10/04/2020 10:28 AM EST) i-STAT Venous 7.35 (L) 7.36 - 7.41 [facility] pH [facility] POC i-STAT Venous 55 (H) 40 - 45 mmHg [facility] PCO2 [facility] POC i-STAT Venous 19 mmHg [facility] PO2 [facility] POC i-STAT Venous 3 mmol/L [facility] Base Excess [facility] POC i-STAT Venous 27 (L) 60 - 85 % [facility] SO2 [facility] POC i-STAT Venous 3.0 (H) 0.5 - 2.2 mmol/L [facility] Lactic Acid [facility] POC i-STAT Venous 32 mmol/L [facility] Total CO2 [facility] POC Specimen Whole Blood Performing Organization Address [facility] Number POINT OF CARE TEST [address] POC [address] [place] [address] * POCT i-STAT Troponin (10/04/2020 10:26 AM EST) i-STAT Troponin 0.00 0.00 - 0.08 ng/mL [facility] POC Specimen Whole Blood Performing Organization Address [facility] Number POINT OF CARE TEST [address] [place], [place] [id number] [place] [address] POC [address] [place] [address] * EKG 12-LEAD - CMAXX REPORT (10/04/2020 10:23 AM EST) Narrative Performed At This result has an attachment that is n ot available. * EKG 12-LEAD - CMAXX REPORT (10/04/2020 10:23 AM EST) Narrative Performed At This result has an attachment that is n ot available. * EKG 12 Lead (10/04/2020 10:23 AM EST) Specimen Narrative Performed At Ventricular Rate: [facility] EKG 57 BPM Atrial Rate: 57 BPM P-R Interval: 240 ms QRS Duration: 90 ms Q-T Interval: 434 ms QTC Calculation(Bazett): 422 ms P Redfield: 73 degrees R Redfield: -44 degrees T Redfield: 46 degrees : POOR DATA QUALITY, INTERPRETATION MAY BE ADVERSELY : AFFECTED : SINUS BRADYCARDIA WITH 1ST DEGREE A-V BLOCK : LEFT AXIS DEVIATION : POSSIBLE LEFT ANTERIOR FASCICULAR BLO CK : CANNOT RULE OUT INFERIOR INFARCT , AG E UNDETERMINED (MASKED BY : FASCICULAR BLOCK?) : POOR PRECORDIAL LEAD R WAVE PROGRESSI ON V1-2 MAY BE LEAD : POSITION : CANNOT RULE OUT POSSIBLE SEPTAL INFAR CT , AGE UNDETERMINED : ABNORMAL ECG : NO PREVIOUS ECGS AVAILABLE : SUGGEST REPEAT ECG : Confirmed by Mike Sharma ([id number]) on 10/04/2020 10:30:31 AM Procedure Note Interface, Received Via [employer] - 10/04/2020 10:30 AM EST Ventricular Rate: 57 BPM Atrial Rate: 57 BPM P-R Interval: 240 ms QRS Duration: 90 ms Q-T Interval: 434 ms QTC Calculation(Bazett): 422 ms P Redfield: 73 degrees R Redfield: -44 degrees T Redfield: 46 degrees : POOR DATA QUALITY, INTERPRETATION MAY BE ADVERSELY : AFFECTED : SINUS BRADYCARDIA WITH 1ST DEGREE A-V BLOCK : LEFT AXIS DEVIATION : POSSIBLE LEFT ANTERIOR FASCICULAR BLOCK : CANNOT RULE OUT INFERIOR INFARCT , AGE UNDETERMINED (MASKED BY : FASCICULAR BLOCK?) : POOR PRECORDIAL LEAD R WAVE PROGRESSION V1-2 MAY BE LEAD : POSITION : CANNOT RULE OUT POSSIBLE SEPTAL INFARCT , AGE UNDETERMINED : ABNORMAL ECG : NO PREVIOUS ECGS AVAILABLE : SUGGEST REPEAT ECG : Confirmed by Mike Sharma ([id number]) on 10/04/2020 10:30:31 AM Performing Organization Address City/State/Zipcode Ph one Number [facility] EKG * EKG 12-LEAD - CMAXX REPORT (10/04/2020 10:23 AM EST) Narrative Performed At This result has an attachment that is n ot available. * CT Angiography Neck ; Emergent exam: wasmita labs (10/04/2020 10:22 AM EST) Specimen Addenda Addendum by Shanita Linares MD on 10/04/2020 1:20 PM The cervical spine is straight in alignment losing its anatomic lordosis but without significant spondylolisthesis. Intervertebral disc space narrowing, mild at C4-C5 level and severe at C5-C6 and C6-7 levels. Mild spondylotic changes in the mid and lower cervical spine. The posterior elements show no acute fracture or dislocation. Very mild arthritic changes at the uncovertebral joints bilaterally at C6-C7 level. The odontoid process is intact and no significant rotational abnormality is present. The atlantoaxial distance is within normal limits. The vertebral heights are well-preserved. There is mild spinal canal stenosis at C6-C7 level. Neuroforaminal narrowing, mild to moderate on the right and moderate to severe on the left at C3-C4 level, severe bilaterally at C4-C5 and C5-C6 level, and severe on the right and moderate to severe on the left at C6-C7 level. No significant prevertebral soft tissue is mildly and the airway is intact. Impressions Performed At IMPRESSION: [facility] RADIOLOGY 1. No evidence of acute infarct or intrac ranial hemorrhage. 2. 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 Collateral vasculature is seen within this territo ry and there is no acute infarction. 3. No evidence of stenosis, aneurysm, or arteriovenous malformations of the major intracranial arteries. 4. 80-90% diameter significant focal sten osis of the proximal left common carotid artery at the level of T1. 5. Very mild chronic microvascular ischem ic changes of the white matter. Findings were communicated by Dr. Scott roy to Dr. Vale at 10:23 AM on 10/04/2020. Narrative Performed At CLINICAL INDICATION: Stroke code. 69-year-old male wi th confusion. [facility] RADIOLOGY TECHNIQUE: Contiguous axial CT images o f the head were acquired from the base of the skull to the vertex without intrave nous contrast administration. CT angiography of the head and neck wa s performed following intravenous administration of 75 mL of Omnipaque 35 0 injected at a rate of 5 cc/sec. Multiple MIP images in axial, coronal, and sagittal planes and 3D surfaced rendered images were then acquired usin g the source data. Automated dose lowering techniques and/or adjustment a ccording to patient size were utilized for this examination. Assessment of armand nosis of the internal carotid arteries is based on NASCET criteria. COMPARISON: None at the time of this di ctation. FINDINGS: PRECONTRAST HEAD CT: There is a region of hypodensity in the left occipital lobe with associated ex vacuo dilatation of the left occipital horn of the left lateral ventricle. This is likely construction representative of an old cere bral infarction with characteristics of encephalomalacia. There is no acute intracranial hemorrha ge, midline shift, acute major arterial territorial infarction, or extra axial collection. There is mild cerebral volume loss, diffusely. Ill-defined very small areas of low attenuation scattered within the white matter at the level of the berry radiata and bilaterally. The basal cisterns are patent. Paranasal sinuses are clear. Mastoid air cells are aerated bilatera lly. There is no depressed calvarial fractur e. CTA NECK: There is a three-vessel aortic arch wit h patent origins of the brachiocephalic trunk, left common carotid, and left yang bclavian arteries. The left common carotid artery exhibits calcified plaques causing approximately 80-90% focal stenosis in the proximal C CA at the level of T1. There are calcified plaques at the bifurcation ex tending into the proximal internal carotid causing 30-40% relative stenosi s. There is no hemodynamically significant focal stenosis of the left internal carotid artery to the level of the cavernous sinus. The right common carotid is widely samuels nt and there is mild to moderate atherosclerosis at the bifurcation with out significant stenosis. There is no significant stenosis of the right inter nal carotid artery to the level of the cavernous sinus. The left vertebral artery is dominant. Vertebral arteries originate from their respective subclavian arteries and are patent to the level of the skull base. There are partially visualized bilatera l hypoattenuating thyroid nodules. There are a few prominent lymph nodes bilater ally, right greater than left. The remainder of the soft tissue and glandu lar structures within the neck appear grossly normal. Scattered degenerative changes are seen within the cervical spine. There are no lytic or sclerotic lesions visualized. CTA HEAD: There is mild atherosclerosis of bilate ral cavernous portions of the internal carotid arteries without significant st enosis or aneurysm. The left and right M1 and M2 branches o f the MCAs are patent and without aneurysm. The bilateral anterior cerebral and ant erior communicating arteries are patent without aneurysm. The bilateral posterior communicating a rteries are patent. The bilateral posterior cerebral arteri es are patent. There is a decrease in vascularity in the TRAFFIC TECHNICIAN territory on the left, however, there are collateral vascular structures identified. The bilateral superior cerebellar arter ies are patent. The bilateral anterior inferior cerebel lar and right posterior inferior cerebellar arteries are patent. The lef t posterior inferior cerebellar artery is not well visualized. There is a focus o f calcification within the left vertebral artery which may correspond to the orig in of the left PICA. There are distal collateral vessels identified. Bilateral intracranial vertebral arteri es are patent. Procedure Note Interface, Received Via [employer] - 10/04/2020 11:30 AM EST CLINICAL INDICATION: Stroke code. 69-year-old male with confusion. TECHNIQUE: Contiguous axial CT images of the head were acquired from the base of the skull to the vertex without intravenous contrast administration. CT angiography of the head and neck was performed following intravenous administration of 75 mL of Omnipaque 350 injected at a rate of 5 cc/sec. Multiple MIP images in axial, coronal, and sagittal planes and 3D surfaced rendered images were then acquired using the source data. Automated dose lowering techniques and/or adjustment according to patient size were utilized for this examination. Assessment of stenosis of the internal carotid arteries is based on NASCET criteria. COMPARISON: None at the time of this dictation. FINDINGS: PRECONTRAST HEAD CT: There is a region of hypodensity in the left occipital lobe with associated ex vacuo dilatation of the left occipital horn of the left lateral ventricle. This is likely construction representative of an old cerebral infarction with characteristics of encephalomalacia. There is no acute intracranial hemorrhage, midline shift, acute major arterial territorial infarction, or extra axial collection. There is mild cerebral volume loss, diffusely. Ill-defined very small areas of low attenuation scattered within the white matter at the level of the berry radiata and bilaterally. The basal cisterns are patent. Paranasal sinuses are clear. Mastoid air cells are aerated bilaterally. There is no depressed calvarial fracture. CTA NECK: There is a three-vessel aortic arch with patent origins of the brachiocephalic trunk, left common carotid, and left subclavian arteries. The left common carotid artery exhibits calcified plaques causing approximately 80-90% focal stenosis in the proximal CCA at the level of T1. There are calcified plaques at the bifurcation extending into the proximal internal carotid causing 30-40% relative stenosis. There is no hemodynamically significant focal stenosis of the left internal carotid artery to the level of the cavernous sinus. The right common carotid is widely patent and there is mild to moderate atherosclerosis at the bifurcation without significant stenosis. There is no significant stenosis of the right internal carotid artery to the level of the cavernous sinus. The left vertebral artery is dominant. Vertebral arteries originate from their respective subclavian arteries and are patent to the level of the skull base. There are partially visualized bilateral hypoattenuating thyroid nodules. There are a few prominent lymph nodes bilaterally, right greater than left. The remainder of the soft tissue and glandular structures within the neck appear grossly normal. Scattered degenerative changes are seen within the cervical spine. There are no lytic or sclerotic lesions visualized. CTA HEAD: There is mild atherosclerosis of bilateral cavernous portions of the internal carotid arteries without significant stenosis or aneurysm. The left and right M1 and M2 branches of the MCAs are patent and without aneurysm. The bilateral anterior cerebral and anterior communicating arteries are patent without aneurysm. The bilateral posterior communicating arteries are patent. The bilateral posterior cerebral arteries are patent. There is a decrease in vascularity in the TRAFFIC TECHNICIAN territory on the left, however, there are collateral vascular structures identified. The bilateral superior cerebellar arteries are patent. The bilateral anterior inferior cerebellar and right posterior inferior cerebellar arteries are patent. The left posterior inferior cerebellar artery is not well visualized. There is a focus of calcification within the left vertebral artery which may correspond to the origin of the left PICA. There are distal collateral vessels identified. Bilateral intracranial vertebral arteries are patent. IMPRESSION: 1. No evidence of acute infarct or intr acranial hemorrhage. 2. Old cerebral infarct/encephalomalaci a in the left occipital lobe. Collateral vasculature is seen within this territory and there is no acute infarction. 3. No evidence of stenosis, aneurysm, o r arteriovenous malformations of the major intracranial arteries. 4. 80-90% diameter significant focal st enosis of the proximal left common carotid artery at the level of T1. 5. Very mild chronic microvascular isch emic changes of the white matter. Findings were communicated by Dr. Patel to Dr. Vale at 10:23 AM on 10/04/2020. Performing Organization Address City/State/Zipcode Ph one Number [facility] [address] [place] [address] * CT Angiography Head ; Emergent exam: [facility] (10/04/2020 10:22 AM EST) Specimen Addenda Addendum by Shanita Linares MD on 10/04/2020 1:20 PM The cervical spine is straight in alignment losing its anatomic lordosis but without significant spondylolisthesis. Intervertebral disc space narrowing, mild at C4-C5 level and severe at C5-C6 and C6-7 levels. Mild spondylotic changes in the mid and lower cervical spine. The posterior elements show no acute fracture or dislocation. Very mild arthritic changes at the uncovertebral joints bilaterally at C6-C7 level. The odontoid process is intact and no significant rotational abnormality is present. The atlantoaxial distance is within normal limits. The vertebral heights are well-preserved. There is mild spinal canal stenosis at C6-C7 level. Neuroforaminal narrowing, mild to moderate on the right and moderate to severe on the left at C3-C4 level, severe bilaterally at C4-C5 and C5-C6 level, and severe on the right and moderate to severe on the left at C6-C7 level. No significant prevertebral soft tissue is mildly and the airway is intact. Impressions Performed At IMPRESSION: [facility] 1. No evidence of acute infarct or intrac ranial hemorrhage. 2. 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 Collateral vasculature is seen within this territo ry and there is no acute infarction. 3. No evidence of stenosis, aneurysm, or arteriovenous malformations of the major intracranial arteries. 4. 80-90% diameter significant focal sten osis of the proximal left common carotid artery at the level of T1. 5. Very mild chronic microvascular ischem ic changes of the white matter. Findings were communicated by Dr. Scott roy to Dr. Vale at 10:23 AM on 10/04/2020. Narrative Performed At CLINICAL INDICATION: Stroke code. 69-year-old male wi th confusion. [facility] TECHNIQUE: Contiguous axial CT images o f the head were acquired from the base of the skull to the vertex without intrave nous contrast administration. CT angiography of the head and neck wa s performed following intravenous administration of 75 mL of Omnipaque 35 0 injected at a rate of 5 cc/sec. Multiple MIP images in axial, coronal, and sagittal planes and 3D surfaced rendered images were then acquired usin g the source data. Automated dose lowering techniques and/or adjustment a ccording to patient size were utilized for this examination. Assessment of armand nosis of the internal carotid arteries is based on NASCET criteria. COMPARISON: None at the time of this di ctation. FINDINGS: PRECONTRAST HEAD CT: There is a region of hypodensity in the left occipital lobe with associated ex vacuo dilatation of the left occipital horn of the left lateral ventricle. This is likely construction representative of an old cere bral infarction with characteristics of encephalomalacia. There is no acute intracranial hemorrha ge, midline shift, acute major arterial territorial infarction, or extra axial collection. There is mild cerebral volume loss, diffusely. Ill-defined very small areas of low attenuation scattered within the white matter at the level of the berry radiata and bilaterally. The basal cisterns are patent. Paranasal sinuses are clear. Mastoid air cells are aerated bilatera lly. There is no depressed calvarial fractur e. CTA NECK: There is a three-vessel aortic arch wit h patent origins of the brachiocephalic trunk, left common carotid, and left yang bclavian arteries. The left common carotid artery exhibits calcified plaques causing approximately 80-90% focal stenosis in the proximal C CA at the level of T1. There are calcified plaques at the bifurcation ex tending into the proximal internal carotid causing 30-40% relative stenosi s. There is no hemodynamically significant focal stenosis of the left internal carotid artery to the level of the cavernous sinus. The right common carotid is widely samuels nt and there is mild to moderate atherosclerosis at the bifurcation with out significant stenosis. There is no significant stenosis of the right inter nal carotid artery to the level of the cavernous sinus. The left vertebral artery is dominant. Vertebral arteries originate from their respective subclavian arteries and are patent to the level of the skull base. There are partially visualized bilatera l hypoattenuating thyroid nodules. There are a few prominent lymph nodes bilater ally, right greater than left. The remainder of the soft tissue and glandu lar structures within the neck appear grossly normal. Scattered degenerative changes are seen within the cervical spine. There are no lytic or sclerotic lesions visualized. CTA HEAD: There is mild atherosclerosis of bilate ral cavernous portions of the internal carotid arteries without significant st enosis or aneurysm. The left and right M1 and M2 branches o f the MCAs are patent and without aneurysm. The bilateral anterior cerebral and ant erior communicating arteries are patent without aneurysm. The bilateral posterior communicating a rteries are patent. The bilateral posterior cerebral arteri es are patent. There is a decrease in vascularity in the TRAFFIC TECHNICIAN territory on the left, however, there are collateral vascular structures identified. The bilateral superior cerebellar arter ies are patent. The bilateral anterior inferior cerebel lar and right posterior inferior cerebellar arteries are patent. The lef t posterior inferior cerebellar artery is not well visualized. There is a focus o f calcification within the left vertebral artery which may correspond to the orig in of the left PICA. There are distal collateral vessels identified. Bilateral intracranial vertebral arteri es are patent. Procedure Note Interface, Received Via [employer] System - 10/04/2020 11:30 AM EST CLINICAL INDICATION: Stroke code. 69-year-old male with confusion. TECHNIQUE: Contiguous axial CT images of the head were acquired from the base of the skull to the vertex without intravenous contrast administration. CT angiography of the head and neck was performed following intravenous administration of 75 mL of Omnipaque 350 injected at a rate of 5 cc/sec. Multiple MIP images in axial, coronal, and sagittal planes and 3D surfaced rendered images were then acquired using the source data. Automated dose lowering techniques and/or adjustment according to patient size were utilized for this examination. Assessment of stenosis of the internal carotid arteries is based on NASCET criteria. COMPARISON: None at the time of this dictation. FINDINGS: PRECONTRAST HEAD CT: There is a region of hypodensity in the left occipital lobe with associated ex vacuo dilatation of the left occipital horn of the left lateral ventricle. This is likely construction representative of an old cerebral infarction with characteristics of encephalomalacia. There is no acute intracranial hemorrhage, midline shift, acute major arterial territorial infarction, or extra axial collection. There is mild cerebral volume loss, diffusely. Ill-defined very small areas of low attenuation scattered within the white matter at the level of the berry radiata and bilaterally. The basal cisterns are patent. Paranasal sinuses are clear. Mastoid air cells are aerated bilaterally. There is no depressed calvarial fracture. CTA NECK: There is a three-vessel aortic arch with patent origins of the brachiocephalic trunk, left common carotid, and left subclavian arteries. The left common carotid artery exhibits calcified plaques causing approximately 80-90% focal stenosis in the proximal CCA at the level of T1. There are calcified plaques at the bifurcation extending into the proximal internal carotid causing 30-40% relative stenosis. There is no hemodynamically significant focal stenosis of the left internal carotid artery to the level of the cavernous sinus. The right common carotid is widely patent and there is mild to moderate atherosclerosis at the bifurcation without significant stenosis. There is no significant stenosis of the right internal carotid artery to the level of the cavernous sinus. The left vertebral artery is dominant. Vertebral arteries originate from their respective subclavian arteries and are patent to the level of the skull base. There are partially visualized bilateral hypoattenuating thyroid nodules. There are a few prominent lymph nodes bilaterally, right greater than left. The remainder of the soft tissue and glandular structures within the neck appear grossly normal. Scattered degenerative changes are seen within the cervical spine. There are no lytic or sclerotic lesions visualized. CTA HEAD: There is mild atherosclerosis of bilateral cavernous portions of the internal carotid arteries without significant stenosis or aneurysm. The left and right M1 and M2 branches of the MCAs are patent and without aneurysm. The bilateral anterior cerebral and anterior communicating arteries are patent without aneurysm. The bilateral posterior communicating arteries are patent. The bilateral posterior cerebral arteries are patent. There is a decrease in vascularity in the TRAFFIC TECHNICIAN territory on the left, however, there are collateral vascular structures identified. The bilateral superior cerebellar arteries are patent. The bilateral anterior inferior cerebellar and right posterior inferior cerebellar arteries are patent. The left posterior inferior cerebellar artery is not well visualized. There is a focus of calcification within the left vertebral artery which may correspond to the origin of the left PICA. There are distal collateral vessels identified. Bilateral intracranial vertebral arteries are patent. IMPRESSION: 1. No evidence of acute infarct or intr acranial hemorrhage. 2. Old cerebral infarct/encephalomalaci a in the left occipital lobe. Collateral vasculature is seen within this territory and there is no acute infarction. 3. No evidence of stenosis, aneurysm, o r arteriovenous malformations of the major intracranial arteries. 4. 80-90% diameter significant focal st enosis of the proximal left common carotid artery at the level of T1. 5. Very mild chronic microvascular isch emic changes of the white matter. Findings were communicated by Dr. Patel to Dr. Vale at 10:23 AM on 10/04/2020. Performing Organization Address City/State/Zipcode Ph one Number [facility] [address] [place] [address] documented in this encounter Visit Diagnoses Diagnosis Carotid stenosis, bilateral Occlusion and stenosis of multiple and bilateral precerebral arteries without mention of cerebral infarction Syncope and collapse Occlusion of left carotid artery Occlusion and stenosis of carotid arter y without mention of cerebral infarction Severe sinus bradycardia Sinoatrial node dysfunction Personal history of transient cerebral ischemia Transient ischemic attack (TIA), and ce rebral infarction without residual deficits Syncope, unspecified syncope type BMI 30.0-30.9,adult Body Mass Index 30.0-30.9, adult Type 2 diabetes mellitus without compli cation, without long-term current use of insulin Hypertension Unspecified essential hypertension Hyperlipidemia Other and unspecified hyperlipidemia H/O aortic valve replacement Heart valve replaced by other means History of ischemic left TRAFFIC TECHNICIAN stroke Transient ischemic attack (TIA), and ce rebral infarction without residual deficits Class 1 obesity in adult History of endocarditis Personal history of other diseases of c irculatory system documented in this encounter Administered Medications Action Date Dose Rate Site Medication Order MAR Action 10/07/2020 8:05 AM EST 81 mg aspirin EC EC tablet 81 mg Given 81 mg, Oral, Daily Standard, First dos e on Sat10/05/20 at 0900, For 30 days, Do not crush or chew, 81 mg Given 10/06/2020 10:39 AM EST 81 mg Given 10/05/2020 9:33 AM EST 10/06/2020 9:05 PM EST 40 mg atorvastatin (LIPITOR) tablet 40 mg Given 40 mg, Oral, Every evening, First dose on Sat10/04/20 at 2100, For 30 days 40 mg Given 10/05/2020 8:37 PM EST 40 mg Given 10/04/2020 8:56 PM EST dextrose 50 % IV solution 25 mL 25 mL, Intravenous, PRN, Other, blood glucose <55, Starting Sat10/04/20 at 1307, For 30 days, Not for midline administration., 10/06/2020 11:14 PM EST 5 mg donepezil (ARICEPT) tablet 5 mg Given 5 mg, Oral, Nightly, First dose on Sat10/06/20 at 2200, For 30 days 10/07/2020 8:05 AM EST 40 mg enoxaparin sodium (LOVENOX) injection 40 Given mg 40 mg, Subcutaneous, Daily Standard, First dose on Sat10/06/20 at 0900, For 30 days 40 mg Given 10/06/2020 10:39 AM EST glucagon (human recombinant) (GLUCAGEN) injection 1 mg 1 mg, Intramuscular, PRN, for glucose <55 without IV access, Starting Sat10/04/20 at 1307, For 30 days glucose (GLUTOSE) 40 % oral gel 15 g 15 g, Oral, PRN, Low blood sugar, for gluose 55-69 mg/dl and able to take PO, Starting Sat10/04/20 at 1307, For 30 days 10/07/2020 8:05 AM EST 3 Units insulin lispro (HumaLOG) injection LOW Given DOSE EATING INSULIN patients 1-8 Units 1-8 Units, Subcutaneous, Three Times Daily-With Meals, First dose on Sat10/04/20 at 1800, For 30 days, Nursing MUST open the 'SQ Insulin Dosing Charts ' Sidebar Report, or, the Patient Summary or Summary Report within the ED. , 1 Units Given 10/06/2020 6:02 PM EST 2 Units Given 10/06/2020 1:43 PM EST 10/07/2020 8:05 AM EST 750 mg levETIRAcetam (KEPPRA) tablet 750 mg Given 750 mg, Oral, 2 Times Daily, First dose on Sat10/05/20 at 1445, For 30 days 750 mg Given 10/06/2020 9:05 PM EST 750 mg Given 10/06/2020 10:39 AM EST 10/07/2020 8:05 AM EST 10 mg memantine (NAMENDA) tablet 10 mg Given 10 mg, Oral, Daily Standard, First dos e (after last modification) on Sat 1 at 0900, For 7 days OLANZapine (ZYPREXA) injection 2.5 mg 2.5 mg, Intramuscular, Once PRN, Agitation, Starting Sat10/05/20 at 2317 , For 1 dose, Reconstitute 10 mg vial wit h 2.1 mL SWFI; resulting solution is ~5 mg/mL; Use within 1 hour following reconstitution., Action Date Dose Rate Site Medication Order MAR Action 10/04/2020 1:28 PM EST 300 mg clopidogrel (PLAVIX) tablet 300 mg Given 300 mg, Oral, Once, Sat10/04/20 at 1330 , For 1 dose 10/04/2020 10:17 AM EST 75 mLs iohexol (OMNIPAQUE) 350 MG/ML contrast Given injection 75 mL 75 mL, Given by IV, 1 TIME IMAGING, Sat10/04/20 at 1030, For 1 dose 10/04/2020 8:56 PM EST 1 mg LORazepam (ATIVAN) injection 1 mg New Bag 1 mg, Intravenous, Once, Sat10/04/20 at 1745, For 1 dose, For MRI, 10/06/2020 10:39 AM EST 5 mg memantine (NAMENDA) tablet 5 mg Given 5 mg, Oral, 2 Times Daily, First dose o n Sat10/04/20 at 2100, For 30 days 5 mg Given 10/05/2020 8:34 PM EST 5 mg Given 10/05/2020 9:33 AM EST 10/06/2020 12:16 AM EST 50 mL/hr NaCl infusion 0.9 % New Bag at 50 mL/hr, Intravenous, Continuous, Starting Sat10/04/20 at 1330, For 30 days 50 mL/hr Restarted - All Meds 10/05/2020 12:00 PM EST 50 mL/hr Restarted - All Meds 10/05/2020 11:55 AM EST 10/05/2020 8:37 PM EST 2.5 mg OLANZapine (ZYPREXA) tablet 2.5 mg Given 2.5 mg, Oral, Once, Sat10/05/20 at 1945 , For 1 dose 10/05/2020 9:33 AM EST 40 mEq potassium chloride (K-DUR) dissolvable Given tablet 40 mEq 40 mEq, Oral, Once, Sat10/05/20 at 0930 , For 1 dose, May be dissolved in water for patients with a G-Tube or unable to swallow. If concern for clogging G-Tube , may contact Pharmacy to switch formulation to a powder packet., 10/06/2020 10:38 AM EST 40 mEq potassium chloride (K-DUR) dissolvable Given tablet 40 mEq 40 mEq, Oral, Once, Desiree 10/06/20 at 0900 , For 1 dose, May be dissolved in water for patients with a G-Tube or unable to swallow. If concern for clogging G-Tube , may contact Pharmacy to switch formulation to a powder packet., 10/04/2020 9:35 PM EST 2 sprays sodium chloride (OCEAN) 0.65 % nasal Given spray 2 spray 2 spray, Each Nare, Once, Sat10/04/20 a t 2100, For 1 dose 10/04/2020 1:01 PM EST 1,000 mLs 900 mL/hr sodium chloride 0.9 % bolus 1,000 mL New Bag 1,000 mL, Intravenous, Once, Sat 1 at 1245, For 1 dose 10/05/2020 11:34 PM EST 50 mg trazodone (DESYREL) tablet 50 mg Given 50 mg, Oral, Once, 10/05/20 at 2330, For 1 dose documented in this encounter
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
--- OUTSIDE RECORDS SUMMARY | 2020-11-04 09:09 | CCD | Continuity of Care Document ---
Author Author Gorge LANGE M.D. Organization Unknown Address [address] [place] [address] Phone [phone] Care Team Providers Care Nurse Practical Name Role Phone Ruben Sandoval M.D. AUTM [phone] Problems Active Problems Provider Date Cerebral infarction due to internal carotid artery occlusion Alexys Lange M.D. Onset: 03/27/2018 Multi-infarct dementia, uncomplicated Alexys Lange M.D. On set: 06/19/2018 Aphasia as late effect of cerebrovascular accident Alexys Milner i, M.D. Onset: 06/19/2018 Social History Type Date Description Comments Sex Unknown Tobacco Use Start: Unknown End: Unknown Patient is a former smoker Allergies, Adverse Reactions, Alerts Description No Information Available Medications Active Medications SIG Qnty Indications Ordering Provide r Date Memantine HCL 10mg Tablets Half a Tab po bid for 2 weeks, then 1 po bid. 60tabs Alexys Lange M.D. 09/22/2020 Donepezil HCL 10mg Tablets 2 po qam. 180tabs Alexys Lange M.D. 06/19/2018 Immunizations Description No Information Available Vital Signs Date Vital Result Comment 03/27/2018 10:53am BP Systolic 120 mmHg BP Diastolic 75 mmHg Heart Rate 74 /min Respiratory Rate 14 /min Height 71 inches 5'11" Weight 238.00 lb BMI (Body Mass Index) 33.2 kg/m2 [place] Body Weight 172 lb Results Description No Information Available Procedures Description No Information Available Medical Devices Description No Information Available Encounters Type Date Location Provider Dx Diagnosis Office Visit 09/22/2020 1:30p Main office - [place] Javier Martinez I63.032 Cerebral infarction due to thrombosis of left carotid artery I63.031 Cerebral infrc due to thromb osis of right carotid artery F01.50 Vascular dementia without be havioral disturbance 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 Plan of Treatment Future Appointment(s):* 04/11/2021 11:15 am - Alexys Lange M.D. at Main office - [place] Functional Status Description No Information Available Mental Status Description No Information Available Referrals Refer to Reason for Referral Status Appt Alexys Kumar M.D. Created [facility] [address] [place] [address] [phone]
--- OUTSIDE RECORDS SUMMARY | 2020-11-04 09:09 | CCD | Continuity of Care Document ---
Author Organization Unknown Address Unknown Phone Unavailable Care Team Providers Care Manager Produce Name Role Phone Pantera Gomez AUTM [phone] Cyrus Angela MD AUTM [phone] Cortney Giang MD AUTM [phone] Jonathan Atkins MD AUTM [phone] Kristal Ferguson MD AUTM [phone] Alexys Lange MD AUTM [phone] Problems Active Problems Provider Date Aortic valve disorder Jonathan Sykes MD Onset: 07/14/2015 Essential hypertension Jonathan Sykes MD Onset: 5 Obesity Jonathan Sykes MD Onset: 07/14/2015 Mixed hyperlipidemia Jonathan Sykes MD Onset: 07/14/2015 Electrocardiogram abnormal Jonathan Sykes MD Onset: 07/14 Cardiomegaly Jonathan Sykes MD Onset: 07/14/2015 Preoperative cardiovascular examination Jonathan Sykes MD Onset: 07/14/2015 Transplantation of heart valve Jonathan Sykes MD Onset: 0 10/13/2015 First degree atrioventricular block Jonathan Sykes MD Ons et: 10/13/2015 Encounter for other preprocedural examination JUNG Tapia Onset: 08/15/2016 Dizziness and giddiness JUNG Tapia Onset: 017 Dietary management surveillance NAVARRO Shearer Onset: 12/24/2017 Endocarditis, valve unspecified NAVARRO Shearer Onset: 12/24/2017 Social History Type Date Description Comments Sex Unknown ETOH Use Does not consume alcohol Tobacco Use Start: Unknown End: Unknown Patient is a former smoker Quit in 1987, pt. smoke "on-off" for 15 years approx 1/2 PPD Smoking Status Reviewed: 03/24/20 Patient is a former smoker Qu it in 1987, pt. smoke "on-off" for 15 years approx 1/2 PPD Exercise Type/Frequency Golf Seasonal , occasionally Exercise Type/Frequency Does housework sporadica lly washes dishes Exercise Type/Frequency Walks daily in drive way Exercise Limitations Fatigue Allergies, Adverse Reactions, Alerts Description No Known Drug Allergies Medications Active Medications SIG Qnty Indications Ordering Provide r Date Lipitor 40mg Tablets 1 by mouth every day at bedtime Kristal Ferguson MD 07/23/2019 Donepezil HCL 10mg Tablets 1 by mouth every day at bedtime Alexys Lange MD 07/23/2019 Janumet XR 50-1000mg Tablets ER 24 HR 1 by mouth once daily Unknown 02/24/2018 Nasal [place] 0.05% Solution ti d/prn Unknown 12/23/2017 Aspirin 81mg Tablets 1 by mouth every day Unknown 07/13/2015 Multi Vitamin Daily Tablets 1 by mouth every day Unknown 07/13/2015 Immunizations Description No Information Available Vital Signs Date Vital Result Comment 03/24/2020 12:47pm Weight 219.00 lb Home Weight 217lb Height 70 inches 5'10" BMI (Body Mass Index) 31.4 kg/m2 Heart Rate 71 /min BP Systolic Sitting 136 mmHg large cuff, Ra BP Diastolic Sitting 84 mmHg large cuff, Ra 07/24/2019 12:33pm Weight 224.00 lb Home Weight 220lb Height 70 inches 5'10" BMI (Body Mass Index) 32.1 kg/m2 Heart Rate 67 /min BP Systolic Sitting 136 mmHg large cuff, Ra BP Diastolic Sitting 80 mmHg large cuff, Ra Results Test Acquired Date Facility Test Result H/L Range Note CBC without Differential 08/31/2020 [facility] - not inter faced (315)- - White Blood Count 9.7 4.0-10.0 Red Blood Count 5.13 4.30-6.10 Platelets 219 150-450 Hemoglobin 15.1 Hematocrit 45.7 Hemoglobin A1c 08/31/2020 [facility] - not interfaced (315)- - Hemoglobin A1c 6.2 BMP 08/31/2020 [facility] - not interfaced (315)- - Calcium Ser/Plasma Mass/Vol 8.4 Sodium 143 Carbon Dioxide Ser/Plasm 28 Chloride Serum/Plasma 109 Potassium 3.5 Glucose 128 High 70-100 Blood Urea Nitrogen 16 7-18 Creatinine 0.81 0.70-1.30 G F R >60.0 Procedures Description No Information Available Medical Devices Description No Information Available Encounters Description No Information Available Assessments Description No Information Available Plan of Treatment Future Appointment(s):* 09/30/2020 3:00 pm - NAVARRO Talley at Main Office 03/24/2020 - NAVARRO Shearer* I10 Essential (primary) hypertension* Recommendations:* No medication changes were made today. * I38 Endocarditis, valve unspecified * Z95.3 Presence of xenogenic heart valve* Recommendations:* Per the guidelines, patient will require antibiotic prophylaxis before any dental procedures. Plan for repeat echo 2020. * R94.31 Abnormal electrocardiogram [ECG] [EKG]* Recommendations:* No significant change. No further workup required. * E66.8 Other obesity * Z71.3 Dietary counseling and surveillance* Recommendations:* Recommend adopting a more whole foods, plant-based diet in addition to moderate exercise a minimum of 30 minutes 6 days a week. In order to optimize cardiovascular health please be conscious of processed foods, alcohol (no more than two dr inks a day for men and one drink a day for women), salt (<2000 mg/d), oils, saturated fat/animal products, and highly refined carbohydrates such as breads, pastas, and sweets. * All * Follow up:* Follow up in 6 months. Functional Status Functional Condition Comment Date Status Independent with all ADL's Activ e Mental Status Description No Information Available Referrals Description No Information Available
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
--- OUTSIDE RECORDS SUMMARY | 2020-11-04 09:09 | CCD | Continuity of Care Document ---
Author Gorge Greenwood PA Organization Unknown Address [address] [place] [address], [place] [address] Phone [phone] Care Team Providers Care Drop Wire Stringer Name Role Phone Pantera Gomez AUTM [phone] Cyrus Angela MD AUTM [phone] Cortney Giang MD AUTM [phone] Jonathan Atkins MD AUTM [phone] Kristal Ferguson MD AUTM [phone] Alexys Lange MD AUTM [phone] Problems Active Problems Provider Date Aortic valve [...] years approx 1/2 PPD Smoking Status Reviewed: 09/30/20 Patient is a former smoker Qu it [...] by mouth once daily Unknown 02/24/2018 Nasal [place] 0.05% Solution ti d/prn Unknown 12/23/2017 Aspirin 81mg Tablets 1 by mouth every day Unknown 07/13/2015 Multi Vitamin Daily Tablets 1 by mouth every day Unknown 07/13/2015 Immunizations Description No Information Available Vital Signs Date Vital Result Comment 09/30/2020 2:57pm Weight 213.00 lb Home Weight 210lb Home weight Height 70 inches 5'10" BMI (Body Mass Index) 30.6 kg/m2 Heart Rate 76 /min regular Respiratory Rate 16 /min nonlabored BP Systolic Sitting 126 mmHg Ra, large cuff BP Diastolic Sitting 80 mmHg Ra, large cuff 03/24/2020 12:47pm Weight 219.00 lb Home Weight 217lb Height 70 inches 5'10" BMI (Body Mass Index) 31.4 kg/m2 Heart Rate 71 /min BP Systolic Sitting 136 mmHg large cuff, Ra BP Diastolic Sitting 84 mmHg large cuff, Ra Results Test Acquired Date Facility Test Result H/L Range Note CBC without Differential 08/31/2020 [facility] - not inter faced (315)- - White Blood Count 9.7 4.0-10.0 Red Blood Count 5.13 4.30-6.10 Platelets 219 150-450 Hemoglobin 15.1 Hematocrit 45.7 Hemoglobin A1c 08/31/2020 [facility] - not interfaced (315)- - Hemoglobin A1c 6.2 BMP 08/31/2020 [facility] - not interfaced (315)- - Calcium Ser/Plasma Mass/Vol 8.4 Sodium 143 Carbon Dioxide Ser/Plasm 28 Chloride Serum/Plasma 109 Potassium 3.5 Glucose 128 High 70-100 Blood Urea Nitrogen 16 7-18 Creatinine 0.81 0.70-1.30 G F R >60.0 Procedures Date Code Description Status 09/30/2020 44339 ECG 12-Lead Completed Medical Devices Description No Information Available Encounters Type Date Location Provider Dx Diagnosis Office Visit 09/30/2020 3:00p Main Office NAVARRO Talley I10 Essential (primary) hypertension I38 Endocarditis, valve unspecif ied Z95.3 Presence of xenogenic heart valve R94.31 Abnormal electrocardiogram [ ECG] [EKG] G45.9 Transient cerebral ischemic attack, unspecified E66.8 Other obesity Z71.3 Dietary counseling and surve illance Assessments Date Code Description Provider 09/30/2020 I10 Essential (primary) hypertension NAVARRO Talley 09/30/2020 I38 Endocarditis, valve unspecified NAVARRO Talley 09/30/2020 Z95.3 Presence of xenogenic heart valv e NAVARRO Talley 09/30/2020 R94.31 Abnormal electrocardiogram [ECG] [EKG] NAVARRO Talley 09/30/2020 G45.9 Transient cerebral ischemic allyn ck, unspecified NAVARRO Talley 09/30/2020 E66.8 Other obesity NAVARRO Luna Cha, se 09/30/2020 Z71.3 Dietary counseling and surveilla nce NAVARRO Talley Plan of Treatment Future Appointment(s):* 03/30/2021 10:45 am - NAVARRO Talley at Main Office * 11/16/2020 2:00 pm - ECHO at Main Office 09/30/2020 - NAVARRO Talley* I10 Essential (primary) hypertension* Recommendations:* Blood pressure well controlled in office today. Advised patient to please monitor blood pressures at home and to alert our office for readings >140/>90 or <110/<60 * I38 Endocarditis, valve unspecified* Recommendations:* Repeat echocardiogram Doppler ordered for further evaluation Advised patient to please contact the office if he is to experience any further lateralizing symptoms Advised patient on warning signs of repeat endocarditis including fever, chills, lesions on his palms, fingers, or fingernails He is agreeable to contact our office if any of these symptoms appear * Z95.3 Presence of xenogenic heart valve* New Xrays:* US Echocardiogram Transthoracic W Doppler And Color Flow, Ordered: 09/30/20 * R94.31 Abnormal electrocardiogram [ECG] [EKG] * G45.9 Transient cerebral ischemic attack, unspecified* New Xrays:* US Duplex Doppler Carotid Arteries Bilateral, Ordered: 09/30/20 * E66.8 Other obesity * Z71.3 Dietary counseling and surveillance * All * Follow up:* Follow up in 6 months Functional Status Functional Condition Comment Date Status Independent with all ADL's Activ e Mental Status Description No Information Available Referrals Description No Information Available
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
--- OUTSIDE RECORDS SUMMARY | 2020-11-04 09:10 | CCD ---
Author Author [facility] Organization [facility] Address Unknown Phone Unavailable Care Team Providers Care Paid Search Manager Name Role Phone Swarnkar, Denny Unavailable Unavailable Swarnkar, Denny Unavailable Unavailable Swarnkar, Denny Unavailable Unavailable Héctor TRIPLETT DPM Unavailable Unavailable Héctor TRIPLETT DPM Unavailable Unavailable Héctor TRIPLETT DPM Unavailable Unavailable Héctor TRIPLETT DPM Unavailable Unavailable Héctor TRIPLETT DPM Unavailable Unavailable Héctor TRIPLETT DPM Unavailable Unavailable Héctor TRIPLETT DPM Unavailable Unavailable Héctor TRIPLETT DPM Unavailable Unavailable Héctor TRIPLETT DPM Unavailable Unavailable Héctor TRIPLETT DPM Unavailable Unavailable Héctor TRIPLETT DPM Unavailable Unavailable Héctor TRIPLETT DPM Unavailable Unavailable Héctor TRIPLETT DPM Unavailable Unavailable Héctor TRIPLETT DPM Unavailable Unavailable Héctor TRIPLETT DPM Unavailable Unavailable Héctor TRIPLETT DPM Unavailable Unavailable Héctor TRIPLETT DPM Unavailable Unavailable Héctor TRIPLETT DPM Unavailable Unavailable Héctor TRIPLETT DPM Unavailable Unavailable Héctor TRIPLETT DPM Unavailable Unavailable Héctor TRILPETT DPM Unavailable Unavailable Héctor TRIPLETT DPM Unavailable Unavailable Héctor TRIPLETT DPM Unavailable Unavailable Héctor TRIPLETT DPM Unavailable Unavailable IOANA, Héctor TAVERA DPM Unavailable Unavailable IOANA, Héctor TAVERA DPM Unavailable Unavailable IOANA, Héctor TAVERA DPM Unavailable Unavailable MAJMODESTA, Héctor TAVERA DPM Unavailable Unavailable IOANA, R AYSE DPM Unavailable Unavailable IOANA, Héctor TAVERA DPM Unavailable Unavailable Simionescu, Gilmer Prajapati MD Unavailable Unavailable Simionescu, Gilmer Prajapati MD Unavailable Unavailable Simionescu, Gilmer Prajapati MD Unavailable Unavailable Simionescu, Gilmer Prajapati MD Unavailable Unavailable Simionescu, Gilmer Prajapati MD Unavailable Unavailable Simionescu, Gilmer Prajapati MD Unavailable Unavailable Simionescu, Gilmer Prajapati MD Unavailable Unavailable Simionescu, Gilmer Prajapati MD Unavailable Unavailable Simionescu, Gilmer Prajapati MD Unavailable Unavailable Simionescu, Gilmer Prajapati MD Unavailable Unavailable Simionescu, Gilmer Prajapati MD Unavailable Unavailable Simionescu, Gilmer Prajapati MD Unavailable Unavailable Simionescu, Gilmer Prajapati MD Unavailable Unavailable Simionescu, Gilmer Prajapati MD Unavailable Unavailable Simionescu, Gilmer Prajapati MD Unavailable Unavailable Simionescu, Gilmer Prajapati MD Unavailable Unavailable Simionescu, Gilmer Prajapati MD Unavailable Unavailable Simionescu, Gilmer Prajapati MD Unavailable Unavailable Simionescu, Gilmer Prajapati MD Unavailable Unavailable Simionescu, Gilmer Prajapati MD Unavailable Unavailable Simionescu, Gilmer Prajapati MD Unavailable Unavailable Simionescu, Gilmer Prajapati MD Unavailable Unavailable Simionescu, Gilmer Prajapati MD Unavailable Unavailable Simionescu, Gilmer Prajapati MD Unavailable Unavailable Simionescu, Gilmer Prajapati MD Unavailable Unavailable Simionescu, Gilmer Prajapati MD Unavailable Unavailable Simionescu, Gilmer Prajapati MD Unavailable Unavailable Simionescu, Gilmer Prajapati MD Unavailable Unavailable Simionescu, Gilmer Prajapati MD Unavailable Unavailable Simionescu, Gilmer Prajapati MD Unavailable Unavailable Simionescu, Gilmer Prajapati MD Unavailable Unavailable Simionescu, Gilmer Prajapati MD Unavailable Unavailable Simionescu, Gilmer Prajapati MD Unavailable Unavailable ALIASES , DEFAULT / GENERIC / UNKNOWN PROVIDER * Unavailable Unavailable ALIASES , DEFAULT / GENERIC / UNKNOWN PROVIDER * Unavailable Unavailable ALIASES , DEFAULT / GENERIC / UNKNOWN PROVIDER * Unavailable Unavailable ALIASES , DEFAULT / GENERIC / UNKNOWN PROVIDER * Unavailable Unavailable ALIASES , DEFAULT / GENERIC / UNKNOWN PROVIDER * Unavailable Unavailable ALIASES , DEFAULT / GENERIC / UNKNOWN PROVIDER * Unavailable Unavailable ALIASES , DEFAULT / GENERIC / UNKNOWN PROVIDER * Unavailable Unavailable ALIASES , DEFAULT / GENERIC / UNKNOWN PROVIDER * Unavailable Unavailable ALIASES , DEFAULT / GENERIC / UNKNOWN PROVIDER * Unavailable Unavailable ALIASES , DEFAULT / GENERIC / UNKNOWN PROVIDER * Unavailable Unavailable ALIASES , DEFAULT / GENERIC / UNKNOWN PROVIDER * Unavailable Unavailable ALIASES , DEFAULT / GENERIC / UNKNOWN PROVIDER * Unavailable Unavailable ALIASES , DEFAULT / GENERIC / UNKNOWN PROVIDER * Unavailable Unavailable ALIASES , DEFAULT / GENERIC / UNKNOWN PROVIDER * Unavailable Unavailable ALIASES , DEFAULT / GENERIC / UNKNOWN PROVIDER * Unavailable Unavailable ALIASES , DEFAULT / GENERIC / UNKNOWN PROVIDER * Unavailable Unavailable ALIASES , DEFAULT / GENERIC / UNKNOWN PROVIDER * Unavailable Unavailable ALIASES , DEFAULT / GENERIC / UNKNOWN PROVIDER * Unavailable Unavailable ALIASES , DEFAULT / GENERIC / UNKNOWN PROVIDER * Unavailable Unavailable ALIASES , DEFAULT / GENERIC / UNKNOWN PROVIDER * Unavailable Unavailable ALIASES , DEFAULT / GENERIC / UNKNOWN PROVIDER * Unavailable Unavailable ALIASES , DEFAULT / GENERIC / UNKNOWN PROVIDER * Unavailable Unavailable ALIASES , DEFAULT / GENERIC / UNKNOWN PROVIDER * Unavailable Unavailable ALIASES , DEFAULT / GENERIC / UNKNOWN PROVIDER * Unavailable Unavailable ALIASES , DEFAULT / GENERIC / UNKNOWN PROVIDER * Unavailable Unavailable ALIASES , DEFAULT / GENERIC / UNKNOWN PROVIDER * Unavailable Unavailable ALIASES , DEFAULT / GENERIC / UNKNOWN PROVIDER * Unavailable Unavailable ALIASES , DEFAULT / GENERIC / UNKNOWN PROVIDER * Unavailable Unavailable ALIASES , DEFAULT / GENERIC / UNKNOWN PROVIDER * Unavailable Unavailable ALIASES , DEFAULT / GENERIC / UNKNOWN PROVIDER * Unavailable Unavailable ALIASES , DEFAULT / GENERIC / UNKNOWN PROVIDER * Unavailable Unavailable ALIASES , DEFAULT / GENERIC / UNKNOWN PROVIDER * Unavailable Unavailable ALIASES , DEFAULT / GENERIC / UNKNOWN PROVIDER * Unavailable Unavailable ALIASES , DEFAULT / GENERIC / UNKNOWN PROVIDER * Unavailable Unavailable ALIASES , DEFAULT / GENERIC / UNKNOWN PROVIDER * Unavailable Unavailable ALIASES , DEFAULT / GENERIC / UNKNOWN PROVIDER * Unavailable Unavailable ALIASES , DEFAULT / GENERIC / UNKNOWN PROVIDER * Unavailable Unavailable ALIASES , DEFAULT / GENERIC / UNKNOWN PROVIDER * Unavailable Unavailable ALIASES , DEFAULT / GENERIC / UNKNOWN PROVIDER * Unavailable Unavailable ALIASES , DEFAULT / GENERIC / UNKNOWN PROVIDER * Unavailable Unavailable ALIASES , DEFAULT / GENERIC / UNKNOWN PROVIDER * Unavailable Unavailable ALIASES , DEFAULT / GENERIC / UNKNOWN PROVIDER * Unavailable Unavailable ALIASES , DEFAULT / GENERIC / UNKNOWN PROVIDER * Unavailable Unavailable ALIASES , DEFAULT / GENERIC / UNKNOWN PROVIDER * Unavailable Unavailable ALIASES , DEFAULT / GENERIC / UNKNOWN PROVIDER * Unavailable Unavailable ALIASES , DEFAULT / GENERIC / UNKNOWN PROVIDER * Unavailable Unavailable ALIASES , DEFAULT / GENERIC / UNKNOWN PROVIDER * Unavailable Unavailable ALIASES , DEFAULT / GENERIC / UNKNOWN PROVIDER * Unavailable Unavailable ALIASES , DEFAULT / GENERIC / UNKNOWN PROVIDER * Unavailable Unavailable ALIASES , DEFAULT / GENERIC / UNKNOWN PROVIDER * Unavailable Unavailable ALIASES , DEFAULT / GENERIC / UNKNOWN PROVIDER * Unavailable Unavailable ALIASES , DEFAULT / GENERIC / UNKNOWN PROVIDER * Unavailable Unavailable ALIASES , DEFAULT / GENERIC / UNKNOWN PROVIDER * Unavailable Unavailable Lion, L Vida PA Unavailable Unavailable Lion, L Vida PA Unavailable Unavailable Lion, L Vida PA Unavailable Unavailable Lion, L Vida PA Unavailable Unavailable Lion, L Vida PA Unavailable Unavailable Lion, L Vida PA Unavailable Unavailable Lion, L Vida PA Unavailable Unavailable Lion, L Vida PA Unavailable Unavailable Lion, L Vida PA Unavailable Unavailable Lion, L Vida PA Unavailable Unavailable Lion, L Vida PA Unavailable Unavailable Lion, L Vida PA Unavailable Unavailable Lion, L Vida PA Unavailable Unavailable Lion, L Vida PA Unavailable Unavailable Lion, L Vida PA Unavailable Unavailable Lion, L Vida PA Unavailable Unavailable Lion, L Vida PA Unavailable Unavailable Lion, L Vida PA Unavailable Unavailable Lion, L Vida PA Unavailable Unavailable Lion, L Vida PA Unavailable Unavailable Lion, L Vida PA Unavailable Unavailable Lion, L Vida PA Unavailable Unavailable Lion, L Vida PA Unavailable Unavailable Alexys Lange MD Unavailable Unavailable Alexys Lange MD Unavailable Unavailable Alexys Lange MD Unavailable Unavailable Alexys Lange MD Unavailable Unavailable Alexys Lange MD Unavailable Unavailable Alexys Lange MD Unavailable Unavailable Alexys Lange MD Unavailable Unavailable Alexys Lange MD Unavailable Unavailable Alexys Lange MD Unavailable Unavailable Alexys Lange MD Unavailable Unavailable Alexys Lange MD Unavailable Unavailable Alexys Lange MD Unavailable Unavailable Alexys Lange MD Unavailable Unavailable Alexys Lange MD Unavailable Unavailable Alexys Lange MD Unavailable Unavailable Alexys Lange MD Unavailable Unavailable Alexys Lange MD Unavailable Unavailable Alexys Lange MD Unavailable Unavailable Alexys Lange MD Unavailable Unavailable Alexys Lange MD Unavailable Unavailable Alexys Lange MD Unavailable Unavailable Alexys Lange MD Unavailable Unavailable Alexys Lange MD Unavailable Unavailable Ali, Alexys MD Unavailable Unavailable Ali, Alexys MD Unavailable Unavailable Ali, Alexys MD Unavailable Unavailable Ali, Alexys MD Unavailable Unavailable Ali, Alexys MD Unavailable Unavailable Ali, Alexys MD Unavailable Unavailable Ali, Alexys MD Unavailable Unavailable Ali, Alexys MD Unavailable Unavailable Ali, Alexys MD Unavailable Unavailable Ali, Alexys MD Unavailable Unavailable Ali, Alexys MD Unavailable Unavailable Ali, Alexys MD Unavailable Unavailable Ali, Alexys MD Unavailable Unavailable Ali, Alexys MD Unavailable Unavailable Ali, Alexys MD Unavailable Unavailable Ali, Alexys MD Unavailable Unavailable Ali, Alexys MD Unavailable Unavailable Ali, Alexys MD Unavailable Unavailable Ali, Alexys MD Unavailable Unavailable Ali, Alexys MD Unavailable Unavailable Ali, Alexys MD Unavailable Unavailable Ali, Alexys MD Unavailable Unavailable Ali, Alexys MD Unavailable Unavailable Ali, Alexys MD Unavailable Unavailable Ali, Alexys MD Unavailable Unavailable Ali, Alexys MD Unavailable Unavailable LEONA [id number], E YA [id number] Unavailable Unavailabl e LEONA [id number], E YA [id number] Unavailable Unavailabl e LEONA [id number], E YA [id number] Unavailable Unavailabl e DELAI, L IKER PA Unavailable Unavailable DELIA, L IKER PA Unavailable Unavailable DELIA, L IKER PA Unavailable Unavailable DELIA, L IKER PA Unavailable Unavailable DELIA, L IKER PA Unavailable Unavailable DELIA, L IKER PA Unavailable Unavailable DELIA, L IKER PA Unavailable Unavailable DELIA, L IKER PA Unavailable Unavailable DELIA, L IKER PA Unavailable Unavailable DELIA, L IKER PA Unavailable Unavailable DELIA, L IKER PA Unavailable Unavailable DELIA, L IKER PA Unavailable Unavailable JOEL KHAN MD Unavailable JOEL KHAN MD Unavailable JOEL KHAN MD Unavailable JOEL KHAN MD Unavailable JOEL KHAN MD Unavailable Re-disclosure Warning The records that you are about to access may contain information from federally-assisted alcohol or drug abuse programs. If such information is present, then the following federally mandated warning applies: This information has been disclosed to you from records protected by federal confidentiality rules (42 CFR part 2). The federal rules prohibit you from making any further disclosure of this information unless further disclosure is expressly permitted by the written consent of the person to whom it pertains or as otherwise permitted by 42 CFR part 2. A general authorization for the release of medical or other information is NOT sufficient for this purpose. The Federal rules restrict any use of the information to criminally investigate or prosecute any alcohol or drug abuse patient.The records that you are about to access may contain highly sensitive health information, the redisclosure of which is protected by Article 27-F of the [facility] Public Health law. If you continue you may have access to information: Regarding HIV / AIDS; Provided by facilities licensed or operated by the [facility] Office of Mental Health; or Provided by the [facility] Office for People With Developmental Disabilities. If such information is present, then the following [facility] mandated warning applies: This information has been disclosed to you from confidential records which are protected by state law. State law prohibits you from making any further disclosure of this information without the specific written consent of the person to whom it pertains, or as otherwise permitted by law. Any unauthorized further disclosure in violation of state law may result in a fine or residential sentence or both. A general authorization for the release of medical or other information is NOT sufficient authorization for further disc losure. Allergies and Adverse Reactions Type Description Substance Reaction Status Data Source(s ) Drug Class NO KNOWN ALLERGIES NO KNOWN ALLERGIES [facility] Family History Family Member Name Family Member Gender Family Member Status Date o f Status Description Data Source(s) Unknown Unknown Problem MEDENT ([facility]) Unknown Female Problem MEDENT ([facility]) Unknown Unknown Problem [facility] ([facility] Encounters Encounter Providers Location Date Indications Data Source(s ) Unknown [address] [facility] [id number] 10/31/2020 12:00:00 AM EST eCW1 ([facility]) Office Visit Attender: Alexys Lange MD Main office - [place] 10/11/2020 11:30:00 AM EST MEDENT ([facility] ) Unknown [address] [facility] [place] [address] 10/10/2020 12:00:00 AM EST eCW1 ([facility]) Unknown [address] [facility] [place] [address] 10/10/2020 12:00:00 AM EST eCW1 ([facility]) Emergency Attender: YA DELGADILLO [id number]: YA PLUMMER [id number] 10/04/2020 10:10:35 AM EST [facility] Inpatient Attender: Victorina Wong DAttender: Denny PopAttender: JOEL KHAN MDAttender: YA DELGADILLO [id number]: DEFAULT / GENERIC / UNKNOWN PROVIDER ALIASES Admitter: JOEL KHAN MDReferrer: JOEL KHAN MD [id number] 10/04/2020 12:00:00 AM EST - 10/07/2020 05:12:00 PM EST Occlusion and stenosis of bilateral carotid arteries [facility] Occlusion and stenosis of bilateral novoa tid arteries Patient discharged. Outpatient Attender: IKER BRICEÑO Main Office 09/30/2020 0 2:00:00 PM EST MEDENT ([facility]) Office Visit Attender: Alexys Lange MD Main office - [place] 09/22/2020 12:30:00 PM EST MEDENT ([facility], ) Unknown [address] [facility] [id number] 09/20/2020 12:00:00 AM EST eCW1 ([facility]) Outpatient [address] [facility] [id number] 09/19/2020 12:00:00 AM EST [facility]CW1 ([facility]) Unknown [address] [facility] [id number] 09/15/2020 12:00:00 AM EST eCW1 ([facility]) (TCM) Transition of Care Visit [address] [place] [address] 09/01/2020 12:00:00 AM EST eCW1 ([facility]) Unknown [address] [facility] [id number] 09/01/2020 12:00:00 AM EST [facility]CW1 ([facility]) Unknown [address] [facility] [id number] 08/30/2020 12:00:00 AM EST eCW1 ([facility]) Unknown [address] [facility] [place] [address] 08/11/2020 12:00:00 AM EST eCW1 ([facility]) Office Visit Attender: Alexys Lange MD Main office - [place] 08/10/2020 11:15:00 AM EST MEDENT ([facility], ) Outpatient [address] [facility] [place] [address] 07/12/2020 12:00:00 AM EST eCW1 ([facility]) Outpatient [address] [facility] [place] [id number] 06/09/2020 12:00:00 AM EDT eCW1 ([facility]) Outpatient Attender: AYSE TRIPLETT DPM [place] Office 04/10 10:00:00 AM EDT MEDENT ([facility] Outpatient Attender: Vida BRICEÑO Main Office 03/24/2020 01:00:0 0 PM EDT MEDENT ([facility]) [facility] [address] [facility] [place] [address] 03/03/2020 12:00:00 AM EDT eCW1 ([facility]) Unknown [address] [facility] [place] [address] 02/17/2020 12:00:00 AM EDT eCW1 ([facility]) [facility] [address] [facility] [place] [id number] 12/21/2019 12:00:00 AM EDT eCW1 ([facility]) [facility] [address] [facility] [place] [address] 11/24/2019 12:00:00 AM EDT eCW1 ([facility]) [facility] [place] [address] [facility] [place] [address] 11/23/2019 12:00:00 AM EDT eCW1 ([facility]) Outpatient Attender: AYSE MOSQUEDAM [place] Office 11/07 10:15:00 AM EDT MEDENT ([facility] [address] [facility] [place] [address] 10/30/2019 12:00:00 AM EST eCW1 ([facility]) Immunizations Vaccine Date Status Description Data Source(s) influenza, recombinant, quadrIvalent,injectable, prese rvative free 06/09/2020 10:38:00 AM EDT completed eCW1 ([facility]) influenza, recombinant, quadrIvalent,injectable, prese rvative free 06/09/2020 10:38:00 AM EDT completed eCW1 ([facility]) influenza, recombinant, quadrIvalent,injectable, prese rvative free 06/09/2020 10:38:00 AM EDT completed eCW1 ([facility]) influenza, recombinant, quadrIvalent,injectable, prese rvative free 06/09/2020 10:38:00 AM EDT completed eCW1 ([facility]) influenza, recombinant, quadrIvalent,injectable, prese rvative free 06/09/2020 10:38:00 AM EDT completed eCW1 ([facility]) influenza, recombinant, quadrIvalent,injectable, prese rvative free 06/09/2020 10:38:00 AM EDT completed eCW1 ([facility]) influenza, recombinant, quadrIvalent,injectable, prese rvative free 06/09/2020 10:38:00 AM EDT completed eCW1 ([facility]) influenza, recombinant, quadrIvalent,injectable, prese rvative free 06/09/2020 10:38:00 AM EDT completed eCW1 ([facility]) influenza, recombinant, quadrIvalent,injectable, prese rvative free 06/09/2020 10:38:00 AM EDT completed eCW1 ([facility]) influenza, recombinant, quadrIvalent,injectable, prese rvative free 06/09/2020 10:38:00 AM EDT completed eCW1 ([facility]) influenza, recombinant, quadrIvalent,injectable, prese rvative free 06/09/2020 10:38:00 AM EDT completed eCW1 ([facility]) influenza, recombinant, quadrIvalent,injectable, prese rvative free 06/09/2020 10:38:00 AM EDT completed eCW1 ([facility]) Medications Medication Brand Name Start Date Product Form Dose Route Admi nistrative Instructions Pharmacy Instructions Status Indications Reaction Description Data Source(s) Memantine hydrochloride 5 MG Oral Tablet memantine (NA MENDA) tablet 10 mg memantine (NAMENDA) tablet 10 mg 10/07/2020 09:00:00 AM EST 10 mg Oral active 10 mg, Oral, Daily Standard, First dose (after last modification) on Sat10/07/20 at 0900, For 7 days [facility] Medication administered onsite Levetiracetam 750 MG Oral Tablet Levetiracetam 750 MG 2020 12:00:00 AM EST 1.0 {tablet} active Levetiracet am 750 MG eCW1 ([facility]) Polymyxin B 54332 UNT/ML / Trimethoprim 1 MG/ML Ophthalmic Solution Polymyxin B- Trimethoprim 65429-9.1 UNIT/ML-% Ophthalmic Solution (Polytrim) Polymyxin B- Trimethoprim 86600-9.1 UNIT/ML-% Ophthalmic Solution (Polytrim) 10/07/2020 12:00:00 AM EST 1 [drp] Left Eye active Place 1 drop into the left eye every 4 (four) hours for 7 days [facility] Levetiracetam 750 MG Oral Tablet levETIRAcetam 750 MG Oral Tablet (KEPPRA) levETIRAcetam 750 MG Oral Tablet (KEPPRA) 10/07/2020 12:00:00 AM EST 750 mg Oral active Take 1 tablet by sujit th Two Times Daily [facility] Polymyxin B 15626 UNT/ML / Trimethoprim 1 MG/ML Ophthalmic Solution Polymyxin B- Trimethoprim 13241-8.1 UNIT/ML Polymyxin B-Trimethoprim 07765-2.1 UNIT/ML 10/07/2020 12:00:00 AM EST 1.0 {drop_into_affected_eye} active Polymyxin B-Trimethoprim 27298-1.1 UNIT/ML eCW1 ([facility]) Levetiracetam 750 MG Oral Tablet Levetiracetam 750 MG 2020 12:00:00 AM EST 1.0 {tablet} active Levetiracet am 750 MG eCW1 ([facility]) Donepezil hydrochloride 5 MG Oral Tablet donepezil (AR ICEPT) tablet 5 mg donepezil (ARICEPT) tablet 5 mg 10/06/2020 10:00:00 PM EST 5 mg O ral active 5 mg, Oral, Nightly, First dose on Sat10/06/20 at 2200, For 30 days [facility] Medication administered onsite 0.4 ML Enoxaparin sodium 100 MG/ML Prefi lled Syringe enoxaparin sodium (LOVENOX) injection 40 mg enoxaparin sodium (LOVENOX) injection 40 mg 10/06/2020 09:00:00 AM EST 40 mg Subcutaneous active 40 mg, Subcutaneous, Daily Standard, First dose on Sat10/06/20 at 0900, For 30 days [facility] Medication administered onsite potassium chloride (K-DUR) dissolvable tablet 40 mEq 28298-6 38-90 10/06/2020 09:00:00 AM EST 40 meq Oral completed 40 mEq, Oral, Once, Sat10/06/20 at 0900, For 1 dose
May be dissolved in water for patients with a G-Tube or unable to swallow. If concern for clogging G-Tube, may contact Pharmacy to switch formulation to a powder packet.
[facility] Medication administered onsite Trazodone Hydrochloride 50 MG Oral Tablet trazodone (D ESYREL) tablet 50 mg trazodone (DESYREL) tablet 50 mg 10/05/2020 11:30:00 PM EST 50 mg Oral completed 50 mg, Oral, Once, Sat10/05/20 a t 2330, For 1 dose [facility] Medication administered onsite olanzapine 5 MG/ML Injectable Solution OLANZapine (ZYP REXA) injection 2.5 mg OLANZapine (ZYPREXA) injection 2.5 mg 10/05/2020 11:17:21 PM EST 2.5 mg Intramuscular active 2.5 mg, Int ramuscular, Once PRN, Agitation, Starting Sat10/05/20 at 2317, For 1 dose
Reconstitute 10 mg vial with 2.1 mL SWFI; resulting solution is ~5 mg/mL; Use within 1 hour following reconsti tution.
[facility] Medication administered onsite olanzapine 2.5 MG Oral Tablet OLANZapine (ZYPREXA) tab let 2.5 mg OLANZapine (ZYPREXA) tablet 2.5 mg 10/05/2020 07:45:00 PM EST 2.5 mg Oral completed 2.5 mg, Oral, Once, Sat10/05/20 at 1945, For 1 dose [facility] Medication administered onsite Levetiracetam 500 MG Oral Tablet levETIRAcetam (KEPPRA ) tablet 750 mg levETIRAcetam (KEPPRA) tablet 750 mg 10/05/2020 02:45:00 PM EST 750 m g Oral active 750 mg, Oral, 2 Times Daily, First dose on Sat10/05/20 at 1445, For 30 days [facility] Medication administered onsite potassium chloride (K-DUR) dissolvable tablet 40 mEq 02528-4 38-90 10/05/2020 09:30:00 AM EST 40 meq Oral completed 40 mEq, Oral, Once, Sat10/05/20 at 0930, For 1 dose
May be dissolved in water for patients with a G-Tube or unable to swallow. If concern for clogging G-Tube, may contact Pharmacy to switch formulation to a powder packet.
[facility] Medication administered onsite Aspirin 81 MG Delayed Release Oral Tablet aspirin EC E C tablet 81 mg aspirin EC EC tablet 81 mg 10/05/2020 09:00:00 AM EST 81 mg Oral ac tive 81 mg, Oral, Daily Standard, First dose on Sat10/05/20 at 0900, For 30 days
Do not crush or chew
[facility] Medication administered onsite Donepezil hydrochloride 10 MG Oral Tablet Donepezil HCL 10/05/2020 12:00:00 AM EST ORAL active MEDENT ([facility]) Sodium Chloride 0.111 MEQ/ML Nasal Solut ion sodium chloride (OCEAN) 0.65 % nasal spray 2 spray sodium chloride (OCEAN) 0.65 % nasal spray 2 spray 09:00:00 PM EST 2 {spray} Each Nare completed 2 spray, Each Nare, Once, Sat10/04/20 at 2100, For 1 dose [facility] Medication administered onsite Memantine hydrochloride 5 MG Oral Tablet memantine (NA MENDA) tablet 5 mg memantine (NAMENDA) tablet 5 mg 10/04/2020 09:00:00 PM EST 5 mg O ral aborted 5 mg, Oral, 2 Times Daily, First dose on Sat10/04/20 at 2100, For 30 days [facility] Medication administered onsite atorvastatin 40 MG Oral Tablet atorvastatin (LIPITOR) tablet 40 mg atorvastatin (LIPITOR) tablet 40 mg 10/04/2020 09:00:00 PM EST 40 mg Oral active 40 mg, Oral, Every evening, First dose on Sat10/04/20 at 2100, For 30 days [facility] Medication administered onsite insulin lispro (HumaLOG) injection LOW DOSE EATING INS ULIN patients 1-8 Units 71659-595-79 10/04/2020 06:00:00 PM EST U Subcutaneous active 1-8 Units, Subcutaneous, Three Times Daily-With Meals, First dose on Sat10/04/20 at 1800, For 30 days
Nursing MUST open the 'SQ Insulin Dosing Charts' Sidebar Report, or, the Patient Summary or Summary Report within the ED.
[facility] Medication administered onsite 1 ML Lorazepam 2 MG/ML Injection LORazepam (ATIVAN) in jection 1 mg LORazepam (ATIVAN) injection 1 mg 10/04/2020 05:45:00 PM EST 1 mg Intraveno us completed 1 mg, Intravenous, O nce, Sat10/04/20 at 1745, For 1 dose
For MRI
[facility] Medication administered onsite NaCl infusion 0.9 % 1798-7893-04 10/04/2020 01:30:00 PM EST Intravenous aborted at 50 mL/hr, Intrave nous, Continuous, Starting Sat10/04/20 at 1330, For 30 days [facility] Medication administered onsite clopidogrel 300 MG Oral Tablet clopidogrel (PLAVIX) ta blet 300 mg clopidogrel (PLAVIX) tablet 300 mg 10/04/2020 01:30:00 PM EST 300 mg Oral completed 300 mg, Oral, Once, Sat10/04/20 at 1330, For 1 dose [facility] Medication administered onsite Glucose 0.417 MG/MG Oral Gel glucose (GLUTOSE) 40 % or al gel 15 g glucose (GLUTOSE) 40 % oral gel 15 g 10/04/2020 01:07:38 PM EST 15 g Oral active 15 g, Oral, PRN, Low blood s ugar, for gluose 55-69 mg/dl and able to take PO, Starting Sat10/04/20 at 1307, For 30 days [facility] Medication administered onsite dextrose 50 % IV solution 25 mL [id number] 10/04/2020 01:07:[address] 25 mL Intravenous active 25 mL, Intrav enous, PRN, Other, blood glucose <55, Starting Sat10/04/20 at 1307, For 30 days
Not for midline administration.
[facility] Medication administered onsite Glucagon 1 MG Injection glucagon (human recombinant) ( GLUCAGEN) injection 1 mg glucagon (human recombinant) (GLUCAGEN) injection 1 mg 10/04/2020 01:07:37 PM EST 1 mg Intramuscular active 1 mg, Intramuscular, PRN, for glucose <55 without IV access, Starting Sat10/04/20 at 1307, For 30 days [facility] Medication administered onsite sodium chloride 0.9 % bolus 1,000 mL 3887-5642-29 10/04/2020 12:45: 00 PM EST 1000 mL Intravenous completed 1,000 mL , Intravenous, Once, Sat10/04/20 at 1245, For 1 dose [facility] Medication administered onsite iohexol (OMNIPAQUE) 350 MG/ML contrast injection 75 mL [id number] 10/04/2020 10:30:00 AM EST 75 mL Given by IV completed 75 mL, Given by IV, 1 TIME IMAGING, Sat10/04/20 at 1030, For 1 dose [facility] Medication administered onsite Memantine hydrochloride 10 MG Oral Tablet Memantine HCL 09/22/2020 12:00:00 AM EST completed [facility] ([facility]) MetFORMIN HCl ER (MOD) 500 MG MetFORMIN HCl ER (MOD) 500 MG 08/31/2020 12:00:00 AM EST 1.0 {tablet_with_evening_meal} active MetFORMIN HCl ER (MOD) 500 MG eCW1 ([facility]) MetFORMIN HCl ER (MOD) 500 MG MetFORMIN HCl ER (MOD) 500 MG 08/31/2020 12:00:00 AM EST 1.0 {tablet_with_evening_meal} active MetFORMIN HCl ER (MOD) 500 MG eCW1 ([facility]) MetFORMIN HCl ER (MOD) 500 MG MetFORMIN HCl ER (MOD) 500 MG 08/31/2020 12:00:00 AM EST 1.0 {tablet_with_evening_meal} active MetFORMIN HCl ER (MOD) 500 MG eCW1 ([facility]) MetFORMIN HCl ER (MOD) 500 MG MetFORMIN HCl ER (MOD) 500 MG 08/31/2020 12:00:00 AM EST 1.0 {tablet_with_evening_meal} active MetFORMIN HCl ER (MOD) 500 MG eCW1 ([facility]) MetFORMIN HCl ER (MOD) 500 MG MetFORMIN HCl ER (MOD) 500 MG 08/31/2020 12:00:00 AM EST 1.0 {tablet_with_evening_meal} active MetFORMIN HCl ER (MOD) 500 MG eCW1 ([facility]) MetFORMIN HCl ER (MOD) 500 MG MetFORMIN HCl ER (MOD) 500 MG 08/31/2020 12:00:00 AM EST 1.0 {tablet_with_evening_meal} active MetFORMIN HCl ER (MOD) 500 MG eCW1 ([facility]) Glucometer UNK 08/11/2020 12:00:00 AM EST active Glucometer eCW1 ([facility]) Glucometer UNK 08/11/2020 12:00:00 AM EST active Glucometer eCW1 ([facility]) Glucometer UNK 08/11/2020 12:00:00 AM EST active Glucometer eCW1 ([facility]) Glucometer UNK 08/11/2020 12:00:00 AM EST active Glucometer eCW1 ([facility]) Glucometer UNK 08/11/2020 12:00:00 AM EST active Glucometer eCW1 ([facility]) Glucometer UNK 08/11/2020 12:00:00 AM EST active Glucometer eCW1 ([facility]) Glucometer UNK 08/11/2020 12:00:00 AM EST active Glucometer eCW1 ([facility]) Glucometer UNK 08/11/2020 12:00:00 AM EST active Glucometer eCW1 ([facility]) Glucometer UNK 08/11/2020 12:00:00 AM EST active Glucometer eCW1 ([facility]) Glucometer UNK 08/11/2020 12:00:00 AM EST active Glucometer eCW1 ([facility]) MetFORMIN HCl ER (MOD) 1000 MG MetFORMIN HCl ER (MOD) 1000 M G 07/12/2020 12:00:00 AM EST 1.0 {tablet_with_evening_meal} a ctive MetFORMIN HCl ER (MOD) 1000 MG eCW1 ([facility]) MetFORMIN HCl ER (MOD) 1000 MG MetFORMIN HCl ER (MOD) 1000 M G 07/12/2020 12:00:00 AM EST 1.0 {tablet_with_evening_meal} a ctive MetFORMIN HCl ER (MOD) 1000 MG eCW1 ([facility]) MetFORMIN HCl ER (MOD) 1000 MG MetFORMIN HCl ER (MOD) 1000 M G 07/12/2020 12:00:00 AM EST 1.0 {tablet_with_evening_meal} a ctive MetFORMIN HCl ER (MOD) 1000 MG eCW1 ([facility]) ammonium lactate 120 MG/ML Topical Cream Ammonium Lactate 05/02/2020 12:00:00 AM EDT active [facility] ([facility] Ketoconazole 20 MG/ML Topical Cream Ketoconazole 11/17/2019 12:00:00 AM EDT active [facility] ([facility] clopidogrel 300 MG Oral Tablet Clopidogr el Bisulfate 300 MG Oral Tablet (PLAVIX) Clopidogrel Bisulfate 300 MG Oral Tablet (PLAVIX) 300 mg Oral aborted Take 300 mg by mouth once [facility] Insurance Providers Payer name Policy type / Coverage type Policy ID Covered democrat ID Covered democrat's relationship to lemons Policy [place] Plan Information MEDICARE [id number] G73 FOR LIFE [id number] SP [id number] [place] [id number] S [id number] MEDICARE C [id number] O [id number] G73 FOR LIFE O [id number] S [id number] FOR LIFE U [id number] Self [id number] MEDICARE A [id number] Self [id number] G73 FOR LIFE U [id number] Self [id number] ANSI-Commercial [id number] ANSI-Medicare Part B [id number] ANSI-Medicare Part B [id number] ANSI-Commercial [id number] Prime - [employer] Health Maintenance Organization (HMO) [id number] Self [id number] For Life - [employer] Medigap Part B [id number] Self [id number] Medicare (Part B) Medicare Primary [id number] Self [id number] Prime - [employer] Maintenance Organization (HMO) [id number] Self [id number] For Life - [employer] Medigap Part B [id number] Self [id number] Medicare (Part B) Medicare Primary [id number] Self [id number] ANSI-Medicare Part B [id number] ANSI-Commercial [id number] [facility] (2018) [facility] [id number] Self [id number] [place] Medicare Primary [id number] Self [id number] ANSI-Medicare Part B [id number] ANSI-Commercial [id number] ANSI-Medicare Part B [id number] ANSI-Commercial [id number] ANSI-Commercial [id number] ANSI-Medicare Part B [id number] ANSI-Medicare Part B [id number] ANSI-Commercial [id number] ANSI-Medicare Part B [id number] ANSI-Commercial [id number] ANSI-Commercial [id number] ANSI-Medicare Part B [id number] ANSI-Medicare Part B [id number] ANSI-Commercial [id number] ANSI-Medicare Part B [id number] ANSI-Commercial [id number] Prime - [employer] Health Maintenance Organization (HMO) [id number] Self [id number] For Life - [employer] Medigap Part B [id number] Self [id number] Medicare (Part B) Medicare Primary [id number] Self [id number] Prime - [employer] Maintenance Organization (HMO) [id number] Self [id number] For Life - [employer] Medigap Part B [id number] Self [id number] Medicare (Part B) Medicare Primary [id number] Self [id number] [facility] PART B C [id number] S [id number] MEDICARE C [id number] S [id number] A ANSI-Medicare Part B [id number] ANSI-Commercial [id number] MEDICARE [id number] A ANSI-Commercial [id number] ANSI-Medicare Part B [id number] SELF PAY ANSI-Medicare Part B [id number] ANSI-Commercial [id number] ANSI-Medicare Part B [id number] ANSI-Commercial [id number] ANSI-Commercial [id number] ANSI-Medicare Part B [id number] ANSI-Medicare Part B [id number] ANSI-Commercial [id number] Medicare Part B [facility] Other 0 Se lf 0 FOR LIFE [id number] SP [id number] Prime - [employer] Maintenance Organization (HMO) [id number] Self [id number] For Life - [employer] Medigap Part B [id number] Self [id number] Medicare (Part B) Medicare Primary [id number] Self [id number] [facility] [place] [id number] SP [id number] FOR LIFE [id number] SP [id number] [facility] [place] [id number] SP [id number] Prime - [employer] Health Maintenance Organization (HMO) [id number] Self [id number] For Life - [employer] Medigap Part B [id number] Self [id number] Medicare (Part B) Medicare Primary [id number] Self [id number] MEDICARE PI PI PI PI [id number] Tracie [id number] MEDICARE [id number] Tracie [id number] A [place] MEDICARE PART B C [id number] S [id number] Tracie [id number] Prime - [employer] Health Maintenance Organization (HMO) [id number] Self [id number] For Life - WPS Medigap Part B [id number] Self [id number] Medicare (Part B) Medicare Primary [id number] Self [id number] [employer] Self [employer] Medigap Part B Self Medicare Dme [employer] Medigap Part B Self [place] Primary Self For Life - WPS Medigap Part B Self Medicare (Part B) Medicare Primary Self Prime - [employer] Health Maintenance Organization (HMO) Self [facility] [place] [id number] SP [id number] Tracie [id number] [facility] [id number] 300 [facility] O [id number] S [id number] [facility] N REGIONAL CLAIMS CECI -O/P [id number] 18 [id number] Problems, Conditions, and Diagnoses Code Display Name Description Problem Type Effective Dates Data Source(s) 345597739 Isolated seizures Isolated seizures Problem 10/11 12:00:00 AM EST [facility] ([facility] ) 030489231 Syncope and collapse Syncope and collapse Problem 10/11/2020 12:00:00 AM EST [facility] ([facility] ) G45.9 [id number] TIA (transient ischemic attack) Problem 09/01/2020 12:00:00 AM EST eCW1 ([facility]) E78.2 [id number] Mixed hyperlipidemia Problem 07/12/2020 12:0 0:00 AM EST eCW1 ([facility]) F17.211 [id number] [facility] 03/03/2020 12:00:00 AM EDT eCW1 ([facility]) 222336303 Hammer toe Hammer toe Problem 12/03/2019 12:00:00 AM ED T [facility] ([facility] 90352842 Type 2 diabetes mellitus Type 2 diabetes mellitus Prob shaw 12/03/2019 12:00:00 AM EDT [facility] ([facility] 378622436 Onychomycosis Onychomycosis Problem 12/03/2019 12:00:00 AM EDT [facility] ([facility] 4814380 Tinea pedis Tinea pedis Problem 12/03/2019 12:00:00 AM EDT [facility] ([facility] Z86.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), 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 attack (TIA), and cerebral infarction without residual deficits Diagnosis 10/04/2020 10:21:00 AM [facility] R00.1 Bradycardia, unspecified Bradycardia, unspecified Diag nosis 10/04/2020 10:21:00 AM [facility] I65.22 Occlusion and stenosis of left carotid a rtery Occlusion and stenosis of left carotid artery Diagnosis 10/04/2020 10:21:00 AM [facility] R55 Syncope and collapse Syncope and collapse Diagnosis 10/04/2020 10:21:00 AM [facility] I65.23 Occlusion and stenosis of bilateral novoa tid arteries Occlusion and stenosis of bilateral carotid arteries Diagnosis 10/04/2020 10:21:00 A M [facility] Stroke R/O Stroke R/O Diagnosis 10/04/2020 10:21:00 AM [facility] Surgeries/Procedures Procedure Description Date Indications Data Source(s) POCT GLUCOSE, DOCKED POCT GLUCOSE, DOCKED Routine 10/07/2020 11:32 AM EST 10/07/2020 11:32:00 AM [facility] POCT GLUCOSE, DOCKED POCT GLUCOSE, DOCKED Routine 10/07/2020 7:37 AM EST 10/07/2020 07:37:00 AM [facility] QUANTITATION DRUG NOT ELSEWHERE SPECIFIED LEVETIRACETAM LEVEL R outine 10/07/2020 5:28 AM EST 10/07/2020 05:28:00 AM [facility] BLOOD COUNT COMPLETE AUTO&AUTO DIFRNTL WBC COUNT CBC AND DIFFER ENTIAL Routine 10/07/2020 5:28 AM EST 10/07/2020 05:28:00 AM [facility] BASIC METABOLIC PANEL CALCIUM TOTAL BASIC METABOLIC PANEL Routi ne 10/07/2020 5:28 AM EST 10/07/2020 05:28:[address] [facility] GLUCOSE QUANTITATIVE BLOOD XCPT REAGENT STRIP POCT GLUCOSE, DOC KED Routine 10/06/2020 9:17 PM EST 10/06/2020 09:17:00 PM [facility] GLUCOSE QUANTITATIVE BLOOD XCPT REAGENT STRIP POCT GLUCOSE, DOC KED Routine 10/06/2020 4:28 PM EST 10/06/2020 04:28:00 PM [facility] GLUCOSE QUANTITATIVE BLOOD XCPT REAGENT STRIP POCT GLUCOSE, DOC KED Routine 10/06/2020 12:37 PM EST 10/06/2020 12:37:00 PM [facility] EEG ROUTINE STUDY EEG ROUTINE STUDY Routine 10/06/2020 10:13 AM EST 10/06/2020 10:13:00 AM [facility] GLUCOSE QUANTITATIVE BLOOD XCPT REAGENT STRIP POCT GLUCOSE, DOC KED Routine 10/06/2020 9:33 AM EST 10/06/2020 09:33:00 AM [facility] BASIC METABOLIC PANEL CALCIUM TOTAL BASIC METABOLIC PANEL Routi ne 10/06/2020 12:15 AM EST 10/06/2020 12:15:[address] [facility] GLUCOSE QUANTITATIVE BLOOD XCPT REAGENT STRIP POCT GLUCOSE, DOC KECodi Routine 10/05/2020 8:46 PM EST 10/05/2020 08:46:00 PM [facility] GLUCOSE QUANTITATIVE BLOOD XCPT REAGENT STRIP POCT GLUCOSE, DOC KECodi Routine 10/05/2020 4:37 PM EST 10/05/2020 04:37:00 PM [facility] EEG ROUTINE STUDY EEG ROUTINE STUDY Routine 10/05/2020 1:34 PM EST 10/05/2020 01:34:06 PM [facility] ECHO TTHRC R-T 2D W/WOM-MODE COMPL SPEC&COLR DOP ECHOCARDIO GRAM 2D COMPLETE Routine 10/05/2020 12:30 PM EST 10/05/2020 12:30:11 PM [facility] GLUCOSE QUANTITATIVE BLOOD XCPT REAGENT STRIP POCT GLUCOSE, DOC MILY Routine 10/05/2020 11:49 AM EST 10/05/2020 11:49:00 AM [facility] BASIC METABOLIC PANEL CALCIUM TOTAL BASIC METABOLIC PANEL Routi ne 10/05/2020 3:25 AM EST 10/05/2020 03:25:[address] [facility] MRI BRAIN BRAIN STEM W/O CONTRAST MATERIAL MR BRAIN WITHOUT CONTRAST [id number] STAT 10/04/2020 10:10 PM EST 10/04/2020 10:10:19 PM [facility] GLUCOSE QUANTITATIVE BLOOD XCPT REAGENT STRIP POCT GLUCOSE, DOC KED Routine 10/04/2020 5:39 PM EST 10/04/2020 05:39:00 PM [facility] VASC LAB US DOPPLER CAROTID BILATERAL COMP 39441 VASC LAB US DOPPLER CAROTID BILATERAL COMP 75686 Routine 10/04/2020 2:04 PM EST Carotid stenosis, bilateral 10/04/2020 02:04:00 PM EST Darcie id stenosis, bilateral [facility] Carotid stenosis, bilateral COVID-19 PCR COVID-19 PCR Routine 10/04/2020 1:38 PM EST 10/04/2020 01:38:00 PM [facility] URNLS DIP STICK/TABLET REAGENT AUTO MICROSCOPY URINALYSIS W ITH MICROSCOPIC STAT 10/04/2020 11:39 AM EST 10/04/2020 11:39:00 AM [facility] EKG ED PHYSICIAN INTERPRETATION EKG ED PHYSICIAN INTERPRETATION Routine 10/04/2020 11:32 AM EST 10/04/2020 11:32:54 AM [facility] PROTHROMBIN TIME PROTIME INR STAT 10/04/2020 10:38 AM EST 10/04/2020 10:38:00 AM [facility] BLOOD COUNT COMPLETE AUTO&AUTO DIFRNTL WBC COUNT CBC AND DIFFER ENTIAL Routine 10/04/2020 10:38 AM EST 10/04/2020 10:38:00 AM [facility] TROPONIN QUANTITATIVE TROPONIN T STAT 10/04/2020 10:38 AM EST 10/04/2020 10:38:00 AM [facility] THYROID STIMULATING HORMONE TSH TSH Routine 10/04/2020 10:38 AM EST 10/04/2020 10:38:00 AM [facility] HEMOGLOBIN GLYCOSYLATED A1C HEMOGLOBIN A1C Routine 10/04/2020 10:38 AM EST 10/04/2020 10:38:00 AM [facility] HEPATIC FUNCTION PANEL HEPATIC FUNCTION PANEL A Routine 10/04/2020 10:38 AM EST 10/04/2020 10:38:[address] [facility] LIPID PANEL LIPID PANEL Routine 10/04/2020 10:38 AM EST 10/04/2020 10:38:00 AM [facility] BASIC METABOLIC PANEL CALCIUM TOTAL BASIC METABOLIC PANEL STAT 10/04/2020 10:38 AM EST 10/04/2020 10:38:[address] [facility] BASIC METABOLIC PANEL CALCIUM IONIZED POCT ISTAT CHEM8 Routine 10/04/2020 10:32 AM EST 10/04/2020 10:32:[address] [facility] BLOOD GASES ANY COMBINATION PH PCO2 PO2 CO2 HCO3 POCT ISTAT VBG /LAC Routine 10/04/2020 10:28 AM EST 10/04/2020 10:28:00 AM [facility] TROPONIN QUANTITATIVE POCT ISTAT TROPONIN Routine 10/04/2020 10:26 AM EST 10/04/2020 10:26:00 AM [facility] EKG 12-LEAD - CMAXX REPORT EKG 12-LEAD - CMAXX REPORT 10/04/2020 10:23 AM EST 10/04/2020 10:23:[address] [facility] EKG 12-LEAD - CMAXX REPORT EKG 12-LEAD - CMAXX REPORT 10/04/2020 10:23 AM EST 10/04/2020 10:23:[address] [facility] EKG 12-LEAD EKG 12-LEAD STAT 10/04/2020 10:23 AM EST 10/04/2020 10:23:39 AM [facility] EKG 12-LEAD - CMAXX REPORT EKG 12-LEAD - CMAXX REPORT 10/04/2020 10:23 AM EST 10/04/2020 10:23:[address] [facility] [address] ANGIOGRAPHY NECK W/CONTRAST/NONCONTRAST CT ANGIOGRAPHY NECK 72046 CODE 10/04/2020 10:22 AM EST 10/04/2020 10:22:05 AM [facility] CT ANGIOGRAPHY HEAD W/CONTRAST/NONCONTRAST CT ANGIOGRAPHY HEAD 99282 CODE 10/04/2020 10:22 AM EST 10/04/2020 10:22:05 AM [facility] ECG ROUTINE ECG W/LEAST 12 LDS W/I&R 09/30/2020 12:00: 00 AM EST [facility] ([facility]) ECG ROUTINE ECG W/LEAST 12 LDS W/I&R 03/24/2020 12:00: 00 AM EDT [facility] ([facility]) Results ID Date Data Source [id number] 10/17/2020 07:56:11 AM [facility] Name Value Range Interpretation Code Description Data Kaye rce(s) Supporting Document(s) Discharge Summary [facility] [id number]/QXOciVNOhx5PpISybOQk3KUukQIEqX0WeLZT4kF4cELM4TXvGVjZeMwQdAvK9 [facility] PrCsiLFoYdJFCdSviWUdWqHEwhPyfimIBuOG8DpTL1SLJaH99fTGEvCYLyZ3HiCGJ6Oie+Iq0UJJNrvI FxZH4TXbwN5C7ju7kXMI5m8G1frNXKBBhMqc2PC1CPcIuUwcgVggQ+RFAafwOxzW7TRyAO1GgP008lTK 9uEn12OidGwNBg9OtSx0/MUEqV//6e0eNmtgeV/2t+ BBEKhoyhx44T29tk09rz/2dzySzpU4ja+UL2q2t//sI3V+zwH0id3HGElqhhAydRJ7zFFlyb4Grmk9FM /7r913JWmtWcDa08CE4vkQHVGH+uyLN8XMtfdM4JHq3LUDauGn0SiTw+TUNDE+ZT8WFy0WUbCCXx7JQFkF [file] WaSrPaBY6YFx4AKbS5WRR5fVWaUe4GKoL2JtbUHaPmRW3PPRz= ID Date Data Source [id number] 10/07/2020 03:03:42 PM [facility] Name Value Range Interpretation Code Description Data Kaye rce(s) Supporting Document(s) Consultation [facility] MQVVUy6uYiAWJoCx33/CULuzIIUtu3OgRMdoEAd3WWesQDCsS5ZmBQX0wM4kVJG4UFxKXtIyZsVhTGF5 lbm [file] X8STw2GjVaWqLzOnreHCSxGoXuXfsbPpYtXQ7IKz6LXxE1UEZ5tBQgMg2OUoBkIPWYQkBjUJ3RZIz= ID Date Data Source [id number] 10/07/2020 11:35:17 AM [facility] Name Value Range Interpretation Code Description Data Kaye rce(s) Supporting Document(s) Glucose [Mass/volume] in Capillary blood by Glucometer 118 mg/dL 70- 140 [facility] ID Date Data Source [id number] 10/07/2020 07:38:39 AM [facility] Name Value Range Interpretation Code Description Data Kaye rce(s) Supporting Document(s) Glucose [Mass/volume] in Capillary blood by Glucometer 141 mg/dL 70- 140 H [facility] ID Date Data Source [id number] 10/07/2020 06:37:09 AM [facility] Name Value Range Interpretation Code Description Data Kaye rce(s) Supporting Document(s) Bicarbonate [Moles/volume] in Serum 23 mmol/L -29 [facility] Chloride [Moles/volume] in Serum or Plasma 109 mmol/L 98-107 H [facility] Creatinine [Mass/volume] in Serum or Plasma 0.84 mg/dL 0.70-1.20 [facility] Glucose [Mass/volume] in Serum or Plasma 137 mg/dL 70-140 [facility] Potassium [Moles/volume] in Serum or Plasma 3.5 mmol/L 3.4-5.1 [facility] Sodium [Moles/volume] in Serum or Plasma 142 mmol/L 136-145 [facility] Urea nitrogen [Mass/volume] in Serum or Plasma 21 mg/dL 8-23 [facility] Anion gap 3 in Serum or Plasma 9 mmol/L 8-15 [facility] Osmolality of Serum or Plasma by calculation 299 mosm/kg 275-300 [facility] Creatinine/Urea nitrogen [Mass Ratio] in Serum or Plasma 25 [facility] Calcium [Mass/volume] in Serum or Plasma 8.5 mg/dL 8.8-10.2 L [facility] Glomerular filtration rate/1.73 sq M pre dicted among non-blacks [Volume Rate/Area] in Serum or Plasma by Creatinine-based formula (MDRD) 87 mL/min/1.73m2 >60 [facility] Glomerular filtration rate/1.73 sq M pre dicted among blacks [Volume Rate/Area] in Serum or Plasma by Creatinine-based formula (MDRD) >60 [facility] ID Date Data Source [id number] 10/07/2020 07:30:10 AM EST [facility] Name Value Range Interpretation Code Description Data Kaye rce(s) Supporting Document(s) Leukocytes [#/volume] in Blood by Automated count 7.6 10*3/uL 4-10 [facility] Erythrocytes [#/volume] in Blood by Automated count 4.75 10*6/uL 4.6- 6.1 [facility] Hemoglobin [Mass/volume] in Blood 14.2 g/dL 13.5-18 [facility] Hematocrit [Volume Fraction] of Blood by Automated count 42.1 % 4 1-53 [facility] Erythrocyte mean corpuscular volume [Entitic volume] by Auto mated count 88.5 fL 80-96 [facility] Erythrocyte mean corpuscular hemoglobin [Entitic mass] by Automated count 29.8 pg 27-33 [facility] Erythrocyte mean corpuscular hemoglobin concentration [Mass/volume] by Automated count 33.7 g/dL [facility].0[facility] width [Ratio] by Automated count 13.2 % 11.5-14.5 [facility] Platelets [#/volume] in Blood by Automated count 228 10*3/uL 150-400 [facility] Differential cell count method - Blood [facility] Neutrophils/100 leukocytes in Blood by Automated count 67 % [facility] Lymphocytes/100 leukocytes in Blood by Automated count 24 % [facility] Monocytes/100 leukocytes in Blood by Automated count 6 % [facility] Eosinophils/100 leukocytes in Blood by Automated count 2 % [facility] Basophils/100 leukocytes in Blood by Automated count 1 % [facility] Neutrophils [#/volume] in Blood by Automated count 5.11 10*3/uL 1.8-7 .0 [facility] Lymphocytes [#/volume] in Blood by Automated count 1.81 10*3/uL 1.2-4 .0 [facility] Monocytes [#/volume] in Blood by Automated count 0.45 10*3/uL 0-0.8 [facility] Eosinophils [#/volume] in Blood by Automated count 0.15 10*3/uL 0-0.5 [facility] Basophils [#/volume] in Blood by Automated count 0.08 10*3/uL 0-0.2 [facility] ID Date Data Source [id number] 10/07/2020 06:34:29 AM [facility] Name Value Range Interpretation Code Description Data Kaye rce(s) Supporting Document(s) Levetiracetam [Mass/volume] in Serum or Plasma 15 ug/mL 12-46 [facility] ID Date Data Source [id number] 10/06/2020 09:33:03 PM [facility] Name Value Range Interpretation Code Description Data Kaye rce(s) Supporting Document(s) Glucose [Mass/volume] in Capillary blood by Glucometer 119 mg/dL 70- 140 [facility] ID Date Data Source [id number] 10/06/2020 04:38:41 PM [facility] Value Range Interpretation Code Description Data Kaye rce(s) Supporting Document(s) Glucose [Mass/volume] in Capillary blood by Glucometer 102 mg/dL 70- 140 [facility] ID Date Data Source [id number] 10/06/2020 04:22:49 PM [facility] Value Range Interpretation Code Description Data Kaye rce(s) Supporting Document(s) ED Provider Note [facility] JLDCGy4aFbSABxVt25/RMZehIJMwa0MxFFgpRAj6IKfdJKMbF6XaGBY4hH0zALB6YApCNrCdEiTgNRU8 lbm UmBqkOLmQtVPRjQtzOEyLnORioYqxzxDXsLC3AaXZ6ASNwB78bNJYbNWSgT6YdOUB6Xmi+Io2AGHOcaT PzGD8TThyV1P6dNjkWZt3lji0HIPttQJqs87z0PsDVlKoYOQlnwSvg9MFR5Si9lPru0dfiH8IWcdpb5j hI7JHTJM323loHbhXvzhBX6x+/xNBzpJQi+/v81Qu0 uJ2Kv/5FrIdZ+nnY+qdsSD7U4qze3UZ58PDyW/j5Wuz/IkWKTVzfpQ/XdyuvvSbSZ2pVNf/4QVz/UyjL Sp+sMJwAIgMazKJQOQHwxdzEANaBF6lGVVEeAvisUMvO3OnrLP64twEHHw8VQAAJPz4pDHwOiHnBFqFq PHqdb1e85GNXElhMZOvlAWJpINTZy8zWADj//5DDJ9 ulK6pGRyM6KrUl5cE8X5+VAgNECQdHsGOf6ilrfsBhyzLwEgcKTwt+ZB/A7lVDpQGYyomirZcJI+NRys h6YXaQNMlbexxjcqBh8kOyyFd0cMt5seMlDNMKcSgfF52IgwiNSbPZYUdhhcvBqOY8zFCPHhzRzWIUWs FgAZQrr1KHSAn9mdA0lmOKwxu0LMtjINNUzMxhiOUD K9IUAVZ1pz60F1iZWtugKSDXENioduAhuuaRqtAO23wgoCsIIbWGUT4uCUfRTNOLbyhJy6tShyVltkZ+ dJYq95G36nmlY3UbZSgyWxcSK4ZoTKp4JaygljDUWlqU52dPNSqvxcTD3OJShBcjvx6t15FUnn7MjCVx Uqngeyrwiul/VG7vs8FDIbfaqwLQN/qwe3pPaqcvyr [file] MDMyMyAwMDAwMCBuDQowMDAwMDYwNDkwIDAwMDAwIG 6EFzJfGZgvDGRSDvm6IJrwK5j9ENU1DG5SI3Ldt5HcXpAfFHZOWBpiJT9ukgEsHZUiKc5LK1mTHcneLC WmRJYuBQDeYLHfFVPzOlQnDZgrMGY4CRP3GJP6YH2pCHM9UDD7FcOhKoMfJMNvFiWoMPF1L8C7VdP7GZ slWTM8ReBgOU5GEr4SBaP1CFD7lWRrEz1FRtV4WgNGNvZeNP0QOSu= ID Date Data Source [id number] 10/06/2020 12:40:13 PM [facility] Name Value Range Interpretation Code Description Data Kaye rce(s) Supporting Document(s) Glucose [Mass/volume] in Capillary blood by Glucometer 196 mg/dL 70- 140 [facility] ID Date Data Source [id number] 10/06/2020 09:34:59 AM [facility] Value Range Interpretation Code Description Data Kaye rce(s) Supporting Document(s) Glucose [Mass/volume] in Capillary blood by Glucometer 123 mg/dL 70- 140 [facility] ID Date Data Source [id number] 10/06/2020 01:33:47 AM [facility] Value Range Interpretation Code Description Data Kaye rce(s) Supporting Document(s) Bicarbonate [Moles/volume] in Serum 25 mmol/L 22-29 [facility] Chloride [Moles/volume] in Serum or Plasma 108 mmol/L 98-107 [facility] Creatinine [Mass/volume] in Serum or Plasma 0.91 mg/dL 0.70-1.20 [facility] Glucose [Mass/volume] in Serum or Plasma 161 mg/dL 70-140 [facility] Potassium [Moles/volume] in Serum or Plasma 3.6 mmol/L 3.4-5.1 [facility] Hemolyzed Sodium [Moles/volume] in Serum or Plasma 142 mmol/L 136-145 [facility] Urea nitrogen [Mass/volume] in Serum or Plasma 19 mg/dL 8-23 [facility] Anion gap 3 in Serum or Plasma 9 mmol/L 8-15 [facility] Osmolality of Serum or Plasma by calculation 300 mosm/kg 275-300 [facility] Creatinine/Urea nitrogen [Mass Ratio] in Serum or Plasma 21 [facility] Calcium [Mass/volume] in Serum or Plasma 8.3 mg/dL 8.8-10.2 L [facility] Glomerular filtration rate/1.73 sq M pre dicted among non-blacks [Volume Rate/Area] in Serum or Plasma by Creatinine-based formula (MDRD) 84 mL/min/1.73m2 >60 [facility] Glomerular filtration rate/1.73 sq M pre dicted among blacks [Volume Rate/Area] in Serum or Plasma by Creatinine-based formula (MDRD) >60 [facility] ID Date Data Source [id number] 10/05/2020 08:47:30 PM [facility] Name Value Range Interpretation Code Description Data Kaye rce(s) Supporting Document(s) Glucose [Mass/volume] in Capillary blood by Glucometer 132 mg/dL 70- 140 [facility] ID Date Data Source [id number] 10/05/2020 07:36:04 PM [facility] Name Value Range Interpretation Code Description Data Kaye rce(s) Supporting Document(s) History and Physical [facility] YLBXDh8nRmHQRuWk44/AVZgoZFXoe9MjPDzpXAm3TPcqVJWkH3EuBQY1wZ7bOWJ3AMtMSkWnEoUyPSJ1 [facility] [file] E+DQogICAgICAgICAgICAgICAgICAgICAgICAgICAgICAgICAgICAgICAgICAgICAgICAgICAgICAgIC AgICAgICAgICAgICAgICAgICAgICAgICAgICAgICAg ICAgICAgICAgICAgDQogICAgICAgICAgICAgICAgICAgICAgICAgICAgICAgICAgICAgICAgICAgICAg ICAgICAgICAgICAgICAgICAgICAgICAgICAgICAgICAgICAgICAgICAgICAgICAgICAgICAgDQogICAg ICAgICAgICAgICAgICAgICAgICAgICAgICAgICAgIC AgICAgICAgICAgICAgICAgICAgICAgICAgICAgICAgICAgICAgICAgICAgICAgICAgICAgICAgICAgIC AgICAgDQogICAgICAgICAgICAgICAgICAgICAgICAgICAgICAgICAgICAgICAgICAgICAgICAgICAgIC AgICAgICAgICAgICAgICAgICAgICAgICAgICAgICAg ICAgICAgICAgICAgICAgDQogICAgICAgICAgICAgICAgICAgICAgICAgICAgICAgICAgICAgICAgICAg ICAgICAgICAgICAgICAgICAgICAgICAgICAgICAgICAgICAgICAgICAgICAgICAgICAgICAgICAgDQog ICAgICAgICAgICAgICAgICAgICAgICAgICAgICAgIC AgICAgICAgICAgICAgICAgICAgICAgICAgICAgICAgICAgICAgICAgICAgICAgICAgICAgICAgICAgIC AgICAgICAgDQogICAgICAgICAgICAgICAgICAgICAgICAgICAgICAgICAgICAgICAgICAgICAgICAgIC AgICAgICAgICAgICAgICAgICAgICAgICAgICAgICAg ICAgICAgICAgICAgICAgICAgDQogICAgICAgICAgICAgICAgICAgICAgICAgICAgICAgICAgICAgICAg ICAgICAgICAgICAgICAgICAgICAgICAgICAgICAgICAgICAgICAgICAgICAgICAgICAgICAgICAgICAg DQogICAgICAgICAgICAgICAgICAgICAgICAgICAgIC AgICAgICAgICAgICAgICAgICAgICAgICAgICAgICAgICAgICAgICAgICAgICAgICAgICAgICAgICAgIC AgICAgICAgICAgDQogICAgICAgICAgICAgICAgICAgICAgICAgICAgICAgICAgICAgICAgICAgICAgIC AgICAgICAgICAgICAgICAgICAgICAgICAgICAgICAg FUEkPVUkVBJaQMCyTAAfLJDdHDPfGOa7C8ncKVScHWTqOY4iCBa3Mi5+CEzIWzFgQXX0lnMsuJ8PMM8q z3XbYSejNVJxe2SsTJb4SB7RSPZiLNtbCR9AXDuewf6NMTTeQFBztCIIn4qvOuQxKLV5RAQpVodtLC8N AFDaY2jtbbHtEPPaOEXNMB1ZYgWsZ4YdaN58OGHISm 4+PZqwxkQeHdeITtN1BIPhk3TlGSh9QX8RMIXqTgzhv5BbUJObMSRWPHpbAO2MQED1KUX7XGBbKe4LKM IoH055kxWpDB1OJm6BCqVzWX8bpl4WMKFyYXBwYpaLYxv6TLkuJL8FcELsPSeYQcFuHganJBedohPmS2 HaxFtsfLxqNGLaWVOjNX8qJo7sWNRxTRW8RdKfOSFY IX8HNLOqJZAjnXRsJPXkFILAIH2JNJzvRSU2ZDWbhnOtkZQpFHlgUC0WZXAtvnLhPTQfLIOHOSm+Pg0K DT3at1HfFSzcKmXlSD4xou6LJGzXYqQpV5U2nVDgY7U8YGxcYf4WIJMsDVKnVBGlOTADZPtxRE5DIP4p wuB8IL8JyVLnTIOtBULdjCXhJHa8Y81khHMwBPcwZG 0KICA+Agatha+Zb4TLVUkUJHcEYQtTvQnRLZPJoLfB2FkA5OWj8XkW1OcKH19lIlmdrEuPVqjIM4SIR5fVD MfZYSBXD4XdIYuoO0moaAcEGBmFCCIWoPbH36zeJCtVQBrEBImANYeXd6MDPPgW3YkybZcqLspagDrVQ BhHGFOVD3KLThhwfAfvOIofJhaHE72xDpgVR2FRu1H PtRbRX5bsa6XnVFjCm9BFBRrKn6ZVVNpSOBjBTXfTOV8OVBzMhYwTGnmGKRpDVNpKRO9JFAtQOGpBB9Y OkSjTHFbVSH2TJSaJSZlAUUnva5MVGSfWOXcNgRmXCIvDVVdQSAfLHurNTDnAIVeKSX6SHHyEGXwJW0D DyMoTZYtSOS0QQGrCWHyPHBzpo1ZCURcVEJsHLD4JN OdFSRiLUNoHGvqWSIiDEVqOxV9KJBkZROvLX2KFoVlDILtNBG5TRKgECXtFTPpto9YREYpYMXfRpDhPH GdLEMnCMSvSIujCIYaTQWwUCzuPDBtZSZuDP2ZVsSaGGByGCQyCYUxFPEsDCBwkt3DHWRvQSGdNCT8CC DlFWQbWJIpBZuxCOOqGBW5Ehd3AVHiXQYcJN3NXjRr QFDnMWRqGeQxAEOqPCJknr4GVSSpMGEyRhT0GKZiUUDrEDGhYCepDVBwJNM3GNRaFJJuJIAsWM7RObKp NBjqHVEDVbd7JZfeX4t3YFUqUq8TA4Gdh1FjNPJlRJMTBCbwXA9oewYxJKFuDx0XT2kLRsagXTIfMnP1 OmcdE7WhRZSaN4CmHMYxUJEyHrSdPqBpVz7mPHEwYT G3PMZkCREzFUCgAkTsIbH4LdSoKfS1GlZ3WCSpQeEhAO8SXu6GLnF5RNA6pNXjZb5YRxI0GV1DGPXUL8 YNCg== ID Date Data Source [id number] 10/05/2020 04:44:14 PM [facility] Name Value Range Interpretation Code Description Data Kaye rce(s) Supporting Document(s) Glucose [Mass/volume] in Capillary blood by Glucometer 138 mg/dL 70- 140 [facility] ID Date Data Source [id number] 10/05/2020 03:14:29 PM [facility] Name Value Range Interpretation Code Description Data Kaye rce(s) Supporting Document(s) [facility] KSRWXl8zSbSRFuMj86/SBZmuZSMqp7GvYOyeDIg8FXksCKJgY6CoURX9cS5iLSO0DIzDEbPoVnIvQMH6 lbm [file] ICAgICAgICAgICAgICAgICAgICAgICAgICAgICAgICAgICAgICAgICAgICAgICAgICAgICAgICAgICAg ICAgICAgICAgDQogICAgICAgICAgICAgICAgICAgIC AgICAgICAgICAgICAgICAgICAgICAgICAgICAgICAgICAgICAgICAgICAgICAgICAgICAgICAgICAgIC AgICAgICAgICAgICAgICAgICAgDQogICAgICAgICAgICAgICAgICAgICAgICAgICAgICAgICAgICAgIC AgICAgICAgICAgICAgICAgICAgICAgICAgICAgICAg ICAgICAgICAgICAgICAgICAgICAgICAgICAgICAgDQogICAgICAgICAgICAgICAgICAgICAgICAgICAg ICAgICAgICAgICAgICAgICAgICAgICAgICAgICAgICAgICAgICAgICAgICAgICAgICAgICAgICAgICAg ICAgICAgICAgICAgDQogICAgICAgICAgICAgICAgIC AgICAgICAgICAgICAgICAgICAgICAgICAgICAgICAgICAgICAgICAgICAgICAgICAgICAgICAgICAgIC AgICAgICAgICAgICAgICAgICAgICAgDQogICAgICAgICAgICAgICAgICAgICAgICAgICAgICAgICAgIC AgICAgICAgICAgICAgICAgICAgICAgICAgICAgICAg ICAgICAgICAgICAgICAgICAgICAgICAgICAgICAgICAgDQogICAgICAgICAgICAgICAgICAgICAgICAg ICAgICAgICAgICAgICAgICAgICAgICAgICAgICAgICAgICAgICAgICAgICAgICAgICAgICAgICAgICAg ICAgICAgICAgICAgICAgDQogICAgICAgICAgICAgIC AgICAgICAgICAgICAgICAgICAgICAgICAgICAgICAgICAgICAgICAgICAgICAgICAgICAgICAgICAgIC AgICAgICAgICAgICAgICAgICAgICAgICAgDQogICAgICAgICAgICAgICAgICAgICAgICAgICAgICAgIC AgICAgICAgICAgICAgICAgICAgICAgICAgICAgICAg ICAgICAgICAgICAgICAgICAgICAgICAgICAgICAgICAgICAgDQogICAgICAgICAgICAgICAgICAgICAg ICAgICAgICAgICAgICAgICAgICAgICAgICAgICAgICAgICAgICAgICAgICAgICAgICAgICAgICAgICAg FPBzXIVbPLUzFBZpXCAvSLPqAGw3G6ncZKGeXOMkCZ 0rYSr5Ci3+YWoNWjUoWUW7dzHdyK6QZF3mz6JvRJnkBPNuz8KrHJg7BD3UZYEzDFepAA3HRUytey5FIL AvMKNwiHDRk6unDeLhHIF3ZVXyBhwbNZ3OOZAnV3jjepMzABLnDSGVIIbqLAORBEpoBXRZADDtLQXvXo BoCgQqQFXxMXZpBURFCMA5RKLvOzClNBVqYMHuAyFn VRRQIZLwAIPqOkMgNHvwTT3Dx6NqoTLdKL4VDk5EOmKuGY1isw2JYxmuOVJtWybVZhk1SEgaMA1FaULe gLLxIPUwTHBVAjGiI6eyj0CuAbcwFDVSCVryUN2Kk9VroIEgLDn+Uy7UEF9fm4KnQFvxCPMvZO9tos9H RTgHVsPhI6VydXpvHTCbkpB9kCUnHLZ3FFUhxykldI esSAFZJQgyG5HtynsqhTfkIAXfXLIpBR5tFs3oHRXbBCMoDjS7TAAALM8CNFEpDSNpsZIkCGYdAOJGSH 2OQRjfNBT9YHGozzCivDWnLHxlEH3YPCWfjmXqPnykJLLUKGt+Wa7SOC4nv1IzNXhhEVRzUR6qyi1OLM vFBuOhH4J4rZBtZ0C7ERgqHn1SXOVzCDWsGcAdWLWG JHnmDF5ZJT6caiI5IH4RgRCiEUZpUWGrcEVmHPv1Y73puEYdQDfbCN9WMCG+Agatha+Fe0ILVJpIHIkYNDd JmLeQCZJJqRdC7RtZ9URa6GyM0TxZX62qViqrfJxWNtsYB5TEI1cHPBiGDYMOB4IiXJgqD7nylTnDgZf UKOXXuQwM33cgVVoGEJwMXB6XXPvKj6PWZQnX2Xqvb XtuMawwxScQMBeAUGJUP2QJElboqLndFFilMsyXZ14mEmtLK1PZu6TQwMjTY3dqf6YtCXcLe8UVRS4BR 1HQSKnQMTcPKKjOYJ0ZPBoQcWrHIczTXNzQBYsTIK5UPDzICAzZE1HYnAzEIIhJEm2TDFkCAEyEVPcog 2UQVHjCSH5DHZ6HEVnLZCsMVXaNEzeBMEmYYOkVFW3 RKEdTCMrCX9ZXeJsCWGlQCWaXuEhHKDtBJBhmn5LNRRaHBToVFM6HMPbRNLfEZWfEIyqAFBoKDM1LPe7 WDNlDQEeZV6GGpMvDNDkKOonUDFmTNBqQZQzot5TXJAqNTJkSuHmGgTzRLWbSWLwWAbpGTBqZRShQWL7 RTJwLLDcAI8FRvHfXAKlHDE6UzHzQPPhBAMdss1YFF HcRDXbNqC1HtGxFSIkFVFsHCsjKIIcHAQaNrtaWSPyCYLmLU9RUpLpTQNuHjR5IKwiPWJgGLZxmv2QIC QgIIQjKuF2SBIaFMSlUIHcAColDKCrZVIvJrd6UKGdAHYtFW4DTkCkARQxJzk7VINvIWLwHHDpzx5GFV ZeSKGjJPr0PZNmMFYwQJEiMHomVXSoGSKdJuf7ZUNq DMHfWR5MVmJzRBTjFgE2SKAeTSWaZFLnbo6YATMyZNGhNVXpVaIhAYDiWTFcUEgeXTRoKCH3YRM3CCZy FXJtEO3ZCrKlYJAjRTQ9LqwyJRPdZAGyjo1FERPePVE3Efx6ZaNjIVXvUGTkUQyhGFVqRQZfBOLiCMIq PIPdMF9TNaUgIXVlSLGaXLYoATSwXYSgft0WHQHmMU I5ZUR4PpZmBVFfKXVsMTnxOOGvUKF1TBCbOZAvVCDuTH7CRqNfDTOtKKAzCWRtVKIeWKCklf8NSARrRN F2RICuWzCfKXYbDPNqHAnpPEQjPTD4BBW9HEFuVCAySQ7LEvOsLFMkQCmmGiGtUFNkGOUlyr0NBUMoQB Q2IgX8WVMuBTBaPSKkROqdSPTzJYZ3EodqYZIxEFHw WX2IBxKuDEYcCVz1JmpgDJNxAZSyko0WGRVlWCC3VMFcLWFaUFWyTISuMGbgTKHeQVR7QdIiFRRuXFIz AZ9CXcTeADVqNCj2OLJuSLWqCIBzad8UCBJnBUI2GZy5SBVwCYTpKSLeSGb2hlQsxQAdNDx7AD6DP6Im xwBsJLJVCm9Eo186VAZ2NUVwCm9YA4whLx7oRLFlGB FSIb9MAFz8ZkAvYrXgGia0YDC4KgVbSmdyN4R7TZr3S9H1CjXrKvB+OHxiWGInZZO7NGUgPLmfY6U2S6 JtKIdsOWV4HulzJBT0VR1pFPJEFe2+KEaryJCflObvTZOKWsSjZBn6IFkrCPFCPe0E ID Date Data Source [id number] 10/05/2020 02:42:00 PM [facility] Name Value Range Interpretation Code Description Data Kaye e(s) Supporting Document(s) Consultation [facility] YNADIr0hKnERUzAx63/XLYypKTJkk0RySShhBNv5KXbpXXAbF0PoBWU0hV4wBNX6SPdDAkVsEhIgVBU6 lbm [file] /OcYX/W2UCTKOsjkl88tW+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+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/D+QfCqJ ZPj5+h8QqPlq+DDSZ8tW7SjHIEGpUbcyXO7m8jgGH1VI40ZVlzPl/T7UQY9bu+zWR/bnbJ3Uw6/xuZB+ iZ9P+y2XO4qYsg+a3KtNphs1i/gZrb9n+cDwWfHfE/7+odVSdvaMcDbxI6Ej8ZobI4PISEZ/WHEAT/BGciK [file] C2/qmZnN3RE/CzWiitPmYFSY8ygXpmw8hb+N/f [file] gQ+RbwreagNt8EQVcK3rBWGKoPypGi7V3eJ/3APRMVY2u49kFdErsL9083lC8d8iCbxxu5lrkuyzG/Interior Paneler Ya0GYu18DTnJPaZ3POwCgkOAG2qD0oginmbwKX3aUmGaVeoZIsBVuFE4QRocy4hbzMPITMADTuYkWxg2 Hn7OE7NVyM6nlefEIEOXDxR2uA6M9yi7M9YJUa0A6j wdcks9BNfaBz0G24zD5Tf2dGdSK2Of6hfMvUM41L1Etzt8HF2tnMetTdkeuCAXk9IdN2HnYwwGtAoqwc j+glhikF+kOcaBZXTyKZHcc2ibvIy/Bto9/PffBRV0a2LQapFSkRT+J+dtKrYp/m8p8awz0whfTWuaH/ nFlA/7YA6oJIBw0ATaeJxgOa0D2tbR3y9RWoawqE15 oPxL+UK/F8Xy3BybCXRxHM7Kp19vYi/X6jn9rrUjMiQTZPvl9bJrKzcH40bjM2MS3LbH6dTKS4EJkRrp V+eWd80PCPntpHzjgI4O67K/1WeHGnIbFE/Vz4Bd8YdhqKwUfKm8i0ny2khywd094Ybvu5O58ci1mC7W Derick+eB7CE4JT7+IL9Qo3dF2uGhyDQNrkv4lo5MK2f/ [file] AgICAgICAgICAgICAgICAgICAgICAgICAgICAgICAgICAgICAgICAgICAgICAgICAgICAgICAgICAgIC AgICAgICAgICAgICAgICAgICAgICAgICAgICAgICAgICAgICAgDQogICAgICAgICAgICAgICAgICAgIC AgICAgICAgICAgICAgICAgICAgICAgICAgICAgICAg ICAgICAgICAgICAgICAgICAgICAgICAgICAgICAgICAgICAgICAgICAgICAgICAgDQogICAgICAgICAg ICAgICAgICAgICAgICAgICAgICAgICAgICAgICAgICAgICAgICAgICAgICAgICAgICAgICAgICAgICAg ICAgICAgICAgICAgICAgICAgICAgICAgICAgICAgDQ ogICAgICAgICAgICAgICAgICAgICAgICAgICAgICAgICAgICAgICAgICAgICAgICAgICAgICAgICAgIC AgICAgICAgICAgICAgICAgICAgICAgICAgICAgICAgICAgICAgICAgDQogICAgICAgICAgICAgICAgIC AgICAgICAgICAgICAgICAgICAgICAgICAgICAgICAg ICAgICAgICAgICAgICAgICAgICAgICAgICAgICAgICAgICAgICAgICAgICAgICAgICAgDQogICAgICAg ICAgICAgICAgICAgICAgICAgICAgICAgICAgICAgICAgICAgICAgICAgICAgICAgICAgICAgICAgICAg ICAgICAgICAgICAgICAgICAgICAgICAgICAgICAgIC AgDQogICAgICAgICAgICAgICAgICAgICAgICAgICAgICAgICAgICAgICAgICAgICAgICAgICAgICAgIC AgICAgICAgICAgICAgICAgICAgICAgICAgICAgICAgICAgICAgICAgICAgDQogICAgICAgICAgICAgIC AgICAgICAgICAgICAgICAgICAgICAgICAgICAgICAg ICAgICAgICAgICAgICAgICAgICAgICAgICAgICAgICAgICAgICAgICAgICAgICAgICAgICAgDQogICAg ICAgICAgICAgICAgICAgICAgICAgICAgICAgICAgICAgICAgICAgICAgICAgICAgICAgICAgICAgICAg ICAgICAgICAgICAgICAgICAgICAgICAgICAgICAgIC AgICAgDQogICAgICAgICAgICAgICAgICAgICAgICAgICAgICAgICAgICAgICAgICAgICAgICAgICAgIC UhWWZyWPZlSXNiZYExMZIwFDBaQYKlREBiFHOlYSEkXTUhCFPxKPLmEUXjARPlMCg1H4epDXJrCDBaIA 2jUCl2To0+ZJvTGxEyGNO4yuFqoE3YIJ2cj3BgTKbw DWQpl1ErIWi0PA8TQHRlUBnbRL2AYCzthv0AXCOaJGHxhJOYq1xoBkWiPBL0YDSjNybeJO6DMQKdF4bs hqOgSDExEPZGIQlaFAXHTPHzBGBjQaTsJyYlELGbEYIvQVQUGOY0ZWFkAmCaKRPxFJCfSH3JUSKsZ595 zbFlVg0ILv9VNjUlJM6hly9KXzpbBVJbHkqPPav2ML gwTW6KxRVdyRGlUQQxUJWPOlMiZ5otu3EaHumkWCVYTRjxLA3Wo4ZigCKtKJc+Hl8JPM1yr3NgFRnoYQ PqXI1izu1RKBmJQkDuW4WauGlgBLMwguG1sCGbBRM0GHVdPT6nVUyguUPpaJu1qZRRHV03s7wbVBTGSZ JuxCZaTxS8VbQoAwLbLHC6PFIaNY6aPNieLQ5VWPK7 JUzqKFWbICAfY8dPVyJeZIRkAmZtsZcyZB6YKzYyT7OspfBjcEPzZTHqWPKLDr8+DQplbmRvYmoNCjgg NFKpZetLAvp0EByrIR1WvIEzXJ0Coo0fvUGsM1SknHshOPYkVAqzllLuMx7dHNBvUFrjHHHhIB5wP1ks V5kkG6ApSVYKArOlE6LuA4LpTxFqMKD7IlIoXhRvCR S0XN5iXNalTR8KRIa4K2KdW3HMKKIkLFDSZEDyvEBIZ6T8Z4GYHZ6XCB9ITTSZN1RvRZNQBI0QUo3VCf 0CXRiUX1LZCQCLVBS+PiANCj4+NPiqvtAvSluAVyWrNEFha7FiPZm0RO7TTLRxEOgeHD4FJXOnmF7iAZ thFL8ZEoDcPyNzTFEXLoFkD03cpIPvCPy3X7LcTqDy ZGVkRmlsZXMgPDwvTmFtZXMgWyBdDQogID4+ID4+EFkgFP9OLZvjnbNvHDHtSr1LXZRzUFZfEL2cPTEx RIMkK3G1lDenXEQHEwKxL6rodlsqIP2xSBLwF118xOlbqsIuCUP5VXFcHv3HCHMmIAZ3OQBexUXmKbhg MBBJCRgtMB8LbDBaCOJ1iA4uWZezUFYvEPCdC1rSJa WpuNvrIF42iKsjkyBbdRMaRGi+Lw0SYP7kn2HvGAe7qoYdYKirEJKhZWyvMAJdBZKrCLXcPMJ0CNG5DV GSYaZwMICrUKBrAAuuNDIjQZGzxa5XTESwODG4ZLe1YFChJLNpRVEsNHqkYEMcOVZgCaFvAWYzSMBrWV 9RQcWeQATeUCZjYCowMNVjZPEakb1ERZAhAAKdErYc OWYbHSHnJKPlKNnoOFQiDNKlEjDvAKHcUCNuNQ9PHeFyBYQxUYf4HvKrIUAyKDUeyu5YYYBgTFL9VWc0 OaEbZGNsYRVmIWicVGVsNDL7AVawABNkSBXrSS0DAxImWKQsAVIgUBfeWLJxHIXaoy9ULKJjOKXfBEZy RrZcWDRcZVKmRBimESOmVOK5ZxAxXWShIREeEP7VRk DxIEWbYIB4VrfbCBVrVOWqmz3GVOZuYSJyYPD9UcYzHHOsTBQzATyrGSJiICX5EBJ6NMQfIVCcQP6WWt RbRUWvWoNbVJDzMSXfUFYiiy8VEYRoJDCqBfT6TWMcYXDsRUCrHHcfJEQoNXV9VKP5MNUoCEWjIW1DBj ZiUFMiSvQ2HcWxMNAoQCXbdv5MVLGdGJSoNIY9HpFk YBMdKRNiBEsfQHOfWBI8Lbp0MQVrOULiAM1IZiDaRDBhDaY4FbMzYRKjYBLiuj6YVVDnCCBtFlgaIYHt RVWgXFRcAWpwUDZbJEP8XHYnASJwDRDzZG5JYeAuWGKyZdplJKWaXLDvYDYyzp2QWSJzNXVpWDO8REYs SIKpKZDwFIirVEZlNZO1UMtrSOCbIKRzJO7SQsYeVJ HwXis6HiCpOPUyCGWozr0XLDMfBGIzIZHtPUGwTPRvCOMqWEmcQBHtSAE3VRE4CUTwWEIuOK3LCyOpMB SfXmAiIOEhEHDoUBWgtj7OOLEtVDK3FfN4SjTlPXDhBCRmNUooHYIxNZM2FRrvZLBuYYXvYU5SXiQyUF XaIYrxJDEbUZScEYRhky5TPYHeTPG7SRM5PFYdIYUl GFWoDLouRNSwOEY4ISL2QJFiDXWpQL8WZuHmAXNrXAgsBeMgJLLhNGMkbe0TTCNpIND0PGnpBITwHNUv THPiBRmvAWKwFMEpXRLpTWKjQUAdGB9RGeDcNJJwQINcCYViWSEoTNTbmo0KbJHxlAfmcw8LRTwAOz5Y eUjuSJKvHZyyVx7aqPT5CAUdVTETBa1MdvIqWWEaRX YSAWjdTTEtWIjoI1H7LQe0KwkoIeVdBQN3PBT6CCPuJVA4SdVbZOPmOiB4J5GsAeF2WbfxOIZcI7O9IH lbURB0IeRrFyFwPwHcEmC+MG4pTZd+Pk5Al2BylvD2rhHrUZt9DIZ9YY4ZLGBWF1HPBs== ID Date Data Source [id number] 10/05/2020 11:52:43 AM [facility] Name Value Range Interpretation Code Description Data Kaye rce(s) Supporting Document(s) Glucose [Mass/volume] in Capillary blood by Glucometer 164 mg/dL 70- 140 H [facility] ID Date Data Source [id number] 10/05/2020 08:17:55 AM [facility] MR BRAIN WITHOUT CONTRAST [id number] RES ULTInterpreted by:Sarah Amor MDINDICATION: Syncope and aphasia.TECHNIQUE: Multiplanar and multisequence MR images of the brain were obtained without intravenous contrast.Comparison: CTA head and neck 10/04/2020.FINDINGS: No areas of restricted diffusion to suggest [...] pituitary gland, and cerebellar tonsils appear grossly unremarkable.Flow voids of the major intracranial arterial vessels are identified. The imaged portions of the paranasal sinuses, mastoid air cells, and orbits are unremarkable. IMPRESSION:1. No acute infarction or intracranial hemorrhage. 2. 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 3. Foci of T2 and FLAIR hyperintensity in the paraventricular white matter consistent with chronic small vessel ischemic disease. 4. Punctate hemosiderin deposition in bilateral cerebral convexities with posterior predominance may be seen with cerebral amyloid angiopathy. Chronic hemorrhage also identified in the left are temporoparietal occipital infarct.This document has been electronically signed by DEWAYNE Amor on 10/05/2020 8:15 AM Name Value Range Interpretation Code Description Data Kaye rce(s) Supporting Document(s) ID Date Data Source [id number] 10/05/2020 05:19:08 AM [facility] Name Value Range Interpretation Code Description Data [facility] rce(s) Supporting Document(s) Bicarbonate [Moles/volume] in Serum 23 mmol/L 22-29 [facility] Chloride [Moles/volume] in Serum or Plasma 105 mmol/L 98-107 [facility] Creatinine [Mass/volume] in Serum or Plasma 0.77 mg/dL 0.70-1.20 [facility] Glucose [Mass/volume] in Serum or Plasma 149 mg/dL 70-140 H [facility] Potassium [Moles/volume] in Serum or Plasma 3.7 mmol/L 3.4-5.1 [facility] Hemolyzed Sodium [Moles/volume] in Serum or Plasma 137 mmol/L 136-145 [facility] Urea nitrogen [Mass/volume] in Serum or Plasma 17 mg/dL 8-23 [facility] Anion gap 3 in Serum or Plasma 9 mmol/L 8-15 [facility] Osmolality of Serum or Plasma by calculation 288 mosm/kg 275-300 [facility] Creatinine/Urea nitrogen [Mass Ratio] in Serum or Plasma 22 [facility] Calcium [Mass/volume] in Serum or Plasma 8.4 mg/dL 8.8-10.2 L [facility] Glomerular filtration rate/1.73 sq M pre dicted among non-blacks [Volume Rate/Area] in Serum or Plasma by Creatinine-based formula (MDRD) >6 0 [facility] Glomerular filtration rate/1.73 sq M pre dicted among blacks [Volume Rate/Area] in Serum or Plasma by Creatinine-based formula (MDRD) >60 [facility] ID Date Data Source [id number] 10/04/2020 05:41:07 PM EST [facility] Name Value Range Interpretation Code Description Data Kaye rce(s) Supporting Document(s) Glucose [Mass/volume] in Capillary blood by Glucometer 141 mg/dL 70- 140 H [facility] ID Date Data Source [id number] 10/04/2020 01:38:00 PM EST [facility] Name Value Range Interpretation Code Description Data Kaye rce(s) Supporting Document(s) SARS-CoV-2 RNA 2019 nCoV Real-Time RT-PCR: NOT DETECTED [facility] This lab was ordered by [facility] and reported by [facility]. ID Date Data Source [id number] 10/04/2020 08:18:25 PM [facility] Name Value Range Interpretation Code Description Data Kaye rce(s) Supporting Document(s) Specimen source [Identifier] of Unspecified specimen [facility] SARS-CoV-2 RNA 2019 nCoV Real-Time RT-PCR: NOT DETECTED [facility] Assay Performed [facility] Patients first test for [facility] Patient employed in healthcare setting [facility] Patient has symptoms related to [facility] When did you start to experience these symptoms [Date and time] [Phen X] [facility] Patient was hospitalized because of this condition [facility] patient was admitted to ICU for [facility] Patient resides in a congregate care setting [facility] status [facility] ID Date Data Source [id number] 10/04/2020 01:22:58 PM [facility] CT ANGIOGRAPHY HEAD [id number] RESULT - FINALInterpreted by:Dinesh Niño MDAddendum BeginsSigned on SatOct 04, 2020 1:20 PM by Shanita Linares MDThe cervical spine is straight in alignment losing its anatomic lordosis but without significant spondylolisthesis. Intervertebral disc space narrowing, mild at C4-C5 level and severe at C5-C6 and C6-7 levels. Mild spondylotic changes in the mid and lower cervical spine. The posterior elements show no acute fracture or dislocation. Very mild arthritic changes at the uncovertebral joints bilaterally at C6-C7 level.The odontoid process is intact and no significant rotational abnormality is present. The atlantoaxial distance is within normal limits. The vertebral heights are well-preserved.There is mild spinal canal stenosis at C6-C7 level.Neuroforaminal narrowing, mild to moderate on the right and moderate to severe on the left at C3-C4 level, severe bilaterally at C4-C5 and C5-C6 level, and severe on the right and moderate to severe on the left at C6-C7 level.No significant prevertebral soft tissue is mildly and the airway is intact.Addendum EndsCLINICAL INDICATION: Stroke code. 69-year-old male with confusion.TECHNIQUE: Contiguous axial CT images of the head [...] internal carotid arteries is based on NASCET criteria.COMPARISON: None at the time of this dictation.FINDINGS: PRECONTRAST HEAD CT:There is a region of hypodensity in the left occipital lobe with associated ex vacuo dilatation of the left occipital horn of the left lateral ventricle. This is likely national account representative of an old cerebral infarction with characteristics of encephalomalacia.There is no acute intracranial hemorrhage, midline shift, acute major arterial territorial infarction, or extra axial collection. There is mild cerebral volume loss, diffusely. Ill-defined very small areas of low attenuation scattered within the white matter at the level of the berry radiata and bilaterally. The basal cisterns are patent.Paranasal sinuses are clear. Mastoid air cells are aerated bilaterally.There is no depressed calvarial fracture. CTA NECK:There is a three- vessel aortic arch with patent origins of the brachiocephalic trunk, left common carotid, and left subclavian arteries.The left common carotid artery exhibits calcified plaques causing approximately 80-90% focal stenosis in the proximal CCA at the level of T1. There are calcified plaques at the bifurcation extending into the proximal internal carotid causing 30-40% relative stenosis. There is n o hemodynamically significant focal stenosis of the left internal carotid artery to the level of the cavernous sinus.The right common carotid is widely patent and there is mild to moderate atherosclerosis at the bifurcation without significant stenosis. There is no significant stenosis of the right internal carotid artery to the level of the cavernous sinus.The left vertebral artery is dominant. Vertebral arteries [...] There are no lytic or sclerotic lesions visualized.CTA HEAD:There is mild atherosclerosis of bilateral cavernous portions of the internal carotid arteries without significant stenos is or aneurysm.The left and right M1 and M2 branches of the MCAs are patent and without aneurysm.The bilateral anterior cerebral and anterior communicating arteries are patent without aneurysm.The bilateral posterior communicating arteries are patent.The bilateral posterior cerebral arteries are patent. There is a decrease in vascularity in the [employer] territory on the left, however, there are collateral vascular structures identified.The bilateral superior cerebellar arteries are patent.The bilateral anterior inferior cerebellar and right posterior inferior cerebellar arteries are patent. The left posterior inferior cerebellar artery is not well visualized. There is a focus of calcification within the left vertebral artery which may correspond to the origin of the left PICA. There are distal collateral vessels identified.Bilateral intracranial vertebral arteries are patent.IMPRESSION: 1. No evidence of acute infarct or intracranial hemorrhage.2. 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 Collateral vasculature is seen within this territory and there is no acute infarction.3. No evidence of stenosis, aneurysm, or arteriovenous malformations of the major intracranial arteries. 4. 80-90% diameter significant focal stenosis of the proximal left common carotid artery at the level of T1.5. Very mild chronic microvascular ischemic changes of the white matter.Findings were communicated by Dr. Patel to Dr. Vale at 10:23 AM on 10/04/2020.This document has been electronically signed by Shanita Linares MD on 10/04/2020 11:28 AM Name Value Range Interpretation Code Description Data Kaye rce(s) Supporting Document(s) ID Date Data Source [id number] 10/04/2020 01:22:58 PM [facility] CT ANGIOGRAPHY NECK [id number] RESULT - FINALInterpreted by:Dinesh Niño MDAddendum BeginsSigned on SatOct 04, 2020 1:20 PM by Shanita Linares MDThe cervical spine is straight in alignment losing its anatomic lordosis but without significant spondylolisthesis. Intervertebral disc space narrowing, mild at C4-C5 level and severe at C5-C6 and C6-7 levels. Mild spondylotic changes in the mid and lower cervical spine. The posterior elements show no acute fracture or dislocation. Very mild arthritic changes at the uncovertebral joints bilaterally at C6-C7 level.The odontoid process is intact and no significant rotational abnormality is present. The atlantoaxial distance is within normal limits. The vertebral heights are well-preserved.There is mild spinal canal stenosis at C6-C7 level.Neuroforaminal narrowing, mild to moderate on the right and moderate to severe on the left at C3-C4 level, severe bilaterally at C4-C5 and C5-C6 level, and severe on the right and moderate to severe on the left at C6-C7 level.No significant prevertebral soft tissue is mildly and the airway is intact.Addendum EndsCLINICAL INDICATION: Stroke code. 69-year-old male with confusion.TECHNIQUE: Contiguous axial CT images of the head [...] internal carotid arteries is based on NASCET criteria.COMPARISON: None at the time of this dictation.FINDINGS: PRECONTRAST HEAD CT:There is a region of hypodensity in the left occipital lobe with associated ex vacuo dilatation of the left occipital horn of the left lateral ventricle. This is likely national account representative of an old cerebral infarction with characteristics of encephalomalacia.There is no acute intracranial hemorrhage, midline shift, acute major arterial territorial infarction, or extra axial collection. There is mild cerebral volume loss, diffusely. Ill-defined very small areas of low attenuation scattered within the white matter at the level of the berry radiata and bilaterally. The basal cisterns are patent.Paranasal sinuses are clear. Mastoid air cells are aerated bilaterally.There is no depressed calvarial fracture. CTA NECK:There is a three- vessel aortic arch with patent origins of the brachiocephalic trunk, left common carotid, and left subclavian arteries.The left common carotid artery exhibits calcified plaques causing approximately 80-90% focal stenosis in the proximal CCA at the level of T1. There are calcified plaques at the bifurcation extending into the proximal internal carotid causing 30-40% relative stenosis. There is n o hemodynamically significant focal stenosis of the left internal carotid artery to the level of the cavernous sinus.The right common carotid is widely patent and there is mild to moderate atherosclerosis at the bifurcation without significant stenosis. There is no significant stenosis of the right internal carotid artery to the level of the cavernous sinus.The left vertebral artery is dominant. Vertebral arteries [...] There are no lytic or sclerotic lesions visualized.CTA HEAD:There is mild atherosclerosis of bilateral cavernous portions of the internal carotid arteries without significant stenos is or aneurysm.The left and right M1 and M2 branches of the MCAs are patent and without aneurysm.The bilateral anterior cerebral and anterior communicating arteries are patent without aneurysm.The bilateral posterior communicating arteries are patent.The bilateral posterior cerebral arteries are patent. There is a decrease in vascularity in the [employer] territory on the left, however, there are collateral vascular structures identified.The bilateral superior cerebellar arteries are patent.The bilateral anterior inferior cerebellar and right posterior inferior cerebellar arteries are patent. The left posterior inferior cerebellar artery is not well visualized. There is a focus of calcification within the left vertebral artery which may correspond to the origin of the left PICA. There are distal collateral vessels identified.Bilateral intracranial vertebral arteries are patent.IMPRESSION: 1. No evidence of acute infarct or intracranial hemorrhage.2. 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 Collateral vasculature is seen within this territory and there is no acute infarction.3. No evidence of stenosis, aneurysm, or arteriovenous malformations of the major intracranial arteries. 4. 80-90% diameter significant focal stenosis of the proximal left common carotid artery at the level of T1.5. Very mild chronic microvascular ischemic changes of the white matter.Findings were communicated by Dr. Patel to Dr. Vale at 10:23 AM on 10/04/2020.This document has been electronically signed by Shanita Linares MD on 10/04/2020 11:28 AM Name Value Range Interpretation Code Description Data Kaye rce(s) Supporting Document(s) ID Date Data Source [id number] 10/04/2020 12:11:30 PM [facility] Name Value Range Interpretation Code Description Data Kaye rce(s) Supporting Document(s) Color of Urine [facility] Clarity of Urine [facility] Specific gravity of Urine by Refractometry automated 1.003 -1.030 H [facility] pH of Urine by Automated test strip 5.0 5.0-8.0 [facility] Protein [Mass/volume] in Urine by Automated test strip 30 mg/dL Neg [facility] Glucose [Mass/volume] in Urine by Automated test strip Neg [facility] Ketones [Mass/volume] in Urine by Automated test strip Neg [facility] Bilirubin.total [Presence] in Urine by Automated test strip Negative [facility] Hemoglobin [Presence] in Urine by Automated test strip Neg [facility] Leukocyte esterase [Presence] in Urine by Automated test strip Negative [facility] Nitrite [Presence] in Urine by Automated test strip Negati [facility] Leukocytes [#/area] in Urine sediment by Automated count 2 /HPF 0 -5 [facility] Erythrocytes [#/area] in Urine sediment by Automated count 1 /HPF 0-3 [facility] Epithelial cells.squamous [#/area] in Urine sediment by Automate d count None [facility] Mucus [#/area] in Urine sediment by Microscopy low power field None [facility] ID Date Data Source [id number] 10/04/2020 11:15:40 AM [facility] Name Value Range Interpretation Code Description Data Kaye rce(s) Supporting Document(s) Leukocytes [#/volume] in Blood by Automated count 9.7 10*3/uL 4-10 [facility] Erythrocytes [#/volume] in Blood by Automated count 4.97 10*6/uL 4.6- 6.1 [facility] Hemoglobin [Mass/volume] in Blood 15.0 g/dL 13.5-18 [facility] Hematocrit [Volume Fraction] of Blood by Automated count 44.6 % 4 1-53 [facility] Erythrocyte mean corpuscular volume [Entitic volume] by Auto mated count 89.7 fL 80-96 [facility] Erythrocyte mean corpuscular hemoglobin [Entitic mass] by Automated count 30.2 pg 27-33 [facility] Erythrocyte mean corpuscular hemoglobin concentration [Mass/volume] by Automated count 33.6 g/dL 32.0-36.0 [facility] width [Ratio] by Automated count 13.5 % 11.5-14.5 [facility] Platelets [#/volume] in Blood by Automated count 204 10*3/uL 150-400 [facility] Differential cell count method - Blood [facility] Neutrophils/100 leukocytes in Blood by Automated count 81 % [facility] Lymphocytes/100 leukocytes in Blood by Automated count 12 % [facility] Monocytes/100 leukocytes in Blood by Automated count 6 % [facility] Eosinophils/100 leukocytes in Blood by Automated count 1 % [facility] Basophils/100 leukocytes in Blood by Automated count 0 % [facility] Neutrophils [#/volume] in Blood by Automated count 7.83 10*3/uL 1.8-7 .0 H [facility] Lymphocytes [#/volume] in Blood by Automated count 1.17 10*3/uL 1.2-4 .0 L [facility] Monocytes [#/volume] in Blood by Automated count 0.58 10*3/uL 0-0.8 [facility] Eosinophils [#/volume] in Blood by Automated count 0.10 10*3/uL 0-0.5 [facility] Basophils [#/volume] in Blood by Automated count 0.02 10*3/uL 0-0.2 [facility] Nucleated erythrocytes/100 leukocytes [Ratio] in Blood by Automated count 0 /100{WBCs} 0-0 [facility] ID Date Data Source [id number] 10/04/2020 11:26:27 AM EST [facility] Name Value Range Interpretation Code Description Data Kaye rce(s) Supporting Document(s) Prothrombin time (PT) 13.6 s 12.5-14.9 [facility] INR in Platelet poor plasma by Coagulation assay 1.03 [facility] Routine intensity oral anticoagulation I NR is typically 2.0-3.0. Target INR must be clinically individualized. ID Date Data Source [id number] 10/04/2020 11:51:56 AM [facility] Value Range Interpretation Code Description Data Kaye rce(s) Supporting Document(s) Bicarbonate [Moles/volume] in Serum 23 mmol/L 22-29 [facility] Chloride [Moles/volume] in Serum or Plasma 104 mmol/L 98-107 [facility] Creatinine [Mass/volume] in Serum or Plasma 1.01 mg/dL 0.70-1.20 [facility] Glucose [Mass/volume] in Serum or Plasma 169 mg/dL 70-140 H [facility] Potassium [Moles/volume] in Serum or Plasma 4.0 mmol/L 3.4-5.1 [facility] Hemolyzed Sodium [Moles/volume] in Serum or Plasma 137 mmol/L 136-145 [facility] Urea nitrogen [Mass/volume] in Serum or Plasma 18 mg/dL 8-23 [facility] Anion gap 3 in Serum or Plasma 10 mmol/L 8-15 [facility] Osmolality of Serum or Plasma by calculation 290 mosm/kg 275-300 [facility] Creatinine/Urea nitrogen [Mass Ratio] in Serum or Plasma 18 [facility] Calcium [Mass/volume] in Serum or Plasma 8.4 mg/dL 8.8-10.2 L [facility] Glomerular filtration rate/1.73 sq M pre dicted among non-blacks [Volume Rate/Area] in Serum or Plasma by Creatinine-based formula (MDRD) 74 mL/min/1.73m2 >60 [facility] Glomerular filtration rate/1.73 sq M pre dicted among blacks [Volume Rate/Area] in Serum or Plasma by Creatinine-based formula (MDRD) 86 mL/min/1.73m2 >60 [facility] ID Date Data Source [id number] 10/04/2020 12:21:56 PM [facility] Value Range Interpretation Code Description Data Kaye rce(s) Supporting Document(s) Troponin T.cardiac [Mass/volume] in Serum or Plasma <0.01 [facility] ID Date Data Source [id number] 10/04/2020 04:03:57 PM [facility] Value Range Interpretation Code Description Data Kaye rce(s) Supporting Document(s) Albumin [Mass/volume] in Serum or Plasma by Bromocresol green (BCG) dye binding method 3.5 g/dL 3.5-5.2 [facility] Bilirubin.total [Mass/volume] in Serum or Plasma 0.5 mg/dL <1.2 [facility] Bilirubin.direct [Mass/volume] in Serum or Plasma <0.3 [facility] Hemolyzed Alkaline phosphatase [Enzymatic activity/volume] in Serum or Plasma 50 U/L 40-129 [facility] Aspartate aminotransferase [Enzymatic activity/volume] in Serum or Plasma 22 U/L <40 [facility] Hemolyzed Alanine aminotransferase [Enzymatic activity/volume] in Seru m or Plasma 21 U/L <41 [facility] Protein [Mass/volume] in Serum or Plasma 6.0 g/dL 6.4-8.3 L [facility] ID Date Data Source [id number] 10/04/2020 04:03:57 PM [facility] Name Value Range Interpretation Code Description Data Kaye rce(s) Supporting Document(s) Cholesterol [Mass/volume] in Serum or Plasma 141 mg/dL <200 [facility] Triglyceride [Mass/volume] in Serum or Plasma 187 mg/dL <150 H [facility] Cholesterol in HDL [Mass/volume] in Serum or Plasma 42 mg/dL >40 [facility] Cholesterol in LDL [Mass/volume] in Serum or Plasma by calcu lation 61 mg/dL <100 [facility] Cholesterol in VLDL [Mass/volume] in Serum or Plasma by calc ulation 37 mg/dl 16-42 [facility] Cholesterol non HDL [Mass/volume] in Serum or Plasma 99 mg/dL <130 [facility] ID Date Data Source [id number] 10/04/2020 06:13:12 PM [facility] Name Value Range Interpretation Code Description Data Kaye rce(s) Supporting Document(s) Thyrotropin [Units/volume] in Serum or Plasma 1.330 u[IU]/mL 0.270-4. 200 [facility] ID Date Data Source [id number] 10/04/2020 02:02:37 PM [facility] Value Range Interpretation Code Description Data Kaye rce(s) Supporting Document(s) Hemoglobin A1c/Hemoglobin.total in Blood by HPLC 6.6 % 4.0-6.0 H [facility] (NOTE)<5.7% Average risk of diabetes (ADA)5.7-6.4% Increased risk of diabetes(ADA)>/= 6.5% Diagnostic for diabetes(ADA) Glucose mean value [Mass/volume] in Blood Estimated fr om glycated hemoglobin 143 mg/dL <126 H [facility] ID Date Data Source [id number] 10/04/2020 10:38:28 AM [facility] Name Value Range Interpretation Code Description Data Kaye rce(s) Supporting Document(s) Sodium [Moles/volume] in Blood 138 mmol/L 136-145 [facility] Potassium [Moles/volume] in Blood 4.0 mmol/L 3.4-5.1 [facility] Chloride [Moles/volume] in Blood 101 mmol/L 98-107 [facility] Carbon dioxide, total [Moles/volume] in Blood 31 mmol/L 22-29 H [facility] Calcium.ionized [Moles/volume] in Blood 1.19 mmol/L 1.13-1.32 [facility] Glucose [Mass/volume] in Blood 169 mg/dL 70-140 H [facility] Urea nitrogen [Mass/volume] in Blood 25 mg/dL 8-23 H [facility] Creatinine [Mass/volume] in Blood 1.0 mg/dL 0.70-1.20 [facility] Hematocrit [Volume Fraction] of Blood 44 % 41-53 [facility] Hemoglobin [Mass/volume] in Blood by calculation 15.0 g/dL 13.5-18.0 [facility] ID Date Data Source [id number] 10/04/2020 10:30:32 AM [facility] Name Value Range Interpretation Code Description Data Kaye rce(s) Supporting Document(s) EKG [facility] [id number] [file] [id number] ID Date Data Source [id number] 10/04/2020 10:38:28 AM [facility] Name Value Range Interpretation Code Description Data Kaye rce(s) Supporting Document(s) pH of Venous blood 7.35 7.36-7.41 L [facility] Carbon dioxide [Partial pressure] in Venous blood 55 mmHg 40-45 H [facility] Oxygen [Partial pressure] in Venous blood 19 mmHg [facility] Base excess standard in Venous blood by calculation 3 mmol/L [facility] Oxygen saturation Calculated from oxygen partial pressure in Venous blood 27 % 60-85 L [facility] Lactate [Moles/volume] in Venous blood 3.0 mmol/L 0.5-2.2 H [facility] Bicarbonate [Moles/volume] in Venous blood 32 mmol/L [facility] ID Date Data Source [id number] 10/04/2020 10:38:28 AM [facility] Name Value Range Interpretation Code Description Data Kaye rce(s) Supporting Document(s) Troponin I.cardiac [Mass/volume] in Blood 0.00 ng/mL 0.00-0.08 [facility] ID Date Data Source [id number] 08/31/2020 03:48:00 PM EST [facility]) Name Value Range Interpretation Code Description Data Kaye rce(s) Supporting Document(s) Calcium [Mass/volume] in Serum or Plasma 8.4 [facility] ([facility]) Carbon dioxide, total [Moles/volume] in Serum or Plasma 28 [facility] ([facility]) Sodium 143 [facility] ([facility]) Chloride [Moles/volume] in Serum or Plasma 109 [facility] ([facility]) Blood Urea Nitrogen 16 7-18 [facility] ([facility]) Potassium [Moles/volume] in Serum or Plasma 3.5 [facility] ([facility]) Glucose 128 70-100 [facility] ([facility]) Glomerular filtration rate/1.73 sq M.pre dicted [Volume Rate/Area] in Serum or Plasma by Creatinine-based formula (MDRD) Laboratory test result [facility] ([facility]) Creatinine 0.81 0.70-1.30 [facility] ([facility]) ID Date Data Source [id number] 08/31/2020 03:48:00 PM EST [facility]) Name Value Range Interpretation Code Description Data Kaye rce(s) Supporting Document(s) Hemoglobin A1c/Hemoglobin.total in Blood 6.2 [facility] ([facility]) ID Date Data Source [id number] 08/31/2020 03:48:00 PM EST [facility]) Name Value Range Interpretation Code Description Data Kaye rce(s) Supporting Document(s) Red Blood Count 5.13 4.30-6.10 [facility] ([facility]) White Blood Count 9.7 4.0-10.0 [facility] ([facility]) Platelets 219 150-450 [facility] ([facility]) Hemoglobin 15.1 [facility] ([facility]) Hematocrit 45.7 [facility] ([facility]) ID Date Data Source [id number] 08/30/2020 09:53:00 AM EST [facility] Name Value Range Interpretation Code Description Data Kaye rce(s) Supporting Document(s) SARS coronavirus 2 RNA [Presence] in Res piratory specimen by [facility] with probe detection [facility] This lab was ordered by [facility] a nd reported by [facility]. ID Date Data Source [id number] 03/01/2020 11:30:00 AM EDT [facility] Name Value Range Interpretation Code Description Data Kaye rce(s) Supporting Document(s) Hemoglobin A1c/Hemoglobin.total in Blood 6.5 [facility] ([facility]) ID Date Data Source [id number] 03/01/2020 11:30:00 AM EDT [facility] ([facility]) Name Value Range Interpretation Code Description Data Kaye rce(s) Supporting Document(s) Glucose 129 70-100 [facility] ([facility]) Blood Urea Nitrogen 22 7-18 [facility] ([facility]) Potassium 4.2 3.5-5.1 [facility] ([facility]) Creatinine 0.95 0.70-1.30 [facility] ([facility]) Chloride 104 98-107 [facility] ([facility]) Sodium 137 136-145 [facility] ([facility]) Carbon Dioxide 28 21-32 [facility] ([facility]) Calcium 9.0 8.8-10.2 [facility] ([facility]) Glomerular filtration rate/1.73 sq M.pre dicted [Volume Rate/Area] in Serum or Plasma by Creatinine-based formula (MDRD) Laboratory test result [facility] ([facility]) Procedure Social History Code Duration Value Status Description Data Source(s ) Alcohol intake 10/04/2020 12:00:00 AM EST Ex-drinker (finding) comp leted Ex- drinker (finding) [facility] Smoking 10/04/2020 12:00:00 AM EST Former smoker completed Former smoker [facility] Smoking 09/30/2020 12:00:00 AM EST Patient is a former smoker completed Patient is a former smoker [facility] ([facility]) Smoking 09/19/2020 12:00:00 AM EST Former Smoker completed Former Smoker [facility]CW1 ([facility]) Smoking 09/19/2020 12:00:00 AM EST Former Smoker completed Former Smoker eCW1 ([facility]) Smoking 09/19/2020 12:00:00 AM EST Former Smoker completed Former Smoker eCW1 ([facility]) Smoking 09/19/2020 12:00:00 AM EST Former Smoker completed Former Smoker eCW1 ([facility]) Smoking 09/19/2020 12:00:00 AM EST Former Smoker completed Former Smoker eCW1 ([facility]) Smoking 09/19/2020 12:00:00 AM EST Former Smoker completed Former Smoker eCW1 ([facility]) Smoking 09/01/2020 12:00:00 AM EST Former Smoker completed Former Smoker eCW1 ([facility]) Smoking 09/01/2020 12:00:00 AM EST Former Smoker completed Former Smoker eCW1 ([facility]) Smoking 07/12/2020 12:00:00 AM EST Former Smoker completed Former Smoker eCW1 ([facility]) Smoking 07/12/2020 12:00:00 AM EST Former Smoker completed Former Smoker eCW1 ([facility]) Smoking 07/12/2020 12:00:00 AM EST Former Smoker completed Former Smoker eCW1 ([facility]) Smoking 03/03/2020 12:00:00 AM EDT Former Smoker completed Former Smoker eCW1 ([facility]) Vital Signs ID Date Data Source UNK Name Value Range Interpretation Code Description Data Source(s) Diastolic blood pressure--sitting 80 mm[Hg] 80 mm[Hg] MEDENT ([facility]) Ra, large cuff Systolic blood pressure--sitting 126 mm[Hg] 126 mm[Hg] [facility]ENT ([facility]) Ra, large cuff Respiratory rate 16 /min 16 /min MEDENT ( [facility]) nonlabored Heart rate 76 /min 76 /min [facility] ([facility] regular Body mass index (BMI) [Ratio] 30.6 kg/m2 30.6 k g/m2 MEDENT ([facility]) Body height 70 [in_i] 70 [in_i] [facility]) 5'10" Body weight 213.00 [lb_av] 213.00 [lb_av] MEDEN T ([facility]) Diastolic blood pressure 80 mm[Hg] 80 mm[Hg] eCW1 ([facility]) Systolic blood pressure 140 mm[Hg] 140 mm[Hg] e CW1 ([facility]) Body temperature 96.9 [degF] 96.9 [degF] eCW1 ( [facility]) Respiratory rate 20 /min 20 /min eCW1 ([facility]) Heart rate 97 /min 97 /min eCW1 ([facility]) Body mass index (BMI) [Ratio] 29.84 kg/m2 29.84 kg/m2 eCW1 ([facility]) Body height [in_i] eCW1 ([facility]) Body weight 214 [lb_av] 214 [lb_av] eCW1 ([facility]) Diastolic blood pressure 70 mm[Hg] 70 mm[Hg] eCW1 ([facility]) Systolic blood pressure 110 mm[Hg] 110 mm[Hg] e CW1 ([facility]) Body temperature 96.5 [degF] 96.5 [degF] eCW1 ( [facility]) Respiratory rate 20 /min 20 /min eCW1 ([facility]) Heart rate 90 /min 90 /min eCW1 ([facility]) Body mass index (BMI) [Ratio] 30.40 kg/m2 30.40 kg/m2 eCW1 ([facility]) Body height [in_i] eCW1 ([facility]) Body weight 218 [lb_av] 218 [lb_av] eCW1 ([facility]) Diastolic blood pressure 70 mm[Hg] 70 mm[Hg] eCW1 ([facility]) Systolic blood pressure 130 mm[Hg] 130 mm[Hg] e CW1 ([facility]) Body temperature 96.7 [degF] 96.7 [degF] eCW1 ( [facility]) Respiratory rate 20 /min 20 /min eCW1 ([facility]) Heart rate 102 /min 102 /min eCW1 ([facility]) Body mass index (BMI) [Ratio] 30.96 kg/m2 30.96 kg/m2 eCW1 ([facility]) Body height [in_i] eCW1 ([facility]) Body weight 222 [lb_av] 222 [lb_av] eCW1 ([facility]) Diastolic blood pressure--sitting 84 mm[Hg] 84 mm[Hg] MEDENT ([facility]) large cuff, Ra Systolic blood pressure--sitting 136 mm[Hg] 136 mm[Hg] MEDENT ([facility]) large cuff, Ra Heart rate 71 /min 71 /min [facility] ([facility]) Body mass index (BMI) [Ratio] 31.4 kg/m2 31.4 k g/m2 MEDENT ([facility]) Body height 70 [in_i] 70 [in_i] [facility] 5'10" Body weight 219.00 [lb_av] 219.00 [lb_av] MEDEN T ([facility]) Body mass index (BMI) [Ratio] 31.1 kg/m2 31.1 k g/m2 MEDENT ([facility] Heart rate 78 /min 78 /min MEDENT ([facility] Diastolic blood pressure 70 mm[Hg] 70 mm[Hg] MEDENT ([facility] Systolic blood pressure 120 mm[Hg] 120 mm[Hg] M EDENT ([facility] Body weight 223.00 [lb_av] 223.00 [lb_av] MEDEN T ([facility] Body height 71 [in_i] 71 [in_i] MEDENT ([facility] 5'11" ID Date Data Source [id number] 10/17/2020 07:56:11 AM [facility] Name Value Range Interpretation Code Description Data Source(s) WEIGHT RECORDED 213.63 lb 213.63 lb [facility] WEIGHT RECORDED 217.15 lb 217.15 lb [facility] Body height Measured 70 in 70 in [facility] Patient Treatment Plan of Care Planned Activity Planned Date Details Description Data Source (s) Polymyxin B 47227 UNT/ML / Trimethoprim 1 MG/ML Ophtha lmic Solution 10/07/2020 12:00:00 AM [facility]ital Levetiracetam 750 MG Oral Tablet 10/07/2020 12:00:00 AM [facility] olanzapine 5 MG/ML Injectable Solution 10/05/2020 11:17:21 PM [facility] Glucose 0.417 MG/MG Oral Gel 10/04/2020 01:07:38 PM [facility] dextrose 50 % IV solution 25 mL 10/04/2020 01:07:37 PM [facility] Glucagon 1 MG Injection 10/04/2020 01:07:37 PM [facility] MetFORMIN HCl ER (MOD) 500 MG 08/31/2020 12:00:00 AM EST eCW1 ([facility]) MetFORMIN HCl ER (MOD) 500 MG 08/31/2020 12:00:00 AM EST eCW1 ([facility]) Glucometer 08/11/2020 12:00:00 AM EST e CW1 ([facility]) Glucometer 08/11/2020 12:00:00 AM EST e CW1 ([facility]) MetFORMIN HCl ER (MOD) 1000 MG 07/12/2020 12:00:00 AM EST eCW1 ([facility]) MetFORMIN HCl ER (MOD) 1000 MG 07/12/2020 12:00:00 AM EST eCW1 ([facility]) MetFORMIN HCl ER (MOD) 1000 MG 07/12/2020 12:00:00 AM EST eCW1 ([facility]) clopidogrel 300 MG Oral Tablet [facility]
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
--- OUTSIDE RECORDS SUMMARY | 2020-11-04 09:10 | CCD | Continuity of Care Document ---
Author Gorge Flores M.D. Organization Unknown Address [address] [place] [id number] Phone [phone] Care Team Providers Care Perianesthesia Nurse Name Role Phone Ruben Sandoval M.D. AUTM [phone] Problems Active Problems Provider Date Cerebral infarction [...] Donepezil HCL 10mg Tablets 1 po qam. 90tabs Alexys Lange M.D. 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 08/10/2020 I63.031 Cerebral infarction due to throm bosis of right carotid arter Alexys Lange M.D. 08/10/2020 F01.50 Vascular dementia without behavi oral disturbance Alexys Lange M.D. 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 Plan of Treatment No Information Available Functional Status Description No Information Available Mental Status Description No Information Available Referrals Description No Information Available
[2020-11-04 09:37] LABS: OSMOLALITY SERUM 295 MOSM/KG (280-301)
[2020-11-04 09:41] LABS: ALBUMIN 3.5 GM/DL (3.2-5.2); ALT/SGPT 27 U/L (12-78); BILIRUBIN,DIRECT < 0.1 MG/DL (0.0-0.2); BILIRUBIN,TOTAL 0.4 MG/DL (0.2-1.0); BLOOD UREA NITROGEN 22 MG/DL (7-18); CARBON DIOXIDE LEVEL 25 MEQ/L (21-32); CHLORIDE LEVEL 114 MEQ/L (98-107); CK-MB VALUE MASS 1.5 NG/ML (<3.6); CPK CREATINE PHOSPHOKINASE 103 U/L (39-308); GLOMERULAR FILTRATION RATE > 60.0 (>49); GLUCOSE, FASTING 136 MG/DL (70-100); MB/CK RELATIVE INDEX 1.46 (< OR =4); POTASSIUM SERUM 4.4 MEQ/L (3.5-5.1); SODIUM LEVEL 145 MEQ/L (136-145); THYROID STIMULATING HORMONE 0.983 uIU/ML (0.358-3.740); TOTAL PROTEIN 6.5 GM/DL (6.4-8.2); TROPONIN I < 0.02 NG/ML (< 0.10)
[2020-11-04] MEDS ORDERED: ACET-683 PO (10:02)
[2020-11-04] MEDS ORDERED: METF-838 PO (10:02)
[2020-11-04] MEDS ORDERED: LEVE750T5 PO (10:03)
[2020-11-04 10:31] LABS: BASO % 0.2 % (0.0-1.0); EOS # 0.1 10^3/uL (0.0-0.5); EOS % 0.6 % (0.0-3.0); HEMATOCRIT 49.2 % (42.0-52.0); HEMOGLOBIN 16.2 g/dl (13.5-17.5); LYMPH # 1.2 10^3/uL (1.5-5.0); LYMPH % 13.6 % (24.0-44.0); MEAN CORPUSCULAR HEMOGLOBIN 29.8 pg (27.0-33.0); MEAN CORPUSCULAR HGB CONC 32.9 g/dl (32.0-36.5); MEAN CORPUSCULAR VOLUME 90.6 fl (80.0-96.0); MONO # 0.4 10^3/uL (0.0-0.8); MONO % 4.8 % (2.0-8.0); NEUTROPHILS % 80.5 % (36.0-66.0); PLATELET COUNT, AUTOMATED 229 10^3/uL (150-450); RED BLOOD COUNT 5.43 10^6/uL (4.30-6.10); WHITE BLOOD COUNT 8.7 10^3/uL (4.0-10.0)
[2020-11-04] MEDS ORDERED: GLUCOSE 4GM CHEW TABLET PO PRN (10:40)
[2020-11-04] MEDS ORDERED: GLUCAGON INJ 1MG VIAL SC PRN (10:40)
[2020-11-04] MEDS ORDERED: ACETAMINOPHEN TAB 650MG DOSE (2X325MG) PO PRN (10:40)
[2020-11-04] MEDS ORDERED: DEXTROSE 50% 50 ML SYRINGE IV PRN (10:40)
[2020-11-04] MEDS ORDERED: MOM 30ML SUSPENSION UDC PO PRN (10:40)
--- OUTSIDE RECORDS SUMMARY | 2020-11-04 11:06 | CCD ---
Author Author [facility] Organization [facility] Address Unknown Phone Unavailable Care Team Providers Care Chief Environmental Commitment Officer Name Role Phone Panda Popit Unavailable Unavailable Swarnnora Denny Unavailable Unavailable Panda Popit Unavailable Unavailable Héctor TRPILETT DPM Unavailable Unavailable Héctor TRIPLETT DPM Unavailable [...] Unavailable Unavailable Héctor TRIPLETT DPM Unavailable Unavailable MAJAK, R AYSE DPM Unavailable Unavailable Héctor TRIPLETTW DPM Unavailable Unavailable MAJMODESTA, R AYSE DPM Unavailable Unavailable MAJMODESTA, R AYSE DPM Unavailable Unavailable MAJMODESTA, R AYSE DPM Unavailable Unavailable MAJAK, R AYSE DPM Unavailable Unavailable MAJMODESTA, R AYSE DPM Unavailable Unavailable Simionescu, Gilmer Prajapati MD [...] Unavailable Unavailable Alexys Lange MD Unavailable Unavailable Aelxys Lange MD Unavailable Unavailable Alexys Lange MD [...] Unavailable Ali, Alexys MD Unavailable Unavailable LEONA [id number], E YA [id number] Unavailable Unavailabl e LEONA [id number], E YA [id number] Unavailable Unavailabl e LEONA [id number], E YA [id number] Unavailable Unavailabl e DELIA, L IKER PA Unavailable Unavailable DELIA, [...] is protected by Article 27-F of the [place] Public Health law. If you continue you may have access to information: Regarding HIV / AIDS; Provided by facilities licensed or operated by the [place] Office of Mental Health; or Provided by the [place] Office for People With Developmental Disabilities. If such information is present, then the following [place] mandated warning applies: This information has been [...] law may result in a fine or usp sentence or both. A general authorization for the release of medical or other information is NOT sufficient authorization for further disc losure. Allergies and Adverse Reactions Type Description Substance Reaction Status Data Source(s ) Drug Class NO KNOWN ALLERGIES NO KNOWN ALLERGIES [facility] Family History Family Member Name Family Member Gender Family Member Status Date o f Status Description Data Source(s) Unknown Unknown Problem MEDENT ([facility]) Unknown Female Problem MEDENT ([facility]) Unknown Unknown Problem [facility] ([facility]) Encounters Encounter Providers Location Date Indications Data Source(s ) Unknown [address] [facility] [place] [address] 10/31/2020 12:00:00 AM EST eCW1 ([facility]) Office Visit Attender: Alexys Lange MD Main office - [place] 10/11/2020 11:30:00 AM EST MEDENT ([facility] ) Unknown [address] [facility] [place] [address] 10/10/2020 12:00:00 AM EST eCW1 ([facility]) Unknown [address] [facility] [place] [address] 10/10/2020 12:00:00 AM EST eCW1 ([facility]) Emergency Attender: YA DELGADILLO [id number]: YA PLUMMER [id number] 10/04/2020 10:10:35 AM EST [facility] Inpatient Attender: Victorina Wong DAttender: Denny ArguellokarAttender: JOEL KAHN MDAttender: YA DELGADILLO [id number]: DEFAULT / GENERIC / UNKNOWN PROVIDER ALIASES Admitter: JOEL KHAN MDReferrer: JOEL KHAN MD [id number] 10/04/2020 12:00:00 AM EST - 10/07/2020 05:12:00 PM EST Occlusion and stenosis of bilateral carotid arteries [facility] Occlusion and stenosis of bilateral novoa tid arteries Patient discharged. Outpatient Attender: IKER BRICEÑO Main Office 09/30/2020 0 2:00:00 PM EST MEDENT ([facility]) Office Visit Attender: Alexys Lange MD Main office - [place] 09/22/2020 12:30:00 PM EST MEDENT ([facility], ) Unknown [address] [facility] [address] 09/20/2020 12:00:00 AM EST [facility]CW1 [facility] Outpatient [address] [facility] [address] 09/19/2020 12:00:00 AM EST eCW1 ([facility]) Unknown [address] [facility] [address] 09/15/2020 12:00:00 AM EST eCW1 ([facility]) (TCM) Transition of Care Visit [address] [place] [address] 09/01/2020 12:00:00 AM EST eCW1 ([facility]s include 234 beds at the [facility]) Unknown [address] [facility] [address] 09/01/2020 12:00:00 AM EST eCW1 ([facility]) Unknown [address] [facility] [address] 08/30/2020 12:00:00 AM EST eCW1 ([facility]) [place] [address] [facility] [place] [address] 08/11/2020 12:00:00 AM EST eCW1 ([facility]) Office Visit Attender: Alexys Lange MD Main office - [place] 08/10/2020 11:15:00 AM EST MEDENT ([facility], ) Outpatient [address] [facility] [place] [address] 07/12/2020 12:00:00 AM EST eCW1 ([facility]) Outpatient [address] [facility] [place] [address] 06/09/2020 12:00:00 AM EDT eCW1 ([facility]) Outpatient Attender: AYSE TRIPLETT DPM [place] Office 04/10 10:00:00 AM EDT MEDENT ([facility] Outpatient Attender: Vida BRICEÑO Main Office 03/24/2020 01:00:0 0 PM EDT MEDENT ([facility]) [facility] [address] [facility] [place] [address] 03/03/2020 12:00:00 AM EDT eCW1 ([facility]) Unknown [address] [facility] [place] [address] 02/17/2020 12:00:00 AM EDT eCW1 ([facility]) [facility] [address] [facility] [place] [address] 12/21/2019 12:00:00 AM EDT eCW1 ([facility]) [facility] [address] [facility] [place] [address] 11/24/2019 12:00:00 AM EDT eCW1 ([facility]) [facility] [address] [facility] [place] [address] 11/23/2019 12:00:00 AM EDT eCW1 ([facility]) Outpatient Attender: AYSE TRIPLETT DPM [place] Office 11/07 10:15:00 AM EDT MEDENT ([facility] [address] [facility] [place] [address] 10/30/2019 12:00:00 AM EST eCW1 ([facility]) Immunizations Vaccine Date Status Description Data Source(s) influenza, recombinant, quadrIvalent,injectable, prese rvative free 06/09/2020 10:38:00 AM EDT completed eCW1 ([facility]) influenza, recombinant, quadrIvalent,injectable, prese rvative free 06/09/2020 10:38:00 AM EDT completed eCW1 ([facility]) influenza, recombinant, quadrIvalent,injectable, prese rvative free 06/09/2020 10:38:00 AM EDT completed eCW1 ([facility]) influenza, recombinant, quadrIvalent,injectable, prese rvative free 06/09/2020 10:38:00 AM EDT completed eCW1 ([facility]) influenza, recombinant, quadrIvalent,injectable, prese rvative free 06/09/2020 10:38:00 AM EDT completed eCW1 ([facility]) influenza, recombinant, quadrIvalent,injectable, prese rvative free 06/09/2020 10:38:00 AM EDT completed eCW1 ([facility]) influenza, recombinant, quadrIvalent,injectable, prese rvative free 06/09/2020 10:38:00 AM EDT completed eCW1 ([facility]) influenza, recombinant, quadrIvalent,injectable, prese rvative free 06/09/2020 10:38:00 AM EDT completed eCW1 ([facility]) influenza, recombinant, quadrIvalent,injectable, prese rvative free 06/09/2020 10:38:00 AM EDT completed eCW1 ([facility]) influenza, recombinant, quadrIvalent,injectable, prese rvative free 06/09/2020 10:38:00 AM EDT completed eCW1 ([facility]) influenza, recombinant, quadrIvalent,injectable, prese rvative free 06/09/2020 10:38:00 AM EDT completed eCW1 ([facility]) influenza, recombinant, quadrIvalent,injectable, prese rvative free 06/09/2020 10:38:00 AM EDT completed eCW1 ([facility]) Medications Medication Brand Name Start Date [...] on Sat10/07/20 at 0900, For 7 days [facility] Medication administered onsite Levetiracetam 750 MG Oral Tablet Levetiracetam 750 MG 2020 12:00:00 AM EST 1.0 {tablet} active Levetiracet am 750 MG eCW1 ([facility]) Polymyxin B 03620 UNT/ML / Trimethoprim 1 MG/ML Ophthalmic Solution Polymyxin B- Trimethoprim 28118-3.1 UNIT/ML-% Ophthalmic Solution (Polytrim) Polymyxin B- Trimethoprim 55336-1.1 UNIT/ML-% Ophthalmic Solution (Polytrim) 10/07/2020 12:00:00 AM EST 1 [drp] Left Eye active Place 1 drop into the left eye every 4 (four) hours for 7 days [facility] Levetiracetam 750 MG Oral Tablet levETIRAcetam 750 MG Oral Tablet (KEPPRA) levETIRAcetam 750 MG Oral Tablet (KEPPRA) 10/07/2020 12:00:00 AM EST 750 mg Oral active Take 1 tablet by sujit th Two Times Daily [facility] Polymyxin B 93822 UNT/ML / Trimethoprim 1 MG/ML Ophthalmic Solution Polymyxin B- Trimethoprim 86319-0.1 UNIT/ML Polymyxin B-Trimethoprim 22145-0.1 UNIT/ML 10/07/2020 12:00:00 AM EST 1.0 {drop_into_affected_eye} active Polymyxin B-Trimethoprim 59793-3.1 UNIT/ML eCW1 ([facility]) Levetiracetam 750 MG Oral Tablet Levetiracetam 750 MG 2020 12:00:00 AM EST 1.0 {tablet} active Levetiracet am 750 MG eCW1 ([facility]) Donepezil hydrochloride 5 MG Oral Tablet donepezil (AR ICEPT) tablet 5 mg donepezil (ARICEPT) tablet 5 mg 10/06/2020 10:00:00 PM EST 5 mg O ral active 5 mg, Oral, Nightly, First dose on Sat10/06/20 at 2200, For 30 days [facility] Medication administered onsite 0.4 ML Enoxaparin sodium 100 MG/ML Prefi lled Syringe enoxaparin sodium (LOVENOX) injection 40 mg enoxaparin sodium (LOVENOX) injection 40 mg 10/06/2020 09:00:00 AM EST 40 mg Subcutaneous active 40 mg, Subcutaneous, Daily Standard, First dose on Sat10/06/20 at 0900, For 30 days [facility] Medication administered onsite potassium chloride (K-DUR) dissolvable tablet 40 mEq 56981-8 38-90 10/06/2020 09:00:00 AM EST 40 meq Oral completed 40 mEq, Oral, Once, Sat10/06/20 at 0900, For 1 dose
May be dissolved in water for patients with a G-Tube or unable to swallow. If concern for clogging G-Tube, may contact Pharmacy to switch formulation to a powder packet.
[facility] Medication administered onsite Trazodone Hydrochloride 50 MG Oral Tablet trazodone (D ESYREL) tablet 50 mg trazodone (DESYREL) tablet 50 mg 10/05/2020 11:30:00 PM EST 50 mg Oral completed 50 mg, Oral, Once, Sat10/05/20 a t 2330, For 1 dose [facility] Medication administered onsite olanzapine 5 MG/ML Injectable Solution OLANZapine (ZYP REXA) injection 2.5 mg OLANZapine (ZYPREXA) injection 2.5 mg 10/05/2020 11:17:21 PM EST 2.5 mg Intramuscular active 2.5 mg, Int ramuscular, Once PRN, Agitation, Starting Sat10/05/20 at 2317, For 1 dose
Reconstitute 10 mg vial with 2.1 mL SWFI; resulting solution is ~5 mg/mL; Use within 1 hour following reconsti tution.
[facility] Medication administered onsite olanzapine 2.5 MG Oral Tablet OLANZapine (ZYPREXA) tab let 2.5 mg OLANZapine (ZYPREXA) tablet 2.5 mg 10/05/2020 07:45:00 PM EST 2.5 mg Oral completed 2.5 mg, Oral, Once, Sat10/05/20 at 1945, For 1 dose [facility] Medication administered onsite Levetiracetam 500 MG Oral Tablet levETIRAcetam (KEPPRA ) tablet 750 mg levETIRAcetam (KEPPRA) tablet 750 mg 10/05/2020 02:45:00 PM EST 750 m g Oral active 750 mg, Oral, 2 Times Daily, First dose on Sat10/05/20 at 1445, For 30 days [facility] Medication administered onsite potassium chloride (K-DUR) dissolvable tablet 40 mEq 85782-4 38-90 10/05/2020 09:30:00 AM EST 40 meq Oral completed 40 mEq, Oral, Once, Sat10/05/20 at 0930, For 1 dose
May be dissolved in water for patients with a G-Tube or unable to swallow. If concern for clogging G-Tube, may contact Pharmacy to switch formulation to a powder packet.
[facility] Medication administered onsite Aspirin 81 MG Delayed Release Oral Tablet aspirin EC E C tablet 81 mg aspirin EC EC tablet 81 mg 10/05/2020 09:00:00 AM EST 81 mg Oral ac tive 81 mg, Oral, Daily Standard, First dose on Sat10/05/20 at 0900, For 30 days
Do not crush or chew
[facility] Medication administered onsite Donepezil hydrochloride 10 MG Oral Tablet Donepezil HCL 10/05/2020 12:00:00 AM EST ORAL active MEDENT ([facility]) Sodium Chloride 0.111 MEQ/ML Nasal Solut ion sodium chloride (OCEAN) 0.65 % nasal spray 2 spray sodium chloride (OCEAN) 0.65 % nasal spray 2 spray 09:00:00 PM EST 2 {spray} Each Nare completed 2 spray, Each Nare, Once, Sat10/04/20 at 2100, For 1 dose [facility] Medication administered onsite Memantine hydrochloride 5 MG Oral Tablet memantine (NA MENDA) tablet 5 mg memantine (NAMENDA) tablet 5 mg 10/04/2020 09:00:00 PM EST 5 mg O ral aborted 5 mg, Oral, 2 Times Daily, First dose on Sat10/04/20 at 2100, For 30 days [facility] Medication administered onsite atorvastatin 40 MG Oral Tablet atorvastatin (LIPITOR) tablet 40 mg atorvastatin (LIPITOR) tablet 40 mg 10/04/2020 09:00:00 PM EST 40 mg Oral active 40 mg, Oral, Every evening, First dose on Sat10/04/20 at 2100, For 30 days [facility] Medication administered onsite insulin lispro (HumaLOG) injection LOW DOSE EATING INS ULIN patients 1-8 Units 27916-018-97 10/04/2020 06:00:00 PM EST U Subcutaneous active 1-8 Units, Subcutaneous, Three Times Daily-With Meals, First dose on Sat10/04/20 at 1800, For 30 days
Nursing MUST open the 'SQ Insulin Dosing Charts' Sidebar Report, or, the Patient Summary or Summary Report within the ED.
[facility] Medication administered onsite 1 ML Lorazepam 2 MG/ML Injection LORazepam (ATIVAN) in jection 1 mg LORazepam (ATIVAN) injection 1 mg 10/04/2020 05:45:00 PM EST 1 mg Intraveno us completed 1 mg, Intravenous, O nce, Sat10/04/20 at 1745, For 1 dose
For MRI
[facility] Medication administered onsite NaCl infusion 0.9 % 0116-5192-93 10/04/2020 01:30:00 PM EST Intravenous aborted at 50 mL/hr, Intrave nous, Continuous, Starting Sat10/04/20 at 1330, For 30 days [facility] Medication administered onsite clopidogrel 300 MG Oral Tablet clopidogrel (PLAVIX) ta blet 300 mg clopidogrel (PLAVIX) tablet 300 mg 10/04/2020 01:30:00 PM EST 300 mg Oral completed 300 mg, Oral, Once, Sat10/04/20 at 1330, For 1 dose [facility] Medication administered onsite Glucose 0.417 MG/MG Oral Gel glucose (GLUTOSE) 40 % or al gel 15 g glucose (GLUTOSE) 40 % oral gel 15 g 10/04/2020 01:07:38 PM EST 15 g Oral active 15 g, Oral, PRN, Low blood s ugar, for gluose 55-69 mg/dl and able to take PO, Starting Sat10/04/20 at 1307, For 30 days [facility] Medication administered onsite dextrose 50 % IV solution 25 mL 5834-5913-50 10/04/2020 01:07:[address] 25 mL Intravenous active 25 mL, Intrav enous, PRN, Other, blood glucose <55, Starting Sat10/04/20 at 1307, For 30 days
Not for midline administration.
[facility] Medication administered onsite Glucagon 1 MG Injection glucagon (human recombinant) ( GLUCAGEN) injection 1 mg glucagon (human recombinant) (GLUCAGEN) injection 1 mg 10/04/2020 01:07:37 PM EST 1 mg Intramuscular active 1 mg, Intramuscular, PRN, for glucose <55 without IV access, Starting Sat10/04/20 at 1307, For 30 days [facility] Medication administered onsite sodium chloride 0.9 % bolus 1,000 mL 0946-6482-02 10/04/2020 12:45: 00 PM EST 1000 mL Intravenous completed 1,000 mL , Intravenous, Once, Sat10/04/20 at 1245, For 1 dose [facility] Medication administered onsite iohexol (OMNIPAQUE) 350 MG/ML contrast injection 75 mL 25208 10/04/2020 10:30:00 AM EST 75 mL Given by IV completed 75 mL, Given by IV, 1 TIME IMAGING, Sat10/04/20 at 1030, For 1 dose [facility] Medication administered onsite Memantine hydrochloride 10 MG Oral Tablet Memantine HCL 09/22/2020 12:00:00 AM EST completed MEDENT ([facility]) MetFORMIN HCl ER (MOD) 500 MG MetFORMIN HCl ER (MOD) 500 MG 08/31/2020 12:00:00 AM EST 1.0 {tablet_with_evening_meal} active MetFORMIN HCl ER (MOD) 500 MG eCW1 ([facility]) MetFORMIN HCl ER (MOD) 500 MG MetFORMIN HCl ER (MOD) 500 MG 08/31/2020 12:00:00 AM EST 1.0 {tablet_with_evening_meal} active MetFORMIN HCl ER (MOD) 500 MG eCW1 ([facility]) MetFORMIN HCl ER (MOD) 500 MG MetFORMIN HCl ER (MOD) 500 MG 08/31/2020 12:00:00 AM EST 1.0 {tablet_with_evening_meal} active MetFORMIN HCl ER (MOD) 500 MG eCW1 ([facility]) MetFORMIN HCl ER (MOD) 500 MG MetFORMIN HCl ER (MOD) 500 MG 08/31/2020 12:00:00 AM EST 1.0 {tablet_with_evening_meal} active MetFORMIN HCl ER (MOD) 500 MG eCW1 ([facility]) MetFORMIN HCl ER (MOD) 500 MG MetFORMIN HCl ER (MOD) 500 MG 08/31/2020 12:00:00 AM EST 1.0 {tablet_with_evening_meal} active MetFORMIN HCl ER (MOD) 500 MG eCW1 ([facility]) MetFORMIN HCl ER (MOD) 500 MG MetFORMIN HCl ER (MOD) 500 MG 08/31/2020 12:00:00 AM EST 1.0 {tablet_with_evening_meal} active MetFORMIN HCl ER (MOD) 500 MG eCW1 ([facility]) Glucometer UNK 08/11/2020 12:00:00 AM EST active Glucometer eCW1 ([facility]) Glucometer UNK 08/11/2020 12:00:00 AM EST active Glucometer eCW1 ([facility]) Glucometer UNK 08/11/2020 12:00:00 AM EST active Glucometer eCW1 ([facility]) Glucometer UNK 08/11/2020 12:00:00 AM EST active Glucometer eCW1 ([facility]) Glucometer UNK 08/11/2020 12:00:00 AM EST active Glucometer eCW1 ([facility]) Glucometer UNK 08/11/2020 12:00:00 AM EST active Glucometer eCW1 ([facility]) Glucometer UNK 08/11/2020 12:00:00 AM EST active Glucometer eCW1 ([facility]) Glucometer UNK 08/11/2020 12:00:00 AM EST active Glucometer eCW1 ([facility]) Glucometer UNK 08/11/2020 12:00:00 AM EST active Glucometer eCW1 ([facility]) Glucometer UNK 08/11/2020 12:00:00 AM EST active Glucometer eCW1 ([facility]) MetFORMIN HCl ER (MOD) 1000 MG MetFORMIN HCl ER (MOD) 1000 M G 07/12/2020 12:00:00 AM EST 1.0 {tablet_with_evening_meal} a ctive MetFORMIN HCl ER (MOD) 1000 MG eCW1 ([facility]) MetFORMIN HCl ER (MOD) 1000 MG MetFORMIN HCl ER (MOD) 1000 M G 07/12/2020 12:00:00 AM EST 1.0 {tablet_with_evening_meal} a ctive MetFORMIN HCl ER (MOD) 1000 MG eCW1 ([facility]) MetFORMIN HCl ER (MOD) 1000 MG MetFORMIN HCl ER (MOD) 1000 M G 07/12/2020 12:00:00 AM EST 1.0 {tablet_with_evening_meal} a ctive MetFORMIN HCl ER (MOD) 1000 MG eCW1 ([facility]) ammonium lactate 120 MG/ML Topical Cream Ammonium Lactate 05/02/2020 12:00:00 AM EDT active MEDENT ([facility] Ketoconazole 20 MG/ML Topical Cream Ketoconazole 11/17/2019 12:00:00 AM EDT active MEDENT ([facility] clopidogrel 300 MG Oral Tablet Clopidogr el Bisulfate 300 MG Oral Tablet (PLAVIX) Clopidogrel Bisulfate 300 MG Oral Tablet (PLAVIX) 300 mg Oral aborted Take 300 mg by mouth once [facility] Insurance Providers Payer name Policy type / Coverage type Policy ID Covered republican ID Covered republican's relationship to lemons Policy [employer] Plan Information MEDICARE [id number] SP [id number] [facility] [id number] [facility] SER O [id number] S [id number] MEDICARE C [id number] O [id number] G73 FOR LIFE O [id number] S [id number] FOR LIFE U [id number] Self [id number] MEDICARE A [id number] Self [id number] G73 FOR LIFE U [id number] Self [id number] ANSI-Commercial [id number] ANSI-Medicare Part B [id number] ANSI-Medicare Part B [id number] ANSI-Commercial [id number] Prime - [employer] (HMO) [id number] Self [id number] For Life - [employer] Medigap Part B [id number] Self [id number] Medicare (Part B) Medicare Primary [id number] Self [id number] Prime - [employer] (HMO) [id number] Self [id number] For Life - [employer] Medigap Part B [id number] Self [id number] Medicare (Part B) Medicare Primary [id number] Self [id number] ANSI-Medicare Part B [id number] ANSI-Commercial [id number] [facility] (2018) [facility] Part B [id number] Self [id number] Medicare [facility]/NGS Medicare Primary [id number] Self [id number] ANSI-Medicare Part B [id number] ANSI-Commercial [id number] ANSI-Medicare Part B [id number] ANSI-Commercial [id number] ANSI-Commercial [id number] ANSI-Medicare Part B [id number] ANSI-Medicare Part B [id number] ANSI-Commercial [id number] ANSI-Medicare Part B [id number] ANSI-Commercial [id number] ANSI-Commercial [id number] ANSI-Medicare Part B [id number] ANSI-Medicare Part B [id number] ANSI-Commercial [id number] ANSI-Medicare Part B [id number] ANSI-Commercial [id number] Prime - [employer] (HMO) [id number] Self [id number] For Life - [employer] Medigap Part B [id number] Self [id number] Medicare (Part B) Medicare Primary [id number] Self [id number] Prime - [employer] (HMO) [id number] Self [id number] For Life - WPS Medigap Part B [id number] Self [id number] Medicare (Part B) Medicare Primary [id number] Self [id number] NORIDIAN PART B C [id number] S [id number] MEDICARE C [id number] S [id number] A ANSI-Medicare Part B [id number] ANSI-Commercial [id number] MEDICARE [id number] ANSI-Commercial [id number] ANSI-Medicare Part B [id number] SELF PAY ANSI-Medicare Part B [id number] ANSI-Commercial [id number] ANSI-Medicare Part B [id number] ANSI-Commercial [id number] ANSI-Commercial [id number] ANSI-Medicare Part B [id number] ANSI-Medicare Part B [id number] ANSI-Commercial [id number] Medicare Part B [facility] Other 0 Se lf 0 FOR LIFE [id number] SP [id number] Prime - [employer] Health Maintenance Organization (HMO) [id number] Self [id number] For Life - WPS Medigap Part B [id number] Self [id number] Medicare (Part B) Medicare Primary [id number] Self [id number] [place] [id number] SP [id number] FOR LIFE [id number] SP [id number] [place] [id number] SP [id number] Prime - [employer] Health Maintenance Organization (HMO) [id number] Self [id number] For Life - WPS Medigap Part B [id number] Self [id number] Medicare (Part B) Medicare Primary [id number] Self [id number] MEDICARE PI PI PI PI [id number] Tracie [id number] MEDICARE [id number] Tracie [id number] A [place] MEDICARE PART B C [id number] S [id number] Tracie [id number] Prime - [employer] Health Maintenance Organization (HMO) [id number] Self [id number] For Life - WPS Medigap Part B [id number] Self [id number] Medicare (Part B) Medicare Primary [id number] Self [id number] [facility] Federal Service Commercial Self [place] [employer] Medigap Part B Self Medicare Dme Supplies Medigap Part B [place] Primary Self For Life - [place] Medigap Part B Self Medicare (Part B) Medicare Primary Self Prime - [employer] Health Maintenance Organization (HMO) Self [place] [id number] SP [id number] Tracie [id number] Tracie [id number] [address] [facility] [place] O [id number] S [id number] [facility] REG[facility] CLAIMS CECI -O/P [id number] 18 [id number] Problems, Conditions, and Diagnoses Code Display Name Description Problem Type Effective Dates Data Source(s) 344865246 Isolated seizures Isolated seizures Problem 10/11 12:00:00 AM EST MEDENT ([facility], ) [id number] Syncope and collapse Syncope and collapse Problem 10/11/2020 12:00:00 AM EST MEDENT ([facility], ) G45.9 [id number] TIA (transient ischemic attack) Problem 09/01/2020 12:00:00 AM EST eCW1 ([facility]) E78.2 [id number] Mixed hyperlipidemia Problem 07/12/2020 12:0 0:00 AM EST eCW1 ([facility]) F17.211 [id number] Cigarette nicotine dependence in formerly [facility] n Problem 03/03/2020 12:00:00 AM EDT eCW1 ([facility]) [id number] Hammer toe Hammer toe Problem 12/03/2019 12:00:00 AM ED T MED[facility] ([facility] [id number] Type 2 diabetes mellitus Type 2 diabetes mellitus Prob shaw 12/03/2019 12:00:00 AM EDT [facility] ([facility] [id number] Onychomycosis Onychomycosis Problem 12/03/2019 12:00:00 AM EDT [facility] ([facility] 8019992 Tinea pedis Tinea pedis Problem 12/03/2019 12:00:00 AM EDT [facility] ([facility] Z86.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), 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 attack (TIA), and cerebral infarction without residual deficits Diagnosis 10/04/2020 10:21:00 AM [facility] R00.1 Bradycardia, unspecified Bradycardia, unspecified Diag nosis 10/04/2020 10:21:00 AM [facility] I65.22 Occlusion and stenosis of left carotid a rtery Occlusion and stenosis of left carotid artery Diagnosis 10/04/2020 10:21:00 AM [facility] R55 Syncope and collapse Syncope and collapse Diagnosis 10/04/2020 10:21:00 AM [facility] I65.23 Occlusion and stenosis of bilateral novao tid arteries Occlusion and stenosis of bilateral carotid arteries Diagnosis 10/04/2020 10:21:00 A M [facility] Stroke R/O Stroke R/O Diagnosis 10/04/2020 10:21:00 AM [facility] Surgeries/Procedures Procedure Description Date Indications Data Source(s) POCT GLUCOSE, DOCKED POCT GLUCOSE, DOCKED Routine 10/07/2020 11:32 AM EST 10/07/2020 11:32:00 AM [facility] POCT GLUCOSE, DOCKED POCT GLUCOSE, DOCKED Routine 10/07/2020 7:37 AM EST 10/07/2020 07:37:00 AM [facility] QUANTITATION DRUG NOT ELSEWHERE SPECIFIED LEVETIRACETAM LEVEL R outine 10/07/2020 5:28 AM EST 10/07/2020 05:28:00 AM [facility] BLOOD COUNT COMPLETE AUTO&AUTO DIFRNTL WBC COUNT CBC AND DIFFER ENTIAL Routine 10/07/2020 5:28 AM EST 10/07/2020 05:28:00 AM [facility] BASIC METABOLIC PANEL CALCIUM TOTAL BASIC METABOLIC PANEL Routi ne 10/07/2020 5:28 AM EST 10/07/2020 05:28:00 AM [facility] GLUCOSE QUANTITATIVE BLOOD XCPT REAGENT STRIP POCT GLUCOSE, DOC KED Routine 10/06/2020 9:17 PM EST 10/06/2020 09:17:00 PM [facility] GLUCOSE QUANTITATIVE BLOOD XCPT REAGENT STRIP POCT GLUCOSE, DOC KED Routine 10/06/2020 4:28 PM EST 10/06/2020 04:28:00 PM [facility] GLUCOSE QUANTITATIVE BLOOD XCPT REAGENT STRIP POCT GLUCOSE, DOC KED Routine 10/06/2020 12:37 PM EST 10/06/2020 12:37:00 PM [facility] EEG ROUTINE STUDY EEG ROUTINE STUDY Routine 10/06/2020 10:13 AM EST 10/06/2020 10:13:00 AM [facility] GLUCOSE QUANTITATIVE BLOOD XCPT REAGENT STRIP POCT GLUCOSE, DOC MILY Routine 10/06/2020 9:33 AM EST 10/06/2020 09:33:00 AM [facility] BASIC METABOLIC PANEL CALCIUM TOTAL BASIC METABOLIC PANEL Routi ne 10/06/2020 12:15 AM EST 10/06/2020 12:15:00 AM [facility] GLUCOSE QUANTITATIVE BLOOD XCPT REAGENT STRIP POCT GLUCOSE, DOC MILY Routine 10/05/2020 8:46 PM EST 10/05/2020 08:46:00 PM [facility] GLUCOSE QUANTITATIVE BLOOD XCPT REAGENT STRIP POCT GLUCOSE, MARGARITA MINOR Routine 10/05/2020 4:37 PM EST 10/05/2020 04:37:00 PM [facility] EEG ROUTINE STUDY EEG ROUTINE STUDY Routine 10/05/2020 1:34 PM EST 10/05/2020 01:34:06 PM [facility] ECHO TTHRC R-T 2D W/WOM-MODE COMPL SPEC&COLR DOP ECHOCARDIO GRAM 2D COMPLETE Routine 10/05/2020 12:30 PM EST 10/05/2020 12:30:11 PM [facility] GLUCOSE QUANTITATIVE BLOOD XCPT REAGENT STRIP POCT GLUCOSE, MARGARITA MINOR Routine 10/05/2020 11:49 AM EST 10/05/2020 11:49:00 AM [facility] BASIC METABOLIC PANEL CALCIUM TOTAL BASIC METABOLIC PANEL Routi ne 10/05/2020 3:25 AM EST 10/05/2020 03:25:00 AM [facility] MRI BRAIN BRAIN STEM W/O CONTRAST MATERIAL MR BRAIN WITHOUT CONTRAST [id number] STAT 10/04/2020 10:10 PM EST 10/04/2020 10:10:19 PM [facility] GLUCOSE QUANTITATIVE BLOOD XCPT REAGENT STRIP POCT GLUCOSE, DOC MILY Routine 10/04/2020 5:39 PM EST 10/04/2020 05:39:00 PM [facility] VASC LAB US DOPPLER CAROTID BILATERAL COMP [id number] VASC LAB US DOPPLER CAROTID BILATERAL COMP [id number] Routine 10/04/2020 2:04 PM EST Carotid stenosis, bilateral 10/04/2020 02:04:00 PM EST Carot id stenosis, bilateral [facility] Carotid stenosis, bilateral COVID-19 PCR COVID-19 PCR Routine 10/04/2020 1:38 PM EST 10/04/2020 01:38:00 PM [facility] URNLS DIP STICK/TABLET REAGENT AUTO MICROSCOPY URINALYSIS W ITH MICROSCOPIC STAT 10/04/2020 11:39 AM EST 10/04/2020 11:39:00 AM [facility] EKG ED PHYSICIAN INTERPRETATION EKG ED PHYSICIAN INTERPRETATION Routine 10/04/2020 11:32 AM EST 10/04/2020 11:32:54 AM [facility] PROTHROMBIN TIME PROTIME INR STAT 10/04/2020 10:38 AM EST 10/04/2020 10:38:00 AM [facility] BLOOD COUNT COMPLETE AUTO&AUTO DIFRNTL WBC COUNT CBC AND DIFFER ENTIAL Routine 10/04/2020 10:38 AM EST 10/04/2020 10:38:00 AM [facility] TROPONIN QUANTITATIVE TROPONIN T STAT 10/04/2020 10:38 AM EST 10/04/2020 10:38:00 AM [facility] THYROID STIMULATING HORMONE TSH TSH Routine 10/04/2020 10:38 AM EST 10/04/2020 10:38:00 AM [facility] HEMOGLOBIN GLYCOSYLATED A1C HEMOGLOBIN A1C Routine 10/04/2020 10:38 AM EST 10/04/2020 10:38:00 AM [facility] HEPATIC FUNCTION PANEL HEPATIC FUNCTION PANEL A Routine 10/04/2020 10:38 AM EST 10/04/2020 10:38:00 AM [facility] LIPID PANEL LIPID PANEL Routine 10/04/2020 10:38 AM EST 10/04/2020 10:38:00 AM [facility] BASIC METABOLIC PANEL CALCIUM TOTAL BASIC METABOLIC PANEL STAT 10/04/2020 10:38 AM EST 10/04/2020 10:38:00 AM [facility] BASIC METABOLIC PANEL CALCIUM IONIZED POCT ISTAT CHEM8 Routine 10/04/2020 10:32 AM EST 10/04/2020 10:32:00 AM [facility] BLOOD GASES ANY COMBINATION PH PCO2 PO2 CO2 HCO3 POCT ISTAT VBG /LAC Routine 10/04/2020 10:28 AM EST 10/04/2020 10:28:00 AM [facility] TROPONIN QUANTITATIVE POCT ISTAT TROPONIN Routine 10/04/2020 10:26 AM EST 10/04/2020 10:26:00 AM [facility] EKG 12-LEAD - CMAXX REPORT EKG 12-LEAD - CMAXX REPORT 10/04/2020 10:23 AM EST 10/04/2020 10:23:39 AM [facility] EKG 12-LEAD - CMAXX REPORT EKG 12-LEAD - CMAXX REPORT 10/04/2020 10:23 AM EST 10/04/2020 10:23:39 AM [facility] EKG 12-LEAD EKG 12-LEAD STAT 10/04/2020 10:23 AM EST 10/04/2020 10:23:39 AM [facility] EKG 12-LEAD - CMAXX REPORT EKG 12-LEAD - CMAXX REPORT 10/04/2020 10:23 AM EST 10/04/2020 10:23:[address] [facility] [address] ANGIOGRAPHY NECK W/CONTRAST/NONCONTRAST CT ANGIOGRAPHY NECK 07709 CODE 10/04/2020 10:22 AM EST 10/04/2020 10:22:05 AM [facility] CT ANGIOGRAPHY HEAD W/CONTRAST/NONCONTRAST CT ANGIOGRAPHY HEAD 22873 CODE 10/04/2020 10:22 AM EST 10/04/2020 10:22:05 AM [facility] ECG ROUTINE ECG W/LEAST 12 LDS W/I&R 09/30/2020 12:00: 00 AM EST MEDENT ([facility]) ECG ROUTINE ECG W/LEAST 12 LDS W/I&R 03/24/2020 12:00: 00 AM EDT MEDENT ([facility]) Results ID Date Data Source [id number] 10/17/2020 07:56:11 AM [facility] Name Value Range Interpretation Code Description Data Kaye rce(s) Supporting Document(s) Discharge Summary [facility] HWDTSv6pVyIWAzSq41/SZZpsYMDft5TaTIcjHSi4EJrmLCVxH9LfSDO5bJ6wJGW1PAfFRtUmGsBhVmU9 [facility] MeEtcILwPgYWXtEwzDLxLwXLqfFouwpMMwFL7UeUU6EOSsH36uQLCtBOApF0LcDCO7Yom+Ey8LJYFcpP JcOW4XUtdI8A7hz9iSHO8q8K3yjWCWQNiYfx5TD9KXdFdMyodTgoS+BGUtkhCgqW2ANhRI6DyL157pUL 0pWa94TdeRfIAd8WmAv9/MUEqV//5m9tDrobdQ/2t+ EUXLxrtfc10Y17vv78zt/3asgRpvA8rz+UL2q2t//sI3V+zvF7ie4TDEnnfjOpiOH1iSVrwo8Jdxt4YB /3l675GCzrYeUt61MZ0ttJOMOA+ovHP7TEuasI5GJl2TJAkeEb9YzVc+TUNDE+PJ7FJw7VWqRERw4GHHiR [file] RaYzLhEC4RRu5THnT6LRG5yYRpHr6ACoF4RqlMLqFjXN1XRGv= ID Date Data Source [id number] 10/07/2020 03:03:[address] [facility] Name Value Range Interpretation Code Description Data Kaye rce(s) Supporting Document(s) Consultation [facility] OTDAAf6aLfUAMoPy21/NBJezBUJha9AqUCehHPs3ZRajGSPzP9RtQDL9zQ6hBLT6OJmFOjTxWaIeANW7 lbm [file] J7MVg4LsGkLlCcCsyuOXLpPfHzXpfpLrOgGY2PYz7JDyZ6MFP5pBAbYd2ATjPcLNPBUwVyWR0BNPo= ID Date Data Source [id number] 10/07/2020 11:35:17 AM [facility] Name Value Range Interpretation Code Description Data Kaye rce(s) Supporting Document(s) Glucose [Mass/volume] in Capillary blood by Glucometer 118 mg/dL 70- 140 [facility] ID Date Data Source [id number] 10/07/2020 07:38:39 AM [facility] Name Value Range Interpretation Code Description Data Kaye rce(s) Supporting Document(s) Glucose [Mass/volume] in Capillary blood by Glucometer 141 mg/dL 70- 140 H [facility] ID Date Data Source [id number] 10/07/2020 06:37:09 AM [facility] Name Value Range Interpretation Code Description Data Kaye rce(s) Supporting Document(s) Bicarbonate [Moles/volume] in Serum 23 mmol/L -29 [facility] Chloride [Moles/volume] in Serum or Plasma 109 mmol/L 98-107 H [facility] Creatinine [Mass/volume] in Serum or Plasma 0.84 mg/dL 0.70-1.20 [facility] Glucose [Mass/volume] in Serum or Plasma 137 mg/dL 70-140 [facility] Potassium [Moles/volume] in Serum or Plasma 3.5 mmol/L 3.4-5.1 [facility] Sodium [Moles/volume] in Serum or Plasma 142 mmol/L 136-145 [facility] Urea nitrogen [Mass/volume] in Serum or Plasma 21 mg/dL 8-23 [facility] Anion gap 3 in Serum or Plasma 9 mmol/L 8-15 [facility] Osmolality of Serum or Plasma by calculation 299 mosm/kg 275-300 [facility] Creatinine/Urea nitrogen [Mass Ratio] in Serum or Plasma 25 [facility] Calcium [Mass/volume] in Serum or Plasma 8.5 mg/dL 8.8-10.2 L [facility] Glomerular filtration rate/1.73 sq M pre dicted among non-blacks [Volume Rate/Area] in Serum or Plasma by Creatinine-based formula (MDRD) 87 mL/min/1.73m2 >60 [facility] Glomerular filtration rate/1.73 sq M pre dicted among blacks [Volume Rate/Area] in Serum or Plasma by Creatinine-based formula (MDRD) >60 [facility] ID Date Data Source [id number] 10/07/2020 07:30:10 AM EST [facility] Name Value Range Interpretation Code Description Data Kaye rce(s) Supporting Document(s) Leukocytes [#/volume] in Blood by Automated count 7.6 10*3/uL 4-10 [facility] Erythrocytes [#/volume] in Blood by Automated count 4.75 10*6/uL 4.6- 6.1 [facility] Hemoglobin [Mass/volume] in Blood 14.2 g/dL 13.5-18 [facility] Hematocrit [Volume Fraction] of Blood by Automated count 42.1 % 4 1-53 [facility] Erythrocyte mean corpuscular volume [Entitic volume] by Auto mated count 88.5 fL 80-96 [facility] Erythrocyte mean corpuscular hemoglobin [Entitic mass] by Automated count 29.8 pg 27-33 [facility] Erythrocyte mean corpuscular hemoglobin concentration [Mass/volume] [facility] 33[facility]7 [facility] width [Ratio] by Automated count 13.2 % 11.5-14.5 [facility] Platelets [#/volume] in Blood by Automated count 228 10*3/uL 150-400 [facility] Differential cell count method - Blood [facility] Neutrophils/100 leukocytes in Blood by Automated count 67 % [facility] Lymphocytes/100 leukocytes in Blood by Automated count 24 % [facility] Monocytes/100 leukocytes in Blood by Automated count 6 % [facility] Eosinophils/100 leukocytes in Blood by Automated count 2 % [facility] Basophils/100 leukocytes in Blood by Automated count 1 % [facility] Neutrophils [#/volume] in Blood by Automated count 5.11 10*3/uL 1.8-7 .0 [facility] Lymphocytes [#/volume] in Blood by Automated count 1.81 10*3/uL 1.2-4 .0 [facility] Monocytes [#/volume] in Blood by Automated count 0.45 10*3/uL 0-0.8 [facility] Eosinophils [#/volume] in Blood by Automated count 0.15 10*3/uL 0-0.5 [facility] Basophils [#/volume] in Blood by Automated count 0.08 10*3/uL 0-0.2 [facility] ID Date Data Source [id number] 10/07/2020 06:34:29 AM [facility] Name Value Range Interpretation Code Description Data Kaye rce(s) Supporting Document(s) Levetiracetam [Mass/volume] in Serum or Plasma 15 ug/mL 12-46 [facility] ID Date Data Source [id number] 10/06/2020 09:33:03 PM [facility] Name Value Range Interpretation Code Description Data Kaye rce(s) Supporting Document(s) Glucose [Mass/volume] in Capillary blood by Glucometer 119 mg/dL 70- 140 [facility] ID Date Data Source [id number] 10/06/2020 04:38:41 PM [facility] Value Range Interpretation Code Description Data Kaye rce(s) Supporting Document(s) Glucose [Mass/volume] in Capillary blood by Glucometer 102 mg/dL 70- 140 [facility] ID Date Data Source [id number] 10/06/2020 04:22:49 PM [facility] Value Range Interpretation Code Description Data Kaye rce(s) Supporting Document(s) ED Provider Note [facility] WRSJUh1kBwSVEwNu90/GFPonKBYls0BnLUunCPh5HVaeICSfP0RcQGZ4kH4gXXK1IBnHYcSvNkUcVQW0 lbm JlElaYEgYrQHZpFgkHQvCwEJmzVbudbOVbVJ9KrSU4EFBpT50xXARdKCRsC5JaBZJ2Hfo+Lc1ECOUqsL CkDA3HScyR1P1vWvfPLz1bnp1TZAnkFRnv67x6FdNQsYoRHOkhkQag3PHI1Uj6xQbi7hlpJ0VMlhta8n qQ0NLTYI068hyCcmLyqkUN3t+/xNBzpJQi+/v81Qu0 uJ2Kv/5FrIdZ+nnY+cjwIK8S6usr9ZN00PDlL/j5Wuz/IkWKTVzfpQ/SrpblcLaKX5zBEx/4QVz/UyjL Sp+iVNcUPgCzcMLJMIQczufBVPnVT7qPOOTfNzlhDFxM5QgqRA65mjGOBp7AJOKOHd7uJMiHzCcSYcMo VPsxr4r14PTKCkhQQEbzDYUxARDTj3tDPBk//5DDJ9 ojX8fMQaN9XoGe1wD7F6+YXcWEXGzFnSLi7jzrgbArchLaTnmZBqg+ZB/L0xIMwLLQbrzrcRlML+NRys p2EKoIGYfhvlvpfsJl4vOavNa9kUy9exSaPTMIoQrrP85YpbfTVxNFREvymelMpNH3iGXWRhjHeWENVd GwPBMyx6PPGXp6fnW0yqGHpcl9LYhuDIPLqWusuDWN N6TNZCO1se25N4eSBwseWKDCZZlztkDuxhbNxyXG02xliYtXPwSAFV9pHRrURAFIfamUt2oAfeLmkgC+ fTHi52P42udhM9UlDWkfUrlDM6DgMWf9LydskbMRTanZ24lEAVpspgAO1LGBzEzxnz5i18GYem0TvTWd Uqngeyrwiul/DC7te0NVHmgqifNFN/ihn5lNtqnxeh [file] MDMyMyAwMDAwMCBuDQowMDAwMDYwNDkwIDAwMDAwIG 1QOmCaSGwsKPGQOfo6HAbaK0a6BTM9LQ4SV1Ael2AkOoUbOGSILCoyYS4xdqPgUYEkZa6NG4lADxelNR RhYURbTUCdVYYlKNAtVuZrJLaeQKX0RER5UMP4BU0vSHW1MSG4ZyKyTeTvHMTvZuHxAYW1N1U9PtN3ZB ncCQF3UcYsEO8JRd5DSrW1YIZ7nZEzJf7JCfK4HwJZMmMjUC1FHCr= ID Date Data Source [id number] 10/06/2020 12:40:13 PM [facility] Name Value Range Interpretation Code Description Data Kaye rce(s) Supporting Document(s) Glucose [Mass/volume] in Capillary blood by Glucometer 196 mg/dL 70- 140 H [facility] ID Date Data Source [id number] 10/06/2020 09:34:59 AM [facility] Name Value Range Interpretation Code Description Data Kaye rce(s) Supporting Document(s) Glucose [Mass/volume] in Capillary blood by Glucometer 123 mg/dL 70- 140 [facility] ID Date Data Source [id number] 10/06/2020 01:33:47 AM [facility] Value Range Interpretation Code Description Data Kaye rce(s) Supporting Document(s) Bicarbonate [Moles/volume] in Serum 25 mmol/L 22-29 [facility] Chloride [Moles/volume] in Serum or Plasma 108 mmol/L 98-107 [facility] Creatinine [Mass/volume] in Serum or Plasma 0.91 mg/dL 0.70-1.20 [facility] Glucose [Mass/volume] in Serum or Plasma 161 mg/dL 70-140 H [facility] Potassium [Moles/volume] in Serum or Plasma 3.6 mmol/L 3.4-5.1 [facility] Hemolyzed Sodium [Moles/volume] in Serum or Plasma 142 mmol/L 136-145 [facility] Urea nitrogen [Mass/volume] in Serum or Plasma 19 mg/dL 8-23 [facility] Anion gap 3 in Serum or Plasma 9 mmol/L 8-15 [facility] Osmolality of Serum or Plasma by calculation 300 mosm/kg 275-300 [facility] Creatinine/Urea nitrogen [Mass Ratio] in Serum or Plasma 21 [facility] Calcium [Mass/volume] in Serum or Plasma 8.3 mg/dL 8.8-10.2 L [facility] Glomerular filtration rate/1.73 sq M pre dicted among non-blacks [Volume Rate/Area] in Serum or Plasma by Creatinine-based formula (MDRD) 84 mL/min/1.73m2 >60 [facility] Glomerular filtration rate/1.73 sq M pre dicted among blacks [Volume Rate/Area] in Serum or Plasma by Creatinine-based formula (MDRD) >60 [facility] ID Date Data Source [id number] 10/05/2020 08:47:30 PM [facility] Name Value Range Interpretation Code Description Data Kaye rce(s) Supporting Document(s) Glucose [Mass/volume] in Capillary blood by Glucometer 132 mg/dL 70- 140 [facility] ID Date Data Source [id number] 10/05/2020 07:36:04 PM [facility] Name Value Range Interpretation Code Description Data Kaye rce(s) Supporting Document(s) History and Physical [facility] QMYLAq2iEqNKQkJo87/GCLajHXKqk0IaCCswWJa2RDylAVFjX4ZtZKX9zF2yIKZ4XUjADnLwTyCyMGZ8 lbm [file] E+DQogICAgICAgICAgICAgICAgICAgICAgICAgICAgICAgICAgICAgICAgICAgICAgICAgICAgICAgIC AgICAgICAgICAgICAgICAgICAgICAgICAgICAgICAg ICAgICAgICAgICAgDQogICAgICAgICAgICAgICAgICAgICAgICAgICAgICAgICAgICAgICAgICAgICAg ICAgICAgICAgICAgICAgICAgICAgICAgICAgICAgICAgICAgICAgICAgICAgICAgICAgICAgDQogICAg ICAgICAgICAgICAgICAgICAgICAgICAgICAgICAgIC AgICAgICAgICAgICAgICAgICAgICAgICAgICAgICAgICAgICAgICAgICAgICAgICAgICAgICAgICAgIC AgICAgDQogICAgICAgICAgICAgICAgICAgICAgICAgICAgICAgICAgICAgICAgICAgICAgICAgICAgIC AgICAgICAgICAgICAgICAgICAgICAgICAgICAgICAg ICAgICAgICAgICAgICAgDQogICAgICAgICAgICAgICAgICAgICAgICAgICAgICAgICAgICAgICAgICAg ICAgICAgICAgICAgICAgICAgICAgICAgICAgICAgICAgICAgICAgICAgICAgICAgICAgICAgICAgDQog ICAgICAgICAgICAgICAgICAgICAgICAgICAgICAgIC AgICAgICAgICAgICAgICAgICAgICAgICAgICAgICAgICAgICAgICAgICAgICAgICAgICAgICAgICAgIC AgICAgICAgDQogICAgICAgICAgICAgICAgICAgICAgICAgICAgICAgICAgICAgICAgICAgICAgICAgIC AgICAgICAgICAgICAgICAgICAgICAgICAgICAgICAg ICAgICAgICAgICAgICAgICAgDQogICAgICAgICAgICAgICAgICAgICAgICAgICAgICAgICAgICAgICAg ICAgICAgICAgICAgICAgICAgICAgICAgICAgICAgICAgICAgICAgICAgICAgICAgICAgICAgICAgICAg DQogICAgICAgICAgICAgICAgICAgICAgICAgICAgIC AgICAgICAgICAgICAgICAgICAgICAgICAgICAgICAgICAgICAgICAgICAgICAgICAgICAgICAgICAgIC AgICAgICAgICAgDQogICAgICAgICAgICAgICAgICAgICAgICAgICAgICAgICAgICAgICAgICAgICAgIC AgICAgICAgICAgICAgICAgICAgICAgICAgICAgICAg BSPjZFOaVGNsSBIsBIYiQMKpMUZwNHy7C5pvWNSjPMWhMB8rBOi2Pb7+KCaYChRfROW7ybSjlR4FNP1q x2ChTWwqFFRun4SxLSj6NK4ZXWFbVFhdMP3RAToosk2CWDUpXNFioCPZe8dnBfNaLMY6FIFcTsddFE6S HGJoM1djhnXmEECpBFYMEF4NScKcU5HhvC37ODVLTs 4+ROgkgpUvJwvMMoX1VJPcq4QuZCu9RH8DKURhEpeoo8HqRLJqDPMAJNxjAZ0RUBY6GDQ2URXgKh4YQS AaS984qbAoRH6IPm4XXfLvPK1ywz4WKZYdIBEwDlxHNte8ENjgJS8IcYQtKKfEVxUnTzoiOKrapbQxV2 BtnItwoKidCDNsORXoOI7jOq4cDWGpDWT1ZkRbIKTA SA6YFMXlUOHghKPdGVJoMGCCZB3RLCyvHHZ1FEHrusFmlWQtUIvpYD1UAWRyqeIpMSZzTHIDZFu+Pg0K DK3ua8CyTXwbSeVgGT8nzn0WPOyOVwFzR1D1kJImO3B9YCfjSd4UEMOaVADpRSRdWTHMQItpAJ9MDN2b xhB9PU3UkOJiDUJqATSycECjGRd9D50ajSXuDFkaDQ 0KICA+Agatha+Os1GEDNcWHIhAUGaGlKzSBNATwVjY9QmP1NBt2IpS2AhGA91wCeylpUdLAfmFU1MGF3hRX RoXQEUCG1RzQEcrK2bpxYyFFWmRLWESqZwH33jgDHmBUYkRQHsNGNbZz0LUAXhN0WxymVljXsmkcKzJF AwKARIBS8SEJtjadIvfJDhnMxaLY33hKtaWM4MWo2P XmYfXC0prq3NgQCkWb3QISXiZv4BLNMoTCJrQGAsPKW1PHPaPaYvUJiyPZAoKHNvUEL5GQVbHPVkIC4B ByDaHXUtKNB0EZShKVBxBHRvwq4FIMDqKQIiPxXhIHYhQCXtWGFeONkqIQAmDTNhKWX6XPUxIMBmMT0R JdBnQWSpDZK2NBAgJAPiKJUwtc6APJBiPQCqXIX5BJ IiRTBwWSIkBNzlCXLiZNXtSsF2REJqTNUtND7UApZhIAFzMHD1RRRoNJHyJEVgyl4FNTGhQGGaIkEoTL CgRHHlLNLvEMrmFFSzVIWkOEnaYGFbLOYxCR1BRsEwUTAeDIYmMADnOJFhBPDsoo5KTGOkLRNsKSR4IR MoMLUeCRSlZQaoBSCaTQT3Aoc4HCGmSUKcCM9ALxSx VQBeJNTiWiUsCQNhETZfgx0WTHYoEAOuEjC5PWWcVUDtSCHfNAspRAUkYTD1GSTsHMKsWVBbZR4TYmJw MJjqNILAHfr1HZarM1m7ISYuCu4OT6Xlq7AwIMJmWZQMYZgcKZ5sepKmTJYrVy9LJ8mLCtbkSLMqGrD2 KpokS1CgTRKuW1GuCQOrNWMtSjVvXoEsTn6jGAEyNG K3SOThGGHeWBEaAqLgCrN3WcSjMyS3CjJ1FCClQuNoSW3EGk7SLeL6RRT6rTFfYr4DIqU0RO4EYQICU0 YNCg== ID Date Data Source [id number] 10/05/2020 04:44:14 PM [facility] Name Value Range Interpretation Code Description Data Kaye rce(s) Supporting Document(s) Glucose [Mass/volume] in Capillary blood by Glucometer 138 mg/dL 70- 140 [facility] ID Date Data Source [id number] 10/05/2020 03:14:29 PM [facility] Name Value Range Interpretation Code Description Data Kaye rce(s) Supporting Document(s) [facility] RYFEWm7yBoTNFtRf94/XDSejJFGdc9RbWQztDYy1TSvqCUEsQ2UsDWJ7eN3vUHH9REvUJyOaGyKlHJH6 lbm [file] ICAgICAgICAgICAgICAgICAgICAgICAgICAgICAgICAgICAgICAgICAgICAgICAgICAgICAgICAgICAg ICAgICAgICAgDQogICAgICAgICAgICAgICAgICAgIC AgICAgICAgICAgICAgICAgICAgICAgICAgICAgICAgICAgICAgICAgICAgICAgICAgICAgICAgICAgIC AgICAgICAgICAgICAgICAgICAgDQogICAgICAgICAgICAgICAgICAgICAgICAgICAgICAgICAgICAgIC AgICAgICAgICAgICAgICAgICAgICAgICAgICAgICAg ICAgICAgICAgICAgICAgICAgICAgICAgICAgICAgDQogICAgICAgICAgICAgICAgICAgICAgICAgICAg ICAgICAgICAgICAgICAgICAgICAgICAgICAgICAgICAgICAgICAgICAgICAgICAgICAgICAgICAgICAg ICAgICAgICAgICAgDQogICAgICAgICAgICAgICAgIC AgICAgICAgICAgICAgICAgICAgICAgICAgICAgICAgICAgICAgICAgICAgICAgICAgICAgICAgICAgIC AgICAgICAgICAgICAgICAgICAgICAgDQogICAgICAgICAgICAgICAgICAgICAgICAgICAgICAgICAgIC AgICAgICAgICAgICAgICAgICAgICAgICAgICAgICAg ICAgICAgICAgICAgICAgICAgICAgICAgICAgICAgICAgDQogICAgICAgICAgICAgICAgICAgICAgICAg ICAgICAgICAgICAgICAgICAgICAgICAgICAgICAgICAgICAgICAgICAgICAgICAgICAgICAgICAgICAg ICAgICAgICAgICAgICAgDQogICAgICAgICAgICAgIC AgICAgICAgICAgICAgICAgICAgICAgICAgICAgICAgICAgICAgICAgICAgICAgICAgICAgICAgICAgIC AgICAgICAgICAgICAgICAgICAgICAgICAgDQogICAgICAgICAgICAgICAgICAgICAgICAgICAgICAgIC AgICAgICAgICAgICAgICAgICAgICAgICAgICAgICAg ICAgICAgICAgICAgICAgICAgICAgICAgICAgICAgICAgICAgDQogICAgICAgICAgICAgICAgICAgICAg ICAgICAgICAgICAgICAgICAgICAgICAgICAgICAgICAgICAgICAgICAgICAgICAgICAgICAgICAgICAg NTEsUPOvNIZsAZEwAPYwNHExHLp0G9oeTWGtQRVdCN 0pPCo8We8+GIvKTkUzAWO5dfYrsR8KYG0mv6GcIItiGHDht0CgVBv1ED4MDAQfKItxGS2JTYwsts0RPD TaMGGzaFSRi5mbMlEcTSP7AMBkWmlaCH4WJIMdW1hrbpSqFNMtZHENOCdqMXIECKgtRSLGQBCdJTNpRj QfSuSeZKUhHDKtGSDMZLI8YZZiViOgEZIpBNBrHmSb SEZOTSLwGGEzZlZwBTdlVE0Qy2TseSDhAU3LSy1FUkVcJQ2buk4BUnudMVZyEwnOArq7KQdcAP7JdRMf sIYpBHPfWNEHQfYzM8hbb2ArNqbjLPQBKEbaMJ6Vb1EtfOCpILr+Ay9UNS4ij4SeUPjrNRCgHX8ssk5C KQaKGoEfJ3UebBacZAYvfhZ9lNRyMJL3KOIwuouhjB xaDUGRCRfsG8OslxtuvQpwYRFnYXDdQF0tEu0cLYFrUCMvAmK9FOAFPM7FBCBvQQKhaAItHQKzKOLFYJ 3FYGhyFCH5IREfnvOujMFfNKguHE7OURTisuOaYmeuIFQYQEp+Nd5YKH7sv2MqTUufORKpXF5sdk4CFK pZTjJlF0H7jVGrL9M8BPxyAp2TRLRdZEVqBaMgPGLT IHhkQW4YOA2hffT8CN0YeDWpWGAxRBDpsWYbTMt0G30eiBKyKWyfHE2DMCY+Agatha+Fa0EJQDjCIVuUILf WiDhBRXPDsRxI8TwH3NZr3YsW4XqCU63bKwcmiJzVLaxPY6QHI8uNGBtBHARQJ7RkMPstG5kadIxAdCx DIKWBwIgK36uvAPvOAOiWNL5RMDqLp1MXLNuG5Opxw ArsCfndkViLBKrGDFQMN2DCKxwtgPpmXLzsSszGJ65zSteGR6GLj5CNgUxXK8fvz8WuJOjYr6JSDA4WE 5JFZAkXWCoYWNgJAX0GGBqCrQcZZwgCISrUKQnXJG0DOWmEBMkAG5GAeIkYTQdMJo4WKVyZGBdEMDlyn 4PGLWmXZL7JEX8DQCfXCIyJTVgLZyfCRIzEFZhCXV8 OKGkBGGwEE6GTpLeSSDbYXEoZyFqPMArOANnwr9SRLLcUHAzCJV7DDKgGRRwTWVcTOweYFYbTHM1MJc3 TTAuXCClFM6RPhLaJQDfLNudDGDpOUYvEXOpgx5OXRVxPREzBwDfIrUlBAKnFWDgSGzgGQSiHDGtAJT9 GWIfABLbEP5ZFuMvHGMjQPW8AsAuFHCsMGAdok3SWK SrHGQkMpF3QrNzHZYaZCTkAHceWHAnOMReXqugECBmGMFiSY4TTuJeNHBuVrJ5KKxoETEfPJXlew6JWZ PvBQMqGsN8CHLmDGLyQZQlIAwlGNPsSFEzIkt7ZRDwKMXvQC7ZNlRmZVJvSjk1RRFlPMKnUKZmvg3EUK LqEMHwPHq9VQVwMXQpZPWrHYyvIPLaQKUaZht3AAFm GIKmAQ4MCmQxUOSsVcV9EVBeVCVpNDAzpe5HBWOcFHUvSCAbRhLwVCSfYGHtMRosRXUoBBE9TUL4QPYl ZMGrXZ5ZZhSsRIPxSUR4JlcmCMFaUZDaaq6SYFCyAUI0Iet2YnEdUVXtGNNwUZzrOCSdZJImGVIvKTIj KTPlPZ3SAqKqMOIiSESmQPBxFHPzINCkcm1ACBMdNK J5RAK1VxDkCAEcEJYnPZbtNKWgTDY8FFYeRIXxFOFfCB4DQnLoBPRuOVFiXVKnVGFyZYNkvl3RLLHiWX H4JIHnQiJiAEWdLBPfUZbiBMTzLBT1HVM8PAReQTRpRC8DDrPrXWMmHNujDcIdKLCwAIYqfh6LNFMtEJ F5GiA7YTQlDNXwNXUeZFjjDJUsAOG4AmlyOYJvDOIc QJ8AWoVkFWHxSPm6NmucZFUgZZXkhl6AHATiYRP9YBKbGJAgJXVkZWMhGXzuFMPvOEG2HkQdOEAdVMGu YQ2CJuHeAYCmRAk2LIQtHKCvYYKmih8FPFBrKNJ5KSx8LKXeMCVmZWNxHOw6zyScqDIvRVk1GS2WQ2Rr vgHpPUAYOm5Vo748YWJ1DTPvKe8KH6rcTy1wGVQmMT LLPz7QMYv7OqVvBvJxXgq3ZBB1FoKqWddbN1B0HYi1V4B4VeQnJzO+JJatGUOsRVL6ZEVkRCyfM0I9P7 JkOXraDWL3WvqiDCO9FV7jRMEETj1+GOhvcAQevWnuIZTNObEySPr6UNqqWNHJOm2Z ID Date Data Source [id number] 10/05/2020 02:42:[address] [facility] Hospital Name Value Range Interpretation Code Description Data Kaye rce(s) Supporting Document(s) Consultation [facility] VJUTFg1fZcJZPhSg89/CZBerJLNgg8ZtYBrqQBb8CIekDSKyY7WyHIG7aW4ePRT6TIpRYsQmUtSaKAF6 lbm [file] /OcYX/V5ZAPJYrwnu16nW+game developer+bS99ZI6f/D+QfCqJ ZPj5+d4EqCeb+XATR6uU1BlQTWVjQawtNW0t3npRQ6QQ35RKxqXb/Q1SQW0jy+zWR/jllF4Ba6/xuZB+ iZ9P+i0DV6pUgi+e6TqUqfo8l/gZrb9n+cDwWfHfE/7+tkBDuutQcJofP9Cy0TuiE9GZWUL/WHEAT/BGciK [file] C2/njKvW8YB/CsTwhoXgHIDL1pmObhn3hf+N/f [file] gQ+GlxvxxlFh7QCHpY1jGOSJnGifMw2V8aI/4YPWRRU2t08pLjGomC6171yK9m7dNjkfc5zgifnkT/Surfboard Designer Ia2FHe40CGeHKkX6YFoAlgHWU2kT3fgbwfidHL0mJnNmKmdJLzTBtLH9PZegk6pzaFFXXNGXOlXnPuu8 Er9HF1FQoU8knmcTLWWGQfG2iK2D0yy3O9ZQEh4Z2i qkqtb6RQioRy5R87wW8Et8tVmDV3Qd1iwYuRW80D5Smvn7WA6utRazXxrcrZBCg1DhE2CtTqmHdJxrnz j+glhikF+aMovFVXXyPCBke0okoPu/Bto9/CirVAY4w2EYlbDZnOL+J+dtKrYp/o0a6fqj0fgvUFjqD/ nFlA/1BR6tIXNq6XNtaQpsZk9O9zvH0x1LVfybwL24 oPxL+UK/Y7Ur9ZxzZYPxKD7Ta18iAy/U5zb2svPgHvWFJOqa0cSeOenT55woY6WU6KvQ6sXER8CRyOgu V+pCf22NVVahtZwqxL1U41L/1WeHGnIbFE/Do0Li8RflyGtFhRy0j3ie9ravcd219Qwnv9S78rt6jG8X Derick+zN7MP3MF7+HX0Lj7zQ9rCvwUOEqqe6dj5CS5p/ [file] xgIYT1DtJwBfVbUaXpGpO+ZB1uMDx+Ve5Vj4GnuiY2wuSfXYx4QVK5FB2MOBUJD8REYm== ID Date Data Source [id number] 10/05/2020 11:52:43 AM [facility] Name Value Range Interpretation Code Description Data Kaye rce(s) Supporting Document(s) Glucose [Mass/volume] in Capillary blood by Glucometer 164 mg/dL 70- 140 H [facility] ID Date Data Source [id number] 10/05/2020 08:17:55 AM [facility] MR BRAIN WITHOUT CONTRAST [id number] RES ULTInterpreted by:Sarah Amor MDINDICATION: Syncope and [...] Name Value Range Interpretation Code Description [facility] Document(s) ID Date Data Source [id number] 10/05/2020 05:19:08 AM [facility] Name Value Range Interpretation Code Description Data [facility] rce(s) Supporting Document(s) Bicarbonate [Moles/volume] in Serum 23 mmol/L 22-29 [facility] Chloride [Moles/volume] in Serum or Plasma 105 mmol/L 98-107 [facility] Creatinine [Mass/volume] in Serum or Plasma 0.77 mg/dL 0.70-1.20 [facility] Glucose [Mass/volume] in Serum or Plasma 149 mg/dL 70-140 H [facility] Potassium [Moles/volume] in Serum or Plasma 3.7 mmol/L 3.4-5.1 [facility] Hemolyzed Sodium [Moles/volume] in Serum or Plasma 137 mmol/L 136-145 [facility] Urea nitrogen [Mass/volume] in Serum or Plasma 17 mg/dL 8-23 [facility] Anion gap 3 in Serum or Plasma 9 mmol/L 8-15 [facility] Osmolality of Serum or Plasma by calculation 288 mosm/kg 275-300 [facility] Creatinine/Urea nitrogen [Mass Ratio] in Serum or Plasma 22 [facility] Calcium [Mass/volume] in Serum or Plasma 8.4 mg/dL 8.8-10.2 L [facility] Glomerular filtration rate/1.73 sq M pre dicted among non-blacks [Volume Rate/Area] in Serum or Plasma by Creatinine-based formula (MDRD) >6 0 [facility] Glomerular filtration rate/1.73 sq M pre dicted among blacks [Volume Rate/Area] in Serum or Plasma by Creatinine-based formula (MDRD) >60 [facility] ID Date Data Source [id number] 10/04/2020 05:41:07 PM [facility] Name Value Range Interpretation Code Description Data Kaye rce(s) Supporting Document(s) Glucose [Mass/volume] in Capillary blood by Glucometer 141 mg/dL 70- 140 H [facility] ID Date Data Source [id number] 10/04/2020 01:38:00 PM EST [facility] Name Value Range Interpretation Code Description Data Kaye rce(s) Supporting Document(s) SARS-CoV-2 RNA 2019 nCoV Real-Time RT-PCR: NOT DETECTED [facility] This lab was ordered by [facility] and reported by [facility]. ID Date Data Source [id number] 10/04/2020 08:18:25 PM EST [facility] Name Value Range Interpretation Code Description Data Kaye rce(s) Supporting Document(s) Specimen source [Identifier] of Unspecified specimen [facility] SARS-CoV-2 RNA 2019 nCoV Real-Time RT-PCR: NOT DETECTED [facility] Assay Performed [facility] Patients first test for [facility] Patient employed in healthcare setting [facility] Patient has symptoms related to [facility] When did you start to experience these symptoms [Date and time] [Phen X] [facility] Patient was hospitalized because of this condition [facility] patient was admitted to ICU for [facility] Patient resides in a congregate care setting [facility] status [facility] ID Date Data Source [id number] 10/04/2020 01:22:58 PM [facility] CT ANGIOGRAPHY HEAD [id number] RESULT - FINALInterpreted by:Dinesh Niño MDAddendum BeginsSigned [...] the left lateral ventricle. 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 with [...] is a decrease in vascularity in the [employer] territory on the left, however, there are [...] rce(s) Supporting Document(s) ID Date Data Source [id number] 10/04/2020 12:11:30 PM [facility] Name Value Range Interpretation Code Description Data Kaye rce(s) Supporting Document(s) Color of Urine [facility] Clarity of Urine [facility] Specific gravity of Urine by Refractometry automated 1.003 -1.030 H [facility] pH of Urine by Automated test strip 5.0 5.0-8.0 [facility] Protein [Mass/volume] in Urine by Automated test strip 30 mg/dL Neg [facility] Glucose [Mass/volume] in Urine by Automated test strip Neg [facility] Ketones [Mass/volume] in Urine by Automated test strip Neg [facility] Bilirubin.total [Presence] in Urine by Automated test strip Negative [facility] Hemoglobin [Presence] in Urine by Automated test strip Neg [facility] Leukocyte esterase [Presence] in Urine by Automated test strip Negative [facility] Nitrite [Presence] in Urine by Automated test strip Negati [facility] Leukocytes [#/area] in Urine sediment by Automated count 2 /HPF 0 -5 [facility] Erythrocytes [#/area] in Urine sediment by Automated count 1 /HPF 0-3 [facility] Epithelial cells.squamous [#/area] in Urine sediment by Automate d count None [facility] Mucus [#/area] in Urine sediment by Microscopy low power field None [facility] ID Date Data Source [id number] 10/04/2020 11:15:40 AM [facility] Name Value Range Interpretation Code Description Data Kaye rce(s) Supporting Document(s) Leukocytes [#/volume] in Blood by Automated count 9.7 10*3/uL 4-10 [facility] Erythrocytes [#/volume] in Blood by Automated count 4.97 10*6/uL 4.6- 6.1 [facility] Hemoglobin [Mass/volume] in Blood 15.0 g/dL 13.5-18 [facility] Hematocrit [Volume Fraction] of Blood by Automated count 44.6 % 4 1-53 [facility] Erythrocyte mean corpuscular volume [Entitic volume] by Auto mated count 89.7 fL 80-96 [facility] Erythrocyte mean corpuscular hemoglobin [Entitic mass] by Automated count 30.2 pg 27-33 [facility] Erythrocyte mean corpuscular hemoglobin concentration [Mass/volume] by [facility]ated [facility] 33.6 g[facility] width [Ratio] by Automated count 13.5 % 11.5-14.5 [facility] Platelets [#/volume] in Blood by Automated count 204 10*3/uL 150-400 [facility] Differential cell count method - Blood [facility] Neutrophils/100 leukocytes in Blood by Automated count 81 % [facility] Lymphocytes/100 leukocytes in Blood by Automated count 12 % [facility] Monocytes/100 leukocytes in Blood by Automated count 6 % [facility] Eosinophils/100 leukocytes in Blood by Automated count 1 % [facility] Basophils/100 leukocytes in Blood by Automated count 0 % [facility] Neutrophils [#/volume] in Blood by Automated count 7.83 10*3/uL 1.8-7 .0 H [facility] Lymphocytes [#/volume] in Blood by Automated count 1.17 10*3/uL 1.2-4 .0 L [facility] Monocytes [#/volume] in Blood by Automated count 0.58 10*3/uL 0-0.8 [facility] Eosinophils [#/volume] in Blood by Automated count 0.10 10*3/uL 0-0.5 [facility] Basophils [#/volume] in Blood by Automated count 0.02 10*3/uL 0-0.2 [facility] Nucleated erythrocytes/100 leukocytes [Ratio] in Blood by Automated count 0 /100{WBCs} 0-0 [facility] ID Date Data Source [id number] 10/04/2020 11:26:[address] [facility] Hospital Name Value Range Interpretation Code Description Data Kaye rce(s) Supporting Document(s) Prothrombin time (PT) 13.6 s 12.5-14.9 [facility] INR in Platelet poor plasma by Coagulation assay 1.03 [facility] Routine intensity oral anticoagulation I NR is typically 2.0-3.0. Target INR must be clinically individualized. ID Date Data Source [id number] 10/04/2020 11:51:56 AM [facility] Name Value Range Interpretation Code Description Data Kaye rce(s) Supporting Document(s) Bicarbonate [Moles/volume] in Serum 23 mmol/L 22-29 [facility] Chloride [Moles/volume] in Serum or Plasma 104 mmol/L 98-107 [facility] Creatinine [Mass/volume] in Serum or Plasma 1.01 mg/dL 0.70-1.20 [facility] Glucose [Mass/volume] in Serum or Plasma 169 mg/dL 70-140 H [facility] Potassium [Moles/volume] in Serum or Plasma 4.0 mmol/L 3.4-5.1 [facility] Hemolyzed Sodium [Moles/volume] in Serum or Plasma 137 mmol/L 136-145 [facility] Urea nitrogen [Mass/volume] in Serum or Plasma 18 mg/dL 8-23 [facility] Anion gap 3 in Serum or Plasma 10 mmol/L 8-15 [facility] Osmolality of Serum or Plasma by calculation 290 mosm/kg 275-300 [facility] Creatinine/Urea nitrogen [Mass Ratio] in Serum or Plasma 18 [facility] Calcium [Mass/volume] in Serum or Plasma 8.4 mg/dL 8.8-10.2 L [facility] Glomerular filtration rate/1.73 sq M pre dicted among non-blacks [Volume Rate/Area] in Serum or Plasma by Creatinine-based formula (MDRD) 74 mL/min/1.73m2 >60 [facility] Glomerular filtration rate/1.73 sq M pre dicted among blacks [Volume Rate/Area] in Serum or Plasma by Creatinine-based formula (MDRD) 86 mL/min/1.73m2 >60 [facility] ID Date Data Source [id number] 10/04/2020 12:21:56 PM [facility] Name Value Range Interpretation Code Description Data Kaye rce(s) Supporting Document(s) Troponin T.cardiac [Mass/volume] in Serum or Plasma <0.01 [facility] ID Date Data Source [id number] 10/04/2020 04:03:57 PM [facility] Name Value Range Interpretation Code Description Data Kaye rce(s) Supporting Document(s) Albumin [Mass/volume] in Serum or Plasma by Bromocresol green (BCG) dye binding method 3.5 g/dL 3.5-5.2 [facility] Bilirubin.total [Mass/volume] in Serum or Plasma 0.5 mg/dL <1.2 [facility] Bilirubin.direct [Mass/volume] in Serum or Plasma <0.3 [facility] Hemolyzed Alkaline phosphatase [Enzymatic activity/volume] in Serum or Plasma 50 U/L 40-129 [facility] Aspartate aminotransferase [Enzymatic activity/volume] in Serum or Plasma 22 U/L <40 [facility] Hemolyzed Alanine aminotransferase [Enzymatic activity/volume] in Seru m or Plasma 21 U/L <41 [facility] Protein [Mass/volume] in Serum or Plasma 6.0 g/dL 6.4-8.3 L [facility] ID Date Data Source [id number] 10/04/2020 04:03:57 PM [facility] Name Value Range Interpretation Code Description Data Kaye rce(s) Supporting Document(s) Cholesterol [Mass/volume] in Serum or Plasma 141 mg/dL <200 [facility] Triglyceride [Mass/volume] in Serum or Plasma 187 mg/dL <150 H [facility] Cholesterol in HDL [Mass/volume] in Serum or Plasma 42 mg/dL >40 [facility] Cholesterol in LDL [Mass/volume] in Serum or Plasma by calcu lation 61 mg/dL <100 [facility] Cholesterol in VLDL [Mass/volume] in Serum or Plasma by calc ulation 37 mg/dl 16-42 [facility] Cholesterol non HDL [Mass/volume] in Serum or Plasma 99 mg/dL <130 [facility] ID Date Data Source [id number] 10/04/2020 06:13:12 PM [facility] Name Value Range Interpretation Code Description Data Kaye rce(s) Supporting Document(s) Thyrotropin [Units/volume] in Serum or Plasma 1.330 u[IU]/mL 0.270-4. 200 [facility] ID Date Data Source [id number] 10/04/2020 02:02:37 PM [facility] Value Range Interpretation Code Description Data Kaye rce(s) Supporting Document(s) Hemoglobin A1c/Hemoglobin.total in Blood by HPLC 6.6 % 4.0-6.0 H [facility] (NOTE)<5.7% Average risk of diabetes (ADA)5.7-6.4% Increased risk of diabetes(ADA)>/= 6.5% Diagnostic for diabetes(ADA) Glucose mean value [Mass/volume] in Blood Estimated fr om glycated hemoglobin 143 mg/dL <126 H [facility] ID Date Data Source [id number] 10/04/2020 10:38:28 AM [facility] Name Value Range Interpretation Code Description Data Kaye rce(s) Supporting Document(s) Sodium [Moles/volume] in Blood 138 mmol/L 136-145 [facility] Potassium [Moles/volume] in Blood 4.0 mmol/L 3.4-5.1 [facility] Chloride [Moles/volume] in Blood 101 mmol/L 98-107 [facility] Carbon dioxide, total [Moles/volume] in Blood 31 mmol/L 22-29 H [facility] Calcium.ionized [Moles/volume] in Blood 1.19 mmol/L 1.13-1.32 [facility] Glucose [Mass/volume] in Blood 169 mg/dL 70-140 H [facility] Urea nitrogen [Mass/volume] in Blood 25 mg/dL 8-23 H [facility] Creatinine [Mass/volume] in Blood 1.0 mg/dL 0.70-1.20 [facility] Hematocrit [Volume Fraction] of Blood 44 % 41-53 [facility] Hemoglobin [Mass/volume] in Blood by calculation 15.0 g/dL 13.5-18.0 [facility] ID Date Data Source [id number] 10/04/2020 10:30:32 AM [facility] Name Value Range Interpretation Code Description Data Kaye rce(s) Supporting Document(s) EKG [facility] [id number]lVKMLAF3PoFNf jb2 [file] [id number] ID Date Data Source [id number] 10/04/2020 10:38:28 AM [facility] Name Value Range Interpretation Code Description Data Kaye rce(s) Supporting Document(s) pH of Venous blood 7.35 7.36-7.41 [facility] Carbon dioxide [Partial pressure] in Venous blood 55 mmHg 40-45 H [facility] Oxygen [Partial pressure] in Venous blood 19 mmHg [facility] Base excess standard in Venous blood by calculation 3 mmol/L [facility] Oxygen saturation Calculated from oxygen partial pressure in Venous blood 27 % 60-85 L [facility] Lactate [Moles/volume] in Venous blood 3.0 mmol/L 0.5-2.2 H [facility] Bicarbonate [Moles/volume] in Venous blood 32 mmol/L [facility] ID Date Data Source [id number] 10/04/2020 10:38:28 AM [facility] Name Value Range Interpretation Code Description Data Kaye rce(s) Supporting Document(s) Troponin I.cardiac [Mass/volume] in Blood 0.00 ng/mL 0.00-0.08 [facility] ID Date Data Source [id number] 08/31/2020 03:48:00 PM EST [facility] ([facility]) Name Value Range Interpretation Code Description Data Kaye rce(s) Supporting Document(s) Calcium [Mass/volume] in Serum or Plasma 8.4 [facility] ([facility]) Carbon dioxide, total [Moles/volume] in Serum or Plasma 28 [facility] ([facility]) Sodium 143 [facility] Chloride [Moles/volume] in Serum or Plasma 109 [facility] ([facility]) Blood Urea Nitrogen 16 7-18 [facility] ([facility] Potassium [Moles/volume] in Serum or Plasma 3.5 MEDENT ([facility]) Glucose 128 70-100 MED[facility] ([facility]) Glomerular filtration rate/1.73 sq M.pre dicted [Volume Rate/Area] in Serum or Plasma by Creatinine-based formula (MDRD) Laboratory test result MEDENT ([facility]) Creatinine 0.81 0.70-1.30 [facility] ([facility]) ID Date Data Source [id number] 08/31/2020 03:48:00 PM EST [facility]) Name Value Range Interpretation Code Description Data Kaye rce(s) Supporting Document(s) Hemoglobin A1c/Hemoglobin.total in Blood 6.2 [facility] ([facility]) ID Date Data Source [id number] 08/31/2020 03:48:00 PM EST [facility] ([facility]) Name Value Range Interpretation Code Description Data Kaye rce(s) Supporting Document(s) Red Blood Count 5.13 4.30-6.10 [facility] ([facility]) White Blood Count 9.7 4.0-10.0 [facility] ([facility]) Platelets 219 150-450 MED[facility] ([facility]) Hemoglobin 15.1 MED[facility] ([facility]) Hematocrit 45.7 MED[facility] ([facility]) ID Date Data Source [id number] 08/30/2020 09:53:00 AM EST [facility] Name Value Range Interpretation Code Description Data Kaye rce(s) Supporting Document(s) SARS coronavirus 2 RNA [Presence] in Res piratory specimen by JEFFERSON with probe detection [facility] This lab was ordered by [facility] a nd reported by [facility]. ID Date Data Source [id number] 03/01/2020 11:30:00 AM EDT [facility] ([facility]) Name Value Range Interpretation Code Description Data Kaye rce(s) Supporting Document(s) Hemoglobin A1c/Hemoglobin.total in Blood 6.5 MED[facility] ([facility]) ID Date Data Source [id number] 03/01/2020 11:30:00 AM EDT [facility] ([facility]) Name Value Range Interpretation Code Description Data Kaye rce(s) Supporting Document(s) Glucose 129 70-100 [facility] Blood Urea Nitrogen 22 7-18 [facility] ([facility]) Potassium 4.2 3.5-5.1 [facility] ([facility] Creatinine 0.95 0.70-1.30 [facility] ([facility]) Chloride 104 98-107 [facility] ([facility] Sodium 137 136-145 [facility] Carbon Dioxide 28 21-32 [facility] ([facility]) Calcium 9.0 8.8-10.2 [facility] Glomerular filtration rate/1.73 sq M.pre dicted [Volume Rate/Area] in Serum or Plasma by Creatinine-based formula (MDRD) Laboratory test result [facility] ([facility]) Procedure Social History Code Duration Value Status Description Data Source(s ) Alcohol intake 10/04/2020 12:00:00 AM EST Ex-drinker (finding) comp leted Ex- drinker (finding) [facility] Smoking 10/04/2020 12:00:00 AM EST Former smoker completed Former smoker [facility] Smoking 09/30/2020 12:00:00 AM EST Patient is a former smoker completed Patient is a former smoker [facility] ([facility]) Smoking 09/19/2020 12:00:00 AM EST Former Smoker completed Former Smoker eCW1 ([facility]) Smoking 09/19/2020 12:00:00 AM EST Former Smoker completed Former Smoker eCW1 ([facility]) Smoking 09/19/2020 12:00:00 AM EST Former Smoker completed Former Smoker eCW1 ([facility]) Smoking 09/19/2020 12:00:00 AM EST Former Smoker completed Former Smoker eCW1 ([facility]) Smoking 09/19/2020 12:00:00 AM EST Former Smoker completed Former Smoker eCW1 ([facility]) Smoking 09/19/2020 12:00:00 AM EST Former Smoker completed Former Smoker eCW1 ([facility]) Smoking 09/01/2020 12:00:00 AM EST Former Smoker completed Former Smoker eCW1 ([facility]) Smoking 09/01/2020 12:00:00 AM EST Former Smoker completed Former Smoker eCW1 ([facility]) Smoking 07/12/2020 12:00:00 AM EST Former Smoker completed Former Smoker eCW1 ([facility]) Smoking 07/12/2020 12:00:00 AM EST Former Smoker completed Former Smoker eCW1 ([facility]) Smoking 07/12/2020 12:00:00 AM EST Former Smoker completed Former Smoker eCW1 ([facility]) Smoking 03/03/2020 12:00:00 AM EDT Former Smoker completed Former Smoker eCW1 ([facility]) Vital Signs ID Date Data Source [id number] Name Value Range Interpretation Code Description Data Source(s) Diastolic blood pressure--sitting 80 mm[Hg] 80 mm[Hg] [facility] ([facility]) Ra, large cuff Systolic blood pressure--sitting 126 mm[Hg] 126 mm[Hg] [facility] ([facility]) Ra, large cuff Respiratory rate 16 /min 16 /min [facility] ( [facility]) nonlabored Heart rate 76 /min 76 /min [facility] ([facility]) regular Body mass index (BMI) [Ratio] 30.6 kg/m2 30.6 k g/m2 [facility] ([facility]) Body height 70 [in_i] 70 [in_i] [facility] ([facility]) 5'10" Body weight 213.00 [lb_av] 213.00 [lb_av] MEDEN T ([facility]) Diastolic blood pressure 80 mm[Hg] 80 mm[Hg] eCW1 ([facility]) Systolic blood pressure 140 mm[Hg] 140 mm[Hg] e CW1 ([facility]) Body temperature 96.9 [degF] 96.9 [degF] eCW1 ( [facility]) Respiratory rate 20 /min 20 /min eCW1 ([facility]) Heart rate 97 /min 97 /min eCW1 ([facility]) Body mass index (BMI) [Ratio] 29.84 kg/m2 29.84 kg/m2 eCW1 ([facility]) Body height [in_i] eCW1 ([facility] Body weight 214 [lb_av] 214 [lb_av] eCW1 ([facility]) Diastolic blood pressure 70 mm[Hg] 70 mm[Hg] eCW1 ([facility]) Systolic blood pressure 110 mm[Hg] 110 mm[Hg] e CW1 ([facility]) Body temperature 96.5 [degF] 96.5 [degF] eCW1 ( [facility]) Respiratory rate 20 /min 20 /min eCW1 ([facility]) Heart rate 90 /min 90 /min eCW1 ([facility]) Body mass index (BMI) [Ratio] 30.40 kg/m2 30.40 kg/m2 eCW1 ([facility]) Body height [in_i] eCW1 ([facility]) Body weight 218 [lb_av] 218 [lb_av] eCW1 ([facility]) Diastolic blood pressure 70 mm[Hg] 70 mm[Hg] eCW1 ([facility]) Systolic blood pressure 130 mm[Hg] 130 mm[Hg] e CW1 ([facility]) Body temperature 96.7 [degF] 96.7 [degF] eCW1 ( [facility]) Respiratory rate 20 /min 20 /min eCW1 ([facility]) Heart rate 102 /min 102 /min eCW1 ([facility]) Body mass index (BMI) [Ratio] 30.96 kg/m2 30.96 kg/m2 eCW1 ([facility]) Body height [in_i] eCW1 ([facility]) Body weight 222 [lb_av] 222 [lb_av] eCW1 ([facility]) Diastolic blood pressure--sitting 84 mm[Hg] 84 mm[Hg] [facility] ([facility]) large cuff, Ra Systolic blood pressure--sitting 136 mm[Hg] 136 mm[Hg] [facility] ([facility]) large cuff, Ra Heart rate 71 /min 71 /min [facility] ([facility]) Body mass index (BMI) [Ratio] 31.4 kg/m2 31.4 k g/m2 [facility] ([facility]) Body height 70 [in_i] 70 [in_i] [facility] ([facility]) 5'10" Body weight 219.00 [lb_av] 219.00 [lb_av] MEDEN T ([facility]) Body mass index (BMI) [Ratio] 31.1 kg/m2 [...] [facility] 5'11" ID Date Data Source [id number] 10/17/2020 07:56:11 AM [facility] Name Value Range Interpretation Code Description Data Source(s) WEIGHT RECORDED 213.63 lb 213.63 lb [facility] WEIGHT RECORDED 217.15 lb 217.15 lb [facility] Body height Measured 70 in 70 in [facility] Patient Treatment Plan of Care Planned Activity Planned Date Details Description Data Source (s) Polymyxin B 78096 UNT/ML / Trimethoprim 1 MG/ML Ophtha lmic Solution 10/07/2020 12:00:00 AM [facility] Levetiracetam 750 MG Oral Tablet 10/07/2020 12:00:00 AM [facility] olanzapine 5 MG/ML Injectable Solution 10/05/2020 11:17:21 PM [facility] Glucose 0.417 MG/MG Oral Gel 10/04/2020 01:07:38 PM [facility] dextrose 50 % IV solution 25 mL 10/04/2020 01:07:37 PM [facility] Glucagon 1 MG Injection 10/04/2020 01:07:37 PM [facility] MetFORMIN HCl ER (MOD) 500 MG 08/31/2020 12:00:00 AM EST eCW1 ([facility]) MetFORMIN HCl ER (MOD) 500 MG 08/31/2020 12:00:00 AM EST eCW1 ([facility]) Glucometer 08/11/2020 12:00:00 AM EST e CW1 ([facility]) Glucometer 08/11/2020 12:00:00 AM EST e CW1 ([facility]) MetFORMIN HCl ER (MOD) 1000 MG 07/12/2020 12:00:00 AM EST eCW1 ([facility]) MetFORMIN HCl ER (MOD) 1000 MG 07/12/2020 12:00:00 AM EST eCW1 ([facility]) MetFORMIN HCl ER (MOD) 1000 MG 07/12/2020 12:00:00 AM EST eCW1 ([facility]) clopidogrel 300 MG Oral Tablet [facility]
[2020-11-04 11:24] LABS: RSV AMPLIFICATION NEGATIVE (NEGATIVE)
[2020-11-04 11:36] LABS: CHOLESTEROL LEVEL 149 MG/DL (<200); HDL CHOLESTEROL 50 MG/DL (>40); LDL CHOLESTEROL 63 MG/DL (<100); NON-HDL-C 99 MG/DL; TRIGLYCERIDES LEVEL 182 MG/DL (<150)
--- NOTE | 2020-11-04 12:15 | REP ---
INDICATION: CVA COMPARISON: None. TECHNIQUE: Real-time ultrasound evaluation and duplex Doppler interrogation of the extracranial carotid vasculature is performed. FINDINGS: There is moderate plaquing and narrowing in both carotid bulbs extending into the internal and external carotid arteries, left greater than right. Luminal narrowing is less than 50%. There is no evidence of hemodynamically significant stenosis of either internal carotid artery. Normal flow velocities are seen. The vertebral arteries demonstrate normal direction of flow. RIGHT LEFT Peak systolic velocity ICA 59.2 cm/s 61.3 cm/s End diastolic velocity ICA 13.3 cm/s 28.5 cm/s Peak systolic velocity CCA 104 cm/s 107cm/s Peak systolic velocity ECA 90.1 cm/s 80.4 cm/s ICA/CCA ratio 0.51 0.57 IMPRESSION: Bilateral luminal narrowing of the internal carotid arteries less than 50%. No evidence of hemodynamically significant stenosis. <Electronically signed by Mike Lopez > 11/04/20 [id number]
--- NOTE | 2020-11-04 13:17 | HPEPDOC ---
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 Patient has baseline dementia and cannot contribute any significant details to his history. Information has been collected through the medical record as well as external medical records via [employer]. Patient was recently hospitalized at [facility] for seizure like activity / stroke workup. Patient had a full imaging workup that was negative for any carotid stenosis (reported less than 50% bilaterally), CTA head and neck revealed left internal cerebral artery, 98% stenosis and MRI brain was negative for any acute pathology. Patient had an EEG completed which revealed left-sided epileptiform discharges. She was started on Keppra 750 mg by mouth twice a day and was subsequently discharged home. It appears that patient has not picked up his Keppra medication on discharge and has been without it. While at home. Currently patient denies any headache, nausea, vomiting, chest pain, shortness breath, palpitations, abdominal pain consultation, diarrhea, or urinary discomfort. He is unaware of any fevers or chills. Reports his appetite is normal. 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 Atkins - ADENOMATOUS POLYP, TUBULAR ADENOMA RIGHT THUMB [facility] JOINT ARTHROSCOPY 08/2016 Allergies: See below Medications: See below Family History: As per medical record father with a history of stroke in mother with a history of cancer- Social History: - Denies the use of alcohol, tobacco or illicit drugs - Denies recent travel or sick contacts - Lives with - Occupation; she needs to be part of the Review of Systems: 10 point review of systems complete, all negative otherwise stated in HPI Physical exam: - Vitals: BP [158/80], HR [59], RR [20], Sat [99%RA], Temp [98.2F] - General: Lying in bed, No acute distress, Speaking in full sentences, AAOx1 (only to person) - HEENT: NC, AT, PERRLA - CVS: RRR, +S1S2, + Systolic murmur - Lungs: Fair air entry bilaterally, No appreciable wheezing / rales / rhonchi - Abdomen: Soft, Non-distended, Non-tender - Extremities: No lower extremity edema, No calf tenderness - Neuro: LUE with weakness proximally, no weakness in all 3 other extremities - Skin: No visible rashes Labs: See below Imaging: CT head 11/04: 1. There is low attenuation abnormality in the periventricular white matter, likely reflecting chronic microvascular ischemic disease. If an acute infarct is a clinical concern, follow-up MRI with diffusion imaging is recommended. 2. There are chronic lacunar infarcts. 3. There is an old left [employer]ATING E[employer]MENT REPA[employer] territory infarct. 4. There is moderate cerebral atrophy. EKG: See below Assessment and Plan: Recent seizure like activity; possible stroke - Patient presented to the emergency room after reporting seizure-like activity this morning - Patient has had a recent admission at [facility] was started on Keppra 750 twice a day - Has followed up with neurology and was taken off of Keppra because of suicidal ideation and was transitioned to Depakote 500 QHS - Physical has revealed proximal left upper extremity weakness - CT head noted above - Will check Carotid Doppler ultrasound / MRI brain / MRA brain / Cardiac profile/ ECHO - Will check EEG / Depakote level - Will increase ASA to 325 for now; c/w Atorvastatin - Discussed with neurology to determine outpatient details HTN - Will allow for permissive HTN; SBP of 140-180 until stroke is ruled out - Currently not on any BP medications - Will start BP control medications if BP remains elevated Vascular dementia - Patient was taken off of Memantine for side effects - c/w Donepezil 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_ - Resulting diplopia and imbalance 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) Aortic stenosis s/p Bioprosthetic AVR (08/2015) - Will collect records from [facility] NIDDM2 - Will check A1c - Will start ISS DLP - c/w Atorvastatin Hx of Kidney stones DVT prophylaxis - Will start Heparin Vital Signs Vital Signs Date Time Temp Pulse Resp B/P (MAP) Pulse Ox O2 Delivery O2 Flow Rate FiO2 11/04/20 12:30 149/91 (110) 11/04/20 12:29 57 20 100 Room Air 11/04/20 07:43 98.2 Laboratory Data Labs 24H Laboratory Tests 2 11/04/20 08:47: Blood Gas Bicarbonate Standard 23.8, Venous Blood pH 7.365, Venous Blood Partial Pressure CO2 44.4, Venous Blood Partial Pressure O2 209.2H, Venous Blood Total Carbon Dioxide 26.2, Venous Blood HCO3 24.8, Venous Blood Oxygen Saturation 99.5H, Venous Blood Base Excess -0.8, Anion Gap 6L, Glomerular Filtration Rate > 60.0, Osmolality 295, Calcium Level 9.0, Total Bilirubin 0.4, Direct Bilirubin < 0.1, Aspartate Amino Transf (AST/SGOT) 25, Alanine Aminotransferase (ALT/SGPT) 27, Alkaline Phosphatase 57, Ammonia 55H, Total Creatine Kinase 103, Creatine Kinase MB 1.5, Creatine Kinase MB Relative Index 1.46, Troponin I < 0.02, Total Protein 6.5, Albumin 3.5, Albumin/Globulin Ratio 1.2, Triglycerides Level 182H, Total Cholesterol 149, LDL Cholesterol 63, Non-HDL Cholesterol (LDL + VLDL) 99, Total HDL Cholesterol 50, Cholesterol/HDL Ratio 2.980, Thyroid Stimulating Hormone (TSH) 0.983 11/04/20 08:49: POC Glucose (Misc Panel) 138H, POC Sodium (Misc Panel) 140, POC Potassium (Misc Panel) 3.8, POC Chloride (Misc Panel) 105, POC Total CO2 (Misc Panel) 26.0, POC Blood Urea Nitrogen (Misc Panel 25, POC Ionized Calcium (Misc Panel) 4.4L, POC Creatinine (Misc Panel) 0.8, POC Hematocrit (Misc Panel) 47.0 11/04/20 09:02: Immature Granulocyte % (Auto) 0.3, Neutrophils (%) (Auto) 80.5H, Lymphocytes (%) (Auto) 13.6L, Monocytes (%) (Auto) 4.8, Eosinophils (%) (Auto) 0.6, Basophils (%) (Auto) 0.2, Neutrophils # (Auto) 7.0, Lymphocytes # (Auto) 1.2L, Monocytes # (Auto) 0.4, Eosinophils # (Auto) 0.1, Basophils # (Auto) 0.0, Nucleated Red Blood Cells % (auto) 0.0 11/04/20 09:03: 11/04/20 10:28: Coronavirus (COVID-19)(PCR) NEGATIVE, Influenza Type A (RT-PCR) NEGATIVE, Influenza Type B (RT-PCR) NEGATIVE, Respiratory Syncytial Virus (PCR) NEGATIVE 11/04/20 11:57: Urine Color YELLOW, Urine Appearance CLEAR, Urine pH 5.0, Urine Specific [place] 1.023, Urine Protein 1+H, Urine Glucose (UA) NEGATIVE, Urine Ketones NEGATIVE, Urine Blood NEGATIVE, Urine Nitrite NEGATIVE, Urine Bilirubin NEGATIVE, Urine Urobilinogen 0.2, Urine Leukocyte Esterase NEGATIVE, Urine WBC (Auto) 2, Urine RBC (Auto) 0, Urine Hyaline Casts (Auto) 0, Urine Bacteria (Auto) NEGATIVE, Urine Squamous Epithelial Cells 0, Urine Mucus (Auto) SMALL, Urine Sperm (Auto) CBC/BMP Laboratory Tests 11/04/20 08:47 11/04/20 09:02 Home Medications Scheduled Aspirin (Aspirin EC) 81 Mg Tab, 81 MG PO DAILY Atorvastatin Calcium (Atorvastatin Calcium) 40 Mg Tablet, 40 MG PO QPM Donepezil HCl (Donepezil HCl) 10 Mg Tablet, 10 MG PO DAILY Levetiracetam (Levetiracetam) 750 Mg Tablet, 750 MG PO BID [facility] HAS NOT TAKEN ANY SINCE PICKING UP AT THE PHARMACY Metformin HCl (Metformin HCl ER) 500 Mg Tab.er.24h, 500 MG PO QPM Multivitamins (Thera M Plus Tablet) 1 Tab Tab, 1 TAB PO DAILY Scheduled PRN Acetaminophen (Acetaminophen) 500 Mg Tablet, 1,000 MG PO Q6H PRN for PAIN Allergies Coded Allergies: No Known Allergies (Verified , 12/09/03) KHUSHBU DE LA TORRE MD Nov 04, 2020 13:17
[2020-11-04 13:29] VITALS: BP 158/87
[2020-11-04 13:44] LABS: HEMOGLOBIN A1c 6.1 %
[2020-11-04 14:00] VITALS: BP 158/87
[2020-11-04] MEDS: ENOXAPARIN 40MG/0.4ML SYRINGE (J1650 PER 10MG) SC SCH (14:08)
[2020-11-04] MEDS: HumaLOG INSULIN (NovoLOG) PER UNIT SC SCH ×2 (14:09→17:56)
[2020-11-04] MEDS: ASPIRIN 81 MG CHEW TABLET PO SCH (14:10)
[2020-11-04] MEDS: DOCUSATE SODIUM 100MG CAPSULE PO SCH ×2 (14:10→22:10)
[2020-11-04] MEDS: DONEPEZIL 5 MG TAB PO SCH (14:10)
[2020-11-04] MEDS: MULTIVITAMINS/MINERALS THERAP 1 TAB PO SCH (14:10)
[2020-11-04 14:12] LABS: VALPROIC ACID (DEPAKOTE) < 3.0 UG/ML (50.0-100.0)
[2020-11-04 16:00] VITALS: BP 162/89
--- NOTE | 2020-11-04 17:05 | ECGEPIP ---
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
[2020-11-04 20:00] VITALS: BP 133/77
[2020-11-04] MEDS ORDERED: DIVALPROEX 500 MG TAB PO SCH (21:00)
[2020-11-04] MEDS ORDERED: HumaLOG INSULIN (NovoLOG) PER UNIT SC SCH (21:00)
[2020-11-04] MEDS ORDERED: ATORVASTATIN 20 MG TAB PO SCH (21:00)
--- NOTE | 2020-11-04 21:43 | REPVR ---
PROCEDURE INFORMATION: Exam: MR Head Without Contrast Exam date and time: 11/04/2020 8:59 PM Age: 69 years old Clinical indication: Other: Rue weak ? aphasia TECHNIQUE: Imaging protocol: MR of the head without contrast. COMPARISON: MRI-Brain without Contrast 08/30/2020 8:15 PM FINDINGS: Brain: There is hyperintense signal in the periventricular white matter. There are additional hyperintense foci scattered throughout the white matter. This is consistent with chronic microvascular disease. There is an old left occipital infarct in the distribution of the left posterior cerebral artery. There are small old white matter and basal ganglia lacunar infarcts. DWI demonstrates no evidence of acute infarct. Gradient echo images demonstrate old hemorrhage in the region of old left occipital infarct. No evidence of acute hemorrhage. No extra-axial collection. No abnormal flow voids. Cerebral ventricles: There is no hydrocephalus. There is ex vacuo dilatation of the left occipital horn. Bones/joints: Unremarkable. Paranasal sinuses: Normal as visualized. No acute sinusitis. Mastoid air cells: Normal as visualized. No mastoid effusion. Orbital cavity: Unremarkable. Soft tissues: Unremarkable. IMPRESSION: 1. There is chronic microvascular disease and old left occipital infarct. 2. No acute intracranial lesion or injury. Electronically signed by: Luis Mitchell On 11/04/2020 21:42:55 PM
--- NOTE | 2020-11-04 21:52 | REPVR ---
PROCEDURE INFORMATION: Exam: MR Angiogram Head Without Contrast, Arteries Exam date and time: 11/04/2020 8:59 PM Age: 69 years old Clinical indication: Other: Rue weak ? aphasia TECHNIQUE: Imaging protocol: MR angiogram head without contrast. Exam focused on the arteries. COMPARISON: MRA BRAIN W/O CONTRAST 01/13/2019 9:39 AM FINDINGS: Limitations: There is motion artifact. ANTERIOR CIRCULATION: Right internal carotid artery: Intracranial segment is patent with no significant stenosis. No aneurysm. Right middle cerebral artery: No occlusion or significant stenosis. No aneurysm. Right anterior cerebral artery: No occlusion or significant stenosis. No aneurysm. Left internal carotid artery: Intracranial segment is patent with no significant stenosis. No aneurysm. Left middle cerebral artery: On MIP images there is loss of signal in proximal M2 branches of the left MCA. When evaluated on the source images there is significant motion artifact in this location. Left anterior cerebral artery: No occlusion or significant stenosis. No aneurysm. POSTERIOR CIRCULATION: Right vertebral artery: No occlusion or significant stenosis. No aneurysm. Left vertebral artery: No occlusion or significant stenosis. No aneurysm. Basilar artery: No occlusion or significant stenosis. No aneurysm. Right posterior cerebral artery: No occlusion or significant stenosis. No aneurysm. Left posterior cerebral artery: The left posterior cerebral artery is decreased in size compared to the contralateral vessel without focal stenosis. No occlusion. IMPRESSION: 1. Decrease in caliber of the left posterior cerebral artery without focal stenosis. This corresponds to the old left occipital infarct on MRI. 2. Signal loss in the proximal M2 branches of the left middle cerebral artery . On the source images there is motion artifact in this area which likely accounts for signal loss. Stenosis cannot be excluded. There is no infarct in this distribution on brain MRI. Electronically signed by: Luis Mitchell On 11/04/2020 21:52:35 PM
[2020-11-04 22:00] VITALS: BP 133/77
[2020-11-05] VITALS: BP 131/62
[2020-11-05 04:00] VITALS: BP 141/83
[2020-11-05 05:49] LABS: BASO % 0.4 % (0.0-1.0); EOS # 0.2 10^3/uL (0.0-0.5); HEMATOCRIT 43.8 % (42.0-52.0); HEMOGLOBIN 14.3 g/dl (13.5-17.5); LYMPH # 2.1 10^3/uL (1.5-5.0); LYMPH % 26.9 % (24.0-44.0); MEAN CORPUSCULAR HEMOGLOBIN 29.4 pg (27.0-33.0); MEAN CORPUSCULAR HGB CONC 32.6 g/dl (32.0-36.5); MEAN CORPUSCULAR VOLUME 89.9 fl (80.0-96.0); MONO # 0.6 10^3/uL (0.0-0.8); MONO % 7.8 % (2.0-8.0); NEUTROPHILS % 62.6 % (36.0-66.0); PLATELET COUNT, AUTOMATED 209 10^3/uL (150-450); RED BLOOD COUNT 4.87 10^6/uL (4.30-6.10)
[2020-11-05 06:08] LABS: BLOOD UREA NITROGEN 19 MG/DL (7-18); CALCIUM LEVEL 8.5 MG/DL (8.8-10.2); CARBON DIOXIDE LEVEL 26 MEQ/L (21-32); CHLORIDE LEVEL 110 MEQ/L (98-107); CREATININE FOR GFR 0.82 MG/DL (0.70-1.30); GLOMERULAR FILTRATION RATE > 60.0 (>49); GLUCOSE, FASTING 114 MG/DL (70-100); MAGNESIUM LEVEL 2.2 MG/DL (1.8-2.4); POTASSIUM SERUM 3.7 MEQ/L (3.5-5.1); SODIUM LEVEL 142 MEQ/L (136-145)
[2020-11-05 08:00] VITALS: BP 136/73
[2020-11-05] MEDS: ASPIRIN 81 MG CHEW TABLET PO SCH (08:32)
[2020-11-05] MEDS: DONEPEZIL 5 MG TAB PO SCH (08:32)
[2020-11-05] MEDS: MULTIVITAMINS/MINERALS THERAP 1 TAB PO SCH (08:33)
[2020-11-05] MEDS: DOCUSATE SODIUM 100MG CAPSULE PO SCH (08:33)
[2020-11-05] MEDS: HumaLOG INSULIN (NovoLOG) PER UNIT SC SCH (08:33)
[2020-11-05] MEDS: ENOXAPARIN 40MG/0.4ML SYRINGE (J1650 PER 10MG) SC SCH (09:00)
[2020-11-05] MEDS ORDERED: FLUTICASONE PROP 0.05% NASAL SPRAY 16 GM (FLONASE) NARES SCH (09:00)
[2020-11-05] MEDS ORDERED: DEPA1TAB3 PO (09:29)
--- NOTE | 2020-11-05 09:40 | DS.PDOC ---
Discharge Summary General Date of Admission Nov 04, 2020 at 10:38 Date of Discharge 11/05/2020 Discharge Summary PROCEDURES PERFORMED DURING STAY: [None]. 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 Patient has baseline dementia and cannot contribute any significant details to his history. Information has been collected through the medical record as well as external medical records via [facility]. Patient was recently hospitalized at [facility] for seizure like activity / stroke workup. Patient had a full imaging workup that was negative for any carotid stenosis (reported less than 50% bilaterally), CTA head and neck revealed left internal cerebral artery, 98% stenosis and MRI brain was negative for any acute pathology. Patient had an EEG completed which revealed left-sided epileptiform discharges. She was started on Keppra 750 mg by mouth twice a day and was subsequently discharged home. Patient had followed up with neurology after discharge and his Keppra was discontinued and subsequently changed to Depakote. Patient was admitted to the hospitalist service Depakote was resumed. No further seizure activities were noted. This morning patient was seen and examined at the bedside. Has not experience any further seizure-like activity. No nausea, vomiting, chest pain, short of breath, palpitations, abdominal pain or diarrhea. HOSPITAL COURSE: Recent seizure like activity - likely 2/2 non-compliance with Depakote; unlikely 2/2 acute stroke - Presented to ER after reporting seizure-like activity this morning - Patient has had a recent admission at [facility] was started on Keppra 750 BID - Soon after seen neurology and was taken off of Keppra because of suicidal ideation and was transitioned to Depakote 500 QHS - Depakote level low - Imaging noted below - Will return ASA to 81; c/w Atorvastatin - Will have outpatient follow-up with primary care provider and neurology within the next 7 days s/p HTN - No evidence of stroke; discontinued permissive hypertension - Blood pressure well controlled without medications currently Vascular dementia - Patient was taken off of Memantine for side effects - c/w Donepezil 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 ALLERGIES: Please see below. PHYSICAL EXAMINATION ON DISCHARGE: Vitals (See below) General: Patient is sitting up in bed, appears to be comfortable, is awake and alert, oriented to person HEENT: NC, AT CVS: RRR, +S1S2, + Systolic murmur appreciated Lungs: Fair air entry b/l, no evidence of wheezing, crackles or rhonchi Abdomen: Soft, ND, NT Extremities: - Edema, - Calf tenderness LABORATORY DATA: Please see below. IMAGING: CT head 11/04: 1. There is low attenuation abnormality in the periventricular white matter, likely reflecting chronic microvascular ischemic disease. If an acute infarct is a clinical concern, follow-up MRI with diffusion imaging is recommended. 2. There are chronic lacunar infarcts. 3. There is an old left [employer] territory infarct. 4. There is moderate cerebral atrophy. Brain MRA 11/04: 1. Decrease in caliber of the left posterior cerebral artery without focal stenosis. This corresponds to the old left occipital infarct on MRI. 2. Signal loss in the proximal M2 branches of the left middle cerebral artery. On the source images there is motion artifact in this area which likely accounts for signal loss. Stenosis cannot be excluded. There is no infarct in this distribution on brain MRI. Brain MRI 11/04: 1. There is chronic microvascular disease and old left occipital infarct. 2. No acute intracranial lesion or injury. Carotid Duplex US 11/04: Bilateral luminal narrowing of the internal carotid arteries less than 50%. No evidence of hemodynamically significant stenosis. ACTIVITY: [As tolerated]. DISCHARGE PLAN: Follow-up with primary care provider and neurology within the next 7 days Remain compliant with treatment plan and medications Return to the ER if you experience any problems DISPOSITION: Home with services DISCHARGE CONDITION: [Stable]. TIME SPENT ON DISCHARGE: 35 minutes. Vital Signs/I&Os Vital Signs Date Time Temp Pulse Resp B/P (MAP) Pulse Ox O2 Delivery O2 Flow Rate FiO2 11/05/20 08:00 97.3 74 18 136/73 (94) 100 Room Air I&O- Last 24 Hours up to 6 AM 11/05/20 06:00 Intake Total 617.5 ml Output Total 310 ml Balance 307.5 ml Laboratory Data Labs 24H Laboratory Tests 2 11/04/20 10:28: Coronavirus (COVID-19)(PCR) NEGATIVE, Influenza Type A (RT-PCR) NEGATIVE, Influenza Type B (RT-PCR) NEGATIVE, Respiratory Syncytial Virus (PCR) NEGATIVE 11/04/20 11:57: Urine Color YELLOW, Urine Appearance CLEAR, Urine pH 5.0, Urine Specific [place] 1.023, Urine Protein 1+H, Urine Glucose (UA) NEGATIVE, Urine Ketones NEGATIVE, Urine Blood NEGATIVE, Urine Nitrite NEGATIVE, Urine Bilirubin NEGATIVE, Urine Urobilinogen 0.2, Urine Leukocyte Esterase NEGATIVE, Urine WBC (Auto) 2, Urine RBC (Auto) 0, Urine Hyaline Casts (Auto) 0, Urine Bacteria (Auto) NEGATIVE, Urine Squamous Epithelial Cells 0, Urine Mucus (Auto) SMALL, Urine Sperm (Auto) 11/04/20 13:50: Bedside Glucose (Misc Panel) 121H 11/04/20 17:47: Bedside Glucose (Misc Panel) 124H 11/04/20 22:05: Bedside Glucose (Misc Panel) 122H 11/05/20 05:19: Immature Granulocyte % (Auto) 0.3, Neutrophils (%) (Auto) 62.6, Lymphocytes (%) (Auto) 26.9, Monocytes (%) (Auto) 7.8, Eosinophils (%) (Auto) 2.0, Basophils (%) (Auto) 0.4, Neutrophils # (Auto) 5.0, Lymphocytes # (Auto) 2.1, Monocytes # (Auto) 0.6, Eosinophils # (Auto) 0.2, Basophils # (Auto) 0.0, Nucleated Red Blood Cells % (auto) 0.0, Anion Gap 6L, Glomerular Filtration Rate > 60.0, Calcium Level 8.5L, Magnesium Level 2.2 CBC/BMP Laboratory Tests 11/05/20 05:19 FSBS Laboratory Tests Test 11/04/20 13:50 11/04/20 17:47 11/04/20 22:05 Range/Units Bedside Glucose (Misc Panel) 121 124 122 80-115 MG/DL Discharge Medications Scheduled Aspirin (Aspirin EC) 81 Mg Tab, 81 MG PO DAILY, (Reported) Atorvastatin Calcium (Atorvastatin Calcium) 40 Mg Tablet, 40 MG PO QPM, (Reported) Divalproex Sodium (Depakote) 500 Mg Tablet.dr, 500 MG PO QHS Donepezil HCl (Donepezil HCl) 10 Mg Tablet, 10 MG PO DAILY, (Reported) Metformin HCl (Metformin HCl ER) 500 Mg Tab.er.24h, 500 MG PO QPM, (Reported) Multivitamins (Thera M Plus Tablet) 1 Tab Tab, 1 TAB PO DAILY, (Reported) Scheduled PRN Acetaminophen (Acetaminophen) 500 Mg Tablet, 1,000 MG PO Q6H PRN for PAIN, (Reported) Allergies Coded Allergies: No Known Allergies (Verified , 12/09/03) KHUSHBU DE LA TORRE MD Nov 05, 2020 09:40
== END 2020-11-05 14:47 | disposition home or self-care (01) | DRG 101 ==
LOC: M ED 07:23 → EDBD 07:23 → M ED INP 10:38 → M PCU 13:29
PROVIDERS: ADMIT Internal Medicine; ATTEND Internal Medicine
DX: R56.9 Unspecified convulsions (principal); Z91.14 Patient's other noncompliance with medication regimen; F01.50 Vascular dementia, unspecified severity, without behavioral disturbance, psychotic disturbance, mood disturbance, and anxiety; I10 Essential (primary) hypertension; E11.9 Type 2 diabetes mellitus without complications; Z86.73 Personal history of transient ischemic attack (TIA), and cerebral infarction without residual deficits; Z95.2 Presence of prosthetic heart valve; Z87.442 Personal history of urinary calculi; Z79.899 Other long term (current) drug therapy; Z79.82 Long term (current) use of aspirin; Z98.41 Cataract extraction status, right eye; Z98.42 Cataract extraction status, left eye

== ENCOUNTER → 2020-11-10 | Outpatient (REF) | payer MEDICARE, OTHER ==
[~2020-11-10] MED LIST changes: +ACET-683 PO; +DEPA1TAB3 PO; +LEVE750T5 PO
== END ==
LOC: M PLALAB 12:01
PROVIDERS: ATTEND Family Medicine
DX: E11.9 Type 2 diabetes mellitus without complications (principal)

== ENCOUNTER → 2020-11-11 | Outpatient (REF) | payer MEDICARE, OTHER ==
[2020-11-11 14:34] LABS: HEMOGLOBIN A1c 6.4 %
== END ==
LOC: M SFHCPLAZ 12:53
PROVIDERS: ATTEND Family Medicine
DX: E11.9 Type 2 diabetes mellitus without complications (principal)

== ENCOUNTER → 2020-11-29 | Outpatient (REF) | payer MEDICARE, OTHER ==
[2020-11-29 14:18] LABS: BASO # 0.1 10^3/uL (0.0-0.2); BASO % 0.6 % (0.0-1.0); EOS # 0.1 10^3/uL (0.0-0.5); EOS % 1.3 % (0.0-3.0); HEMATOCRIT 50.9 % (42.0-52.0); HEMOGLOBIN 16.5 g/dl (13.5-17.5); LYMPH % 22.5 % (24.0-44.0); MEAN CORPUSCULAR HEMOGLOBIN 29.8 pg (27.0-33.0); MEAN CORPUSCULAR HGB CONC 32.4 g/dl (32.0-36.5); MEAN CORPUSCULAR VOLUME 91.9 fl (80.0-96.0); MONO # 0.7 10^3/uL (0.0-0.8); MONO % 7.3 % (2.0-8.0); NEUTROPHILS # 6.1 10^3/uL (1.5-8.5); NEUTROPHILS % 67.6 % (36.0-66.0); PLATELET COUNT, AUTOMATED 276 10^3/uL (150-450); RED BLOOD COUNT 5.54 10^6/uL (4.30-6.10)
[2020-11-29 14:50] LABS: ALBUMIN 3.8 GM/DL (3.2-5.2); ALT/SGPT 24 U/L (12-78); BILIRUBIN,TOTAL 0.4 MG/DL (0.2-1.0); BLOOD UREA NITROGEN 24 MG/DL (7-18); CALCIUM LEVEL 9.2 MG/DL (8.8-10.2); CARBON DIOXIDE LEVEL 32 MEQ/L (21-32); CHLORIDE LEVEL 105 MEQ/L (98-107); CREATININE FOR GFR 0.89 MG/DL (0.70-1.30); GLOMERULAR FILTRATION RATE > 60.0 (>49); GLUCOSE, FASTING 175 MG/DL (70-100); POTASSIUM SERUM 4.5 MEQ/L (3.5-5.1); SODIUM LEVEL 141 MEQ/L (136-145); TOTAL PROTEIN 6.9 GM/DL (6.4-8.2)
== END ==
LOC: M SFHCPLAZ 10:56
PROVIDERS: ATTEND Family Medicine
DX: M25.512 Pain in left shoulder (principal); E11.9 Type 2 diabetes mellitus without complications; Z51.81 Encounter for therapeutic drug level monitoring
CPT/HCPCS: 36415; 80053; 85025; G0463

== ENCOUNTER → 2020-12-07 | Outpatient (CLI) | payer MEDICARE, OTHER ==
[~2020-12-07] MED LIST changes: +ISOVUE-300 61% 50ML VIAL As Ordered ONE; +PROHANCE 279.3MG/ML 5ML VIAL As Ordered ONE
--- NOTE | 2020-12-07 16:36 | REP ---
INDICATION: PAIN IN LT SHOULDER, R/O ROTATOR CUFF TEAR. COMPARISON: None. TECHNIQUE: Coronal oblique T1, T2 fat sat, sagittal oblique T2 fat sat, axial T2 fat sat, gradient echo. Post arthrogram T1 fat sat and T2 fat sat in multiple planes. Study is limited by patient motion. FINDINGS: Rotator cuff: There is mild supraspinatus and subscapularis tendinopathy, with no evidence of rotator cuff tendon tear. Acromioclavicular joint: There are moderate hypertrophic degenerative changes of the acromioclavicular joint. There is a small amount of fluid in the joint. Acromion: Type 2 Biceps Tendon: In bicipital groove, with mild surrounding fluid. Hill Sach's deformity: None. Deltoid muscle: No abnormal signal. Biceps labral complex: There is fraying of the biceps labral complex. Labrum: There is a tear of the inferior aspect of the posterior labrum. Cartilage: No defects. There is mild diffuse chondromalacia. Bone marrow: No abnormal signal. Joint fluid: There is a small joint effusion. IMPRESSION: Mild supraspinatus and subscapularis tendinopathy with no rotator cuff tear. Moderate hypertrophic degenerative changes acromioclavicular joint. Fraying of the biceps labral complex. There is tear of the inferior aspect of the posterior labrum. Small joint effusion. <Electronically signed by Mike Lopez > 12/07/20 [id number]
--- NOTE | 2020-12-07 17:42 | REP ---
INDICATION: PAIN IN LT SHOULDER, R/O ROTATOR CUFF TEAR. COMPARISON: None TECHNIQUE: The procedure was performed by LAUREL Aparicio, under the direct supervision of Dr. Lopez. The benefits and risks of the procedure were explained to the patient, and an informed consent was obtained. Directly prior to the start of the procedure, a formal time-out was completed in the procedure room. The left glenohumeral joint space was localized using fluoroscopic guidance. The skin was prepped and draped in a sterile fashion. Approximately 4 mL of 1% Lidocaine 10 mg/ml was used as a local anesthetic. Using fluoroscopic guidance, a #22 gauge spinal needle was inserted and advanced into the left glenohumeral joint space. Approximately 1 mL of Isovue 300 was injected to verify placement. Twelve mL of a solution containing 20 mL of sterile saline and 0.15 mL of ProHance was injected into the joint space. The needle was removed and the patient was taken to MRI for post procedural imaging. FINDINGS: The patient tolerated the procedure well and there were no immediate complications. IMPRESSION: Fluoroscopic guided MRI arthrogram of the left shoulder. 0.1 minutes of fluoroscopy time was utilized for this procedure. Some fluoroscopic images are performed with last image hold technology. These images require no additional radiation. <Electronically signed by Mela Jackson > 12/07/20 [id number] <Electronically signed by Mike Lopez > 12/07/20 [id number]
== END ==
LOC: M RADPRO 11:50
PROVIDERS: ATTEND Physician Assistant
DX: M25.512 Pain in left shoulder (principal); M75.92 Shoulder lesion, unspecified, left shoulder; M25.412 Effusion, left shoulder
CPT/HCPCS: 23350; 73223; 77002; A9576; Q9967

== ENCOUNTER 2020-12-09 07:23 | Emergency (ER) | payer MEDICARE, OTHER ==
[~2020-12-09] VITALS: Ht 180.3 cm; Wt 77.3 kg
[~2020-12-09 07:23] MED LIST changes: -ISOVUE-300 61% 50ML VIAL As Ordered ONE; -PROHANCE 279.3MG/ML 5ML VIAL As Ordered ONE
[2020-12-09 07:54] LABS: BASO % 0.4 % (0.0-1.0); EOS # 0.3 10^3/uL (0.0-0.5); EOS % 4.1 % (0.0-3.0); HEMATOCRIT 49.2 % (42.0-52.0); HEMOGLOBIN 15.9 g/dl (13.5-17.5); LYMPH # 2.4 10^3/uL (1.5-5.0); LYMPH % 35.1 % (24.0-44.0); MEAN CORPUSCULAR HGB CONC 32.3 g/dl (32.0-36.5); MEAN CORPUSCULAR VOLUME 92.8 fl (80.0-96.0); MONO # 0.5 10^3/uL (0.0-0.8); MONO % 7.3 % (2.0-8.0); NEUTROPHILS # 3.6 10^3/uL (1.5-8.5); NEUTROPHILS % 52.7 % (36.0-66.0); PLATELET COUNT, AUTOMATED 204 10^3/uL (150-450); WHITE BLOOD COUNT 6.9 10^3/uL (4.0-10.0)
--- NOTE | 2020-12-09 07:56 | REP ---
INDICATION: seizure. COMPARISON: Portable chest dated 08/30/2020. TECHNIQUE: Portable AP chest with the patient upright, two views. FINDINGS: The lung ortiz are clear. The cardiac size is normal. The saul, mediastinum, and skeletal structures are unremarkable. There is a small metallic plate projected over right hemithorax, unchanged. There is a cardiac valve prosthesis, unchanged. There are faintly visible wires projected over the inferior chest slightly to the right of midline, unchanged. IMPRESSION: No acute cardiopulmonary findings. No interval change. <Electronically signed by Mike Fletcher > 12/09/20 [id number]
--- NOTE | 2020-12-09 08:14 | REP ---
INDICATION: seixure. COMPARISON: 11/04/2020 CT and MRI brain TECHNIQUE: Noncontrast CT images in the axial plane with coronal reconstructions provided. FINDINGS: The lateral ventricles are midline and frontal horns symmetric. Asymmetric enlargement of the posterior horn of the left lateral ventricle compared to the right unchanged. There is a large zone of encephalomalacia involving the left occipital lobe from an old infarct. Periventricular low-density white matter changes are again seen and unchanged. Some mild cortical atrophy is present, age-appropriate 3rd and 4th ventricles are portion size there is some mild cerebellar atrophy but no mass or acute infarct. There is no intra or extra-axial hemorrhage, edema or other acute finding. No visible mass. Basal ganglia are symmetric and unchanged. Basal cisterns are intact. Mastoids and visualized sinuses were clear. The skull base and calvarium are without fracture or focal lesion. IMPRESSION: 1. 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 No new or acute infarct. 2. No intra or extra-axial hemorrhage, mass or mass effect. 3. Chronic small vessel white matter ischemic changes. 4. Mild atrophy, age-appropriate. No new or acute finding <Electronically signed by Maxi Malik > 12/09/20 0825
[2020-12-09 08:27] LABS: ALBUMIN 3.5 GM/DL (3.2-5.2); ALT/SGPT 21 U/L (12-78); BILIRUBIN,DIRECT 0.1 MG/DL (0.0-0.2); BILIRUBIN,TOTAL 0.4 MG/DL (0.2-1.0); BLOOD UREA NITROGEN 25 MG/DL (7-18); CALCIUM LEVEL 8.7 MG/DL (8.8-10.2); CARBON DIOXIDE LEVEL 25 MEQ/L (21-32); CHLORIDE LEVEL 109 MEQ/L (98-107); CK-MB VALUE MASS 1.8 NG/ML (<3.6); CPK CREATINE PHOSPHOKINASE 63 U/L (39-308); CREATININE FOR GFR 1.03 MG/DL (0.70-1.30); GLOMERULAR FILTRATION RATE > 60.0 (>42); GLUCOSE, FASTING 155 MG/DL (70-100); MB/CK RELATIVE INDEX 2.86 (< OR =4); POTASSIUM SERUM 3.9 MEQ/L (3.5-5.1); SODIUM LEVEL 143 MEQ/L (136-145); TOTAL PROTEIN 6.3 GM/DL (6.4-8.2); TROPONIN I < 0.02 NG/ML (< 0.10); VALPROIC ACID (DEPAKOTE) 47.9 UG/ML (50.0-100.0)
[2020-12-09] MEDS ORDERED: VALPROATE SOD INJ 500 MG in D5W 50 ML IV ONE (10:00)
[2020-12-09] MEDS ORDERED: DEPA1TAB3 PO (12:38)
--- NOTE | 2020-12-09 13:20 | ECGEPIP ---
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
[2020-12-09 13:30] VITALS: BP 138/80
== END 2020-12-09 13:43 | disposition home or self-care (01) ==
LOC: EDBD 07:23 → M ED 07:23
DX: R56.9 Unspecified convulsions (principal); F01.50 Vascular dementia, unspecified severity, without behavioral disturbance, psychotic disturbance, mood disturbance, and anxiety; E11.9 Type 2 diabetes mellitus without complications; Z86.73 Personal history of transient ischemic attack (TIA), and cerebral infarction without residual deficits; Z95.2 Presence of prosthetic heart valve; Z87.442 Personal history of urinary calculi; Z79.899 Other long term (current) drug therapy

== ENCOUNTER → 2021-01-09 | Outpatient (REF) | payer MEDICARE, OTHER ==
[2021-01-09 15:38] LABS: BLOOD UREA NITROGEN 20 MG/DL (7-18); CALCIUM LEVEL 9.7 MG/DL (8.8-10.2); CARBON DIOXIDE LEVEL 30 MEQ/L (21-32); CHLORIDE LEVEL 103 MEQ/L (98-107); CREATININE FOR GFR 0.87 MG/DL (0.70-1.30); GLOMERULAR FILTRATION RATE > 60.0 (>42); GLUCOSE, FASTING 182 MG/DL (70-100); POTASSIUM SERUM 4.4 MEQ/L (3.5-5.1); SODIUM LEVEL 140 MEQ/L (136-145)
[2021-01-09 19:07] LABS: HEMOGLOBIN A1c 6.5 %
== END ==
LOC: M SFHCPLAZ 13:07
PROVIDERS: ATTEND Family Medicine
DX: E11.9 Type 2 diabetes mellitus without complications (principal); I10 Essential (primary) hypertension

== ENCOUNTER 2021-03-13 09:15 | Emergency (ER) | payer MEDICARE, OTHER ==
[~2021-03-13] VITALS: Ht 182.9 cm; Wt 95.0 kg
[2021-03-13 10:07] LABS: BASO % 0.4 % (0.0-1.0); EOS # 0.1 10^3/uL (0.0-0.5); EOS % 1.5 % (0.0-3.0); HEMATOCRIT 48.7 % (42.0-52.0); HEMOGLOBIN 15.8 g/dl (13.5-17.5); LYMPH # 1.3 10^3/uL (1.5-5.0); LYMPH % 18.7 % (24.0-44.0); MEAN CORPUSCULAR HEMOGLOBIN 29.9 pg (27.0-33.0); MEAN CORPUSCULAR HGB CONC 32.4 g/dl (32.0-36.5); MEAN CORPUSCULAR VOLUME 92.1 fl (80.0-96.0); MONO # 0.4 10^3/uL (0.0-0.8); MONO % 5.5 % (2.0-8.0); PLATELET COUNT, AUTOMATED 204 10^3/uL (150-450); RED BLOOD COUNT 5.29 10^6/uL (4.30-6.10); WHITE BLOOD COUNT 6.9 10^3/uL (4.0-10.0)
--- NOTE | 2021-03-13 10:21 | REP ---
INDICATION: seizure COMPARISON: 12/09/2020 TECHNIQUE: Axial noncontrast images from the skull base to the thoracic inlet with coronal reformations. This CT examination was performed using the following dose reduction techniques: Automated exposure control, adjustment of mA and/or kv according to the patient's size, and use of iterative reconstruction technique. FINDINGS: Atrophy with periventricular leukomalacia and microvascular ischemic changes are appreciated. Chronic encephalomalacia in the left occipital lobe again noted and consistent with prior infarction. Lopez-white differentiation is maintained. There is no evidence for acute intracranial hemorrhage, mass/mass effect, pathology or infarction. No extra-axial fluid collection. Calvarium is intact. Paranasal sinuses and mastoid air cells are clear. IMPRESSION: Atrophy and microvascular ischemic changes. 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 No acute intracranial hemorrhage, infarction, or mass/mass effect. <Electronically signed by Diaz Saul > 03/13/21 [id number]
[2021-03-13 11:07] LABS: BLOOD UREA NITROGEN 18 MG/DL (7-18); CARBON DIOXIDE LEVEL 25 MEQ/L (21-32); CHLORIDE LEVEL 107 MEQ/L (98-107); GLOMERULAR FILTRATION RATE > 60.0 (>42); GLUCOSE, FASTING 143 MG/DL (70-100); POTASSIUM SERUM 4.2 MEQ/L (3.5-5.1); SODIUM LEVEL 141 MEQ/L (136-145)
[2021-03-13 11:08] LABS: CALCIUM LEVEL 8.3 MG/DL (8.8-10.2); VALPROIC ACID (DEPAKOTE) 43.2 UG/ML (50.0-100.0)
[2021-03-13 11:20] VITALS: BP 130/76
[2021-03-13] MEDS ORDERED: DIVALPROEX 250 MG TAB PO ONE (12:45)
[2021-03-13] MEDS ORDERED: DEPA250T32 PO (12:46)
[2021-03-13 12:52] VITALS: O2SAT 96
--- NOTE | 2021-03-13 19:03 | ECGEPIP ---
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
== END 2021-03-13 14:00 | disposition home or self-care (01) ==
LOC: M ED 09:15 → EDBD 09:15 → M ED 14:00
DX: R56.9 Unspecified convulsions (principal); F01.50 Vascular dementia, unspecified severity, without behavioral disturbance, psychotic disturbance, mood disturbance, and anxiety; E11.9 Type 2 diabetes mellitus without complications; Z86.73 Personal history of transient ischemic attack (TIA), and cerebral infarction without residual deficits; I10 Essential (primary) hypertension; E78.5 Hyperlipidemia, unspecified; Z95.2 Presence of prosthetic heart valve; Z87.442 Personal history of urinary calculi; Z79.899 Other long term (current) drug therapy

== ENCOUNTER → 2021-03-20 | Outpatient (CLI) | payer MEDICARE, OTHER ==
[~2021-03-20] MED LIST changes: +DEPA250T32 PO
[2021-03-20 13:29] LABS: BASO % 0.4 % (0.0-1.0); EOS # 0.1 10^3/uL (0.0-0.5); EOS % 1.6 % (0.0-3.0); HEMATOCRIT 49.8 % (42.0-52.0); HEMOGLOBIN 16.2 g/dl (13.5-17.5); LYMPH # 2.3 10^3/uL (1.5-5.0); LYMPH % 30.6 % (24.0-44.0); MEAN CORPUSCULAR HEMOGLOBIN 30.3 pg (27.0-33.0); MEAN CORPUSCULAR HGB CONC 32.5 g/dl (32.0-36.5); MEAN CORPUSCULAR VOLUME 93.3 fl (80.0-96.0); MONO # 0.5 10^3/uL (0.0-0.8); MONO % 7.2 % (2.0-8.0); NEUTROPHILS # 4.5 10^3/uL (1.5-8.5); NEUTROPHILS % 59.5 % (36.0-66.0); PLATELET COUNT, AUTOMATED 241 10^3/uL (150-450); RED BLOOD COUNT 5.34 10^6/uL (4.30-6.10); WHITE BLOOD COUNT 7.5 10^3/uL (4.0-10.0)
[2021-03-20 13:48] LABS: ALBUMIN 3.5 GM/DL (3.2-5.2); ALT/SGPT 22 U/L (12-78); BILIRUBIN,TOTAL 0.4 MG/DL (0.2-1.0); BLOOD UREA NITROGEN 23 MG/DL (7-18); CARBON DIOXIDE LEVEL 32 MEQ/L (21-32); CHLORIDE LEVEL 105 MEQ/L (98-107); CREATININE FOR GFR 0.84 MG/DL (0.70-1.30); GLOMERULAR FILTRATION RATE > 60.0 (>42); GLUCOSE, FASTING 165 MG/DL (70-100); POTASSIUM SERUM 4.8 MEQ/L (3.5-5.1); SODIUM LEVEL 141 MEQ/L (136-145); TOTAL PROTEIN 6.4 GM/DL (6.4-8.2); VALPROIC ACID (DEPAKOTE) 91.8 UG/ML (50.0-100.0)
== END ==
LOC: M PLALAB 10:06
PROVIDERS: ATTEND Psychiatry & Neurology Neurology
DX: R56.9 Unspecified convulsions (principal)

== ENCOUNTER → 2021-04-06 | Outpatient (CLI) | payer MEDICARE, OTHER ==
[2021-04-06 11:45] LABS: BLOOD UREA NITROGEN 27 MG/DL (7-18); CALCIUM LEVEL 8.8 MG/DL (8.8-10.2); CARBON DIOXIDE LEVEL 33 MEQ/L (21-32); CHLORIDE LEVEL 106 MEQ/L (98-107); CREATININE FOR GFR 0.85 MG/DL (0.70-1.30); GLOMERULAR FILTRATION RATE > 60.0 (>42); GLUCOSE, FASTING 150 MG/DL (70-100); POTASSIUM SERUM 4.8 MEQ/L (3.5-5.1); SODIUM LEVEL 142 MEQ/L (136-145)
[2021-04-06 12:08] LABS: HEMOGLOBIN A1c 6.4 %
== END ==
LOC: M PLALAB 09:12
PROVIDERS: ATTEND Family Medicine
DX: E11.59 Type 2 diabetes mellitus with other circulatory complications (principal)

== ENCOUNTER → 2021-04-10 | Outpatient (REF) | payer MEDICARE, OTHER ==
[~2021-04-10] MED LIST changes: +QUET1TAB17 PO; -QUET25TA3 PO
[2021-04-10 14:52] LABS: APPEARANCE, URINE CLEAR (CLEAR); BACTERIA, URINE AUTO NEGATIVE (NEGATIVE); BILIRUBIN, URINE AUTO NEGATIVE (NEGATIVE); BLOOD, URINE BLOOD NEGATIVE (NEGATIVE); COLOR, URINE YELLOW (YELLOW); GLUCOSE, URINE (UA) AUTO NEGATIVE (NEGATIVE); KETONE, URINE AUTO TRACE mg/dL (NEGATIVE); LEUKOCYTE ESTERASE, URINE AUTO NEGATIVE (NEGATIVE); MUCUS, URINE SMALL (NEGATIVE); NITRITE, URINE AUTO NEGATIVE (NEGATIVE); PROTEIN, URINE AUTO NEGATIVE (NEGATIVE); RBC, URINE AUTO 0 /HPF (0-3); SQUAMOUS EPITHELIAL CELL UR AU 0 /HPF (0-6); UROBILINOGEN, URINE AUTO 0.2 mg/dL (0.0-2.0); WBC, URINE AUTO 0 /HPF (0-3)
== END ==
LOC: M SFHCPLAZ 13:16
PROVIDERS: ATTEND Family Medicine
DX: R35.0 Frequency of micturition (principal)
CPT/HCPCS: 81001; 87086; G0463

== ENCOUNTER → 2021-06-23 | Outpatient (CLI) | payer MEDICARE, OTHER ==
[2021-06-23 13:56] LABS: BASO % 0.4 % (0.0-1.0); EOS # 0.1 10^3/uL (0.0-0.5); EOS % 0.8 % (0.0-3.0); HEMATOCRIT 49.3 % (42.0-52.0); HEMOGLOBIN 16.5 g/dl (13.5-17.5); LYMPH % 26.8 % (24.0-44.0); MEAN CORPUSCULAR HEMOGLOBIN 30.6 pg (27.0-33.0); MEAN CORPUSCULAR HGB CONC 33.5 g/dl (32.0-36.5); MEAN CORPUSCULAR VOLUME 91.5 fl (80.0-96.0); MONO # 0.6 10^3/uL (0.0-0.8); MONO % 7.6 % (2.0-8.0); NEUTROPHILS # 4.8 10^3/uL (1.5-8.5); NEUTROPHILS % 63.7 % (36.0-66.0); PLATELET COUNT, AUTOMATED 193 10^3/uL (150-450); RED BLOOD COUNT 5.39 10^6/uL (4.30-6.10); WHITE BLOOD COUNT 7.5 10^3/uL (4.0-10.0)
[2021-06-23 14:20] LABS: ALBUMIN 3.2 GM/DL (3.2-5.2); ALT/SGPT 26 U/L (12-78); BILIRUBIN,TOTAL 0.5 MG/DL (0.2-1.0); BLOOD UREA NITROGEN 21 MG/DL (7-18); CARBON DIOXIDE LEVEL 28 MEQ/L (21-32); CHLORIDE LEVEL 108 MEQ/L (98-107); CREATININE FOR GFR 0.93 MG/DL (0.70-1.30); GLOMERULAR FILTRATION RATE > 60.0 (>42); GLUCOSE, FASTING 192 MG/DL (70-100); POTASSIUM SERUM 4.2 MEQ/L (3.5-5.1); SODIUM LEVEL 142 MEQ/L (136-145); TOTAL PROTEIN 6.2 GM/DL (6.4-8.2); VALPROIC ACID (DEPAKOTE) 87.2 UG/ML (50.0-100.0)
== END ==
LOC: M PLALAB 11:47
PROVIDERS: ATTEND Physician Assistant
DX: G40.909 Epilepsy, unspecified, not intractable, without status epilepticus (principal)

== ENCOUNTER → 2021-06-23 | Outpatient (CLI) | payer MEDICARE, OTHER | LOC: M PLALAB 11:45 | PROVIDERS: ATTEND Family Medicine | DX: R35.0 Frequency of micturition (principal) ==

== ENCOUNTER → 2021-07-13 | Outpatient (CLI) | payer MEDICARE, OTHER ==
[2021-07-13 10:45] LABS: HEMOGLOBIN A1c 6.4 %
== END ==
LOC: M PLALAB 09:02
PROVIDERS: ATTEND Family Medicine
DX: E11.9 Type 2 diabetes mellitus without complications (principal)

== ENCOUNTER → 2021-07-18 | Outpatient (REF) | payer MEDICARE, OTHER ==
[2021-07-18 14:22] LABS: MALB URINE SIEMENS 75.5 MG/L; MAU/CREAT RATIO 25.8 MCG/MG (0.0-30.0)
== END ==
LOC: M SFHCPLAZ 13:11
PROVIDERS: ATTEND Family Medicine
DX: E11.9 Type 2 diabetes mellitus without complications (principal)

== ENCOUNTER → 2021-10-16 | Outpatient (CLI) | payer MEDICARE, OTHER | LOC: M CARPUL 10:27 | PROVIDERS: ATTEND Physician Assistant | DX: I38 Endocarditis, valve unspecified (principal) ==

== ENCOUNTER 2021-10-27 11:10 | Emergency (ER) | payer MEDICARE, OTHER ==
[~2021-10-27] VITALS: Ht 177.8 cm; Wt 98.1 kg
[2021-10-27 12:46] LABS: ABG BASE EXCESS 1.6 (-2.0-2.0); ABG HCO3 24.4 MEQ/L (22.0-26.0); ABG O2 SATURATION 96.8 % (95.0-99.0); ABG PARTIAL PRESSURE CO2 33.6 mmHg (35.0-45.0); ABG PARTIAL PRESSURE O2 82.4 mmHg (75.0-100.0); ABG STANDARD HCO3 25.8 MEQ/L (22.0-26.0); ABG TOTAL CO2 25.4 MEQ/L (23.0-31.0); ABG pH (ARTERIAL) 7.479 UNITS (7.350-7.450)
[2021-10-27 13:02] LABS: BASO % 0.3 % (0.0-1.0); EOS % 0.3 % (0.0-3.0); HEMATOCRIT 46.6 % (42.0-52.0); HEMOGLOBIN 15.4 g/dl (13.5-17.5); LYMPH # 1.4 10^3/uL (1.5-5.0); LYMPH % 20.2 % (24.0-44.0); MEAN CORPUSCULAR HEMOGLOBIN 31.1 pg (27.0-33.0); MEAN CORPUSCULAR VOLUME 94.1 fl (80.0-96.0); MONO # 0.6 10^3/uL (0.0-0.8); MONO % 8.9 % (2.0-8.0); NEUTROPHILS # 4.8 10^3/uL (1.5-8.5); PLATELET COUNT, AUTOMATED 172 10^3/uL (150-450); RED BLOOD COUNT 4.95 10^6/uL (4.30-6.10); WHITE BLOOD COUNT 6.8 10^3/uL (4.0-10.0)
[2021-10-27 13:34] LABS: ALBUMIN 3.2 GM/DL (3.2-5.2); ALT/SGPT 19 U/L (12-78); BILIRUBIN,DIRECT 0.1 MG/DL (0.0-0.2); BILIRUBIN,TOTAL 0.4 MG/DL (0.2-1.0); BLOOD UREA NITROGEN 24 MG/DL (7-18); CALCIUM LEVEL 8.5 MG/DL (8.8-10.2); CARBON DIOXIDE LEVEL 29 MEQ/L (21-32); CHLORIDE LEVEL 111 MEQ/L (98-107); CREATININE FOR GFR 0.87 MG/DL (0.70-1.30); GLOMERULAR FILTRATION RATE > 60.0 (>42); GLUCOSE, FASTING 157 MG/DL (70-100); NT-PRO BNP 240 PG/ML (<125); POTASSIUM SERUM 3.9 MEQ/L (3.5-5.1); SODIUM LEVEL 146 MEQ/L (136-145); TOTAL PROTEIN 6.2 GM/DL (6.4-8.2)
[2021-10-27] MEDS ORDERED: ISOVUE-370 76% 100ML VIAL As Ordered ONE (14:05)
[2021-10-27 15:17] VITALS: BP 153/82
== END 2021-10-27 15:24 | disposition home or self-care (01) ==
LOC: M ED 11:10
DX: R06.02 Shortness of breath (principal); R94.31 Abnormal electrocardiogram [ECG] [EKG]; E11.9 Type 2 diabetes mellitus without complications; I10 Essential (primary) hypertension; E78.5 Hyperlipidemia, unspecified; F17.200 Nicotine dependence, unspecified, uncomplicated; Z87.442 Personal history of urinary calculi; Z86.73 Personal history of transient ischemic attack (TIA), and cerebral infarction without residual deficits; Z79.4 Long term (current) use of insulin; Z79.899 Other long term (current) drug therapy
CPT/HCPCS: 36415; 36600; 71045; 71275; 80048; 80076; 82803; 83880; 84443; 84484; 85025; 85379; 87798; 93005; 93041; 99285; Q9967

== ENCOUNTER 2021-10-30 12:34 | Emergency (ER) | payer MEDICARE, OTHER ==
[~2021-10-30] VITALS: Ht 180.3 cm; Wt 98.6 kg
[2021-10-30 12:34] VITALS: BP 158/90
[2021-10-30] MEDS ORDERED: DEPA250T32 PO (13:14)
[2021-10-30] MEDS ORDERED: FLON1SPR NARES ×2 (16:55→17:04)
== END 2021-10-30 17:07 | disposition home or self-care (01) ==
LOC: M ED 12:34
DX: J32.9 Chronic sinusitis, unspecified (principal); Z87.442 Personal history of urinary calculi; Z95.4 Presence of other heart-valve replacement; Z79.899 Other long term (current) drug therapy

== ENCOUNTER → 2022-01-18 | Outpatient (CLI) | payer MEDICARE, OTHER ==
[~2022-01-18] MED LIST changes: +FLON1SPR NARES
[2022-01-18 11:49] LABS: HEMOGLOBIN A1c 6.1 %
== END ==
LOC: M PLALAB 10:12 → M LAB 10:12
PROVIDERS: ATTEND Family Medicine
DX: E11.9 Type 2 diabetes mellitus without complications (principal)

== ENCOUNTER 2022-05-10 02:04 | Emergency (ER) | payer MEDICARE, OTHER ==
[~2022-05-10] VITALS: Ht 188 cm; Wt 101.1 kg
[~2022-05-10 02:04] MED LIST changes: +INDA1.253 PO; -INDA125TA PO
[2022-05-10 02:29] LABS: BASO % 0.5 % (0.0-1.0); EOS # 0.2 10^3/uL (0.0-0.5); EOS % 2.3 % (0.0-3.0); HEMATOCRIT 48.9 % (42.0-52.0); HEMOGLOBIN 16.5 g/dl (13.5-17.5); LYMPH # 3.2 10^3/uL (1.5-5.0); MEAN CORPUSCULAR HEMOGLOBIN 31.7 pg (27.0-33.0); MEAN CORPUSCULAR HGB CONC 33.7 g/dl (32.0-36.5); MONO # 0.6 10^3/uL (0.0-0.8); MONO % 7.9 % (2.0-8.0); NEUTROPHILS % 49.8 % (36.0-66.0); PLATELET COUNT, AUTOMATED 156 10^3/uL (150-450); WHITE BLOOD COUNT 8.1 10^3/uL (4.0-10.0)
[2022-05-10 02:59] LABS: ALBUMIN 3.2 GM/DL (3.2-5.2); ALT/SGPT 19 U/L (12-78); BILIRUBIN,DIRECT 0.1 MG/DL (0.0-0.2); BILIRUBIN,TOTAL 0.3 MG/DL (0.2-1.0); BLOOD UREA NITROGEN 27 MG/DL (7-18); CALCIUM LEVEL 8.9 MG/DL (8.8-10.2); CARBON DIOXIDE LEVEL 25 MEQ/L (21-32); CHLORIDE LEVEL 106 MEQ/L (98-107); CREATININE FOR GFR 0.94 MG/DL (0.70-1.30); GLOMERULAR FILTRATION RATE > 60.0 (>42); GLUCOSE, FASTING 142 MG/DL (70-100); POTASSIUM SERUM 4.2 MEQ/L (3.5-5.1); SODIUM LEVEL 140 MEQ/L (136-145); TOTAL PROTEIN 6.4 GM/DL (6.4-8.2)
[2022-05-10 03:26] LABS: VALPROIC ACID (DEPAKOTE) 64.6 UG/ML (50.0-100.0)
[2022-05-10 08:52] VITALS: BP 138/80
== END 2022-05-10 08:53 | disposition home or self-care (01) ==
LOC: EDBD 02:04 → M ED 02:04
DX: R56.9 Unspecified convulsions (principal); I10 Essential (primary) hypertension; Z86.73 Personal history of transient ischemic attack (TIA), and cerebral infarction without residual deficits; Z87.891 Personal history of nicotine dependence; M50.20 Other cervical disc displacement, unspecified cervical region; M48.02 Spinal stenosis, cervical region; Z79.82 Long term (current) use of aspirin; Z79.84 Long term (current) use of oral hypoglycemic drugs; Z79.899 Other long term (current) drug therapy

== ENCOUNTER 2022-08-02 03:54 | Emergency (ER) | payer MEDICARE, OTHER ==
[~2022-08-02] VITALS: Ht 182.9 cm; Wt 97.2 kg
[~2022-08-02 03:54] MED LIST changes: +CLOP75TA99 PO; -PLAV1TAB2 PO
[2022-08-02 04:32] LABS: BASO % 0.4 % (0.0-1.0); EOS # 0.1 10^3/uL (0.0-0.5); EOS % 1.9 % (0.0-3.0); HEMATOCRIT 49.8 % (42.0-52.0); HEMOGLOBIN 16.4 g/dl (13.5-17.5); LYMPH % 28.8 % (24.0-44.0); MEAN CORPUSCULAR HGB CONC 32.9 g/dl (32.0-36.5); MEAN CORPUSCULAR VOLUME 94.1 fl (80.0-96.0); MONO # 0.4 10^3/uL (0.0-0.8); NEUTROPHILS # 4.3 10^3/uL (1.5-8.5); NEUTROPHILS % 62.3 % (36.0-66.0); PLATELET COUNT, AUTOMATED 160 10^3/uL (150-450); RED BLOOD COUNT 5.29 10^6/uL (4.30-6.10)
[2022-08-02 04:43] LABS: INR 0.94; PARTIAL THROMBOPLASTIN TIME 25.2 SECONDS (24.8-34.2); PROTHROMBIN TIME 12.8 SECONDS (12.5-14.5)
[2022-08-02 05:18] LABS: BLOOD UREA NITROGEN 19 MG/DL (9-23); CALCIUM LEVEL 8.5 MG/DL (8.3-10.6); CARBON DIOXIDE LEVEL 29 MMOL/L (20-31); CHLORIDE LEVEL 104 MMOL/L (98-107); CK-MB VALUE MASS 2.3 NG/ML (<3.6); CPK CREATINE PHOSPHOKINASE 64 U/L (46-171); CREATININE FOR GFR 0.77 MG/DL (0.70-1.30); GLOMERULAR FILTRATION RATE > 60.0 (>42); GLUCOSE, FASTING 131 MG/DL (74-106); MB/CK RELATIVE INDEX 3.59 (< OR =4); POTASSIUM SERUM 3.9 MMOL/L (3.5-5.1); SODIUM LEVEL 142 MMOL/L (136-145)
[2022-08-02 07:54] LABS: VALPROIC ACID (DEPAKOTE) 91.7 UG/ML (50.0-100.0)
[2022-08-02 09:56] VITALS: BP 153/86
== END 2022-08-02 09:58 | disposition home or self-care (01) ==
LOC: EDBD 03:54 → M ED 03:54
DX: G40.909 Epilepsy, unspecified, not intractable, without status epilepticus (principal); I49.1 Atrial premature depolarization; I44.4 Left anterior fascicular block; I25.2 Old myocardial infarction; E78.5 Hyperlipidemia, unspecified; E11.9 Type 2 diabetes mellitus without complications; Z79.84 Long term (current) use of oral hypoglycemic drugs; Z86.73 Personal history of transient ischemic attack (TIA), and cerebral infarction without residual deficits; Z79.82 Long term (current) use of aspirin; Z79.899 Other long term (current) drug therapy

== ENCOUNTER → 2022-08-06 | Outpatient (CLI) | payer MEDICARE, OTHER ==
[2022-08-06 14:13] LABS: BASO % 0.5 % (0.0-1.0); EOS # 0.1 10^3/uL (0.0-0.5); EOS % 1.6 % (0.0-3.0); HEMATOCRIT 52.2 % (42.0-52.0); HEMOGLOBIN 16.9 g/dl (13.5-17.5); LYMPH # 2.3 10^3/uL (1.5-5.0); LYMPH % 27.9 % (24.0-44.0); MEAN CORPUSCULAR HEMOGLOBIN 31.1 pg (27.0-33.0); MEAN CORPUSCULAR HGB CONC 32.4 g/dl (32.0-36.5); MEAN CORPUSCULAR VOLUME 96.1 fl (80.0-96.0); MONO # 0.6 10^3/uL (0.0-0.8); MONO % 7.6 % (2.0-8.0); NEUTROPHILS % 61.5 % (36.0-66.0); PLATELET COUNT, AUTOMATED 207 10^3/uL (150-450); RED BLOOD COUNT 5.43 10^6/uL (4.30-6.10); WHITE BLOOD COUNT 8.2 10^3/uL (4.0-10.0)
[2022-08-06 14:49] LABS: CHLORIDE LEVEL 104 MMOL/L (98-107); SODIUM LEVEL 144 MMOL/L (136-145)
[2022-08-06 14:50] LABS: ALBUMIN 3.7 G/DL (3.2-5.2); CARBON DIOXIDE LEVEL 30 MMOL/L (20-31)
[2022-08-06 14:54] LABS: HDL CHOLESTEROL 60.5 MG/DL (>40)
[2022-08-06 14:55] LABS: BLOOD UREA NITROGEN 25 MG/DL (9-23); GLUCOSE, FASTING 134 MG/DL (74-106); TRIGLYCERIDES LEVEL 107 MG/DL (<150); VALPROIC ACID (DEPAKOTE) 71.3 UG/ML (50.0-100.0)
[2022-08-06 14:56] LABS: BILIRUBIN,TOTAL 0.7 MG/DL (0.3-1.2)
[2022-08-06 14:57] LABS: ALT/SGPT 16 U/L (7.0-40); CHOLESTEROL LEVEL 148 MG/DL (<200); CHOLESTEROL RISK RATIO 2.44 (<5); CREATININE FOR GFR 0.86 MG/DL (0.70-1.30); GLOMERULAR FILTRATION RATE > 60.0 (>42); LDL CHOLESTEROL 66.1 MG/DL (<100); NON-HDL-C 88 MG/DL; TOTAL PROTEIN 6.6 G/DL (5.7-8.2)
[2022-08-06 15:45] LABS: CREATININE, URINE 307.3 MG/DL; MAU/CREAT RATIO 8.7 MCG/MG (0.0-30.0)
[2022-08-06 19:34] LABS: HEMOGLOBIN A1c 6.1 % (4.0-6.0)
== END ==
LOC: M PLALAB 09:53
PROVIDERS: ATTEND Physician Assistant
DX: E11.9 Type 2 diabetes mellitus without complications (principal)

== ENCOUNTER 2022-08-30 07:08 | Emergency (ER) | payer MEDICARE, OTHER ==
[~2022-08-30] VITALS: Ht 182.9 cm; Wt 97.2 kg
[2022-08-30 08:32] LABS: BASO % 0.4 % (0.0-1.0); EOS # 0.1 10^3/uL (0.0-0.5); EOS % 1.3 % (0.0-3.0); HEMATOCRIT 55.7 % (42.0-52.0); HEMOGLOBIN 17.8 g/dl (13.5-17.5); LYMPH % 26.8 % (24.0-44.0); MEAN CORPUSCULAR HEMOGLOBIN 30.6 pg (27.0-33.0); MEAN CORPUSCULAR VOLUME 95.9 fl (80.0-96.0); MONO # 0.5 10^3/uL (0.0-0.8); MONO % 6.4 % (2.0-8.0); NEUTROPHILS # 4.9 10^3/uL (1.5-8.5); NEUTROPHILS % 64.6 % (36.0-66.0); PLATELET COUNT, AUTOMATED 160 10^3/uL (150-450); RED BLOOD COUNT 5.81 10^6/uL (4.30-6.10); WHITE BLOOD COUNT 7.6 10^3/uL (4.0-10.0)
[2022-08-30 09:06] LABS: RSV AMPLIFICATION NEGATIVE (NEGATIVE)
[2022-08-30] MEDS ORDERED: DIVA500T94 (09:16)
[2022-08-30 10:37] LABS: VALPROIC ACID (DEPAKOTE) 59.6 UG/ML (50.0-100.0)
[2022-08-30 10:39] LABS: BILIRUBIN,DIRECT 0.2 MG/DL (<0.4)
[2022-08-30 10:47] LABS: ALBUMIN 3.2 G/DL (3.2-5.2); ALKALINE PHOSPHATASE 32 U/L (46-116); ALT/SGPT 13 U/L (7.0-40); AST/SGOT 18 U/L (<34); BILIRUBIN,TOTAL 0.6 MG/DL (0.3-1.2); BLOOD UREA NITROGEN 23 MG/DL (9-23); CALCIUM LEVEL 8.2 MG/DL (8.3-10.6); CARBON DIOXIDE LEVEL 30 MMOL/L (20-31); CHLORIDE LEVEL 105 MMOL/L (98-107); CREATININE FOR GFR 0.79 MG/DL (0.70-1.30); GLOMERULAR FILTRATION RATE > 60.0 (>42); GLUCOSE, FASTING 128 MG/DL (74-106); POTASSIUM SERUM 3.6 MMOL/L (3.5-5.1); SODIUM LEVEL 142 MMOL/L (136-145); TOTAL PROTEIN 5.7 G/DL (5.7-8.2)
[2022-08-30 12:18] VITALS: BP 139/76
== END 2022-08-30 14:12 | disposition home or self-care (01) ==
LOC: M ED 07:08
DX: G40.909 Epilepsy, unspecified, not intractable, without status epilepticus (principal); E11.9 Type 2 diabetes mellitus without complications; I10 Essential (primary) hypertension; Z86.73 Personal history of transient ischemic attack (TIA), and cerebral infarction without residual deficits; Z87.891 Personal history of nicotine dependence; Z79.82 Long term (current) use of aspirin; Z79.4 Long term (current) use of insulin; Z79.811 Long term (current) use of aromatase inhibitors; Z79.899 Other long term (current) drug therapy

== ENCOUNTER 2022-09-30 06:11 | Emergency (ER) | payer MEDICARE, OTHER ==
[~2022-09-30 06:11] MED LIST changes: +DIVA500T94
[2022-09-30 07:29] LABS: BASO % 0.5 % (0.0-1.0); EOS # 0.1 10^3/uL (0.0-0.5); EOS % 1.4 % (0.0-3.0); HEMATOCRIT 45.6 % (42.0-52.0); HEMOGLOBIN 15.1 g/dl (13.5-17.5); LYMPH # 1.9 10^3/uL (1.5-5.0); LYMPH % 28.1 % (24.0-44.0); MEAN CORPUSCULAR HEMOGLOBIN 31.2 pg (27.0-33.0); MEAN CORPUSCULAR HGB CONC 33.1 g/dl (32.0-36.5); MEAN CORPUSCULAR VOLUME 94.2 fl (80.0-96.0); MONO # 0.5 10^3/uL (0.0-0.8); MONO % 6.9 % (2.0-8.0); NEUTROPHILS # 4.1 10^3/uL (1.5-8.5); NEUTROPHILS % 62.2 % (36.0-66.0); PLATELET COUNT, AUTOMATED 154 10^3/uL (150-450); RED BLOOD COUNT 4.84 10^6/uL (4.30-6.10); WHITE BLOOD COUNT 6.6 10^3/uL (4.0-10.0)
[2022-09-30 07:55] LABS: MAGNESIUM LEVEL 1.9 MG/DL (1.8-2.4); VALPROIC ACID (DEPAKOTE) 90.9 UG/ML (50.0-100.0)
[2022-09-30 07:57] LABS: ALBUMIN 2.9 G/DL (3.2-5.2); ALKALINE PHOSPHATASE 34 U/L (46-116); ALT/SGPT 18 U/L (7.0-40); AST/SGOT 16 U/L (<34); BILIRUBIN,DIRECT 0.2 MG/DL (<0.4); BILIRUBIN,TOTAL 0.5 MG/DL (0.3-1.2); BLOOD UREA NITROGEN 24 MG/DL (9-23); CALCIUM LEVEL 8.3 MG/DL (8.3-10.6); CARBON DIOXIDE LEVEL 24 MMOL/L (20-31); CHLORIDE LEVEL 107 MMOL/L (98-107); CREATININE FOR GFR 0.74 MG/DL (0.70-1.30); GLOMERULAR FILTRATION RATE > 60.0 (>42); GLUCOSE, FASTING 134 MG/DL (74-106); PHOSPHORUS LEVEL 3.7 MG/DL (2.4-5.1); POTASSIUM SERUM 4.5 MMOL/L (3.5-5.1); SODIUM LEVEL 142 MMOL/L (136-145); TOTAL PROTEIN 5.4 G/DL (5.7-8.2)
[2022-09-30] MEDS ORDERED: NS 1,000 ML IV ONE (08:25)
[2022-09-30] MEDS ORDERED: DEPA250T32 PO (09:05)
[2022-09-30 10:20] VITALS: BP 126/61
== END 2022-09-30 13:24 | disposition home or self-care (01) ==
LOC: EDBD 06:11 → M ED 06:11
DX: G40.89 Other seizures (principal); E11.9 Type 2 diabetes mellitus without complications; I10 Essential (primary) hypertension; Z86.79 Personal history of other diseases of the circulatory system; Z86.73 Personal history of transient ischemic attack (TIA), and cerebral infarction without residual deficits; Z79.84 Long term (current) use of oral hypoglycemic drugs; Z87.891 Personal history of nicotine dependence; Z79.82 Long term (current) use of aspirin; Z79.02 Long term (current) use of antithrombotics/antiplatelets; Z79.899 Other long term (current) drug therapy

== ENCOUNTER → 2022-11-05 | Outpatient (CLI) | payer MEDICARE, OTHER ==
[2022-11-05 10:45] LABS: BASO # 0.1 10^3/uL (0.0-0.2); BASO % 0.6 % (0.0-1.0); EOS # 0.2 10^3/uL (0.0-0.5); EOS % 1.7 % (0.0-3.0); HEMATOCRIT 52.1 % (42.0-52.0); HEMOGLOBIN 16.8 g/dl (13.5-17.5); LYMPH # 3.9 10^3/uL (1.5-5.0); LYMPH % 43.2 % (24.0-44.0); MEAN CORPUSCULAR HEMOGLOBIN 31.1 pg (27.0-33.0); MEAN CORPUSCULAR HGB CONC 32.2 g/dl (32.0-36.5); MEAN CORPUSCULAR VOLUME 96.3 fl (80.0-96.0); MONO # 0.7 10^3/uL (0.0-0.8); MONO % 7.9 % (2.0-8.0); NEUTROPHILS # 4.1 10^3/uL (1.5-8.5); PLATELET COUNT, AUTOMATED 157 10^3/uL (150-450); RED BLOOD COUNT 5.41 10^6/uL (4.30-6.10)
[2022-11-05 11:27] LABS: ALBUMIN 3.3 G/DL (3.2-5.2); ALKALINE PHOSPHATASE 36 U/L (46-116); ALT/SGPT 17 U/L (7.0-40); AST/SGOT 17 U/L (<34); BILIRUBIN,TOTAL 0.7 MG/DL (0.3-1.2); BLOOD UREA NITROGEN 20 MG/DL (9-23); CALCIUM LEVEL 8.6 MG/DL (8.3-10.6); CARBON DIOXIDE LEVEL 26 MMOL/L (20-31); CHLORIDE LEVEL 106 MMOL/L (98-107); CHOLESTEROL LEVEL 151 MG/DL (<200); CHOLESTEROL RISK RATIO 2.49 (<5); CREATININE FOR GFR 0.76 MG/DL (0.70-1.30); GLOMERULAR FILTRATION RATE > 60.0 (>42); GLUCOSE, FASTING 104 MG/DL (74-106); HDL CHOLESTEROL 60.6 MG/DL (>40); LDL CHOLESTEROL 67.4 MG/DL (<100); NON-HDL-C 90 MG/DL; POTASSIUM SERUM 4.2 MMOL/L (3.5-5.1); SODIUM LEVEL 143 MMOL/L (136-145); TOTAL PROTEIN 6.3 G/DL (5.7-8.2); TRIGLYCERIDES LEVEL 115 MG/DL (<150)
== END ==
LOC: M PLALAB 08:37
PROVIDERS: ATTEND Physician Assistant
DX: E11.9 Type 2 diabetes mellitus without complications (principal)

== ENCOUNTER → 2022-11-08 | Outpatient (REF) | payer MEDICARE, OTHER ==
[~2022-11-08] MED LIST changes: +DIVA250T67 PO; -DIVA500T94; +DIVA500T94 PO; +MEMA1TAB3 PO; +METF500T13 PO; +MONT10TA97 PO; +PATIENT COMMENT; +VITA100093 PO
[2022-11-08 17:55] LABS: APPEARANCE, URINE CLOUDY (CLEAR); BACTERIA, URINE AUTO NEGATIVE (NEGATIVE); BILIRUBIN, URINE AUTO NEGATIVE (NEGATIVE); BLOOD, URINE BLOOD NEGATIVE (NEGATIVE); CALCIUM OXALATE CRYSTALS LARGE; COLOR, URINE AMBER (YELLOW); GLUCOSE, URINE (UA) AUTO NEGATIVE (NEGATIVE); KETONE, URINE AUTO TRACE mg/dL (NEGATIVE); LEUKOCYTE ESTERASE, URINE AUTO 1+ (NEGATIVE); MUCUS, URINE SMALL (NEGATIVE); NITRITE, URINE AUTO NEGATIVE (NEGATIVE); PROTEIN, URINE AUTO NEGATIVE (NEGATIVE); RBC, URINE AUTO 4 /HPF (0-3); SPECIFIC GRAVITY URINE AUTO 1.028 (1.002-1.035); SQUAMOUS EPITHELIAL CELL UR AU 4 /HPF (0-6); WBC, URINE AUTO 6 /HPF (0-3)
[2022-11-08 18:16] LABS: CREATININE, URINE 151.6 MG/DL; MAU/CREAT RATIO 3.9 MCG/MG (0.0-30.0)
== END ==
LOC: M SFHCPLAZ 16:44
PROVIDERS: ATTEND Physician Assistant
DX: R41.0 Disorientation, unspecified (principal)

== ENCOUNTER 2022-11-26 02:11 | Observation (INO) | payer MEDICARE, OTHER ==
[~2022-11-26] VITALS: Ht 180.3 cm; Wt 91.8 kg
[~2022-11-26 02:11] MED LIST changes: -DIVA250T67 PO; -MEMA1TAB3 PO; -METF500T13 PO; -MONT10TA97 PO; -PATIENT COMMENT; -VITA100093 PO
[2022-11-26 02:52] LABS: VENOUS BASE EXCESS -1.6 (-2.0-2.0); VENOUS HCO3 24.7 MEQ/L (23.0-27.0); VENOUS O2 SATURATION 55.3 % (60.0-80.0); VENOUS PARTIAL PRESSURE CO2 46.9 mmHg (38.0-50.0); VENOUS PARTIAL PRESSURE O2 31.2 mmHg (30.0-50.0); VENOUS PH 7.339 UNITS (7.330-7.430); VENOUS TOTAL CO2 26.1 MEQ/L (24.0-28.0)
[2022-11-26 02:55] LABS: BASO % 0.5 % (0.0-1.0); EOS # 0.1 10^3/uL (0.0-0.5); HEMATOCRIT 47.3 % (42.0-52.0); HEMOGLOBIN 15.5 g/dl (13.5-17.5); LYMPH # 2.4 10^3/uL (1.5-5.0); LYMPH % 36.8 % (24.0-44.0); MEAN CORPUSCULAR HEMOGLOBIN 31.3 pg (27.0-33.0); MEAN CORPUSCULAR HGB CONC 32.8 g/dl (32.0-36.5); MEAN CORPUSCULAR VOLUME 95.4 fl (80.0-96.0); MONO # 0.6 10^3/uL (0.0-0.8); MONO % 9.6 % (2.0-8.0); NEUTROPHILS # 3.3 10^3/uL (1.5-8.5); NEUTROPHILS % 50.2 % (36.0-66.0); PLATELET COUNT, AUTOMATED 148 10^3/uL (150-450); RED BLOOD COUNT 4.96 10^6/uL (4.30-6.10); WHITE BLOOD COUNT 6.6 10^3/uL (4.0-10.0)
[2022-11-26 03:18] LABS: ETHYL ALCOHOL (ETHANOL) < 0.003 % (0.000-0.010)
[2022-11-26 03:23] LABS: ALBUMIN 3.1 G/DL (3.2-5.2); ALKALINE PHOSPHATASE 38 U/L (46-116); ALT/SGPT 19 U/L (7.0-40); AST/SGOT 21 U/L (<34); BILIRUBIN,DIRECT 0.1 MG/DL (<0.4); BILIRUBIN,TOTAL 0.4 MG/DL (0.3-1.2); BLOOD UREA NITROGEN 24 MG/DL (9-23); CALCIUM LEVEL 8.3 MG/DL (8.3-10.6); CARBON DIOXIDE LEVEL 27 MMOL/L (20-31); CHLORIDE LEVEL 105 MMOL/L (98-107); GLOMERULAR FILTRATION RATE > 60.0 (>42); GLUCOSE, FASTING 142 MG/DL (74-106); MAGNESIUM LEVEL 1.7 MG/DL (1.8-2.4); PHOSPHORUS LEVEL 3.7 MG/DL (2.4-5.1); POTASSIUM SERUM 4.2 MMOL/L (3.5-5.1); SODIUM LEVEL 140 MMOL/L (136-145); TOTAL PROTEIN 5.8 G/DL (5.7-8.2)
[2022-11-26 03:34] LABS: RSV AMPLIFICATION NEGATIVE (NEGATIVE)
[2022-11-26] MEDS ORDERED: ACETAMINOPHEN TAB 650MG DOSE (2X325MG) PO PRN (05:30)
[2022-11-26] MEDS ORDERED: NS 1,000 ML IV SCH (05:30)
[2022-11-26] MEDS ORDERED: DEXTROSE 50% 50ML SYRINGE IV PRN (05:30)
[2022-11-26] MEDS ORDERED: NS 1,000 ML IV ONE (05:30)
[2022-11-26] MEDS ORDERED: GLUCOSE 4GM CHEW TABLET PO PRN (05:30)
[2022-11-26] MEDS ORDERED: GLUCAGON INJ 1MG VIAL SC PRN (05:30)
[2022-11-26] MEDS ORDERED: LORazepam 2 MG/ML 1ML VIAL IV PRN (05:30)
[2022-11-26 06:29] LABS: AMPHETAMINES LEVEL URINE NEGATIVE (NEGATIVE); BARBITURATES URINE NEGATIVE (NEGATIVE); BENZODIAZEPINES URINE NEGATIVE (NEGATIVE); CANNABINOIDS URINE NEGATIVE (NEGATIVE); COCAINE METABOLITE URINE NEGATIVE (NEGATIVE); METHADONE URINE NEGATIVE (NEGATIVE); OPIATES URINE NEGATIVE (NEGATIVE); PHENCYCLIDINE URINE NEGATIVE (NEGATIVE)
[2022-11-26] MEDS: INSULIN LISPRO (NovoLOG) PER UNIT SC SCH ×3 (07:30→17:30)
[2022-11-26] MEDS ORDERED: MAGNESIUM OXIDE 400MG TAB (MAG-OX) PO ONE (08:00)
[2022-11-26] MEDS ORDERED: PATIENT COMMENT (08:08)
[2022-11-26] MEDS ORDERED: DIVA500T94 PO (08:08)
[2022-11-26] MEDS ORDERED: MONT10TA97 PO (08:08)
[2022-11-26] MEDS ORDERED: MEMA1TAB3 PO (08:08)
[2022-11-26] MEDS ORDERED: DIVA250T67 PO (08:08)
[2022-11-26] MEDS ORDERED: METF500T13 PO (08:08)
[2022-11-26] MEDS ORDERED: VITA100093 PO (08:08)
[2022-11-26] MEDS ORDERED: HOME MED LIST COMPLETE! XX SCH (08:10)
[2022-11-26] MEDS: DIVALPROEX 500 MG TAB PO SCH (09:00)
[2022-11-26] MEDS ORDERED: DIVALPROEX 500 MG TAB PO SCH ×2 (09:00→21:00)
[2022-11-26 10:45] VITALS: BP 132/80
[2022-11-26] MEDS: DIVALPROEX 250MG TAB PO SCH ×2 (12:58→21:14)
[2022-11-26] MEDS: ASPIRIN 81MG ENTERIC TABLET PO SCH (12:58)
[2022-11-26] MEDS: VITAMIN D 1,000 INTERNATIONAL UNITS TABLET PO SCH (12:58)
[2022-11-26] MEDS: MULTIVITAMINS/MINERALS THERAP 1 TAB PO SCH (12:58)
[2022-11-26 14:00] VITALS: BP 108/63
[2022-11-26 21:00] VITALS: BP 110/66
[2022-11-26] MEDS ORDERED: INSULIN LISPRO (NovoLOG) PER UNIT SC SCH (21:00)
[2022-11-26] MEDS ORDERED: ATORVASTATIN 20 MG TAB PO SCH (21:00)
[2022-11-26 22:00] VITALS: BP 110/66
[2022-11-27 05:05] VITALS: BP 113/65
[2022-11-27] MEDS: INSULIN LISPRO (NovoLOG) PER UNIT SC SCH ×2 (07:30→12:51)
[2022-11-27 08:05] LABS: BLOOD UREA NITROGEN 16 MG/DL (9-23); CALCIUM LEVEL 8.1 MG/DL (8.3-10.6); CARBON DIOXIDE LEVEL 24 MMOL/L (20-31); CHLORIDE LEVEL 110 MMOL/L (98-107); CREATININE FOR GFR 0.64 MG/DL (0.70-1.30); GLOMERULAR FILTRATION RATE > 60.0 (>42); GLUCOSE, FASTING 113 MG/DL (74-106); POTASSIUM SERUM 4.3 MMOL/L (3.5-5.1); SODIUM LEVEL 142 MMOL/L (136-145)
[2022-11-27] MEDS ORDERED: DONEPEZIL 5 MG TAB PO SCH (09:00)
[2022-11-27] MEDS ORDERED: MEMANTINE 5MG TABLET (NAMENDA) PO SCH (09:00)
[2022-11-27 10:02] LABS: VALPROIC ACID (DEPAKOTE) 59.2 UG/ML (50.0-100.0)
[2022-11-27] MEDS: VITAMIN D 1,000 INTERNATIONAL UNITS TABLET PO SCH (10:09)
[2022-11-27] MEDS: ASPIRIN 81MG ENTERIC TABLET PO SCH (10:09)
[2022-11-27] MEDS: DIVALPROEX 500 MG TAB PO SCH (10:10)
[2022-11-27] MEDS: MULTIVITAMINS/MINERALS THERAP 1 TAB PO SCH (10:10)
[2022-11-27] MEDS: DIVALPROEX 250MG TAB PO SCH (10:10)
[2022-11-27] MEDS ORDERED: DEPA250T32 PO (13:50)
[2022-11-27] MEDS ORDERED: DEPA1TAB3 PO (13:50)
[2022-11-27] MEDS ORDERED: DIVALPROEX 250MG TAB PO ONE (14:00)
[2022-11-27] MEDS ORDERED: DIVALPROEX 250MG TAB PO SCH (21:00)
[2022-11-27] MEDS ORDERED: MONTELUKAST 10 MG TAB PO SCH (21:00)
[2022-11-27] MEDS ORDERED: DIVALPROEX 500 MG TAB PO SCH (21:00)
== END 2022-11-27 15:07 | disposition home or self-care (01) ==
LOC: EDBD 02:11 → M ED 04:40 → M ED INP 04:41 → ENRESERV 08:00 → M MSPAV 10:47
PROVIDERS: ADMIT Internal Medicine; ATTEND Internal Medicine
DX: G40.909 Epilepsy, unspecified, not intractable, without status epilepticus (principal); R53.81 Other malaise; E87.20 Acidosis, unspecified; F03.90 Unspecified dementia, unspecified severity, without behavioral disturbance, psychotic disturbance, mood disturbance, and anxiety; Z86.73 Personal history of transient ischemic attack (TIA), and cerebral infarction without residual deficits; E11.9 Type 2 diabetes mellitus without complications; Z79.82 Long term (current) use of aspirin; Z79.84 Long term (current) use of oral hypoglycemic drugs; Z79.899 Other long term (current) drug therapy
CPT/HCPCS: 36415; 70450; 71045; 80048; 80076; 80164; 80165; 80307; 81001; 82077; 82140; 82330; 82803; 83605; 83735; 84100; 85025; 87631; 93041; 94760; 96361; 96374; 97162; 97166; 97530; 99285; G0378; J1815

== ENCOUNTER → 2022-11-29 | Outpatient (REF) | payer MEDICARE, OTHER ==
[~2022-11-29] MED LIST changes: +DIVA250T67 PO; +MEMA1TAB3 PO; +METF500T13 PO; +MONT10TA97 PO; +PATIENT COMMENT; +VITA100093 PO
== END ==
LOC: M SFHCPLAZ 15:11
PROVIDERS: ATTEND Physician Assistant
DX: R35.0 Frequency of micturition (principal)

== ENCOUNTER 2022-12-31 14:59 | Outpatient (RCR) | payer MEDICARE, OTHER | END 2023-01-06 | LOC: M PT 14:59 | PROVIDERS: ATTEND Internal Medicine | DX: R26.81 Unsteadiness on feet (principal) ==

== ENCOUNTER 2023-01-09 10:13 | Inpatient (IN) | payer MEDICARE, OTHER ==
[~2023-01-09] VITALS: Ht 177.8 cm; Wt 92.0 kg
[2023-01-09] MEDS ORDERED: VIMP50TA3 PO (10:22)
[2023-01-09] MEDS ORDERED: DIVA250T67 PO (10:22)
[2023-01-09 12:00] LABS: BASO % 0.4 % (0.0-1.0); EOS % 0.3 % (0.0-3.0); HEMATOCRIT 43.9 % (42.0-52.0); HEMOGLOBIN 14.6 g/dl (13.5-17.5); LYMPH # 1.5 10^3/uL (1.5-5.0); LYMPH % 20.4 % (24.0-44.0); MEAN CORPUSCULAR HEMOGLOBIN 31.6 pg (27.0-33.0); MEAN CORPUSCULAR HGB CONC 33.3 g/dl (32.0-36.5); MONO # 0.7 10^3/uL (0.0-0.8); MONO % 9.8 % (2.0-8.0); NEUTROPHILS % 68.5 % (36.0-66.0); PLATELET COUNT, AUTOMATED 140 10^3/uL (150-450); RED BLOOD COUNT 4.62 10^6/uL (4.30-6.10); WHITE BLOOD COUNT 7.2 10^3/uL (4.0-10.0)
[2023-01-09 12:33] LABS: BLOOD UREA NITROGEN 27 MG/DL (9-23); CALCIUM LEVEL 8.4 MG/DL (8.3-10.6); CARBON DIOXIDE LEVEL 26 MMOL/L (20-31); CHLORIDE LEVEL 109 MMOL/L (98-107); CREATININE FOR GFR 0.76 MG/DL (0.70-1.30); GLOMERULAR FILTRATION RATE > 60.0 (>42); GLUCOSE, FASTING 152 MG/DL (74-106); POTASSIUM SERUM 5.9 MMOL/L (3.5-5.1); SODIUM LEVEL 141 MMOL/L (136-145)
[2023-01-09] MEDS ORDERED: ISOVUE-370 76% 100ML VIAL As Ordered ONE (12:58)
[2023-01-09] MEDS ORDERED: GLUCAGON INJ 1MG VIAL SC PRN (17:20)
[2023-01-09] MEDS ORDERED: GLUCOSE 4GM CHEW TABLET PO PRN (17:20)
[2023-01-09] MEDS ORDERED: DEXTROSE 50% 50ML SYRINGE IV PRN (17:20)
[2023-01-09 18:20] LABS: INR 0.97; PROTHROMBIN TIME 13.1 SECONDS (12.5-14.5)
[2023-01-09 18:21] LABS: PARTIAL THROMBOPLASTIN TIME 26.4 SECONDS (24.8-34.2)
[2023-01-09] MEDS ORDERED: FLUT50SP17 NARES (18:39)
[2023-01-09] MEDS ORDERED: DIVA500T94 PO ×2 (18:39)
[2023-01-09] MEDS ORDERED: HOME MED LIST COMPLETE! XX SCH (18:40)
[2023-01-09 18:46] LABS: ALBUMIN 2.9 G/DL (3.2-5.2); ALKALINE PHOSPHATASE 34 U/L (46-116); ALT/SGPT 13 U/L (7.0-40); AST/SGOT < 8 U/L (<34); BILIRUBIN,TOTAL 0.6 MG/DL (0.3-1.2); BLOOD UREA NITROGEN 22 MG/DL (9-23); CALCIUM LEVEL 7.9 MG/DL (8.3-10.6); CARBON DIOXIDE LEVEL 25 MMOL/L (20-31); CHLORIDE LEVEL 109 MMOL/L (98-107); CREATININE FOR GFR 0.71 MG/DL (0.70-1.30); GLOMERULAR FILTRATION RATE > 60.0 (>42); GLUCOSE, FASTING 97 MG/DL (74-106); SODIUM LEVEL 143 MMOL/L (136-145); TOTAL PROTEIN 5.2 G/DL (5.7-8.2)
[2023-01-09 19:30] VITALS: BP 156/88
[2023-01-09 20:02] VITALS: BP 181/98
[2023-01-09] MEDS: INSULIN LISPRO (NovoLOG) PER UNIT SC SCH ×2 (20:20→20:24)
[2023-01-09 21:14] VITALS: BP 130/76
[2023-01-09] MEDS ORDERED: FLUTICASONE PROP 0.05% NASAL SPRAY 16 GM (FLONASE) NARES PRN (21:30)
[2023-01-09] MEDS: LACOSAMIDE 50 MG TAB (VIMPAT) PO SCH (21:51)
[2023-01-09] MEDS: DIVALPROEX 500 MG TAB PO SCH (21:52)
[2023-01-09] MEDS: ATORVASTATIN 20 MG TAB PO SCH (21:52)
[2023-01-10 06:09] LABS: HEMATOCRIT 39.9 % (42.0-52.0); HEMOGLOBIN 13.1 g/dl (13.5-17.5); MEAN CORPUSCULAR HEMOGLOBIN 31.5 pg (27.0-33.0); MEAN CORPUSCULAR HGB CONC 32.8 g/dl (32.0-36.5); MEAN CORPUSCULAR VOLUME 95.9 fl (80.0-96.0); PLATELET COUNT, AUTOMATED 118 10^3/uL (150-450); RED BLOOD COUNT 4.16 10^6/uL (4.30-6.10); WHITE BLOOD COUNT 6.4 10^3/uL (4.0-10.0)
[2023-01-10 06:17] VITALS: BP 130/76
[2023-01-10 06:43] LABS: ALBUMIN 2.7 G/DL (3.2-5.2); ALKALINE PHOSPHATASE 31 U/L (46-116); ALT/SGPT 21 U/L (7.0-40); AST/SGOT 18 U/L (<34); BILIRUBIN,TOTAL 0.7 MG/DL (0.3-1.2); BLOOD UREA NITROGEN 19 MG/DL (9-23); CALCIUM LEVEL 7.9 MG/DL (8.3-10.6); CARBON DIOXIDE LEVEL 25 MMOL/L (20-31); CHLORIDE LEVEL 110 MMOL/L (98-107); CREATININE FOR GFR 0.62 MG/DL (0.70-1.30); GLOMERULAR FILTRATION RATE > 60.0 (>42); GLUCOSE, FASTING 123 MG/DL (74-106); POTASSIUM SERUM 4.2 MMOL/L (3.5-5.1); SODIUM LEVEL 142 MMOL/L (136-145)
[2023-01-10] MEDS: INSULIN LISPRO (NovoLOG) PER UNIT SC SCH ×4 (07:55→21:00)
[2023-01-10] MEDS: MULTIVITAMINS/MINERALS THERAP 1 TAB PO SCH (09:06)
[2023-01-10] MEDS: LACOSAMIDE 50 MG TAB (VIMPAT) PO SCH ×2 (09:06→22:12)
[2023-01-10] MEDS: VITAMIN D 1,000 INTERNATIONAL UNITS TABLET PO SCH (09:06)
[2023-01-10] MEDS: DIVALPROEX 500 MG TAB PO SCH ×2 (09:07→22:12)
[2023-01-10 14:00] VITALS: BP 132/74
[2023-01-10 22:00] VITALS: BP 132/79
[2023-01-10] MEDS: ATORVASTATIN 20 MG TAB PO SCH (22:12)
[2023-01-11 06:00] VITALS: BP 135/78
[2023-01-11] MEDS: INSULIN LISPRO (NovoLOG) PER UNIT SC SCH ×4 (07:30→19:58)
[2023-01-11 07:35] LABS: HEMATOCRIT 45.6 % (42.0-52.0); MEAN CORPUSCULAR HEMOGLOBIN 32.1 pg (27.0-33.0); MEAN CORPUSCULAR HGB CONC 33.1 g/dl (32.0-36.5); PLATELET COUNT, AUTOMATED 160 10^3/uL (150-450); WHITE BLOOD COUNT 6.9 10^3/uL (4.0-10.0)
[2023-01-11] MEDS ORDERED: ACET1TAB55 PO (07:37)
[2023-01-11 07:43] LABS: ALKALINE PHOSPHATASE 41 U/L (46-116); ALT/SGPT 18 U/L (7.0-40); AST/SGOT 15 U/L (<34); BLOOD UREA NITROGEN 21 MG/DL (9-23); CALCIUM LEVEL 8.2 MG/DL (8.3-10.6); CARBON DIOXIDE LEVEL 28 MMOL/L (20-31); CHLORIDE LEVEL 108 MMOL/L (98-107); CREATININE FOR GFR 0.81 MG/DL (0.70-1.30); GLOMERULAR FILTRATION RATE > 60.0 (>42); GLUCOSE, FASTING 117 MG/DL (74-106); POTASSIUM SERUM 3.8 MMOL/L (3.5-5.1); SODIUM LEVEL 143 MMOL/L (136-145); TOTAL PROTEIN 5.6 G/DL (5.7-8.2)
[2023-01-11 07:44] LABS: HEMOGLOBIN 15.1 g/dl (13.5-17.5)
[2023-01-11 08:00] VITALS: BP 130/78
[2023-01-11] MEDS: LACOSAMIDE 50 MG TAB (VIMPAT) PO SCH ×2 (09:32→20:02)
[2023-01-11] MEDS: ASPIRIN 81MG ENTERIC TABLET PO SCH (09:32)
[2023-01-11] MEDS: VITAMIN D 1,000 INTERNATIONAL UNITS TABLET PO SCH (09:33)
[2023-01-11] MEDS: DIVALPROEX 500 MG TAB PO SCH ×2 (09:33→20:02)
[2023-01-11] MEDS: MULTIVITAMINS/MINERALS THERAP 1 TAB PO SCH (09:33)
[2023-01-11] MEDS: ACETAMINOPHEN TAB 650MG DOSE (2X325MG) PO PRN ×2 (12:32→20:02)
[2023-01-11] MEDS: ATORVASTATIN 20 MG TAB PO SCH (20:02)
[2023-01-11 22:00] VITALS: BP 111/76
[2023-01-12 06:00] VITALS: BP 115/70
[2023-01-12 06:38] LABS: HEMATOCRIT 40.3 % (42.0-52.0); HEMOGLOBIN 13.5 g/dl (13.5-17.5); MEAN CORPUSCULAR HEMOGLOBIN 31.9 pg (27.0-33.0); MEAN CORPUSCULAR HGB CONC 33.5 g/dl (32.0-36.5); MEAN CORPUSCULAR VOLUME 95.3 fl (80.0-96.0); PLATELET COUNT, AUTOMATED 162 10^3/uL (150-450); RED BLOOD COUNT 4.23 10^6/uL (4.30-6.10); WHITE BLOOD COUNT 7.1 10^3/uL (4.0-10.0)
[2023-01-12 07:00] LABS: ALBUMIN 2.7 G/DL (3.2-5.2); ALKALINE PHOSPHATASE 36 U/L (46-116); ALT/SGPT 14 U/L (7.0-40); AST/SGOT 14 U/L (<34); BILIRUBIN,TOTAL 0.8 MG/DL (0.3-1.2); BLOOD UREA NITROGEN 25 MG/DL (9-23); CALCIUM LEVEL 7.6 MG/DL (8.3-10.6); CARBON DIOXIDE LEVEL 28 MMOL/L (20-31); CHLORIDE LEVEL 109 MMOL/L (98-107); CREATININE FOR GFR 0.68 MG/DL (0.70-1.30); GLOMERULAR FILTRATION RATE > 60.0 (>42); GLUCOSE, FASTING 127 MG/DL (74-106); POTASSIUM SERUM 4.1 MMOL/L (3.5-5.1); SODIUM LEVEL 141 MMOL/L (136-145); TOTAL PROTEIN 5.1 G/DL (5.7-8.2)
[2023-01-12] MEDS: ASPIRIN 81MG ENTERIC TABLET PO SCH (08:19)
[2023-01-12] MEDS: VITAMIN D 1,000 INTERNATIONAL UNITS TABLET PO SCH (08:19)
[2023-01-12] MEDS: MULTIVITAMINS/MINERALS THERAP 1 TAB PO SCH (08:19)
[2023-01-12] MEDS: INSULIN LISPRO (NovoLOG) PER UNIT SC SCH (08:19)
[2023-01-12] MEDS: DIVALPROEX 500 MG TAB PO SCH (08:19)
[2023-01-12] MEDS: LACOSAMIDE 50 MG TAB (VIMPAT) PO SCH (08:19)
== END 2023-01-12 12:00 | disposition home health service (06) | DRG 605 ==
LOC: M ED 10:13 → M ED INP 17:18 → ENRESERV 19:19 → M MS5PR 19:31
PROVIDERS: ADMIT Internal Medicine; ATTEND Internal Medicine
DX: S30.1XXA Contusion of abdominal wall, initial encounter (principal); S22.31XA Fracture of one rib, right side, initial encounter for closed fracture; E87.5 Hyperkalemia; I10 Essential (primary) hypertension; F01.50 Vascular dementia, unspecified severity, without behavioral disturbance, psychotic disturbance, mood disturbance, and anxiety; Z95.2 Presence of prosthetic heart valve; E11.9 Type 2 diabetes mellitus without complications; G40.909 Epilepsy, unspecified, not intractable, without status epilepticus; G89.29 Other chronic pain; E78.5 Hyperlipidemia, unspecified; M48.061 Spinal stenosis, lumbar region without neurogenic claudication; R53.1 Weakness; R29.6 Repeated falls; Z86.73 Personal history of transient ischemic attack (TIA), and cerebral infarction without residual deficits; J44.9 Chronic obstructive pulmonary disease, unspecified; Z79.899 Other long term (current) drug therapy; Z79.82 Long term (current) use of aspirin; Z96.653 Presence of artificial knee joint, bilateral; Z98.41 Cataract extraction status, right eye; Z98.42 Cataract extraction status, left eye; W18.30XA Fall on same level, unspecified, initial encounter; Y92.010 Kitchen of single-family (private) house as the place of occurrence of the external cause

== ENCOUNTER → 2023-01-28 | Outpatient (REF) | payer MEDICARE, OTHER ==
[~2023-01-28] MED LIST changes: +FLUT50SP17 NARES; +VIMP50TA3 PO
== END ==
LOC: M SFHCPLAZ 14:46
PROVIDERS: ATTEND Physician Assistant Medical
DX: S22.31XD Fracture of one rib, right side, subsequent encounter for fracture with routine healing (principal); R53.1 Weakness

== ENCOUNTER → 2023-01-29 | Outpatient (CLI) | payer MEDICARE, OTHER ==
[2023-01-29 15:05] LABS: BASO % 0.3 % (0.0-1.0); EOS # 0.1 10^3/uL (0.0-0.5); EOS % 1.3 % (0.0-3.0); HEMATOCRIT 45.9 % (42.0-52.0); HEMOGLOBIN 14.7 g/dl (13.5-17.5); LYMPH # 1.8 10^3/uL (1.5-5.0); LYMPH % 30.7 % (24.0-44.0); MEAN CORPUSCULAR HEMOGLOBIN 31.8 pg (27.0-33.0); MEAN CORPUSCULAR VOLUME 99.4 fl (80.0-96.0); MONO # 0.6 10^3/uL (0.0-0.8); MONO % 9.9 % (2.0-8.0); NEUTROPHILS # 3.4 10^3/uL (1.5-8.5); NEUTROPHILS % 57.3 % (36.0-66.0); PLATELET COUNT, AUTOMATED 181 10^3/uL (150-450); RED BLOOD COUNT 4.62 10^6/uL (4.30-6.10)
[2023-01-29 15:36] LABS: ALBUMIN 3.3 G/DL (3.2-5.2); ALKALINE PHOSPHATASE 67 U/L (46-116); ALT/SGPT 18 U/L (7.0-40); AST/SGOT 16 U/L (<34); BILIRUBIN,TOTAL 0.8 MG/DL (0.3-1.2); BLOOD UREA NITROGEN 22 MG/DL (9-23); CALCIUM LEVEL 8.9 MG/DL (8.3-10.6); CARBON DIOXIDE LEVEL 27 MMOL/L (20-31); CHLORIDE LEVEL 111 MMOL/L (98-107); GLOMERULAR FILTRATION RATE > 60.0 (>42); GLUCOSE, FASTING 124 MG/DL (74-106); POTASSIUM SERUM 4.6 MMOL/L (3.5-5.1); SODIUM LEVEL 143 MMOL/L (136-145); TOTAL PROTEIN 5.9 G/DL (5.7-8.2)
[2023-01-29 15:40] LABS: FREE T4 1.04 NG/DL (0.89-1.76); THYROID STIMULATING HORMONE 1.504 uIU/ML (0.55-4.78)
== END ==
LOC: M PLALAB 09:47
PROVIDERS: ATTEND Physician Assistant Medical
DX: S22.31XD Fracture of one rib, right side, subsequent encounter for fracture with routine healing (principal); R53.1 Weakness

== ENCOUNTER → 2023-01-29 | Outpatient (CLI) | payer MEDICARE, OTHER | LOC: M PLAIMG 08:59 | PROVIDERS: ATTEND Physician Assistant Medical | DX: G93.89 Other specified disorders of brain (principal); S22.31XD Fracture of one rib, right side, subsequent encounter for fracture with routine healing; R53.1 Weakness; Z91.81 History of falling ==

== ENCOUNTER 2023-02-25 14:24 | Emergency (ER) | payer MEDICARE, OTHER ==
[2023-02-25 15:05] LABS: BASO % 0.4 % (0.0-1.0); EOS # 0.1 10^3/uL (0.0-0.5); EOS % 0.7 % (0.0-3.0); HEMATOCRIT 43.3 % (42.0-52.0); HEMOGLOBIN 14.3 g/dl (13.5-17.5); LYMPH # 1.9 10^3/uL (1.5-5.0); LYMPH % 22.8 % (24.0-44.0); MEAN CORPUSCULAR HEMOGLOBIN 31.4 pg (27.0-33.0); MONO # 0.8 10^3/uL (0.0-0.8); MONO % 9.2 % (2.0-8.0); NEUTROPHILS # 5.6 10^3/uL (1.5-8.5); NEUTROPHILS % 66.4 % (36.0-66.0); PLATELET COUNT, AUTOMATED 157 10^3/uL (150-450); RED BLOOD COUNT 4.56 10^6/uL (4.30-6.10); WHITE BLOOD COUNT 8.4 10^3/uL (4.0-10.0)
[2023-02-25 16:10] LABS: BLOOD UREA NITROGEN 24 MG/DL (9-23); CALCIUM LEVEL 8.8 MG/DL (8.3-10.6); CARBON DIOXIDE LEVEL 26 MMOL/L (20-31); CHLORIDE LEVEL 106 MMOL/L (98-107); CREATININE FOR GFR 0.77 MG/DL (0.70-1.30); GLOMERULAR FILTRATION RATE > 60.0 (>42); GLUCOSE, FASTING 84 MG/DL (74-106); POTASSIUM SERUM 5.3 MMOL/L (3.5-5.1); SODIUM LEVEL 139 MMOL/L (136-145)
[2023-02-25 16:34] LABS: VALPROIC ACID (DEPAKOTE) 66.6 UG/ML (50.0-100.0)
[2023-02-25 16:46] VITALS: BP 148/85; TEMP 98; O2SAT 98
== END 2023-02-25 17:26 | disposition home or self-care (01) ==
LOC: M ED 14:24 → EDBD 14:24 → M ED 17:26
DX: R41.82 Altered mental status, unspecified (principal); W19.XXXA Unspecified fall, initial encounter; R00.1 Bradycardia, unspecified; F03.90 Unspecified dementia, unspecified severity, without behavioral disturbance, psychotic disturbance, mood disturbance, and anxiety; I44.0 Atrioventricular block, first degree; I44.4 Left anterior fascicular block; I25.2 Old myocardial infarction; E11.9 Type 2 diabetes mellitus without complications; I10 Essential (primary) hypertension; E78.5 Hyperlipidemia, unspecified; Z79.4 Long term (current) use of insulin; Z79.02 Long term (current) use of antithrombotics/antiplatelets; Z79.899 Other long term (current) drug therapy

== ENCOUNTER 2023-02-26 14:50 | Emergency (ER) | payer MEDICARE, OTHER ==
[2023-02-26 15:07] VITALS: TEMP 98.7
[2023-02-26 16:08] LABS: BASO % 0.4 % (0.0-1.0); EOS % 0.4 % (0.0-3.0); HEMATOCRIT 45.9 % (42.0-52.0); HEMOGLOBIN 14.8 g/dl (13.5-17.5); LYMPH # 1.9 10^3/uL (1.5-5.0); LYMPH % 24.4 % (24.0-44.0); MEAN CORPUSCULAR HEMOGLOBIN 31.3 pg (27.0-33.0); MEAN CORPUSCULAR HGB CONC 32.2 g/dl (32.0-36.5); MONO # 0.6 10^3/uL (0.0-0.8); MONO % 7.7 % (2.0-8.0); NEUTROPHILS # 5.1 10^3/uL (1.5-8.5); NEUTROPHILS % 66.6 % (36.0-66.0); PLATELET COUNT, AUTOMATED 165 10^3/uL (150-450); RED BLOOD COUNT 4.73 10^6/uL (4.30-6.10); WHITE BLOOD COUNT 7.7 10^3/uL (4.0-10.0)
[2023-02-26 16:24] LABS: ALBUMIN 3.1 G/DL (3.2-5.2); ALKALINE PHOSPHATASE 46 U/L (46-116); ALT/SGPT 14 U/L (7.0-40); AST/SGOT 11 U/L (<34); BILIRUBIN,DIRECT 0.2 MG/DL (<0.4); BILIRUBIN,TOTAL 0.5 MG/DL (0.3-1.2); BLOOD UREA NITROGEN 17 MG/DL (9-23); CALCIUM LEVEL 8.8 MG/DL (8.3-10.6); CARBON DIOXIDE LEVEL 30 MMOL/L (20-31); CHLORIDE LEVEL 106 MMOL/L (98-107); CREATININE FOR GFR 0.82 MG/DL (0.70-1.30); GLOMERULAR FILTRATION RATE > 60.0 (>42); GLUCOSE, FASTING 138 MG/DL (74-106); POTASSIUM SERUM 4.6 MMOL/L (3.5-5.1); SODIUM LEVEL 140 MMOL/L (136-145); TOTAL PROTEIN 5.8 G/DL (5.7-8.2)
[2023-02-26 16:28] LABS: ETHYL ALCOHOL (ETHANOL) < 0.003 % (0.000-0.010)
[2023-02-26 16:29] LABS: CK-MB VALUE MASS 2.6 NG/ML (<3.6); VALPROIC ACID (DEPAKOTE) 55.5 UG/ML (50.0-100.0)
[2023-02-26 16:30] LABS: CPK CREATINE PHOSPHOKINASE 61 U/L (46-171); MB/CK RELATIVE INDEX 4.26 (< OR =4)
[2023-02-26] MEDS ORDERED: DESMOPRESSIN ACETATE IV ONE (16:30)
[2023-02-26] MEDS ORDERED: NS IV ONE (16:30)
[2023-02-26 16:33] LABS: OSMOLALITY SERUM 301 MOSM/KG (280-301); THYROID STIMULATING HORMONE 1.036 uIU/ML (0.55-4.78)
[2023-02-26 16:35] LABS: VENOUS HCO3 29.4 MMOL/L (23.0-27.0); VENOUS O2 SATURATION 57.9 % (60.0-80.0); VENOUS PARTIAL PRESSURE CO2 51.3 mmHg (38.0-50.0); VENOUS PARTIAL PRESSURE O2 30.5 mmHg (30.0-50.0); VENOUS PH 7.376 UNITS (7.330-7.430)
[2023-02-26] MEDS ORDERED: niCARdipine IV 40 MG in IV 1 EA IV SCH (16:45)
[2023-02-26 17:40] VITALS: BP 131/78; O2SAT 97
== END 2023-02-26 17:56 | disposition short-term general hospital (02) ==
LOC: EDBD 14:50 → M ED 14:50
DX: S06.360A Traumatic hemorrhage of cerebrum, unspecified, without loss of consciousness, initial encounter (principal); W19.XXXA Unspecified fall, initial encounter; R00.1 Bradycardia, unspecified; I25.2 Old myocardial infarction; I44.4 Left anterior fascicular block; I44.0 Atrioventricular block, first degree; E78.5 Hyperlipidemia, unspecified; E11.9 Type 2 diabetes mellitus without complications; I10 Essential (primary) hypertension; Z86.79 Personal history of other diseases of the circulatory system
CPT/HCPCS: 70450; 71045; 80048; 80076; 80164; 81001; 82077; 82140; 82550; 82553; 82803; 83605; 83930; 84443; 84484; 85025; 87040; 87486; 87581; 87633; 87798; 93005; 93041; 94760; 96365; 96367; 99285; J2597

== ENCOUNTER → 2024-02-19 | Outpatient (REF) ==
[~2024-02-19] MED LIST changes: -FLUT50SP17 NARES; +FLUTISP NARES; +GLIP5TAB17 PO; -GLIP5TAB8 PO
[2024-02-20 13:56] LABS: HEMATOCRIT 37.1 % (42.0-52.0); HEMOGLOBIN 11.2 g/dl (13.5-17.5); MEAN CORPUSCULAR HEMOGLOBIN 24.4 pg (27.0-33.0); MEAN CORPUSCULAR HGB CONC 30.2 g/dl (32.0-36.5); MEAN CORPUSCULAR VOLUME 80.8 fl (80.0-96.0); PLATELET COUNT, AUTOMATED 453 10^3/uL (150-450); RED BLOOD COUNT 4.59 10^6/uL (4.30-6.10); WHITE BLOOD COUNT 8.1 10^3/uL (4.0-10.0)
[2024-02-20 14:19] LABS: BLOOD UREA NITROGEN 16 MG/DL (9-23); CALCIUM LEVEL 8.6 MG/DL (8.3-10.6); CARBON DIOXIDE LEVEL 26 MMOL/L (20-31); CHLORIDE LEVEL 102 MMOL/L (98-107); CREATININE FOR GFR 0.63 MG/DL (0.70-1.30); GLOMERULAR FILTRATION RATE > 60.0 (>42); GLUCOSE, FASTING 118 MG/DL (74-106); POTASSIUM SERUM 4.7 MMOL/L (3.5-5.1); SODIUM LEVEL 135 MMOL/L (136-145)
== END ==
LOC: SKLAB3 07:02
PROVIDERS: ATTEND Internal Medicine
DX: Z53.8 Procedure and treatment not carried out for other reasons (principal)

== ENCOUNTER → 2024-03-13 | Outpatient (REF) ==
[2024-03-13 09:22] LABS: HEMATOCRIT 42.9 % (42.0-52.0); HEMOGLOBIN 12.6 g/dl (13.5-17.5); MEAN CORPUSCULAR HEMOGLOBIN 23.8 pg (27.0-33.0); MEAN CORPUSCULAR HGB CONC 29.4 g/dl (32.0-36.5); MEAN CORPUSCULAR VOLUME 80.9 fl (80.0-96.0); PLATELET COUNT, AUTOMATED 388 10^3/uL (150-450); WHITE BLOOD COUNT 8.4 10^3/uL (4.0-10.0)
[2024-03-13 09:33] LABS: BLOOD UREA NITROGEN 17 MG/DL (9-23); CALCIUM LEVEL 9.1 MG/DL (8.3-10.6); CARBON DIOXIDE LEVEL 26 MMOL/L (20-31); CHLORIDE LEVEL 108 MMOL/L (98-107); CREATININE FOR GFR 0.46 MG/DL (0.70-1.30); GLOMERULAR FILTRATION RATE > 60.0 (>42); GLUCOSE, FASTING 119 MG/DL (74-106); POTASSIUM SERUM 4.1 MMOL/L (3.5-5.1); SODIUM LEVEL 140 MMOL/L (136-145)
== END ==
LOC: SKLAB3 08:32
PROVIDERS: ATTEND Internal Medicine
DX: I10 Essential (primary) hypertension (principal)

== ENCOUNTER → 2024-03-20 | Outpatient (REF) | payer MEDICARE, OTHER ==
[2024-03-20 11:15] LABS: HEMATOCRIT 43.6 % (42.0-52.0); HEMOGLOBIN 12.9 g/dl (13.5-17.5); MEAN CORPUSCULAR HEMOGLOBIN 23.8 pg (27.0-33.0); MEAN CORPUSCULAR HGB CONC 29.6 g/dl (32.0-36.5); MEAN CORPUSCULAR VOLUME 80.3 fl (80.0-96.0); PLATELET COUNT, AUTOMATED 354 10^3/uL (150-450); RED BLOOD COUNT 5.43 10^6/uL (4.30-6.10); WHITE BLOOD COUNT 9.8 10^3/uL (4.0-10.0)
[2024-03-20 11:36] LABS: BLOOD UREA NITROGEN 19 MG/DL (9-23); CALCIUM LEVEL 8.6 MG/DL (8.3-10.6); CARBON DIOXIDE LEVEL 23 MMOL/L (20-31); CHLORIDE LEVEL 107 MMOL/L (98-107); CREATININE FOR GFR 0.47 MG/DL (0.70-1.30); GLOMERULAR FILTRATION RATE > 60.0 (>42); GLUCOSE, FASTING 154 MG/DL (74-106); POTASSIUM SERUM 4.7 MMOL/L (3.5-5.1); SODIUM LEVEL 139 MMOL/L (136-145)
== END ==
LOC: SKLAB3 08:19
PROVIDERS: ATTEND Internal Medicine
DX: I10 Essential (primary) hypertension (principal)

== ENCOUNTER → 2024-03-31 | Outpatient (REF) | payer MEDICARE, OTHER ==
[2024-03-31 08:38] LABS: HEMATOCRIT 43.6 % (42.0-52.0); HEMOGLOBIN 13.1 g/dl (13.5-17.5); MEAN CORPUSCULAR HEMOGLOBIN 23.3 pg (27.0-33.0); MEAN CORPUSCULAR VOLUME 77.4 fl (80.0-96.0); PLATELET COUNT, AUTOMATED 389 10^3/uL (150-450); RED BLOOD COUNT 5.63 10^6/uL (4.30-6.10); WHITE BLOOD COUNT 6.9 10^3/uL (4.0-10.0)
[2024-03-31 08:59] LABS: ALBUMIN 3.1 G/DL (3.2-5.2); ALKALINE PHOSPHATASE 91 U/L (46-116); ALT/SGPT 15 U/L (7.0-40); AST/SGOT 9 U/L (<34); BILIRUBIN,TOTAL 0.4 MG/DL (0.3-1.2); BLOOD UREA NITROGEN 15 MG/DL (9-23); CALCIUM LEVEL 9.1 MG/DL (8.3-10.6); CARBON DIOXIDE LEVEL 27 MMOL/L (20-31); CHLORIDE LEVEL 108 MMOL/L (98-107); CHOLESTEROL LEVEL 186 MG/DL (<200); GLOMERULAR FILTRATION RATE > 60.0 (>42); GLUCOSE, FASTING 121 MG/DL (74-106); HDL CHOLESTEROL 39.5 MG/DL (>40); LDL CHOLESTEROL 118.1 MG/DL (<100); NON-HDL-C 146.5 MG/DL; POTASSIUM SERUM 4.1 MMOL/L (3.5-5.1); SODIUM LEVEL 141 MMOL/L (136-145); TOTAL PROTEIN 6.9 G/DL (5.7-8.2); TRIGLYCERIDES LEVEL 142 MG/DL (<150)
== END ==
LOC: SKLAB3 07:38
PROVIDERS: ATTEND Internal Medicine
DX: G40.909 Epilepsy, unspecified, not intractable, without status epilepticus (principal); E78.5 Hyperlipidemia, unspecified; I10 Essential (primary) hypertension; E11.9 Type 2 diabetes mellitus without complications

== ENCOUNTER 2024-04-23 05:54 | Inpatient (IN) | payer MEDICARE, OTHER ==
[~2024-04-23] VITALS: Ht 176.5 cm; Wt 95.0 kg
[2024-04-23] MEDS ORDERED: LORazepam 2 MG/ML 1ML VIAL IV PRN (06:00)
[2024-04-23 06:37] LABS: IONIZED CALCIUM 4.1 MG/DL (4.5-5.3)
[2024-04-23 06:41] LABS: BASO % 0.3 % (0.0-1.0); EOS # 0.2 10^3/uL (0.0-0.5); EOS % 3.2 % (0.0-3.0); HEMATOCRIT 42.1 % (42.0-52.0); HEMOGLOBIN 12.7 g/dl (13.5-17.5); LYMPH # 1.8 10^3/uL (1.5-5.0); LYMPH % 28.2 % (24.0-44.0); MEAN CORPUSCULAR HEMOGLOBIN 23.4 pg (27.0-33.0); MEAN CORPUSCULAR HGB CONC 30.2 g/dl (32.0-36.5); MEAN CORPUSCULAR VOLUME 77.5 fl (80.0-96.0); MONO # 0.5 10^3/uL (0.0-0.8); MONO % 7.3 % (2.0-8.0); NEUTROPHILS # 3.8 10^3/uL (1.5-8.5); NEUTROPHILS % 60.7 % (36.0-66.0); PLATELET COUNT, AUTOMATED 327 10^3/uL (150-450); RED BLOOD COUNT 5.43 10^6/uL (4.30-6.10); WHITE BLOOD COUNT 6.3 10^3/uL (4.0-10.0)
[2024-04-23 07:06] LABS: ALBUMIN 2.9 G/DL (3.2-5.2); ALKALINE PHOSPHATASE 73 U/L (46-116); ALT/SGPT 19 U/L (7.0-40); AST/SGOT 28 U/L (<34); BILIRUBIN,DIRECT < 0.1 MG/DL (<0.4); BILIRUBIN,TOTAL 0.4 MG/DL (0.3-1.2); BLOOD UREA NITROGEN 20 MG/DL (9-23); CALCIUM LEVEL 8.6 MG/DL (8.3-10.6); CARBON DIOXIDE LEVEL 24 MMOL/L (20-31); CHLORIDE LEVEL 110 MMOL/L (98-107); CREATININE FOR GFR 0.59 MG/DL (0.70-1.30); GLOMERULAR FILTRATION RATE > 60.0 (>42); GLUCOSE, FASTING 141 MG/DL (74-106); PHOSPHORUS LEVEL 3.7 MG/DL (2.4-5.1); POTASSIUM SERUM 4.5 MMOL/L (3.5-5.1); SODIUM LEVEL 140 MMOL/L (136-145); TOTAL PROTEIN 6.6 G/DL (5.7-8.2)
[2024-04-23] MEDS: LIDOCAINE 2% 5ML JELLY UROJET TOP ONE (07:40)
[2024-04-23 08:25] LABS: APPEARANCE, URINE CLOUDY (CLEAR); BACTERIA, URINE AUTO 3+ (NEGATIVE); BILIRUBIN, URINE AUTO NEGATIVE (NEGATIVE); BLOOD, URINE BLOOD NEGATIVE (NEGATIVE); COLOR, URINE YELLOW (YELLOW); GLUCOSE, URINE (UA) AUTO NEGATIVE (NEGATIVE); KETONE, URINE AUTO NEGATIVE (NEGATIVE); LEUKOCYTE ESTERASE, URINE AUTO 3+ (NEGATIVE); NITRITE, URINE AUTO POSITIVE (NEGATIVE); PROTEIN, URINE AUTO 1+ mg/dL (NEGATIVE); RBC, URINE AUTO 33 /HPF (0-3); SPECIFIC GRAVITY URINE AUTO 1.018 (1.002-1.035); SQUAMOUS EPITHELIAL CELL UR AU 0 /HPF (0-6); UROBILINOGEN, URINE AUTO 0.2 mg/dL (0.0-2.0); WBC, URINE AUTO TNTC /HPF (0-3)
[2024-04-23] MEDS ORDERED: GLUC1KIT IM (08:53)
[2024-04-23] MEDS ORDERED: ATIV1TAB10 PO (08:53)
[2024-04-23] MEDS ORDERED: ACET1TAB55 PO (08:53)
[2024-04-23] MEDS ORDERED: ELIQ5TAB PO (08:53)
[2024-04-23] MEDS ORDERED: MOM30SS PO (08:53)
[2024-04-23] MEDS ORDERED: BISA10SU59 PR (08:53)
[2024-04-23] MEDS ORDERED: SENN-188 PO (08:53)
[2024-04-23] MEDS ORDERED: HOME MED LIST COMPLETE! XX SCH (08:55)
[2024-04-23] MEDS: cefTRIAXone SOD 1 GM in D5W MINI-BAG PLUS 50 ML IV ONE (09:10)
[2024-04-23] MEDS ORDERED: GLUCAGON INJ 1MG VIAL SC PRN (11:25)
[2024-04-23] MEDS ORDERED: LORazepam 0.5 MG TAB PO PRN (11:25)
[2024-04-23] MEDS ORDERED: DEXTROSE 50% 50ML SYRINGE IV PRN (11:25)
[2024-04-23] MEDS ORDERED: GLUCOSE 4 GM CHEW PO PRN (11:25)
[2024-04-23] MEDS ORDERED: BISACODYL 10MG SUPP PR PRN (11:25)
[2024-04-23] MEDS: LACOSAMIDE 50 MG TAB (VIMPAT) PO STA (12:02)
[2024-04-23] MEDS: ASPIRIN 81MG ENTERIC TABLET PO SCH (12:03)
[2024-04-23] MEDS: APIXABAN 5 MG TAB (ELIQUIS) PO SCH (12:03)
[2024-04-23 12:50] VITALS: BP 141/79; TEMP 97.8; O2SAT 95
[2024-04-23] MEDS: INSULIN LISPRO (NovoLOG) PER UNIT SC SCH ×2 (14:31→20:05)
[2024-04-23] MEDS ORDERED: MOM 30ML SUSPENSION UDC PO PRN (16:40)
[2024-04-23] MEDS ORDERED: MIRALAX *UNIT DOSE* 17GM PACKET PO PRN (16:40)
[2024-04-23] MEDS ORDERED: SENOKOT S TAB PO PRN (16:40)
[2024-04-23 16:49] VITALS: BP 143/75; TEMP 97; O2SAT 100
[2024-04-23] MEDS: LACOSAMIDE 50 MG TAB (VIMPAT) PO SCH (20:01)
[2024-04-23 20:31] VITALS: BP 152/83; TEMP 97.2; O2SAT 100
[2024-04-23 23:05] VITALS: BP 134/84; TEMP 98.3; O2SAT 98
[2024-04-24] MEDS ORDERED: UNRESOLVED CLARIFICATION ENTRY XX SCH (00:01)
[2024-04-24 03:09] VITALS: BP 144/87; TEMP 97; O2SAT 100
[2024-04-24 05:31] LABS: BASO % 0.4 % (0.0-1.0); EOS # 0.2 10^3/uL (0.0-0.5); EOS % 2.3 % (0.0-3.0); HEMATOCRIT 40.9 % (42.0-52.0); HEMOGLOBIN 12.6 g/dl (13.5-17.5); LYMPH # 2.5 10^3/uL (1.5-5.0); LYMPH % 30.9 % (24.0-44.0); MEAN CORPUSCULAR HEMOGLOBIN 23.7 pg (27.0-33.0); MEAN CORPUSCULAR HGB CONC 30.8 g/dl (32.0-36.5); MEAN CORPUSCULAR VOLUME 76.9 fl (80.0-96.0); MONO # 0.6 10^3/uL (0.0-0.8); MONO % 7.1 % (2.0-8.0); NEUTROPHILS # 4.7 10^3/uL (1.5-8.5); NEUTROPHILS % 58.9 % (36.0-66.0); PLATELET COUNT, AUTOMATED 332 10^3/uL (150-450); RED BLOOD COUNT 5.32 10^6/uL (4.30-6.10)
[2024-04-24 05:55] LABS: BLOOD UREA NITROGEN 21 MG/DL (9-23); CALCIUM LEVEL 8.6 MG/DL (8.3-10.6); CARBON DIOXIDE LEVEL 24 MMOL/L (20-31); CHLORIDE LEVEL 110 MMOL/L (98-107); GLOMERULAR FILTRATION RATE > 60.0 (>42); GLUCOSE, FASTING 110 MG/DL (74-106); POTASSIUM SERUM 4.3 MMOL/L (3.5-5.1); SODIUM LEVEL 142 MMOL/L (136-145)
[2024-04-24 07:33] VITALS: BP 133/76; TEMP 97.5; O2SAT 100
[2024-04-24] MEDS: cefTRIAXone SOD 1 GM in D5W MINI-BAG PLUS 50 ML IV SCH (09:05)
[2024-04-24 14:00] VITALS: BP 142/68; TEMP 97.2; O2SAT 100
[2024-04-24 19:21] VITALS: BP 148/64; TEMP 97; O2SAT 100
[2024-04-25 00:42] VITALS: BP 159/96; TEMP 97.2; O2SAT 96
[2024-04-25 06:27] LABS: BASO % 0.4 % (0.0-1.0); EOS # 0.3 10^3/uL (0.0-0.5); EOS % 4.6 % (0.0-3.0); HEMOGLOBIN 12.9 g/dl (13.5-17.5); LYMPH # 2.4 10^3/uL (1.5-5.0); LYMPH % 36.6 % (24.0-44.0); MEAN CORPUSCULAR HEMOGLOBIN 23.4 pg (27.0-33.0); MONO # 0.5 10^3/uL (0.0-0.8); MONO % 7.8 % (2.0-8.0); NEUTROPHILS # 3.3 10^3/uL (1.5-8.5); PLATELET COUNT, AUTOMATED 321 10^3/uL (150-450); RED BLOOD COUNT 5.51 10^6/uL (4.30-6.10); WHITE BLOOD COUNT 6.7 10^3/uL (4.0-10.0)
[2024-04-25 06:49] LABS: BLOOD UREA NITROGEN 19 MG/DL (9-23); CALCIUM LEVEL 8.5 MG/DL (8.3-10.6); CARBON DIOXIDE LEVEL 26 MMOL/L (20-31); CHLORIDE LEVEL 109 MMOL/L (98-107); CREATININE FOR GFR 0.55 MG/DL (0.70-1.30); GLOMERULAR FILTRATION RATE > 60.0 (>42); GLUCOSE, FASTING 114 MG/DL (74-106); POTASSIUM SERUM 4.1 MMOL/L (3.5-5.1); SODIUM LEVEL 140 MMOL/L (136-145)
[2024-04-25 12:00] VITALS: BP 169/101; TEMP 97.9; O2SAT 99
[2024-04-25 20:55] VITALS: BP 144/83; TEMP 97.3; O2SAT 100
[2024-04-26 04:46] VITALS: BP 143/86; TEMP 97.5; O2SAT 95
[2024-04-26 08:10] LABS: BASO % 0.4 % (0.0-1.0); EOS # 0.3 10^3/uL (0.0-0.5); EOS % 4.5 % (0.0-3.0); HEMATOCRIT 40.4 % (42.0-52.0); HEMOGLOBIN 12.5 g/dl (13.5-17.5); LYMPH # 2.4 10^3/uL (1.5-5.0); LYMPH % 34.2 % (24.0-44.0); MEAN CORPUSCULAR HEMOGLOBIN 23.8 pg (27.0-33.0); MEAN CORPUSCULAR HGB CONC 30.9 g/dl (32.0-36.5); MONO # 0.5 10^3/uL (0.0-0.8); MONO % 6.4 % (2.0-8.0); NEUTROPHILS # 3.8 10^3/uL (1.5-8.5); NEUTROPHILS % 54.2 % (36.0-66.0); PLATELET COUNT, AUTOMATED 336 10^3/uL (150-450); RED BLOOD COUNT 5.25 10^6/uL (4.30-6.10); WHITE BLOOD COUNT 7.1 10^3/uL (4.0-10.0)
[2024-04-26] MEDS: ERTAPENEM SODIUM 1 GM in NS MINI-BAG PLUS 50 ML IV SCH (08:51)
[2024-04-26 12:00] VITALS: BP 130/72; TEMP 97.5; O2SAT 99
[2024-04-26 19:56] VITALS: BP 143/91; TEMP 97.5; O2SAT 98
[2024-04-27 03:58] VITALS: BP 163/96; TEMP 97.3; O2SAT 100
[2024-04-27 08:48] VITALS: BP 158/97
[2024-04-27 12:00] VITALS: BP 154/99; TEMP 97.7; O2SAT 99
[2024-04-27] MEDS ORDERED: ERTA1INJ3 IJ (12:24)
[2024-04-27] MEDS ORDERED: LACO150T PO (12:24)
[2024-04-27] MEDS ORDERED: AMLO25TA PO (12:24)
== END 2024-04-27 13:00 | DRG 101 ==
LOC: M ED 05:54 → EDBD 05:54 → EEVIPCON 11:24 → M ED INP 11:24 → M PCU 12:40 → M MS5PR 04-25 00:34
PROVIDERS: ADMIT Internal Medicine; ATTEND Internal Medicine
DX: G40.919 Epilepsy, unspecified, intractable, without status epilepticus (principal); E87.20 Acidosis, unspecified; N39.0 Urinary tract infection, site not specified; F01.50 Vascular dementia, unspecified severity, without behavioral disturbance, psychotic disturbance, mood disturbance, and anxiety; I10 Essential (primary) hypertension; E11.9 Type 2 diabetes mellitus without complications; E78.5 Hyperlipidemia, unspecified; F39 Unspecified mood [affective] disorder; I48.0 Paroxysmal atrial fibrillation; Z96.653 Presence of artificial knee joint, bilateral; Z98.41 Cataract extraction status, right eye; Z98.42 Cataract extraction status, left eye; Z87.891 Personal history of nicotine dependence; Z79.01 Long term (current) use of anticoagulants; Z86.73 Personal history of transient ischemic attack (TIA), and cerebral infarction without residual deficits; Z79.82 Long term (current) use of aspirin; Z79.899 Other long term (current) drug therapy; Z11.52 Encounter for screening for COVID-19; Z95.2 Presence of prosthetic heart valve; Z86.718 Personal history of other venous thrombosis and embolism; B96.1 Klebsiella pneumoniae [K. pneumoniae] as the cause of diseases classified elsewhere

== ENCOUNTER → 2024-05-13 | Outpatient (REF) | payer MEDICARE, OTHER ==
[~2024-05-13] MED LIST changes: +AMLO2.5T3 PO; +AMLO25TA PO; +ATIV1TAB10 PO; +BISA10SU59 PR; +ELIQ5TAB PO; +ERTA1INJ3 IJ; +FLEEENE12 PR; +GLUC1KIT IM; +LACO150T PO; +MOM30SS PO; +SENN-188 PO; +VIMP150T PO
[2024-05-13 14:08] LABS: HEMATOCRIT 45.8 % (42.0-52.0); HEMOGLOBIN 14.1 g/dl (13.5-17.5); MEAN CORPUSCULAR HEMOGLOBIN 24.1 pg (27.0-33.0); MEAN CORPUSCULAR HGB CONC 30.8 g/dl (32.0-36.5); MEAN CORPUSCULAR VOLUME 78.4 fl (80.0-96.0); PLATELET COUNT, AUTOMATED 372 10^3/uL (150-450); RED BLOOD COUNT 5.84 10^6/uL (4.30-6.10); WHITE BLOOD COUNT 8.8 10^3/uL (4.0-10.0)
[2024-05-13 14:33] LABS: ALBUMIN 3.1 G/DL (3.2-5.2); ALKALINE PHOSPHATASE 86 U/L (46-116); ALT/SGPT 20 U/L (7.0-40); AST/SGOT 24 U/L (<34); BILIRUBIN,TOTAL 0.4 MG/DL (0.3-1.2); BLOOD UREA NITROGEN 19 MG/DL (9-23); CALCIUM LEVEL 9.2 MG/DL (8.3-10.6); CARBON DIOXIDE LEVEL 24 MMOL/L (20-31); CHLORIDE LEVEL 109 MMOL/L (98-107); CREATININE FOR GFR 0.63 MG/DL (0.70-1.30); GLOMERULAR FILTRATION RATE > 60.0 (>42); GLUCOSE, FASTING 143 MG/DL (74-106); POTASSIUM SERUM 4.7 MMOL/L (3.5-5.1); SODIUM LEVEL 141 MMOL/L (136-145); TOTAL PROTEIN 6.9 G/DL (5.7-8.2)
== END ==
LOC: SKLAB3 07:52
PROVIDERS: ATTEND Internal Medicine
DX: I10 Essential (primary) hypertension (principal)

== ENCOUNTER 2024-05-16 19:07 | Emergency (ER) | payer MEDICARE, OTHER ==
[~2024-05-16] VITALS: Ht 182.9 cm; Wt 100.0 kg
[~2024-05-16 19:07] MED LIST changes: -AMLO2.5T3 PO; -FLEEENE12 PR; -VIMP150T PO
[2024-05-16 19:21] VITALS: TEMP 98
[2024-05-16] MEDS ORDERED: AMLO2.5T3 PO (19:57)
[2024-05-16] MEDS ORDERED: VIMP150T PO (20:04)
[2024-05-16] MEDS ORDERED: FLEEENE12 PR (20:04)
[2024-05-16 20:30] VITALS: BP 158/78; O2SAT 100
[2024-05-16] MEDS ORDERED: HOME MED LIST COMPLETE! XX SCH (21:15)
== END 2024-05-16 23:01 | disposition home or self-care (01) ==
LOC: EDBD 19:07 → M ED 19:07
DX: S30.0XXA Contusion of lower back and pelvis, initial encounter (principal); W07.XXXA Fall from chair, initial encounter; M51.36 Other intervertebral disc degeneration, lumbar region; M51.37 Other intervertebral disc degeneration, lumbosacral region; M43.16 Spondylolisthesis, lumbar region; E11.9 Type 2 diabetes mellitus without complications; G40.909 Epilepsy, unspecified, not intractable, without status epilepticus; G43.909 Migraine, unspecified, not intractable, without status migrainosus; Z86.79 Personal history of other diseases of the circulatory system; Y92.128 Other place in nursing home as the place of occurrence of the external cause; Y93.89 Activity, other specified; Y99.9 Unspecified external cause status; Z79.01 Long term (current) use of anticoagulants; Z87.442 Personal history of urinary calculi; Z79.82 Long term (current) use of aspirin; Z79.899 Other long term (current) drug therapy

== ENCOUNTER → 2024-06-01 | Outpatient (REF) | payer MEDICARE, OTHER ==
[~2024-06-01] MED LIST changes: +AMLO2.5T3 PO; +FLEEENE12 PR; +VIMP150T PO
[2024-06-01 13:04] LABS: BASO % 0.4 % (0.0-1.0); EOS # 0.1 10^3/uL (0.0-0.5); EOS % 1.3 % (0.0-3.0); HEMATOCRIT 42.7 % (42.0-52.0); HEMOGLOBIN 13.5 g/dl (13.5-17.5); LYMPH # 1.9 10^3/uL (1.5-5.0); LYMPH % 27.6 % (24.0-44.0); MEAN CORPUSCULAR HEMOGLOBIN 25.1 pg (27.0-33.0); MEAN CORPUSCULAR HGB CONC 31.6 g/dl (32.0-36.5); MEAN CORPUSCULAR VOLUME 79.5 fl (80.0-96.0); MONO # 0.5 10^3/uL (0.0-0.8); MONO % 7.6 % (2.0-8.0); NEUTROPHILS # 4.3 10^3/uL (1.5-8.5); NEUTROPHILS % 62.7 % (36.0-66.0); PLATELET COUNT, AUTOMATED 296 10^3/uL (150-450); RED BLOOD COUNT 5.37 10^6/uL (4.30-6.10); WHITE BLOOD COUNT 6.8 10^3/uL (4.0-10.0)
[2024-06-01 13:31] LABS: ALKALINE PHOSPHATASE 76 U/L (46-116); ALT/SGPT 17 U/L (7.0-40); AST/SGOT 12 U/L (<34); BILIRUBIN,TOTAL 0.3 MG/DL (0.3-1.2); BLOOD UREA NITROGEN 18 MG/DL (9-23); CALCIUM LEVEL 8.4 MG/DL (8.3-10.6); CARBON DIOXIDE LEVEL 26 MMOL/L (20-31); CHLORIDE LEVEL 109 MMOL/L (98-107); CREATININE FOR GFR 0.64 MG/DL (0.70-1.30); GLOMERULAR FILTRATION RATE > 60.0 (>42); GLUCOSE, FASTING 123 MG/DL (74-106); POTASSIUM SERUM 4.2 MMOL/L (3.5-5.1); SODIUM LEVEL 138 MMOL/L (136-145); TOTAL PROTEIN 6.4 G/DL (5.7-8.2)
== END ==
LOC: SKLAB3 12:32
PROVIDERS: ATTEND Internal Medicine
DX: R30.0 Dysuria (principal)

== ENCOUNTER 2024-07-15 15:49 | Emergency (ER) | payer MEDICARE, OTHER ==
[~2024-07-15] VITALS: Ht 188 cm; Wt 100.0 kg
[2024-07-15] MEDS ORDERED: BISA10SU4 PR (23:52)
[2024-07-15] MEDS ORDERED: HOME MED LIST COMPLETE! XX SCH (23:55)
[2024-07-16 01:31] VITALS: BP 171/94; TEMP 97; O2SAT 97
== END 2024-07-16 01:43 | disposition short-term general hospital (02) ==
LOC: EDBD 15:49 → EDUNIT# 15:49 → M ED 15:49
DX: T18.9XXA Foreign body of alimentary tract, part unspecified, initial encounter (principal); I10 Essential (primary) hypertension; G40.909 Epilepsy, unspecified, not intractable, without status epilepticus; K80.20 Calculus of gallbladder without cholecystitis without obstruction; K59.00 Constipation, unspecified; F03.90 Unspecified dementia, unspecified severity, without behavioral disturbance, psychotic disturbance, mood disturbance, and anxiety; I35.0 Nonrheumatic aortic (valve) stenosis; Z79.01 Long term (current) use of anticoagulants; Z79.82 Long term (current) use of aspirin; Z79.899 Other long term (current) drug therapy; Z79.1 Long term (current) use of non-steroidal anti-inflammatories (NSAID)

== ENCOUNTER 2024-08-01 07:15 | Emergency (ER) | payer MEDICARE, OTHER ==
[~2024-08-01] VITALS: Ht 188 cm; Wt 96.5 kg
[~2024-08-01 07:15] MED LIST changes: -ALIG4CAP; +ALIG4CAP3; +BISA10SU4 PR
[2024-08-01] MEDS: NS 500 ML IV ONE ×2 (08:06→09:00)
[2024-08-01 08:15] LABS: BASO % 0.5 % (0.0-1.0); EOS # 0.2 10^3/uL (0.0-0.5); EOS % 3.7 % (0.0-3.0); HEMATOCRIT 45.9 % (42.0-52.0); HEMOGLOBIN 14.5 g/dl (13.5-17.5); LYMPH # 1.6 10^3/uL (1.5-5.0); LYMPH % 25.6 % (24.0-44.0); MEAN CORPUSCULAR HGB CONC 31.6 g/dl (32.0-36.5); MEAN CORPUSCULAR VOLUME 82.4 fl (80.0-96.0); MONO # 0.4 10^3/uL (0.0-0.8); MONO % 6.2 % (2.0-8.0); NEUTROPHILS # 3.9 10^3/uL (1.5-8.5); NEUTROPHILS % 63.5 % (36.0-66.0); PLATELET COUNT, AUTOMATED 254 10^3/uL (150-450); RED BLOOD COUNT 5.57 10^6/uL (4.30-6.10); WHITE BLOOD COUNT 6.1 10^3/uL (4.0-10.0)
[2024-08-01 08:30] LABS: INR 0.95; PARTIAL THROMBOPLASTIN TIME 29.8 SECONDS (24.8-34.2)
[2024-08-01 08:41] LABS: ALKALINE PHOSPHATASE 61 U/L (40-129); ALT/SGPT 21 U/L (7.0-40); AST/SGOT 51 U/L (<34); BILIRUBIN,DIRECT < 0.1 MG/DL (<0.4); BILIRUBIN,TOTAL 0.4 MG/DL (0.3-1.2); BLOOD UREA NITROGEN 23 MG/DL (9-23); CALCIUM LEVEL 8.8 MG/DL (8.3-10.6); CARBON DIOXIDE LEVEL 25 MMOL/L (20-31); CHLORIDE LEVEL 107 MMOL/L (98-107); CREATININE FOR GFR 0.72 MG/DL (0.70-1.30); GLOMERULAR FILTRATION RATE > 60.0 (>42); GLUCOSE, FASTING 117 MG/DL (74-106); POTASSIUM SERUM 5.8 MMOL/L (3.5-5.1); SODIUM LEVEL 138 MMOL/L (136-145); TOTAL PROTEIN 6.8 G/DL (5.7-8.2)
[2024-08-01] MEDS: levETIRAcetam INJection 1,000 MG in D5W 100 ML IV ONE (08:42)
[2024-08-01] MEDS: LIDOCAINE 2% 5ML JELLY UROJET TOP ONE (09:00)
[2024-08-01 09:55] LABS: KETONE, URINE AUTO RFX NEGATIVE (NEGATIVE); LEUKOCYTE ESTERASE UR AUTO RFX NEGATIVE (NEGATIVE); MUCUS, URINE RFX SMALL (NEGATIVE); NITRITE, URINE AUTO RFX NEGATIVE (NEGATIVE); RBC, URINE AUTO RFX 1 /HPF (0-3); SQUAM EPITHELIAL CELL UR AURFX 1 /HPF (0-6); WBC, URINE AUTO RFX 2 /HPF (0-3)
[2024-08-01] MEDS ORDERED: VIMP200T PO (11:18)
[2024-08-01] MEDS ORDERED: KEPP250T5 PO (11:21)
[2024-08-01 11:42] VITALS: BP 95/50; TEMP 96.5; O2SAT 98
== END 2024-08-01 11:47 | disposition home or self-care (01) ==
LOC: EDBD 07:15 → M ED 09:04
DX: G40.909 Epilepsy, unspecified, not intractable, without status epilepticus (principal); W01.0XXA Fall on same level from slipping, tripping and stumbling without subsequent striking against object, initial encounter; I44.0 Atrioventricular block, first degree; I44.4 Left anterior fascicular block; E11.9 Type 2 diabetes mellitus without complications; I10 Essential (primary) hypertension; E78.5 Hyperlipidemia, unspecified; Z79.01 Long term (current) use of anticoagulants; Z87.442 Personal history of urinary calculi; Z96.653 Presence of artificial knee joint, bilateral; Y92.128 Other place in nursing home as the place of occurrence of the external cause; Y93.89 Activity, other specified; Y99.9 Unspecified external cause status; Z79.82 Long term (current) use of aspirin; Z79.899 Other long term (current) drug therapy
CPT/HCPCS: 51701; 70450; 72125; 80047; 80048; 80076; 80235; 81001; 85025; 85610; 85730; 93005; 93041; 96361; 96374; 99285; J1953

== ENCOUNTER → 2024-09-21 | Outpatient (REF) | payer MEDICARE, OTHER ==
[~2024-09-21] MED LIST changes: +KEPP250T5 PO; +VIMP200T PO
[2024-09-21 08:43] LABS: KETONE, URINE AUTO RFX NEGATIVE (NEGATIVE); LEUKOCYTE ESTERASE UR AUTO RFX NEGATIVE (NEGATIVE); MUCUS, URINE RFX SMALL (NEGATIVE); NITRITE, URINE AUTO RFX NEGATIVE (NEGATIVE); RBC, URINE AUTO RFX 1 /HPF (0-3); SQUAM EPITHELIAL CELL UR AURFX 1 /HPF (0-6); WBC, URINE AUTO RFX 2 /HPF (0-3)
== END ==
LOC: SKLAB3 07:54
PROVIDERS: ATTEND Internal Medicine
DX: R41.82 Altered mental status, unspecified (principal)

== ENCOUNTER → 2024-10-09 | Outpatient (REF) | payer MEDICARE, OTHER ==
[2024-10-09 10:58] LABS: HEMATOCRIT 47.3 % (42.0-52.0); HEMOGLOBIN 14.8 g/dl (13.5-17.5); MEAN CORPUSCULAR HEMOGLOBIN 27.1 pg (27.0-33.0); MEAN CORPUSCULAR HGB CONC 31.3 g/dl (32.0-36.5); MEAN CORPUSCULAR VOLUME 86.6 fl (80.0-96.0); PLATELET COUNT, AUTOMATED 218 10^3/uL (150-450); RED BLOOD COUNT 5.46 10^6/uL (4.30-6.10); WHITE BLOOD COUNT 6.5 10^3/uL (4.0-10.0)
[2024-10-09 11:18] LABS: HEMOGLOBIN A1c 5.8 % (4.0-6.0)
[2024-10-09 11:37] LABS: ALBUMIN 2.9 G/DL (3.2-5.2); ALKALINE PHOSPHATASE 71 U/L (40-129); ALT/SGPT 15 U/L (7.0-40); AST/SGOT 8 U/L (<34); BILIRUBIN,TOTAL 0.4 MG/DL (0.3-1.2); BLOOD UREA NITROGEN 22 MG/DL (9-23); CARBON DIOXIDE LEVEL 27 MMOL/L (20-31); CHLORIDE LEVEL 106 MMOL/L (98-107); CREATININE FOR GFR 0.57 MG/DL (0.70-1.30); GLOMERULAR FILTRATION RATE > 60.0 (>42); GLUCOSE, FASTING 134 MG/DL (74-106); POTASSIUM SERUM 4.2 MMOL/L (3.5-5.1); SODIUM LEVEL 143 MMOL/L (136-145); TOTAL PROTEIN 5.9 G/DL (5.7-8.2)
== END ==
LOC: SKLAB3 07:00
PROVIDERS: ATTEND Internal Medicine
DX: G40.909 Epilepsy, unspecified, not intractable, without status epilepticus (principal); I10 Essential (primary) hypertension; E11.9 Type 2 diabetes mellitus without complications

== ENCOUNTER → 2024-10-12 | Outpatient (REF) | payer MEDICARE, OTHER | LOC: SKLAB3 12:31 | PROVIDERS: ATTEND Internal Medicine | DX: R05.9 Cough, unspecified (principal) ==

== ENCOUNTER → 2024-10-14 | Outpatient (REF) | payer MEDICARE, OTHER | LOC: SKLAB3 14:54 | PROVIDERS: ATTEND Internal Medicine | DX: R05.9 Cough, unspecified (principal); R50.9 Fever, unspecified; R91.8 Other nonspecific abnormal finding of lung field; Z95.2 Presence of prosthetic heart valve ==

== ENCOUNTER → 2024-11-12 | Outpatient (REF) | payer MEDICARE, OTHER ==
[2024-11-12 21:05] LABS: KETONE, URINE AUTO RFX NEGATIVE (NEGATIVE); LEUKOCYTE ESTERASE UR AUTO RFX TRACE (NEGATIVE); MUCUS, URINE RFX SMALL (NEGATIVE); NITRITE, URINE AUTO RFX NEGATIVE (NEGATIVE); RBC, URINE AUTO RFX 11 /HPF (0-3); SQUAM EPITHELIAL CELL UR AURFX 1 /HPF (0-6); WBC, URINE AUTO RFX 4 /HPF (0-3)
== END ==
LOC: SKLAB3 20:30
PROVIDERS: ATTEND Nurse Practitioner Family
DX: F03.911 Unspecified dementia, unspecified severity, with agitation (principal); Z79.899 Other long term (current) drug therapy

== ENCOUNTER → 2025-03-16 | Outpatient (CLI) | payer MEDICARE, OTHER ==
[~2025-03-16] MED LIST changes: -DEPA250T32 PO; +DIVA-41 PO; +DIVA-65 PO; -DIVA500T94 PO; -FLOM0.4C39 PO; -GLUC1KIT IM; +GLUC1VIA14 IM; +TAMS-18 PO
== END ==
LOC: M PLAIMG 10:15
PROVIDERS: ATTEND Registered Nurse
DX: I35.8 Other nonrheumatic aortic valve disorders (principal)

== ENCOUNTER → 2025-03-30 | Outpatient (REF) | payer MEDICARE, OTHER ==
[2025-03-30 08:30] LABS: PLATELET COUNT, AUTOMATED 220 10^3/uL (150-450)
[2025-03-30 08:52] LABS: ALT/SGPT 15 U/L (7.0-40); AST/SGOT 14 U/L (<34); CALCIUM LEVEL 8.5 MG/DL (8.3-10.6); CARBON DIOXIDE LEVEL 25 MMOL/L (20-31); CHLORIDE LEVEL 107 MMOL/L (98-107); CHOLESTEROL LEVEL 202 MG/DL (<200); CHOLESTEROL RISK RATIO 4.44 (<5); CREATININE FOR GFR 0.72 MG/DL (0.70-1.30); GLOMERULAR FILTRATION RATE > 90.0 (>42); LDL CHOLESTEROL 130.8 MG/DL (<100); NON-HDL-C 156.6 MG/DL; POTASSIUM SERUM 4.1 MMOL/L (3.5-5.1); SODIUM LEVEL 144 MMOL/L (136-145); TRIGLYCERIDES LEVEL 129 MG/DL (<150)
[2025-03-30 09:22] LABS: ESTIMATED AVERAGE GLUCOSE 120.0 MG/DL (60-110)
== END ==
LOC: SKLAB3 07:00
PROVIDERS: ATTEND Internal Medicine
DX: G40.909 Epilepsy, unspecified, not intractable, without status epilepticus (principal); E78.5 Hyperlipidemia, unspecified; I10 Essential (primary) hypertension; E11.9 Type 2 diabetes mellitus without complications

== ENCOUNTER → 2025-04-15 | Outpatient (REF) | payer MEDICARE, OTHER ==
[2025-04-15 15:00] LABS: PLATELET COUNT, AUTOMATED 203 10^3/uL (150-450)
[2025-04-15 15:26] LABS: CALCIUM LEVEL 7.7 MG/DL (8.3-10.6); CARBON DIOXIDE LEVEL 23 MMOL/L (20-31); CHLORIDE LEVEL 106 MMOL/L (98-107); CREATININE FOR GFR 0.82 MG/DL (0.70-1.30); GLOMERULAR FILTRATION RATE > 90.0 (>42); POTASSIUM SERUM 4.1 MMOL/L (3.5-5.1); SODIUM LEVEL 139 MMOL/L (136-145)
== END ==
LOC: SKLAB3 13:21
PROVIDERS: ATTEND Internal Medicine
DX: I10 Essential (primary) hypertension (principal)

== ENCOUNTER → 2025-07-21 | Outpatient (REF) | payer MEDICARE, OTHER ==
[~2025-07-21] MED LIST changes: -LACO150T PO; +LACO150T9 PO
[2025-07-21 07:53] LABS: PLATELET COUNT, AUTOMATED 222 10^3/uL (150-450)
[2025-07-21 08:15] LABS: ALT/SGPT 16 U/L (7.0-40); AST/SGOT 19 U/L (<34); CALCIUM LEVEL 8.5 MG/DL (8.3-10.6); CARBON DIOXIDE LEVEL 23 MMOL/L (20-31); CHLORIDE LEVEL 108 MMOL/L (98-107); CREATININE FOR GFR 0.76 MG/DL (0.70-1.30); GLOMERULAR FILTRATION RATE > 90.0 (>42); POTASSIUM SERUM 4.4 MMOL/L (3.5-5.1); SODIUM LEVEL 144 MMOL/L (136-145)
[2025-07-24 01:11] LABS: LEVETIRACETAM (KEPPRA) 7.8 mcg/mL (6.0-46.0)
== END ==
LOC: SKLAB3 07:00
PROVIDERS: ATTEND Family Medicine
DX: G40.909 Epilepsy, unspecified, not intractable, without status epilepticus (principal); N18.9 Chronic kidney disease, unspecified; Z79.899 Other long term (current) drug therapy

== ENCOUNTER → 2025-08-18 | Outpatient (CLI) | payer MEDICARE, OTHER | LOC: M RAD 09:47 | PROVIDERS: ATTEND Nurse Practitioner Adult Health | DX: M79.604 Pain in right leg (principal) ==